=== PATIENT | female | born 1965 | race Caucasian/White ===

== ENCOUNTER 2016-09-28 09:40 | Emergency (ER) | payer OTHER ==
[~2016-09-28] VITALS: Ht 163.8 cm; Wt 99.8 kg
[~2016-09-28 09:40] MED LIST: AUGMENTIN 875-1 EACH PO; AUGMENTIN 875875 MG PO; CIPRODEX OTIC7.5 ML OT; CLINDAMYCIN HY300 MG PO; DILAUDID2 MG/M1 IV; DOCUSATE SODIU100 M3 PO; DOCUSATE SODIU100 MG PO; HALDOL 0.5MG T0.5 MG PO; IBU800 MG PO; IBUPROFEN800 M1 PO; K-DUR 20MEQ TA20 MEQ PO; LASIX20 MG PO; LEVEMIR 10100 UNITS/ SC; LEVEMIR FL100 UNIT/1 SC; LEVEMIR100 U/ML SC; LIDEX0.05 %/15 TOP; LISINOPRIL5 M1 PO; LYRICA75 MG PO; MEROPENEM1 GM IV; METFORMIN HCL500 M3 PO; MIRALAX119 GM PO; MIRALAX17 GM PO; MOTRIN 400 MG400 MG PO; MYCOSTATIN POWD15 GM TOP; NOVOLOG100 U/ML SC; OXYCODONE HYDRO10 M1 PO; OXYCONTIN10 MG PO; RISPERIDONE 1 MG1 MG PO; RISPERIDONE PO; RISPERIDONE1 MG PO; ROXICODONE5 MG PO; SENOKOT8.6 MG PO; TIGAN100 MG/1 M IM; TIGAN300 MG PO; TRAMADOL HCL50 M1 PO; TYLENOL500 MG PO
[2016-09-28 10:17] LABS: ABSOLUTE BASOPHIL COUNT 0 /CUMM (0.0-0.2); ABSOLUTE EOSINOPHIL COUNT 0.2 /CUMM (0.0-0.7); ABSOLUTE GRANULOCYTE CT 6.5 /CUMM (1.4-6.5); ABSOLUTE LYMPH COUNT 1.7 /CUMM (1.2-3.4); ABSOLUTE MONOCYTE COUNT 0.8 /CUMM (0.10-0.60); BASOPHIL % 0.5 % (0.0-2.0); EOSINOPHIL % 1.6 % (0-5); GRANULOCYTE % 70.6 % (42.2-75.2); HEMATOCRIT 34.1 % (37-47); MEAN CORPUSCULAR HGB 25.1 PG (27.0-31.0); MEAN CORPUSCULAR HGB CONC 32.2 G/DL (33.0-37.0); MEAN CORPUSCULAR VOLUME 78.1 FL (81.0-99.0); PLATELET COUNT 505 /CUMM (130-400); RBC DISTRIBUTION WIDTH 17.5 % (11.5-14.5); RED BLOOD CELL CT 4.37 /CUMM (4.20-5.40); WHITE BLOOD CELL COUNT 9.1 /CUMM (4.8-10.8)
--- NOTE | 2016-09-28 10:41 | ED GI/GU/ABDOMINAL COMPLAINT ---
History of Present Illness General Chief Complaint: General Adult Stated Complaint: ABD/BACK PAIN Source: patient, Exam Limitations: no limitations Vital Signs & Intake/Output Vital Signs & Intake/Output Vital Signs Date Time Temp Pulse Resp B/P Pulse O2 O2 Flow FiO2 Ox Delivery Rate 09/28 1625 75 14 145/68 97 Room Air 09/28 1345 97.0 80 20 140/90 98 Room Air 09/28 1223 97.0 84 150/90 09/28 1111 98.0 80 20 148/78 100 Room Air 09/28 0941 96.0 99 18 147/91 98 Room Air Room Air Allergies Coded Allergies: cefuroxime (From CEFTIN) (Intermediate, "LOST IT" 02/12/16) Reconcile Medications Insulin Detemir (Levemir Flextouch) 100 UNIT/ML (3 ML) INSULN.PEN 10 U SC BID PRN DIABETES (Reported) Lisinopril 5 MG TABLET 1 TAB PO DAILY HEART (Reported) Metformin HCl 500 MG TABLET 1 TAB PO BID DIABETES (Reported) Oxycodone HCl/Acetaminophen (Percocet 5-325 MG Tablet) 5 MG-325 MG TABLET 1 TAB PO Q6P PRN pain Risperidone 1 MG TAB 1 TAB PO BID MENTAL HEALTH (Reported) Tramadol HCl 50 MG TABLET 50 MG PO Q6 PAIN Triage Note: TRIAGE: 50 Y/O FEMALE PRESENTS WITH FAMILY - THE FAMILY REPORTS PATIENT DOES NTO SPEAK TELUGU. THE PATIENT NOTED TO BE SPEAKING INCOHERENTLY WITH TELUGU WORDS. APTIENT'S REPORTS PATIENT HASN'T SLEPT IN DAYS - 3 DAYS TO 10 DAYS, UNCLEAR. PATIENT REPORTS SEEING SNAKE AT NIGHT, REST OF SENTENCES UNCLEAR TO THIS RN. PATIENT ALSO REPORTS BACK PAIN. Triage Nurses Notes Reviewed? yes ? N Is pt currently ? No HPI: Patient presents for evaluation of left flank pain that began Thursday. Past History Travel History Traveled to [place] past 21 day No Medical History Any Pertinent Medical History? 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 No Review of Systems Review of Systems Constitutional: Reports: no symptoms. EENTM: Reports: no symptoms. Respiratory: Reports: no symptoms. Cardiovascular: Reports: no symptoms. GI: Reports: see HPI. Genitourinary: Reports: no symptoms. Musculoskeletal: Reports: no symptoms. Skin: Reports: no symptoms. Neurological/Psychological: Reports: no symptoms. Hematologic/Endocrine: Reports: no symptoms. Immunologic/Allergic: Reports: no symptoms. All Other Systems: Reviewed and Negative Physical Exam Physical Exam Gastrointestinal: normal bowel sounds (s), see below Comments: Gen.: Well-nourished, well-developed, no acute respiratory distress. Head: Normocephalic, atraumatic. Eyes: Normal inspection bilaterally Ears: Normal inspection bilaterally Nose: Normal inspection Throat/mouth : Moist mucosa Neck: Supple, full range of motion, no goiter Heart: Regular rate and rhythm, no murmurs rubs or gallops Lungs: Clear to auscultation bilaterally with normal air entry Chest: Nontender Back: Normal range of motion Abdomen: Soft, left lateral abdominal tenderness without rebound or guarding, nondistended, normal bowel sounds Extremities: Normal range of motion grossly, equal radial pulses, no cyanosis clubbing or edema Neurologic: Cranial nerves grossly intact, speech is clear Skin: warm and dry Psychiatric: Calm, cooperative, no apparent delusions or hallucinations Core Measures ACS in differential dx? No Severe Sepsis Present: No Septic Shock Present: No Progress Differential Diagnosis: splenomegaly, renal colic, abdominal metastases Plan of Care: Orders Procedure Date/time Status Add-on Test (ER Only) 09/28 1101 Active URINALYSIS 09/28 1101 Complete LIPASE 09/28 1008 Complete COMPREHENSIVE METABOLIC PANEL 09/28 1006 Complete CBC WITHOUT DIFFERENTIAL 09/28 1006 Complete Laboratory Tests 09/28/16 1514: Urinalysis LIGHT H, Urine Color YEL, Urine Clarity CLEAR, Urine pH 7.0, Ur Specific [place] 1.015, Urine Protein NEG, Urine Ketones NEG, Urine Nitrite NEG, Urine Bilirubin NEG, Urine Urobilinogen 0.2, Ur Leukocyte Esterase TRACE H, Ur Microscopic SEDIMENT EXAMINED, Urine WBC 3-5 H, Ur Epithelial Cells MOD H, Urine Bacteria FEW H, Urine Mucus RARE, Urine Hemoglobin NEG, Urine Glucose NEG 09/28/16 1008: Anion Gap 11, Estimated GFR > 60, BUN/Creatinine Ratio 18.0, Glucose 158 H, Calcium 8.9, Total Bilirubin 0.6, AST 15, ALT 25, Alkaline Phosphatase 75, Total Protein 7.2, Albumin 3.5, Globulin 3.7, Albumin/Globulin Ratio 0.9 L, Lipase 95 , CBC w Diff NO MAN DIFF REQ, RBC 4.37, MCV 78.1 L, MCH 25.1 L, RDW 17.5 H, MPV 7.0 L, Gran % 70.6, Lymphocytes % 18.2 L, Monocytes % 9.1, Eosinophils % 1.6, Basophils % 0.5, Absolute Granulocytes 6.5, Absolute Lymphocytes 1.7, Absolute Monocytes 0.8 H, Absolute Eosinophils 0.2, Absolute Basophils 0, PUBS MCHC 32.2 L Diagnostic Imaging: Discussed w/RAD: CT Scan. Radiology Impression: PATIENT: MATIAS FRASER PRESENT AGE: 50 PATIENT ACCOUNT NO: [id number] : 66 LOCATION: [facility] ORDERING PHYSICIAN: PATRICK MESA MD SERVICE DATE: 09/28/16 EXAM TYPE: CAT - CT ABD & PELVIS W/O IV CONTRAS EXAMINATION: CT ABDOMEN AND PELVIS WITHOUT CONTRAST CLINICAL INFORMATION: Left-sided flank pain. COMPARISON: 02/29/2016 TECHNIQUE: Multidetector volumetric imaging was performed from the superior aspect of the liver through the pubic symphysis. Sagittal and coronal reformatted images were obtained on the technologist's workstation. DLP: 1030 mGy-cm. FINDINGS: LUNG BASES: Relative minor linear densities most consistent with subsegmental atelectasis. No nodules or masses. No pleural disease. LIVER, GALLBLADDER, AND BILIARY TREE: The liver is normal in size, shape, and attenuation. No focal hepatic lesion or biliary ductal dilatation is present. Gallbladder is once again not visualized. No biliary dilatation. PANCREAS: Unremarkable. SPLEEN: Unremarkable. ADRENAL GLANDS: Unremarkable. KIDNEYS AND URETERS: There are bilateral nonobstructing lower pole calyceal stones. On the right, likely a solitary stone measures approximately 5.5 mm. On the left, tiny nonobstructing 1 mm lower pole calyceal stone. BLADDER: Unremarkable. GASTROINTESTINAL TRACT: The small and large bowel are unremarkable. The appendix is unremarkable. ABDOMINAL WALL: No significant hernia is appreciated. LYMPH NODES: Multiple rounded ovoid masses within the iliac lymph node chains bilaterally are new since baseline consistent with metastatic disease. On the right, at the level of the external lymph node chain, omental nodes measures up to 4.4 x 3.4 cm. Smaller lymph nodes are also noted along the hypogastric lymph node chains. On the left, the most dominant lymph node is along the hypogastric lymph node chain more rounded in morphology measuring up to 2.9 x 3 cm. Notable progression of lymph nodes throughout the retroperitoneum as well with the largest omental lymph nodes measuring up to 4.6 x 4 cm in the left para-aortic location. Similar lymph nodes are noted involving the common iliac lymph node chains. Extent of carcinomatosis is likely minimally progressive as well involving the greater omentum and serosa. No obstruction. Overall, there is decreasing ascites which is moderate in severity. VASCULAR: Unremarkable. PELVIC VISCERA: Large pelvic mass is related to adnexa and is also progressive now measuring up to approximately 7.6 x 7.4 cm. OSSEOUS STRUCTURES: Sclerotic lesion right sacrum stable. Degenerative changes noted throughout the lumbar spine with endplate sclerosis. No fracture. IMPRESSION: 1. No hydronephrosis. Bilateral nonobstructing right greater than left lower pole calyceal stones. 2. Decreasing amount of ascites overall but progression of metastatic disease. Pelvic cystic complex lesion enlarging as well as extensive lymphadenopathy throughout the retroperitoneum and pelvis. Progression of omental/ mesenteric lesions. DICTATED BY: ABRAHAN REYES MD DATE/TIME DICTATED:09/28/161321 FOOD SERVICE AIDE:ESAU DATE/TIME TRANSCRIBED:1321 CONFIDENTIAL, DO NOT COPY WITHOUT APPROPRIATE AUTHORIZATION. < Electronically signed in Other Vendor System> SIGNED BY: ABRAHAN REYES MD 1413 Initial ED EKG: none Comments: 09/28/2016 3:45:28 PM I've had a lengthy discussion with Sirisha is about the findings on her CAT scan. At this point I will control her pain and refer her back to hematology academic guidance specialist. Departure Departure Disposition: HOME OR SELF CARE Condition: Stable Clinical Impression Primary Impression: Ovarian cancer Qualifiers: Laterality: unspecified laterality Qualified Code: C56.9 - Malignant neoplasm of unspecified ovary Secondary Impressions: Lymphadenopathy, Malignant ascites Referrals: VALERIA WISEMAN APRN (PCP/Family) Additional Instructions: Percocet as prescribed for pain. Follow-up with your hematology academic guidance specialist this week for reevaluation. Return if any concerns or sudden worsening. Please note that there might be incidental findings in your evaluation that are unrelated to the current emergency department visit. Please notify your primary care doctor about this emergency department visit in order to obtain and review all of the testing performed so that these incidental findings can be monitored as needed. If you had an x-ray performed, please understand that some fractures may not be seen on the initial set of x-rays. If your symptoms persist you might need a repeat set of x-rays to check for such a fracture. If you had a laceration evaluated, please understand that foreign bodies such as glass or wood may not be visible to the naked eye or on plain x-rays. If the wound becomes red, swollen, increasingly more painful or if there is any drainage from the wound, please have it reevaluated by a physician for the possibility of a retained foreign body. Thank you for choosing the [facility] for your care. It was a pleasure to serve you today. Patrick Mesa M.D. [facility] Departure Forms: Customer Survey General Discharge Information Prescriptions: Current Visit Scripts Oxycodone HCl/Acetaminophen (Percocet 5-325 MG Tablet) 1 TAB PO Q6P PRN pain #10 TAB
--- NOTE | 2016-09-28 14:13 | CT SCAN REPORT ---
EXAMINATION: CT ABDOMEN AND PELVIS WITHOUT CONTRAST CLINICAL INFORMATION: Left-sided flank pain. COMPARISON: 02/29/2016 TECHNIQUE: Multidetector volumetric imaging was performed from the superior aspect of the liver through the pubic symphysis. Sagittal and coronal reformatted images were obtained on the technologist's workstation. DLP: 1030 mGy-cm. FINDINGS: LUNG BASES: Relative minor linear densities most consistent with subsegmental atelectasis. No nodules or masses. No pleural disease. LIVER, GALLBLADDER, AND BILIARY TREE: The liver is normal in size, shape, and attenuation. No focal hepatic lesion or biliary ductal dilatation is present. Gallbladder is once again not visualized. No biliary dilatation. PANCREAS: Unremarkable. SPLEEN: Unremarkable. ADRENAL GLANDS: Unremarkable. KIDNEYS AND URETERS: There are bilateral nonobstructing lower pole calyceal stones. On the right, likely a solitary stone measures approximately 5.5 mm. On the left, tiny nonobstructing 1 mm lower pole calyceal stone. BLADDER: Unremarkable. GASTROINTESTINAL TRACT: The small and large bowel are unremarkable. The appendix is unremarkable. ABDOMINAL WALL: No significant hernia is appreciated. LYMPH NODES: Multiple rounded ovoid masses within the iliac lymph node chains bilaterally are new since baseline consistent with metastatic disease. On the right, at the level of the external lymph node chain, omental nodes measures up to 4.4 x 3.4 cm. Smaller lymph nodes are also noted along the hypogastric lymph node chains. On the left, the most dominant lymph node is along the hypogastric lymph node chain more rounded in morphology measuring up to 2.9 x 3 cm. Notable progression of lymph nodes throughout the retroperitoneum as well with the largest omental lymph nodes measuring up to 4.6 x 4 cm in the left para-aortic location. Similar lymph nodes are noted involving the common iliac lymph node chains. Extent of carcinomatosis is likely minimally progressive as well involving the greater omentum and serosa. No obstruction. Overall, there is decreasing ascites which is moderate in severity. VASCULAR: Unremarkable. PELVIC VISCERA: Large pelvic mass is related to adnexa and is also progressive now measuring up to approximately 7.6 x 7.4 cm. OSSEOUS STRUCTURES: Sclerotic lesion right sacrum stable. Degenerative changes noted throughout the lumbar spine with endplate sclerosis. No fracture. IMPRESSION: 1. No hydronephrosis. Bilateral nonobstructing right greater than left lower pole calyceal stones. 2. Decreasing amount of ascites overall but progression of metastatic disease. Pelvic cystic complex lesion enlarging as well as extensive lymphadenopathy throughout the retroperitoneum and pelvis. Progression of omental/ mesenteric lesions.
[2016-09-28] MEDS ORDERED: PERCOCET 5-3251 EACH PO (15:51)
[2016-09-28 16:25] VITALS: BP 145/68
== END 2016-09-28 16:29 ==
LOC: ERH 09:40
PROVIDERS: Emergency Medicine
DX: C56.9 Malignant neoplasm of unspecified ovary (principal); R59.1 Generalized enlarged lymph nodes; R18.0 Malignant ascites
CPT/HCPCS: 74176; 81001

== ENCOUNTER 2017-01-27 13:28 | Emergency (ER) | payer OTHER ==
[~2017-01-27] VITALS: Ht 154.9 cm; Wt 103.9 kg
[~2017-01-27 13:28] MED LIST changes: +PERCOCET 5-3251 EACH PO
[2017-01-27 14:54] LABS: ABSOLUTE BASOPHIL COUNT 0 /CUMM (0.0-0.2); ABSOLUTE EOSINOPHIL COUNT 0.1 /CUMM (0.0-0.7); ABSOLUTE GRANULOCYTE CT 7.2 /CUMM (1.4-6.5); ABSOLUTE LYMPH COUNT 1.6 /CUMM (1.2-3.4); BASOPHIL % 0.4 % (0.0-2.0); EOSINOPHIL % 0.9 % (0-5); GRANULOCYTE % 72.3 % (42.2-75.2); MEAN CORPUSCULAR HGB 25.4 PG (27.0-31.0); MEAN CORPUSCULAR VOLUME 79.5 FL (81.0-99.0); MEAN PLATELET VOLUME 6.9 FL (7.4-10.4); PLATELET COUNT 505 /CUMM (130-400); RBC DISTRIBUTION WIDTH 16.5 % (11.5-14.5); RED BLOOD CELL CT 4.53 /CUMM (4.20-5.40); WHITE BLOOD CELL COUNT 9.9 /CUMM (4.8-10.8)
--- NOTE | 2017-01-27 14:56 | ED GI/GU/ABDOMINAL COMPLAINT ---
History of Present Illness General Chief Complaint: Abdominal Pain/Flank Pain Stated Complaint: L SIDE ABD/KIDNEY PAIN Source: patient, family Exam Limitations: no limitations Vital Signs & Intake/Output Vital Signs & Intake/Output Vital Signs Date Time Temp Pulse Resp B/P B/P Pulse O2 O2 Flow FiO2 Mean Ox Delivery Rate 01/27 1758 98.1 89 18 128/74 97 Room Air 01/27 1338 97.0 106 20 131/84 98 Room Air Allergies Coded Allergies: cefuroxime (From CEFTIN) (Intermediate, "LOST IT" 02/12/16) Reconcile Medications Acetaminophen (Athenol) 325 MG TABLET 1 TAB PO PRN PAIN (Reported) Hydrocodone/Acetaminophen (Silsbee 5-325 Tablet) 5 MG-325 MG TABLET 1-2 TAB PO Q4-6 PRN PRN pain Insulin Detemir (Levemir Flextouch) 100 UNIT/ML (3 ML) INSULN.PEN 8 U SC PRN DIABETES (Reported) Nitrofurantoin Monohyd/M-Cryst (Macrobid 100 MG Capsule) 100 MG CAPSULE 1 CAP PO BID uti with food Oxycodone HCl/Acetaminophen (Oxycodone-Acetaminophen 5-325) 5 MG-325 MG TABLET 1 TAB PO PRN PAIN (Reported) Triage Note: PT TO ED C/O LEFT FLANK PAIN, ABD PAIN SINCE THURSDAY. DENIES N/V/D. PT UNABLE TO EAT. Triage Nurses Notes Reviewed? yes ? n Is pt currently ? No Onset: Gradual Duration: day(s): (5) Timing: remote history Quality/Severity: moderate, sharpness Location: left flank, right flank Radiation: back Activities at Onset: none Modifying Factors: Worsens With: movement. HPI: Patient is a 51-year-old female with history of ovarian cancer, currently not on any treatment presenting to the emergency department with chief complaint of bilateral flank pain with pain going on since Thursday. Patient also reports that she noticed some blood in the urine over the weekend. She's been taking oxycodone that was prescribed to someone else over the weekend with some relief. No nausea or vomiting. Denies fevers or chills. Pain occasionally radiates down the back of her leg. Still drinking fluids without difficulty. Slight decreased by mouth intake secondary to pain. Pain is currently moderate. Worse when she lays on that side. Denies any lower extremity weakness. According to her friend she is currently waiting to hear back from her oncologist, they are working on setting her up with a new treatment plan for her ovarian cancer. Denies any recent changes in weight. She does go for paracentesis on a biweekly schedule. Last one was done less than one week ago. She is reporting some left flank pain and right flank pain as well. (CECI SURESH) Past History Travel History Traveled to [place] past 21 day No Medical History Any Pertinent Medical History? 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 No (CECI SURESH) Review of Systems Review of Systems Constitutional: Reports: no symptoms. Comments Review of systems: See HPI, All other systems negative. Constitutional, no chills fever or weight loss HEENT: No visual changes no sore throat no congestion Cardiovascular: No chest pain ,palpitation , orthopnea or ankle swelling Skin, no jaundice no rashes Respiratory: No dyspnea cough sputum or hemoptysis GI: No nausea no vomiting : No dysuria Muscle skeletal: no neck pain, Neurologic: No numbness no confusion Psych: No stress anxiety or depression,. Heme/endocrine: No bruising no bleeding no polyuria or polydipsia Immunology: No splenectomy or history of AIDS (CECI SURESH) Physical Exam Physical Exam General Appearance: well developed/nourished, no apparent distress, alert, awake , comfortable Gastrointestinal: normal bowel sounds, soft, LEFT FLANK TENDERNESS Comments: Well-developed well-nourished person in no acute distress HEENT: Pupils equally round and reactive to light and accommodation. Nose is atraumatic. Neck: Normal inspection Back: Left CVA tenderness Cardiovascular: Regular rate and rhythms no murmurs rubs or gallops, normal JVP Respiratory: Chest nontender. No respiratory distress.breath sounds clear to auscultation bilaterally Abdomen: Soft, tender to palpation in the left upper and left lower quadrant, positive tenderness to palpation over the left flank, old surgical scar noted over the midline of the abdomen, no surrounding erythema or edema. Nondistended , no appreciable organomegaly. Normal bowel sounds. No ascites. No ecchymosis noted over the abdomen or flank. Extremity: No edema, no calf tenderness to palpation, normal and equal pulses. Neuro: Alert oriented x3 Skin: No appreciable rash on exposed skin, skin is warm and dry. Psych: Mood and affect is normal, memory and judgment is normal. Core Measures ACS in differential dx? No Severe Sepsis Present: No Septic Shock Present: No (ANN MARIE DEMPSEY,CECI) Progress Differential Diagnosis: gastritis, UTI/pyelo, KDINEY STONE, URETEROLITHIASIS, HYDRONEPHROSIS, METS Plan of Care: Orders Procedure Date/time Status Add-on Test (ER Only) 01/27 1726 Active CULTURE,URINE 01/27 1446 Active URINALYSIS 01/27 1343 Complete COMPREHENSIVE METABOLIC PANEL 01/27 1343 Complete CBC WITHOUT DIFFERENTIAL 01/27 1343 Complete Laboratory Tests 01/27/17 1442: Anion Gap 10, Estimated GFR > 60, BUN/Creatinine Ratio 11.7, Glucose 196 H, Calcium 8.7, Total Bilirubin 0.5, AST 22, ALT 35, Alkaline Phosphatase 117, Total Protein 6.9, Albumin 3.5, Globulin 3.4, Albumin/Globulin Ratio 1.0 L, CBC w Diff NO MAN DIFF REQ, RBC 4.53, MCV 79.5 L, MCH 25.4 L, RDW 16.5 H, MPV 6.9 L, Gran % 72.3, Lymphocytes % 16.0 L, Monocytes % 10.4 H, Eosinophils % 0.9, Basophils % 0.4, Absolute Granulocytes 7.2 H, Absolute Lymphocytes 1.6, Absolute Monocytes 1.0 H, Absolute Eosinophils 0.1, Absolute Basophils 0, PUBS MCHC 32.0 L, Urine Color YEL, Urine Clarity HAZY H, Urine pH 6.0, Ur Specific Raymond 1.015, Urine Protein TRACE H, Urine Ketones NEG, Urine Nitrite NEG, Urine Bilirubin NEG, Urine Urobilinogen 0.2, Ur Leukocyte Esterase SMALL H, Ur Microscopic SEDIMENT EXAMINED, Urine RBC 25-50 H, Urine WBC 5-10 H, Ur Epithelial Cells MOD H, Urine Bacteria MOD H, Urine Mucus FEW, Urine Hemoglobin LARGE H, Urine Glucose NEG Microbiology 01/27 1446 URINE ROUT: Urine Culture - RECD Diagnostic Imaging: Viewed by Me: CT Scan. Discussed w/RAD: CT Scan. Radiology Impression: PATIENT: MATIAS FRASER PRESENT AGE: 51 PATIENT ACCOUNT NO: [id number] : 66 LOCATION: [facility] ORDERING PHYSICIAN: CECI DEMPSEY SERVICE DATE: 01/27/17 EXAM TYPE: CAT - CT ABD & PELVIS W/O IV CONTRAS; CT LUMB SPINE WO IV CONTRAST; CT THOR SPINE WO IV CONTRAST EXAMINATIONS: CT ABDOMEN AND PELVIS WITHOUT CONTRAST AND CT THORACIC SPINE AND LUMBAR SPINE CLINICAL INFORMATION: Abdominal pain. Ascites. Follow-up. COMPARISON: Multiple prior exams are reviewed. The most recent is from 2016. TECHNIQUE: Contiguous axial thin section helical images of the abdomen and pelvis were performed without oral or IV contrast. Contiguous helical images of the thoracic and lumbar spine were obtained. The data set was reformatted in the coronal and sagittal planes and reviewed on an independent workstation. DLP: 1140 mGy-cm. FINDINGS: There is streaky bibasilar atelectasis. The visualized portions of the heart are unremarkable. The liver is of normal size and attenuation without focal lesions nor intrahepatic biliary ductal dilation. The gallbladder is nonvisualized. The spleen, pancreas, adrenal glands are unremarkable. Both kidneys are of normal size and attenuation. There is a 6 mm nonobstructive calculus within the lower pole of the right kidney. There is no right-sided hydronephrosis. There is grade 1-2 left hydronephrosis. There is a moderate amount of abdominal free fluid. Again identified are numerous retroperitoneal lymph nodes in a periaortic location. This is improved from prior exam. The largest lymph node in a left periaortic location on the prior exam measured approximately 4.5 x 2.8 cm and the prior exam. That measures approximately 3.0 x 2.4 cm on the current exam. There is also iliac lymphadenopathy. This is improved from prior exam, as well. A left external iliac lymph node on the prior exam measured 3.3 x 2.5 cm. That measures 2.9 x 2.7 cm on the current exam. Normal unopacified loops of small and large bowel are identified. There is a moderate to large amount of pelvic free fluid. The urinary bladder is unremarkable. A cystic focus posterior to the urinary bladder measuring approximately 7.2 cm is similar to prior exam. Bone windows: Neither sclerotic nor lytic bone lesions are identified. The thoracic and lumbar vertebra are in normal alignment. Disc heights and vertebral body heights are well-preserved. There is mild anterior osteophyte formation within the thoracic and lumbar spine. IMPRESSION: Interval decrease in retroperitoneal and iliac lymphadenopathy. Moderate amount of abdominal and pelvic free fluid, slightly increased from prior exam. Nonobstructive right renal calculus. Left grade 1-2 hydronephrosis. Stable cystic pelvic lesion. Bibasilar atelectasis. DICTATED BY: LAZARO NAILS MD DATE/TIME DICTATED:01/27/171646 COLOR RECEIVER:ESAU DATE/TIME TRANSCRIBED:01/27/171646 CONFIDENTIAL, DO NOT COPY WITHOUT APPROPRIATE AUTHORIZATION. <Electronically signed in Other Vendor System> SIGNED BY: LAZARO NAILS MD 01/27/17 1701 Initial ED EKG: none Comments: Patient family informed of imaging results and lab work results. Patient has urinary tract infection, urine culture sent. She does have small amount of hard to on the left side, she does have a 6 mm stone in the kidney on the right side. No signs of metastasis to the bone noted on CT scan. Patient will be treated for UTI with antibiotics. Also sent home with pain medication. Patient feeling improved after pain medication. He'll follow up with urology. Also of all of but the PCP. Patient acute distress vitals are stable. HydRO from recently passed stone. Patient does have blood in the urine. (CECI SURESH) Departure Departure Time of Disposition: 1738 Disposition: HOME OR SELF CARE Condition: Stable Clinical Impression Primary Impression: Hydronephrosis Qualifiers: Hydronephrosis type: unspecified Qualified Code: N13.30 - Unspecified hydronephrosis Secondary Impressions: Flank pain Urinary tract infection Qualifiers: Urinary tract infection type: site unspecified Hematuria presence: with hematuria Qualified Codes: N39.0 - Urinary tract infection, site not specified; R31.9 - Hematuria, unspecified Referrals: VALERIA WISEMAN APRN (PCP/Family) YARON LIM,KEN GONZALEZ MD,SARAN PURI MD,FEDE MADDOX MD,JASON Heller Additional Instructions: Follow-up with your oncologist also follow-up with urology. Increase fluid intake. Take Silsbee as prescribed for severe pain. Return for worsening symptoms or concerns. ATIENT: MATIAS FRASER PRESENT AGE: 51 PATIENT ACCOUNT NO: [id number] : 66 LOCATION: [facility] ORDERING PHYSICIAN: CECI DEMPSEY SERVICE DATE: 01/27/17 EXAM TYPE: CAT - CT ABD & PELVIS W/O IV CONTRAS; CT LUMB SPINE WO IV CONTRAST; CT THOR SPINE WO IV CONTRAST EXAMINATIONS: CT ABDOMEN AND PELVIS WITHOUT CONTRAST AND CT THORACIC SPINE AND LUMBAR SPINE CLINICAL INFORMATION: Abdominal pain. Ascites. Follow-up. COMPARISON: Multiple prior exams are reviewed. The most recent is from 09/28/2016. TECHNIQUE: Contiguous axial thin section helical images of the abdomen and pelvis were performed without oral or IV contrast. Contiguous helical images of the thoracic and lumbar spine were obtained. The data set was reformatted in the coronal and sagittal planes and reviewed on an independent workstation. DLP: 1140 mGy-cm. FINDINGS: There is streaky bibasilar atelectasis. The visualized portions of the heart are unremarkable. The liver is of normal size and attenuation without focal lesions nor intrahepatic biliary ductal dilation. The gallbladder is nonvisualized. The spleen, pancreas, adrenal glands are unremarkable. Both kidneys are of normal size and attenuation. There is a 6 mm nonobstructive calculus within the lower pole of the right kidney. There is no right-sided hydronephrosis. There is grade 1-2 left hydronephrosis. There is a moderate amount of abdominal free fluid. Again identified are numerous retroperitoneal lymph nodes in a periaortic location. This is improved from prior exam. The largest lymph node in a left periaortic location on the prior exam measured approximately 4.5 x 2.8 cm and the prior exam. That measures approximately 3.0 x 2.4 cm on the current exam. There is also iliac lymphadenopathy. This is improved from prior exam, as well. A left external iliac lymph node on the prior exam measured 3.3 x 2.5 cm. That measures 2.9 x 2.7 cm on the current exam. Normal unopacified loops of small and large bowel are identified. There is a moderate to large amount of pelvic free fluid. The urinary bladder is unremarkable. A cystic focus posterior to the urinary bladder measuring approximately 7.2 cm is similar to prior exam. Bone windows: Neither sclerotic nor lytic bone lesions are identified. The thoracic and lumbar vertebra are in normal alignment. Disc heights and vertebral body heights are well-preserved. There is mild anterior osteophyte formation within the thoracic and lumbar spine. IMPRESSION: Interval decrease in retroperitoneal and iliac lymphadenopathy. Moderate amount of abdominal and pelvic free fluid, slightly increased from prior exam. Nonobstructive right renal calculus. Left grade 1-2 hydronephrosis. Stable cystic pelvic lesion. Bibasilar atelectasis. DICTATED BY: LAZARO NAILS MD DATE/TIME DICTATED:01/27/171646 COLOR RECEIVER:ESAU DATE/TIME TRANSCRIBED:01/27/171646 CONFIDENTIAL, DO NOT COPY WITHOUT APPROPRIATE AUTHORIZATION. <Electronically signed in Other Vendor System> SIGNED BY: LAZARO NAILS MD 01/27/17 9044 Departure Forms: Customer Survey General Discharge Information Prescriptions: Current Visit Scripts Hydrocodone/Acetaminophen (Silsbee 5-325 Tablet) 1-2 TAB PO Q4-6 PRN PRN pain #12 TAB Nitrofurantoin Monohyd/M-Cryst (Macrobid 100 MG Capsule) 1 CAP PO BID #14 CAP with food (CECI SURESH) PA/MEDICAL LAB TECHNICIAN Co-Sign Statement Statement: ED Attending supervision documentation- [] I saw and evaluated the patient. I have also reviewed all the pertinent lab results and diagnostic results. I agree with the findings and the plan of care as documented in the PA's/MEDICAL LAB TECHNICIAN's documentation. [x] I have reviewed the ED Record and agree with the PA's/MEDICAL LAB TECHNICIAN's documentation. [] Additions or exceptions (if any) to the PAs/MEDICAL LAB TECHNICIAN's note and plan are summarized below: [] (TIERRA GARCIA DO
[2017-01-27] MEDS ORDERED: OXYCODONE HCL15 M1 PO (15:32)
[2017-01-27] MEDS ORDERED: OXYCODONE-ACET1 EACH PO (15:33)
[2017-01-27] MEDS ORDERED: ATHENOL325 MG PO (15:34)
--- NOTE | 2017-01-27 17:01 | CT SCAN REPORT ---
EXAMINATIONS: CT ABDOMEN AND PELVIS WITHOUT CONTRAST AND CT THORACIC SPINE AND LUMBAR SPINE CLINICAL INFORMATION: Abdominal pain. Ascites. Follow-up. COMPARISON: Multiple prior exams are reviewed. The most recent is from 09/28/2016. TECHNIQUE: Contiguous axial thin section helical images of the abdomen and pelvis were performed without oral or IV contrast. Contiguous helical images of the thoracic and lumbar spine were obtained. The data set was reformatted in the coronal and sagittal planes and reviewed on an independent workstation. DLP: 1140 mGy-cm. FINDINGS: There is streaky bibasilar atelectasis. The visualized portions of the heart are unremarkable. The liver is of normal size and attenuation without focal lesions nor intrahepatic biliary ductal dilation. The gallbladder is nonvisualized. The spleen, pancreas, adrenal glands are unremarkable. Both kidneys are of normal size and attenuation. There is a 6 mm nonobstructive calculus within the lower pole of the right kidney. There is no right-sided hydronephrosis. There is grade 1-2 left hydronephrosis. There is a moderate amount of abdominal free fluid. Again identified are numerous retroperitoneal lymph nodes in a periaortic location. This is improved from prior exam. The largest lymph node in a left periaortic location on the prior exam measured approximately 4.5 x 2.8 cm and the prior exam. That measures approximately 3.0 x 2.4 cm on the current exam. There is also iliac lymphadenopathy. This is improved from prior exam, as well. A left external iliac lymph node on the prior exam measured 3.3 x 2.5 cm. That measures 2.9 x 2.7 cm on the current exam. Normal unopacified loops of small and large bowel are identified. There is a moderate to large amount of pelvic free fluid. The urinary bladder is unremarkable. A cystic focus posterior to the urinary bladder measuring approximately 7.2 cm is similar to prior exam. Bone windows: Neither sclerotic nor lytic bone lesions are identified. The thoracic and lumbar vertebra are in normal alignment. Disc heights and vertebral body heights are well-preserved. There is mild anterior osteophyte formation within the thoracic and lumbar spine. IMPRESSION: Interval decrease in retroperitoneal and iliac lymphadenopathy. Moderate amount of abdominal and pelvic free fluid, slightly increased from prior exam. Nonobstructive right renal calculus. Left grade 1-2 hydronephrosis. Stable cystic pelvic lesion. Bibasilar atelectasis.
[2017-01-27] MEDS ORDERED: NORCO 5-325 TA1 EACH PO (17:41)
[2017-01-27] MEDS ORDERED: MACROBID 100 M100 MG PO (17:41)
[2017-01-27 17:58] VITALS: BP 128/74
== END 2017-01-27 18:12 ==
LOC: ERH 13:28
PROVIDERS: Emergency Medicine
DX: N13.30 Unspecified hydronephrosis (principal); N39.0 Urinary tract infection, site not specified; R10.9 Unspecified abdominal pain; I10 Essential (primary) hypertension; E11.9 Type 2 diabetes mellitus without complications; Z79.4 Long term (current) use of insulin
CPT/HCPCS: 74176; 81001; 87086; 96374

== ENCOUNTER → 2017-02-03 | Day surgery (SDC) | payer OTHER ==
[~2017-02-03] VITALS: Ht 154.9 cm; Wt 103.4 kg
[~2017-02-03] MED LIST changes: +ATHENOL325 MG PO; +MACROBID 100 M100 MG PO; +NORCO 5-325 TA1 EACH PO; +OXYCODONE HCL15 M1 PO; +OXYCODONE-ACET1 EACH PO
--- NOTE | 2017-02-03 16:45 | Operative Report ---
Operative/Inv Procedure Report Surgery Date: 02/03/17 Name of Procedure: right ESWL, cysto LEFT stent insertion Pre-Operative Diagnosis: right stone: left hydro-no stone:tumor compression Post-Operative Diagnosis: same Estimated Blood Loss: scant Surgeon/Tool And Cutter Grinder: FEDE PURI MD Anesthesia: moderate sedation Specimens: none Complications: none Operative/Procedure Note Note: The patient was taken to the operating room and placed on the ESWL table in supine position. Time out was performed, with the patient awake, to confirm identity, procedure, laterality, and other pertinent danna-operative information. After adequate anesthesia, the patient was positioned so that the right flank was placed over the ESWL table cut-out, and overlying the dome of the shockwave generator. C-arm fluroscopy, as well as renal US was used to locate the stone, and evaluate the right kidney. The stone was visible on fluroloscopy at the right mid-pole. Renal US confirmed no hydronephrosis, with no additional stone seen in the right kidney. Using the C-Arm fluoroscopy in an A-P, and Oblique view, the position of the renal stone was optimized at the center of the crosshairs. At this point, E.S.W.L. was initiated at low power levels x 200 shocks. After noting the patient's tolerance to the shockwaves, the shockwave power level was quickly maximized. At the end of the procedure, the composition of the stone had changed significantly indicating the pulverization of the ureter stone. A total of 2500 shockwaves were delivered to the stone in order to achieve adequate lithotrypsy. Once the ESWL concluded, the pt. was repositioned in frog-legged position, draped and prepped in the usual surgical fashion. A 22 Swazi cystoscope sheath with a 30 angle lens was then inserted into the bladder. The bladder was thoroughly and systematically surveyed revealing no tumor no stone. Both ureteral orifices were in their orthotopic position. The LEFT orifice was identified, and using a 8 Swazi cone-tipped catheter, retrograde pyelogram was performed. LEFT sided hydronephrosis with slow drainage of contrast material was noted. At this point decided to place a stent. The LEFT orifice was intubated with a 0.035 Glidewire and advanced into the left renal pelvis without difficulty. Guidewire was inserted without difficulty. A a 6 x 22 Bard double- J stent was railroaded over the left gluidewire, with fluoroscopic visualization. With the proximal coil visualized in the left renal pelvis, and the distal coil seen in the bladder, the Glidewire was removed. The stent remained in proper place. The cystoscope was then removed after draining the bladder. The patient tolerated the procedures well, was awakened, and taken to recovery in satisfactory condition via stretcher. The pt will be dischared to home with pain meds, diet orders, and intructions to catch fragments with straining the urine. The patient is to have follow-up renal ultrasound and KUB within 1-2 weeks and f/u in the office after discharge. Discharge Disposition: PACU CC: FEDE PURI MD
== END ==
LOC: STS 01-29 07:00
DX: N20.0 Calculus of kidney (principal); N13.30 Unspecified hydronephrosis; C56.9 Malignant neoplasm of unspecified ovary; E11.8 Type 2 diabetes mellitus with unspecified complications
CPT/HCPCS: 81025; C2617; J0690; J2405

== ENCOUNTER 2017-07-20 01:25 | Inpatient (IN) | payer OTHER ==
[~2017-07-20] VITALS: Ht 154.9 cm; Wt 126.6 kg
[~2017-07-20 01:25] MED LIST changes: +DILAUDID2 M1 PO; +DILAUDID4 M1 PO; +FENTANYL1 EAC2 TOP; +GABAPENTIN100 M2 PO; +IBUPROFEN600 M1 PO; +ONDANSETRON ODT4 M1 PO; +PERCOCET 7.5-31 EACH PO; +RISPERDAL0.5 M1 PO; +RISPERDAL1 M1 PO; +SILVADENE20 GM TOP; +XARELTO15 M1 PO
--- NOTE | 2017-07-20 14:27 | Admission Core Measures ---
Acute Coronary Syndrome (CM) ACS Core Measures Acute Coronary Syndrome Diagnosis No Congestive Heart Failure (NEW) CHF Core Measures Congestive Heart Failure Diagnosis No Cerebrovascular Accident (NEW) CVA Core Measures CVA/TIA Diagnosis No Venous Thromboembolism VTE Core Derek (View Protocol) VTE Risk Factors VTE (Previous) No Mechanical VTE Prophylaxis d/t Surgical Contraindication No VTE Pharm Prophylaxis d/t NA PharmProphylax ordered Problem List As ranked by this Provider includes Assessment & Plan 1. Cellulitis HOME MEDS Home Med List Amoxicillin/Potassium Clav (Augmentin 875-125 Tablet) 875 MG-125 MG TABLET 1 TAB PO BID infection Gabapentin 100 MG CAPSULE 1 CAP PO BID NEUROPATHY (Reported) Hydromorphone HCl (Dilaudid) 4 MG TABLET 1 TAB PO Q3P PAIN (Reported) Ibuprofen 600 MG TABLET 1 TAB PO Q3P PRN PAIN (Reported) Risperidone (Risperdal) 1 MG TABLET 1 TAB PO BID MENTAL HEALTH (Reported) Rivaroxaban (Xarelto) 15 MG TABLET 1 TAB PO BID RLE DVT (Reported) Silver Sulfadiazine (Silvadene) 1 % CREAM..G. 1 RENETTA TOP DAILY infection
--- NOTE | 2017-07-20 14:53 | Patient Discharge Instructions ---
Discharge Instructions General Discharge Information You were seen/treated for: Right leg cellulitis You had these procedures: I&D Right lower extremity with wound vac placement Watch for these problems: Increasing pain despite the use of pain medication Increasing redness, warmth or swelling Drainage of any type from incision Inability to bear weight on operative leg Persistent nausea and vomiting Fever greater than 101.5 degrees Call Surgeon to remove: Other, wound vac Daily wet to dry dressings: No Other wound care: Daily dressing changes to left foot: Aquacel, kerlix, jt bandage. Wound vac change every two to three days Special Instructions: Follow up with Dr. Ricardo at the wound center in 1 week (08/04/17) Diet Continue normal diet: Yes Recommended Diet: Regular Activity Full Activity/No Limits: No Activity Self Limited: Yes Activity Limited to: Weight bear as tolerated Acute Coronary Syndrome Inclusion Criteria At DC or during hospital stay patient has or had the following: ACS DIAGNOSIS No Discharge Core Measures Meds if any: Prescribed or Continued at Discharge Meds if any: NOT Prescribed or Continued at Discharge Congestive Heart Failure Inclusion Criteria At DC or during hospital stay patient has or had the following: CHF DIAGNOSIS No Discharge Core Measures Meds if any: Prescribed or Continued at Discharge Meds if any: NOT Prescribed or Continued at Discharge Cerebrovascular accident Inclusion Criteria At DC or during hospital stay patient has or had the following: CVA/TIA Diagnosis No Discharge Core Measures Meds if any: Prescribed or Continued at Discharge Meds if any: NOT Prescribed or Continued at Discharge Venous thromboembolism Inclusion Criteria VTE Diagnosis No VTE Type NONE VTE Confirmed by (Test) NONE Discharge Core Measures - Per Current guidelines, there needs to be overlap - treatment for the first 5 days of Warfarin therapy. - If discharged on Warfarin prior to 5 days of - overlap therapy, the patient will need to be - assessed for post discharge needs including - *Post discharge parental anticoagulation - *Warfarin and/or parental anticoagulation education - *Follow up date to check INR post discharge At least 5 days overlap therapy as Inpatient No Meds if any: Prescribed or Continued at Discharge Note: Overlap Therapy is Warfarin and Anticoagulant Meds if any: NOT Prescribed or Continued at Discharge
--- NOTE | 2017-07-20 15:04 | Surgical Discharge Summary ---
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 Spouse Services at Home: None What is Your Primary Language? Bangladeshi Review of Systems: See H&P Hospital Course Course Attending Physician: Sonny Ricardo MD Primary Care Physician: Vicente Boyd APRN Hospital Course: Patient was admitted to hospital post-operatively following debridement of cellulitis of the right lower extremity with wound vac placement. She tolerated the procedure well and was transferred to a general surgical floor. Her wound was managed by our woundcare specialist. She was seen by infectous disease, who managed her antibiotics. Her diet was advanced and tolerated. Her pain was controlled with po pain medication. She was evaluated and treated by physical therapy. On 07/24/17 she underwent a paracentesis. She was taken back to the OR by on 07/27/17 for further debridement of her right lower extremity, and is expected to be discharged to short term rehab on 07/28/17 with plans for continued wound care. Complications: None Allergies: Coded Allergies: cefuroxime (From CEFTIN) (Intermediate, "LOST IT" 02/12/16) Disposition Summary Disposition Principal Diagnosis: Right lower extremity cellulitis Additional Diagnosis: None Discharge Disposition: SNF Discharge Instructions General Discharge Information Code Status: Full Code Patient's Diet: Regular, advance as tolerated Patient's Activity: WBAT Follow-Up Instructions/Appts: Follow up with Dr. Ricardo in wound center as directed Medications at Discharge Discharge Medications: Stop taking the following medications: Hydromorphone HCl (Dilaudid) 4 MG TABLET ORAL EVERY 3 HOURS NEEDED Silver Sulfadiazine (Silvadene) 1 % CREAM..G. On the skin DAILY Qty = 2 Amoxicillin/Potassium Clav (Augmentin 875-125 Tablet) 875 MG-125 MG TABLET ORAL TWICE DAILY Qty = 10 Continue taking these medications: Risperidone (Risperdal) 1 MG TABLET 1 Tablet ORAL TWICE DAILY Comments: Last Taken:07/01/17 Time:10:32AM Fentanyl (Fentanyl) 25 MCG/HOUR PATCH.TD72 Patch On the skin Every 3 days Comments: Last Taken:06/30/17 Time:9:28PM Rivaroxaban (Xarelto) 15 MG TABLET 1 Tablet ORAL TWICE DAILY Comments: Last Taken:07/01/17 Time:10:39AM Gabapentin (Gabapentin) 100 MG CAPSULE 1 Capsule ORAL TWICE DAILY Comments: Last Taken:06/30/17 Time:10:31AM Ibuprofen (Ibuprofen) 600 MG TABLET 1 Tablet ORAL EVERY 3 HOURS NEEDED as needed for PAIN Instructions: with food Copies To: Peewee Boyd APRN, MD,Damian Ruggiero
--- NOTE | 2017-07-20 15:46 | Operative Report ---
Operative/Inv Procedure Report Surgery Date: 07/20/17 Name of Procedure: Excisional debridement through muscle greater than 20 cm, application of VAC Pre-Operative Diagnosis: Chronic venous insufficiency with infected necrotic pretibial ulcer Post-Operative Diagnosis: same Estimated Blood Loss: scant Surgeon/Centrifugal Casting Machine Operator: Sonny Ricardo MD Anesthesia: local monitored anesthesi Complications: None Condition: Stable to PACU Operative Indication: This is a 51-year-old female with a history of venous insufficiency and a pretibial ulcer since April. She has not had appropriate debridement or wound care and the wound has been worsening. Recently the wound been draining seropurulent material and will require debridement. Consent was obtained from the patient and her . Operative/Procedure Note Note: Patient was laid supine and brought to the operating room table. A timeout was held in accordance with [facility] policy. Topical lidocaine was used due to the patient's wish not to have injectable lidocaine used. Using a 15 blade as well as a sharp curette a wide excisional debridement was down through dense necrotic tissue. Seropurulent fat necrosis was removed. Turbid fluid was also noted. A wide debridement was performed and hemostasis was achieved with Bovie electrocautery. The wound increased in depth as well as witdh in length. Adequate viable tissue was noted at the level of the muscle. Some small areas of muscle were debrided as well. However, overall this layer appears healthy. There appears to be dense fat necrosis throughout the pretibial surface of her lower extremity related to the infected wound. The wound was then pulse irrigated with 3 L of saline with antibiotic solution. Once hemostasis was achieved a vacuum-assisted closure dressing was placed. A VAC sponge was brought into the field cut to size and placed on the skin with a VAC drape. The leg was then wrapped in Kerlix and Joesph. The sponge needle and instrument counts were correct. Due to the extent of the wound and need for further wound care. The patient will be admitted for observation and for further care. She may require further operative debridement. Additional Comments: Due to the extent of the wound and need for further wound care. The patient will be admitted for observation and for further care. She may require further operative debridement. The patient will also require a course of antibiotics due to extensive soft tissue infection apparent after debridement of the surface eschar. CC: Maya LIM,Lukasz Carrion; Cuong LIM,Damian Ruggiero
[2017-07-20 16:39] VITALS: BP 108/70
--- NOTE | 2017-07-20 16:44 | PN- Orthopedic ---
Subjective Subjective: Pt asleep in bed, unpon waking complains of pain. Pt says she is very hungry. is very concerned that pt needs a paracentesis while she is here. He states that her oncologist Dr. Lee usually orders a paracentesis every 10 days and as of today 11 days have passed. Also, her xarelto needs to be help for this procedure and he doesnt want it to be help again. Objective Vital Signs and I&Os Vital Signs Date Time Temp Pulse Resp B/P B/P Pulse O2 O2 Flow FiO2 Mean Ox Delivery Rate 07/20 1639 97.6 72 18 108/70 93 Room Air Intake & Output 07/20 1600 07/20 0800 07/20 0000 07/19 1600 07/19 0700 07/19 0000 Intake Total Output Total Balance Patient 279 lb Weight Physical Exam: gen-NAD resp-CTAB cardio-RRR EXT- R leg with jt bandage and woundvac in place. Approximately 30cc serosang drainage in canister. Foot is warm with distal sensation and movement intact Assessment/Plan Assessment/Plan 51yo F SP Right leg debridement POD0 Cont ABX- Unasyn WOund vac- to be changed thursday by Kathe PT to eval and treat Xarelto to start tomorrow, Will have to speek to oncologist Dr. Lee as to weather she wants the pt to have a paracentesis while here Pain management Regular diet Encourage ambulation Core Measures Venous Thromboembolism VTE Risk Factors VTE (Previous) No Mechanical VTE Prophylaxis d/t Surgical Contraindication No VTE Pharm Prophylaxis d/t NA PharmProphylax ordered
[2017-07-20 18:23] VITALS: BP 114/60
[2017-07-20 21:00] VITALS: BP 124/70
[2017-07-20 23:03] VITALS: BP 130/68
[2017-07-21 01:25] VITALS: BP 116/64
[2017-07-21 05:00] VITALS: BP 102/60
[2017-07-21 08:55] LABS: ABSOLUTE BASOPHIL COUNT 0 /CUMM (0.0-0.2); ABSOLUTE EOSINOPHIL COUNT 0.2 /CUMM (0.0-0.7); ABSOLUTE GRANULOCYTE CT 9.2 /CUMM (1.4-6.5); ABSOLUTE LYMPH COUNT 0.9 /CUMM (1.2-3.4); ABSOLUTE MONOCYTE COUNT 0.7 /CUMM (0.10-0.60); BASOPHIL % 0.2 % (0.0-2.0); HEMATOCRIT 23.7 % (37-47); MEAN CORPUSCULAR HGB 25.7 PG (27.0-31.0); MEAN CORPUSCULAR HGB CONC 31.7 G/DL (33.0-37.0); MEAN CORPUSCULAR VOLUME 81.3 FL (81.0-99.0); MEAN PLATELET VOLUME 6.3 FL (7.4-10.4); PLATELET COUNT 678 /CUMM (130-400); RED BLOOD CELL CT 2.91 /CUMM (4.20-5.40)
[2017-07-21 09:00] VITALS: BP 122/74
[2017-07-21 09:42] LABS: GRANULOCYTE % 83.1 % (42.2-75.2)
[2017-07-21 13:08] VITALS: BP 126/82
--- NOTE | 2017-07-21 16:54 | PN- Vascular Surgery ---
Surgical Brief Attending Note Brief Attending Note: VASCULAR ATTENDING NOTE: Pt. is s/p RLE excisional debridement POD #1. No acute event. + C/o of pain requesting MSO4. PE: AF/VSS Ext: Wound VAC--C/D/I--L. foot wound changed A/P For VAC change tommorow Please medicate pt.. at 8 am for VAC change tommorow Pt. for paracentesis this admission as well Cont. ABX f/u cultures
[2017-07-21 22:19] VITALS: BP 140/80
[2017-07-22 06:20] VITALS: BP 120/66
[2017-07-22 09:36] LABS: ABSOLUTE BASOPHIL COUNT 0 /CUMM (0.0-0.2); ABSOLUTE EOSINOPHIL COUNT 0.2 /CUMM (0.0-0.7); ABSOLUTE GRANULOCYTE CT 9.2 /CUMM (1.4-6.5); ABSOLUTE LYMPH COUNT 0.9 /CUMM (1.2-3.4); ABSOLUTE MONOCYTE COUNT 0.9 /CUMM (0.10-0.60); BASOPHIL % 0.4 % (0.0-2.0); EOSINOPHIL % 1.6 % (0-5); HEMATOCRIT 24.6 % (37-47); MEAN CORPUSCULAR HGB 25.3 PG (27.0-31.0); MEAN CORPUSCULAR HGB CONC 30.9 G/DL (33.0-37.0); MEAN CORPUSCULAR VOLUME 81.8 FL (81.0-99.0); MEAN PLATELET VOLUME 6.3 FL (7.4-10.4); PLATELET COUNT 654 /CUMM (130-400); RED BLOOD CELL CT 3.01 /CUMM (4.20-5.40); WHITE BLOOD CELL COUNT 11.2 /CUMM (4.8-10.8)
[2017-07-22 14:00] VITALS: BP 112/74
--- NOTE | 2017-07-22 15:44 | PN- Vascular Surgery ---
Subjective Subjective: PT SEEN AND EXAMINED BY DR DEL ANGEL CO CONSTANT PAIN IN THE LE, REQUESTING MORPHINE Objective Vital Signs and I&Os Vital Signs Date Time Temp Pulse Resp B/P B/P Pulse O2 O2 Flow FiO2 Mean Ox Delivery Rate 07/22 1400 98.6 113 18 112/74 92 Room Air 07/22 0620 98.5 110 20 120/66 92 Room Air 07/21 2219 98.3 100 20 140/80 95 Intake & Output 07/22 1600 07/22 0800 07/22 0000 07/21 1600 07/21 0807/21 0000 Intake Total 048 794 9880 1100 780 Output Total 600 450 Balance 540 -230 1110 1100 330 Intake, IV 300 130 610 600 300 Intake, Oral 240 240 500 500 480 Output, Urine 600 450 Patient 279 lb Weight Weight Reported by Patient Measurement Method Physical Exam: EXAMINATION AND DRESSING CHANGE DONE BY DR DEL ANGEL Results Last 48 Hours of Labs: Laboratory Tests 07/22 07/21 0843 0803 Chemistry Sodium (137 - 145 mmol/L) 139 140 Potassium (3.5 - 5.1 mmol/L) 4.1 4.1 Chloride (98 - 107 mmol/L) 102 103 Carbon Dioxide (22 - 30 mmol/L) 27 28 Anion Gap (5 - 16) 10 10 BUN (7 - 17 mg/dL) 12 12 Creatinine (0.5 - 1.0 mg/dL) 0.5 0.6 Estimated GFR (>60 ml/min) > 60 > 60 BUN/Creatinine Ratio (7 - 25 %) 24.0 20.0 Hematology CBC w Diff NO MAN DIFF REQ NO MAN DIFF REQ WBC (4.8 - 10.8 /CUMM) 11.2 H 11.0 H RBC (4.20 - 5.40 /CUMM) 3.01 L 2.91 L Hgb (12.0 - 16.0 G/DL) 7.6 L 7.5 L Hct (37 - 47 %) 24.6 L 23.7 L MCV (81.0 - 99.0 FL) 81.8 81.3 MCH (27.0 - 31.0 PG) 25.3 L 25.7 L RDW (11.5 - 14.5 %) 22.0 H 22.0 H Plt Count (130 - 400 /CUMM) 654 H 678 H MPV (7.4 - 10.4 FL) 6.3 L 6.3 L Gran % (42.2 - 75.2 %) 82.0 H 83.1 H Lymphocytes % (20.5 - 51.1 %) 8.4 L 8.0 L Monocytes % (1.7 - 9.3 %) 7.6 6.7 Eosinophils % (0 - 5 %) 1.6 2.0 Basophils % (0.0 - 2.0 %) 0.4 0.2 Absolute Granulocytes (1.4 - 6.5 /CUMM) 9.2 H 9.2 H Absolute Lymphocytes (1.2 - 3.4 /CUMM) 0.9 L 0.9 L Absolute Monocytes (0.10 - 0.60 /CUMM) 0.9 H 0.7 H Absolute Eosinophils (0.0 - 0.7 /CUMM) 0.2 0.2 Absolute Basophils (0.0 - 0.2 /CUMM) 0 0 PUBS MCHC (33.0 - 37.0 G/DL) 30.9 L 31.7 L Assessment/Plan Assessment/Plan s/p RLE excisional debridement POD #2. No acute event. VAC change mwf needs snf for wound managment. labs stable Paracentesis was scheduled for this am however, pt did not want to have it done with the physician that would be performing it, she requested Dr Lindsay, to occur on thursday. next vac dressing change during paracentesis on thursday with Dr Del Angel, sedation needed for vac change and will have both done at the same time. Cont. ABX. cultures- PRELIM: klebsiella, morganni, beta strep group B Core Measures Venous Thromboembolism VTE Risk Factors VTE (Previous) No Mechanical VTE Prophylaxis d/t Surgical Contraindication No VTE Pharm Prophylaxis d/t NA PharmProphylax ordered
--- NOTE | 2017-07-22 16:36 | PN- Vascular Surgery ---
Surgical Brief Attending Note Brief Attending Note: VASCULAR ATTENDING NOTE: Pt. is s/p RLE excisional debridement POD #2. No acute event. Pt. pre- medicated for wound VAC change today. + positive for Morganella and Klebsiella PE: AF/VSS Ext: Wound VAC--C/D/I--Wound now with some gran. tissue, still mild exudate, L. foot wound changed A/P For VAC change Thursday--? if this can be performed during paracentesis as pt. will have sedation D/C planning--likely will require ECF b/c of new pain/wound issues Pt. for paracentesis this admission as well Will adjust ABX and d/w ID proper coverage
[2017-07-22 21:26] VITALS: BP 130/70
[2017-07-23 06:52] VITALS: BP 132/78
[2017-07-23 10:32] LABS: ABSOLUTE BASOPHIL COUNT 0.1 /CUMM (0.0-0.2); ABSOLUTE EOSINOPHIL COUNT 0.2 /CUMM (0.0-0.7); ABSOLUTE GRANULOCYTE CT 7.9 /CUMM (1.4-6.5); ABSOLUTE LYMPH COUNT 1.2 /CUMM (1.2-3.4); ABSOLUTE MONOCYTE COUNT 0.9 /CUMM (0.10-0.60); BASOPHIL % 1.2 % (0.0-2.0); HEMATOCRIT 24.7 % (37-47); MEAN CORPUSCULAR HGB 25.7 PG (27.0-31.0); MEAN CORPUSCULAR HGB CONC 31.5 G/DL (33.0-37.0); MEAN CORPUSCULAR VOLUME 81.4 FL (81.0-99.0); MEAN PLATELET VOLUME 6.3 FL (7.4-10.4); PLATELET COUNT 591 /CUMM (130-400); RBC DISTRIBUTION WIDTH 22.1 % (11.5-14.5); RED BLOOD CELL CT 3.04 /CUMM (4.20-5.40); WHITE BLOOD CELL COUNT 10.4 /CUMM (4.8-10.8)
--- NOTE | 2017-07-23 12:33 | PN- Vascular Surgery ---
Subjective Subjective: Patient still with complaints of severe pain although appears drowsy during my evaluation Objective Vital Signs and I&Os Vital Signs Date Time Temp Pulse Resp B/P B/P Pulse O2 O2 Flow FiO2 Mean Ox Delivery Rate 07/23 812 98.3 07/23 0635 98.8 07/23 0652 100.2 109 20 132/78 90 Room Air 07/23 0635 100.2 07/22 2126 98.7 101 18 130/70 93 07/22 1400 98.6 113 18 112/74 92 Room Air Intake & Output 07/23 1600 07/23 0800 07/23 0000 07/22 1600 07/22 0800 07/22 0000 Intake Total 600 580 700 540 370 Output Total 700 50 600 Balance 600 -120 650 540 -230 Intake, IV 100 100 300 130 Intake, Oral 600 480 600 240 240 Output, 50 Drainage Output, Urine 700 600 Physical Exam: Well-developed well-nourished, ao 3, no acute distress No respiratory distress Abdomen is distended, positive ascites, nontender Ext: RLE, Wound VAC: C/D/I-. granulation tissue noted, mild exudate Assessment/Plan Assessment/Plan s/p RLE excisional debridement POD #3. -wound culture + positive for Morganella, beta strep and Klebsiella, resistant to unasyn(which pt has been on), placed on cipro as of last night. ID consult pending, cont cipro until that time. -paracentesis for symptomatic relief tomorrow -will need to titrate patient off IV narcotics. Long discussion regarding this with her. -VAC change Thursday at bedside, dw IR, will not be sedating for paracentesis. -D/C planning--likely will require ECF b/c of new pain/wound issues, hopefully thursday/thursday discharge, advise against home discharge Core Measures Venous Thromboembolism VTE Risk Factors VTE (Previous) No Mechanical VTE Prophylaxis d/t Surgical Contraindication No VTE Pharm Prophylaxis d/t NA PharmProphylax ordered
[2017-07-23 14:13] VITALS: BP 118/84
--- NOTE | 2017-07-23 16:06 | Cons- Infect Disease ---
General Information and HPI Consulting Request Date of Consult: 07/23/17 Requested By: Sonny Ricardo MD Reason for Consult: Right lower extremity wound Source of Information: patient, old records Exam Limitations: language barrier History of Present Illness: This is a 51-year-old woman, [place]ander-speaking, with a history of stage IV ovarian cancer, status post 6 cycles of chemotherapy without response, with a recent CT of the abdomen and pelvis revealing progressive metastatic disease with multiple new lytic lesions in the spine and bony pelvis and increased peritoneal caking around the liver, with recurrent ascites, requiring palliative paracenteses every 10 days, and anemia, requiring frequent blood transfusions, with a right leg DVT, maintained on Xarelto, hypertension, nephrolithiasis, status post a left ureteral stent 6 months prior to admission for left hydronephrosis, which had persisted on a recent ultrasound, and venous stasis disease, with chronic bilateral lower extremity ulcerations, hospitalized 1 month prior to admission with lower extremity pain and leukocytosis, treated with a 10 day course of antibiotics for a presumed cellulitis of the right lower extremity, with an arterial Doppler of the right lower extremity revealing no evidence of hemodynamically significant stenosis, admitted on July 20 after she was taken to the OR for an excisional debridement through muscle of an infected, necrotic pretibial ulcer on the right lower extremity. On admission she was afebrile. She was begun on Unasyn postoperatively but was changed to Ciprofloxacin on July 22 to cover the gram-negative rods isolated from her OR culture. She has been afebrile until this morning when she was noted to have a low-grade fever of 100.2. Her white blood cell count has been essentially normal. At present she complains of pain in her left foot and right leg. Allergies/Medications Allergies: Coded Allergies: cefuroxime (From CEFTIN) (Intermediate, "LOST IT" 02/12/16) Home Med List: Amoxicillin/Potassium Clav (Augmentin 875-125 Tablet) 875 MG-125 MG TABLET 1 TAB PO BID infection 1 TABLET BID FOR 5 MORE DAYS. Fentanyl 25 MCG/HOUR PATCH.TD72 PAIN (Reported) Gabapentin 100 MG CAPSULE 1 CAP PO BID NEUROPATHY (Reported) Hydromorphone HCl (Dilaudid) 4 MG TABLET 1 TAB PO Q3P PAIN (Reported) Ibuprofen 600 MG TABLET 1 TAB PO Q3P PRN PAIN (Reported) with food Risperidone (Risperdal) 1 MG TABLET 1 TAB PO BID MENTAL HEALTH (Reported) Rivaroxaban (Xarelto) 15 MG TABLET 1 TAB PO BID RLE DVT (Reported) Silver Sulfadiazine (Silvadene) 1 % CREAM..G. 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 Home Who Do You Live With? spouse Services at Home: None Smoking Status: Former Smoker Functional Ability ADLs Independent: dressing, eating, toileting, bathing. Ambulation: independent IADLs Independent: shopping, housework, finances, food prep, telephone, transportation , medication admin. Review of Systems Review of Systems All Other Systems: Reviewed and Negative Exam & Diagnostic Data Last 24 Hrs of Vital Signs/I&O Vital Signs Date Time Temp Pulse Resp B/P B/P Pulse O2 O2 Flow FiO2 Mean Ox Delivery Rate 07/23 1413 98.0 96 20 118/84 91 07/23 0813 98.3 07/23 0735 98.8 07/23 0652 100.2 109 20 132/78 90 Room Air 07/23 0635 100.2 07/22 2126 98.7 101 18 130/70 93 Intake & Output 07/23 1600 07/23 0800 07/23 0000 Intake Total 600 580 Output Total 700 Balance 600 -120 Intake, IV 100 Intake, Oral 600 480 Output, Urine 700 Physical Exam Other Physical Findings: MAXIMUM TEMPERATURE 100.2. She is awake and alert in no acute distress. Skin reveals no rash. HEENT negative. Neck is supple with no adenopathy. Chest Port-A-Cath in the right upper chest with no inflammation at the site. Lungs are clear. Heart regular rhythm with no murmur. Abdomen is distended, nontender to palpation, with positive bowel sounds. Back no CVA tenderness. Extremities right leg dressing intact, with wound VAC in place; left leg with venous stasis changes, with no overlying ulcers or significant erythema or edema. Neuro is without focality. Last 24 Hours of Lab Results: Laboratory Tests 07/23 0946 Hematology CBC w Diff NO MAN DIFF REQ WBC (4.8 - 10.8 /CUMM) 10.4 RBC (4.20 - 5.40 /CUMM) 3.04 L Hgb (12.0 - 16.0 G/DL) 7.8 L Hct (37 - 47 %) 24.7 L MCV (81.0 - 99.0 FL) 81.4 MCH (27.0 - 31.0 PG) 25.7 L RDW (11.5 - 14.5 %) 22.1 H Plt Count (130 - 400 /CUMM) 591 H MPV (7.4 - 10.4 FL) 6.3 L Gran % (42.2 - 75.2 %) 76.0 H Lymphocytes % (20.5 - 51.1 %) 11.7 L Monocytes % (1.7 - 9.3 %) 9.1 Eosinophils % (0 - 5 %) 2.0 Basophils % (0.0 - 2.0 %) 1.2 Absolute Granulocytes (1.4 - 6.5 /CUMM) 7.9 H Absolute Lymphocytes (1.2 - 3.4 /CUMM) 1.2 Absolute Monocytes (0.10 - 0.60 /CUMM) 0.9 H Absolute Eosinophils (0.0 - 0.7 /CUMM) 0.2 Absolute Basophils (0.0 - 0.2 /CUMM) 0.1 PUBS MCHC (33.0 - 37.0 G/DL) 31.5 L ESR Westergren (0 - 20 MM) 107 H Last 24 Hours of Lucius Results: OR culture July 20 labeled right leg deep tissue positive for Morganella sensitive to Ciprofloxacin, Bactrim and Gentamicin, Klebsiella resistant to Ampicillin, Cefazolin, Augmentin and Unasyn, Group B strep and probable Bacteroides fragilis Assessment/Plan Assessment/Plan Impression: This is a 51-year-old woman, [place] Ze[place]ander-speaking, with a history of stage IV ovarian cancer, with recurrent ascites, requiring palliative paracenteses every 10 days, and anemia, requiring frequent blood transfusions, with a right leg DVT , maintained on Xarelto, hypertension, nephrolithiasis, status post a left ureteral stent 6 months prior to admission, and venous stasis disease, with chronic bilateral lower extremity ulcerations, admitted on July 20 after she was taken to the OR for an excisional debridement through muscle of an infected, necrotic pretibial ulcer on the right lower extremity, with her OR culture positive for multiple organisms. She does have a low-grade fever, though her white blood cell count is normal, and, though the organisms isolated from her OR culture may just represent colonization, she can be treated with a short course of antibiotics that will cover these organisms. Suggestion: 1. Further management of her right leg wound per Vascular Surgery 2. Begin Augmentin 875 mg po every 12 hours 3. Continue Ciprofloxacin Consult Acknowledgment - Thank you for your consult request.
[2017-07-23 22:21] VITALS: BP 122/70
[2017-07-24 06:45] VITALS: BP 120/70
--- NOTE | 2017-07-24 08:53 | PN- Vascular Surgery ---
Subjective Subjective: Patient seen by Dr. Ricardo this am for bedside evaluation of wound and wound vac change. Patient tolerated procedure. Will be undergoing paracentesis later this am. Discussion between Dr. Ricardo, patient and regarding plan for further debridment on thursday and likely STR placement after. Objective Vital Signs and I&Os Vital Signs Date Time Temp Pulse Resp B/P B/P Pulse O2 O2 Flow FiO2 Mean Ox Delivery Rate 07/24 0645 98.5 105 20 120/70 92 Room Air 07/23 2221 97.9 98 18 122/70 92 Room Air 07/23 1413 98.0 96 20 118/84 91 Intake & Output 07/24 1600 07/24 0800 07/24 0000 07/23 1600 07/23 0800 07/23 0000 Intake Total 934 428 5517 600 580 Output Total 930 700 Balance 500 600 290 600 -120 Intake, IV 220 100 Intake, Oral 639 720 8359 600 480 Number 1 Bowel Movements Output, 30 Drainage Output, Urine 900 700 Physical Exam: Wound improving, some granulation tissue noted, still some exudate requiring further debridement. Woundvac placed, holding suction. Alert and oriented, no acute distress Non-labored respiratory effort Assessment/Plan Assessment/Plan This is a 51 year old female, POD 4 s/p debridement rle for fat necrosis and wound vac placement. Underwent wound vac change this am, tolerated well. Scheduled for paracentesis this am. -Resume lovenox after paracentesis -To OR thursday for further debridement of wound, will make npo p mn thursday in anticipation -Continue daily dressing changes for left lower extremity: Aquacel, kerlix, jt -Will hold off on cbc for now per Dr. Ricardo, H/H has been low but stable -Continue abx therapy per ID, currently augmentin and cipro Core Measures Venous Thromboembolism VTE Risk Factors VTE (Previous) No Mechanical VTE Prophylaxis d/t Surgical Contraindication No VTE Pharm Prophylaxis d/t NA PharmProphylax ordered
--- NOTE | 2017-07-24 13:36 | PN- Infect Dx ---
Subjective Subjective: Afebrile. She complains of pain in the right leg. Objective Last 24 Hrs of Vital Signs/I&O Vital Signs Date Time Temp Pulse Resp B/P B/P Pulse O2 O2 Flow FiO2 Mean Ox Delivery Rate 07/24 0645 98.5 105 20 120/70 92 Room Air 07/23 2221 97.9 98 18 122/70 92 Room Air 07/23 1413 98.0 96 20 118/84 91 Intake & Output 07/24 1600 07/24 0800 07/24 0000 Intake Total 500 600 Output Total Balance 500 600 Intake, Oral 500 600 Number 1 Bowel Movements Physical Exam Other Physical Findings: She appears comfortable in no acute distress Lungs are clear Abdomen is distended, tender on palpation on the right, with no guarding or rebound, positive bowel sounds Extremities right leg dressing intact, with wound VAC in place Results Last 24 Hours of Lab Results: No labs from today Last 24 Hours of Lucius Results: No new cultures Assessment/Plan Impression: Stable, with temperatures and white blood cell count normal, now on Augmentin and Ciprofloxacin 4 days status post debridement of an infected, necrotic pretibial ulcer on the right lower extremity, with her OR culture positive for multiple organisms. She is apparently scheduled for a repeat debridement next week. She underwent a repeat palliative paracentesis earlier today for her recurrent ascites. Suggestion: 1. Await repeat debridement of the right leg ulcer next week 2. Continue Augmentin and Ciprofloxacin
[2017-07-24 13:52] VITALS: BP 110/84
--- NOTE | 2017-07-24 16:35 | ULTRASOUND REPORT ---
EXAMINATION: PARACENTESIS CLINICAL INFORMATION: Ascites COMPARISON: Several prior paracenteses, the most recent 07/09/2017 TECHNIQUE: Indirect ultrasound guidance using a 6 [place] Tagn-X-Qjymmees closed needle/catheter system FINDINGS: Informed consent was obtained from the patient prior to the procedure. During this process, the procedure alternatives were explained, along with the intended outcome and benefits. The risks of the procedure, as well as the risk of not doing the procedure, was discussed. The patient was given the opportunity to ask questions regarding the procedure and appeared competent to make medical decisions. A signed consent form which documents this discussion was placed in the medical record. Ultrasound evaluation of the abdomen for ascites was performed. Moderate amount of ascites is noted in the right lower quadrant. The site was marked. A timeout procedure was performed. The area was prepped and draped in usual sterile fashion. Using standard interventional and sterile techniques, lidocaine was used to anesthetize the region. A 6 [place] Nvxd-W-Rjtydnyu closed needle/catheter system was introduced into the right lower quadrant using standard safety needle technique. Approximately 4 L of turbid brown fluid was removed into the Vacutainer bottles. The catheter was then removed. Good hemostasis was achieved. Dermabond was placed. The patient tolerated the procedure well. The patient was discharged from the department in stable condition. COMPLICATIONS: None. IMPRESSION: Successful ultrasound-guided paracentesis yielding 4 L of fluid.
[2017-07-24 22:18] VITALS: BP 108/70
[2017-07-25 06:20] VITALS: BP 102/54
--- NOTE | 2017-07-25 08:29 | PN- Vascular Surgery ---
Subjective Subjective: Patient evaluated, repeatedly stating to me "I want morphine". Long discussion with patient and her , patient fell asleep several times during this discussion, she had an episode of desaturation last evening after receiving IV morphine. She denies any fever or flulike illness, no nausea no vomiting, no chest pain or shortness of breath Objective Vital Signs and I&Os Vital Signs Date Time Temp Pulse Resp B/P B/P Pulse O2 O2 Flow FiO2 Mean Ox Delivery Rate 07/25 0620 99.2 103 22 102/54 97 Nasal Cannula 07/25 0324 98 Nasal 2.0L Cannula 07/25 0000 Nasal 2.0L Cannula 07/24 2218 98.1 95 19 108/70 96 Nasal Cannula 07/24 1525 Room Air 07/24 1352 97.3 101 18 110/84 92 Intake & Output 07/25 1600 07/25 0800 07/25 0000 07/24 1600 07/24 0800 07/24 0000 Intake Total 732 614 8644 500 600 Output Total 950 620 320 Balance -830 -500 990 500 600 Intake, IV 110 Intake, Oral 242 355 4828 500 600 Number 0 1 Bowel Movements Output, 50 20 20 Drainage Output, Urine 900 600 300 Physical Exam: Alert, oriented, drowsy at times Wound VAC in place, holding suction, small amount of serosanguineous drainage, Vascular status is intact no acute distress Non-labored respiratory effort Assessment/Plan Assessment/Plan This is a 51 year old female, POD 5 s/p debridement rle for fat necrosis and wound vac placement. sp paracentesis yesterday. -DVT-xeralto restarted, to be held prior to debridement thursday -To OR thursday for further debridement of wound, will make npo p mn thursday in anticipation -Continue daily dressing changes for left lower extremity: Aquacel, kerlix, jt -Continue abx therapy per ID, currently augmentin and cipro -chronic pain issues. Highly concerning for opioid abuse, patient had an episode of desaturation after IV morphine, we increased her by mouth Dilaudid the other day as well. A long discussion with patient and her at bedside regarding appropriate use of intravenous narcotics. Will increase Duragesic patch 50 g and DC IV pain medication. Core Measures Venous Thromboembolism VTE Risk Factors VTE (Previous) No Mechanical VTE Prophylaxis d/t Surgical Contraindication No VTE Pharm Prophylaxis d/t NA PharmProphylax ordered
[2017-07-25 09:54] LABS: ABSOLUTE BASOPHIL COUNT 0.1 /CUMM (0.0-0.2); ABSOLUTE EOSINOPHIL COUNT 0.3 /CUMM (0.0-0.7); ABSOLUTE GRANULOCYTE CT 7.1 /CUMM (1.4-6.5); ABSOLUTE LYMPH COUNT 1.2 /CUMM (1.2-3.4); ABSOLUTE MONOCYTE COUNT 0.8 /CUMM (0.10-0.60); BASOPHIL % 0.6 % (0.0-2.0); EOSINOPHIL % 3.6 % (0-5); GRANULOCYTE % 74.6 % (42.2-75.2); HEMATOCRIT 24.4 % (37-47); MEAN CORPUSCULAR HGB 25.2 PG (27.0-31.0); MEAN CORPUSCULAR HGB CONC 31.1 G/DL (33.0-37.0); MEAN CORPUSCULAR VOLUME 81.1 FL (81.0-99.0); MEAN PLATELET VOLUME 6.4 FL (7.4-10.4); PLATELET COUNT 561 /CUMM (130-400); RBC DISTRIBUTION WIDTH 21.4 % (11.5-14.5); RED BLOOD CELL CT 3.01 /CUMM (4.20-5.40); WHITE BLOOD CELL COUNT 9.5 /CUMM (4.8-10.8)
[2017-07-25 14:50] VITALS: BP 120/80
[2017-07-25 22:40] VITALS: BP 126/80
[2017-07-26 07:01] VITALS: BP 122/80
--- NOTE | 2017-07-26 10:14 | PN- Vascular Surgery ---
Subjective Subjective: No acute overnight events reported. Pt continues to demand IV morphine in addition to her po pain medications. PO pain meds have been adjusted, fentanyl patch dosage has been increased. Pt has historically become hypoxic and somnolent with iv narcotic administration. No c/o chest pain, shortness of breath and difficulty breathing. Is able to get OOB with assistance to commode. Objective Vital Signs and I&Os Vital Signs Date Time Temp Pulse Resp B/P B/P Pulse O2 O2 Flow FiO2 Mean Ox Delivery Rate 07/26 0701 98.6 99 20 122/80 99 07/25 2240 98.0 96 20 126/80 98 Nasal Cannula 07/25 1450 98.0 103 22 120/80 98 Intake & Output 07/26 1600 07/26 0800 07/26 0000 07/25 1600 07/25 0800 07/25 0000 Intake Total 480 1100 120 120 Output Total 600 950 620 Balance -120 1100 -830 -500 Intake, Oral 480 1100 120 120 Number 1 Bowel Movements Output, 50 20 Drainage Output, Urine 600 900 600 Patient 279 lb Weight Physical Exam: General: Alert and oriented x3, no acute distress Respiratory: Non-labored respiratory effort Extremities: Dressings dry and intact. Wound vac holding suction. Assessment/Plan Assessment/Plan This is a 51 year old female with stage 4 ovarian ca, lymphadenopathy, who is hospital day 6 s/p debridement of RLE fat necrosis with wound vac placement. Underwent a paracentesis two days ago during which 4L fluid unloaded. -Hold xarelto -Continue daily dressing changes to LLE -Continue current diet as tolerated, patient will be NPO p mn, going to OR tomorrow for additional debridement of RLE and wound vac replacement -Continue po abx cipro.augmentin, as of now pt requires them until 07/30. Will appreciate recommendations from ID regarding continuation of abx therapy Discharge planning: The patient requires the high level wound care that will be provided by a short term rehab facility. For that reason, discharge to home is inappropriate and not recommended from a medical standpoint. Core Measures Venous Thromboembolism VTE Risk Factors VTE (Previous) No Mechanical VTE Prophylaxis d/t Surgical Contraindication No VTE Pharm Prophylaxis d/t NA PharmProphylax ordered
[2017-07-26 16:05] VITALS: BP 110/80
[2017-07-26 22:48] VITALS: BP 134/80
[2017-07-27 06:30] VITALS: BP 136/78
[2017-07-27] MEDS ORDERED: CIPRO500 M1 PO (10:55)
[2017-07-27] MEDS ORDERED: AMOX-CLAV 875-1 EACH PO (10:55)
[2017-07-27] MEDS ORDERED: DURAGESIC1 EAC2 TOP (10:55)
[2017-07-27] MEDS ORDERED: MIRALAX119 GM PO (10:55)
[2017-07-27] MEDS ORDERED: DOCUSATE SODIU100 M3 PO (10:55)
[2017-07-27] MEDS ORDERED: DILAUDID2 M1 PO (10:56)
[2017-07-27] MEDS ORDERED: XARELTO10 M1 PO (11:33)
[2017-07-27 11:36] VITALS: BP 140/70
--- NOTE | 2017-07-27 12:07 | Operative Report ---
Operative/Inv Procedure Report Surgery Date: 07/27/17 Name of Procedure: Excisional debridement right leg through muscle greater than 20 cm, placement of VAC Pre-Operative Diagnosis: Left leg pretibial ulcer with venous insufficiency Post-Operative Diagnosis: same Estimated Blood Loss: joanne Surgeon/Fiscal Services Manager: Sonny Ricardo MD Anesthesia: local monitored anesthesi Complications: None Condition: Stable to PACU Operative Indication: Healing right lower extremity wound Operative/Procedure Note Note: Patient was brought to the operating room and prepped and draped in the usual sterile surgical fashion.A timeout was held accordance with hospital policy. The patient had requested debridement be performed without a scalpel and therefore a curette was used after lidocaine jelly was placed into the wound to help with analgesia. The patient and patient's had also requested not to have injectable lidocaine administered. Sharp dissection was carried down through the subcutaneous tissue through fibulas exiting. Of note the patient has significant improvement in the wound with no evidence of necrosis. This had previously been debrided. Alternatively, 50 granulation tissue is now noted throughout the wound. There seems to be significant fibrinous exudate extending down to the muscle at the top of the wound. This was debrided with a curet and passed off the field as specimen. Hemostasis was achieved with manual compression. Bovie light cautery was also used in several spots. Pulsavac irrigation was brought into the field and used to irrigate the wound. This had bacitracin antibiotic solution within it. All 3 L were used. The wound was then dressed with a VAC sponge which was cut accordingly. He was placed on the wound base with VAC sponge dressing. Patient tolerated the procedure well was transported to recovery area.
[2017-07-27 13:30] LABS: ABSOLUTE BASOPHIL COUNT 0.1 /CUMM (0.0-0.2); ABSOLUTE EOSINOPHIL COUNT 0.3 /CUMM (0.0-0.7); ABSOLUTE GRANULOCYTE CT 6.4 /CUMM (1.4-6.5); ABSOLUTE LYMPH COUNT 1.1 /CUMM (1.2-3.4); ABSOLUTE MONOCYTE COUNT 0.6 /CUMM (0.10-0.60); BASOPHIL % 1.1 % (0.0-2.0); EOSINOPHIL % 3.7 % (0-5); GRANULOCYTE % 75.1 % (42.2-75.2); MEAN CORPUSCULAR HGB 25.1 PG (27.0-31.0); MEAN CORPUSCULAR HGB CONC 31.1 G/DL (33.0-37.0); MEAN CORPUSCULAR VOLUME 80.7 FL (81.0-99.0); MEAN PLATELET VOLUME 6.8 FL (7.4-10.4); PLATELET COUNT 612 /CUMM (130-400); RBC DISTRIBUTION WIDTH 20.8 % (11.5-14.5); RED BLOOD CELL CT 3.23 /CUMM (4.20-5.40); WHITE BLOOD CELL COUNT 8.6 /CUMM (4.8-10.8)
--- NOTE | 2017-07-27 14:09 | Cons- Medical ---
Romeo Brooks MD 07/27/17 1408: General Information and HPI Consulting Request Date of Consult: 07/27/17 Requested By: Sonny Ricardo MD Reason for Consult: Weakness Source of Information: patient Exam Limitations: poor historian, language barrier History of Present Illness: This is a 51 yo female with PMH of transfusion dependent anemia, diabetes, stage IV metastatic ovarian cancer S/P paclitaxel carboplatin chemotherapy w/o response and with recurrent ascites, vaginal bleeding, and frequent palliative paracentesis, chronic low back pain seconday to bony metastasis, hydronephrosis s/p left ureteral stent, chronic bilateral lower extremity lymphedema due to large tumor burden, RLE DVT on Xarelto, pyschosis NOS, who was admitted to surgical service for RLE excisional debridement and would vac change on 2017. This is Day 7 of admission and medicine team has been consulted for evaluation of her generalized weakness. So far pt has undergone OR debridement for RLE on 07/20 and 07/27 and 4L palliative paracentesis on 07/24. Pt is predominantly Russain speaking and only complaint at this time is pain in her lower extremity and back. Allergies/Medications Allergies: Coded Allergies: cefuroxime (From CEFTIN) (Intermediate, "LOST IT" 02/12/16) Home Med List: Amoxicillin/Clavulanate Potass (Amox-Clav 875-125 MG Tablet) 875 MG-125 MG TABLET 875 MG PO Q12 wound to continue until 07/30/17 Amoxicillin/Potassium Clav (Augmentin 875-125 Tablet) 875 MG-125 MG TABLET 1 TAB PO BID infection 1 TABLET BID FOR 5 MORE DAYS. Ciprofloxacin HCl (Cipro) 500 MG TABLET 500 MG PO BID wound to continue until 07/30/17 Docusate Sodium 100 MG CAPSULE 100 MG PO BID PRN CONSTIPATION hold for loose stool / diarrhea Fentanyl 25 MCG/HOUR PATCH.TD72 PAIN (Reported) Fentanyl Citrate (Duragesic) 50 MCG/HOUR PATCH.TD72 50 MCG TOP Q72H pain control home medication increased from 25 mcg/hour to 50 mcg/hour q72 hours Gabapentin 100 MG CAPSULE 1 CAP PO BID NEUROPATHY (Reported) Hydromorphone HCl (Dilaudid) 4 MG TABLET 1 TAB PO Q3P PAIN (Reported) Hydromorphone HCl (Dilaudid) 2 MG TABLET 1-2 TAB PO Q4-6 PRN PRN acute breakthrough pain Ibuprofen 600 MG TABLET 1 TAB PO Q3P PRN PAIN (Reported) with food Polyethylene Glycol 3350 (Miralax) 17 GRAM/DOSE POWDER 17 GM PO DAILY PRN CONSTIPATION Risperidone (Risperdal) 1 MG TABLET 1 TAB PO BID MENTAL HEALTH (Reported) Rivaroxaban (Xarelto) 15 MG TABLET 1 TAB PO BID RLE DVT (Reported) Rivaroxaban (Xarelto) 10 MG TABLET 20 MG PO DAILY history of dvt Silver Sulfadiazine (Silvadene) 1 % CREAM..G. 1 RENETTA TOP DAILY infection Current Medications: Current Medications Sig/Jessika Start time Last Medication Dose Route Stop Time Status Admin Acetaminophen 1,000 MG Q6P PRN 07/23 0645 AC 07/24 N/A 1 UNIT IV 1857 Amoxicillin/ 875 MG Q12 07/23 1630 AC 07/27 Clavulanate Potassium PO 07/30 220 1124 Ciprofloxacin 500 MG BID 07/22 2200 AC 07/27 PO 07/30 2200 1124 Docusate Sodium 100 MG BID 07/20 2200 AC PO Fentanyl Citrate 50 MCG Q72H 07/25 1200 AC 07/25 TOP 1412 Gabapentin 100 MG BID 07/20 2200 AC 07/27 PO 1125 Hydromorphone HCl 4 MG Q3P PRN 07/23 1245 AC 07/24 PO 1139 Hydromorphone HCl 6 MG Q3P PRN 07/23 1245 AC 07/27 PO 1422 Insulin Aspart 0 TIDAC 07/21 0800 AC 07/21 SC 1129 Lorazepam 1 MG TID PRN 07/23 1300 AC 07/24 PO 0755 Ondansetron HCl 4 MG Q6P PRN 07/20 1545 AC IV Polyethylene Glycol 17 GM DAILY 07/21 1000 AC PO Promethazine HCl 12.5 MG Q6P PRN 07/20 1545 AC IV 07/27 1429 Risperidone 1 MG BID 07/20 2200 AC 07/27 PO 1125 Rivaroxaban 20 MG DAILY 07/28 1000 AC PO Sodium Chloride 1,000 ML Q10H 07/27 0000 DC IV Review of Systems Review of Systems Constitutional: Reports: no symptoms. Cardiovascular: Denies: chest pain. GI: Reports: abdominal pain. Genitourinary: Reports: no symptoms. Musculoskeletal: Reports: back pain, joint pain, muscle pain, muscle stiffness. 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 Home Who Do You Live With? spouse Services at Home: None Smoking Status: Former Smoker Functional Ability ADLs Independent: dressing, eating, toileting, bathing. Ambulation: independent IADLs Independent: shopping, housework, finances, food prep, telephone, transportation , medication admin. Exam & Diagnostic Data Last 24 Hrs of Vital Signs/I&O Vital Signs Date Time Temp Pulse Resp B/P B/P Pulse O2 O2 Flow FiO2 Mean Ox Delivery Rate 07/27 1426 98.2 100 20 130/80 97 Nasal 2.0L Cannula 07/27 1136 98.9 104 18 140/70 98 Nasal 2.0L Cannula 07/27 0630 98.7 98 18 136/78 98 Nasal Cannula 07/27 0000 Nasal 3.0L Cannula 07/26 2248 97.6 95 20 134/80 100 Nasal Cannula 07/26 1605 98.0 92 22 110/80 98 Intake & Output 07/27 1600 07/27 0800 07/27 0000 Intake Total 360 300 Output Total 250 Balance 360 -250 300 Intake, Oral 360 300 Number 1 Bowel Movements Output, Urine 250 Last 24 Hrs of Labs/Lucius: Laboratory Tests 07/28/17 0758: CBC w Diff NO MAN DIFF REQ, RBC 3.09 L, MCV 80.4 L, MCH 25.0 L, RDW 20.7 H, MPV 6.6 L, Gran % 76.2 H, Lymphocytes % 12.4 L, Monocytes % 8.4, Eosinophils % 2.5, Basophils % 0.5, Absolute Granulocytes 6.9 H, Absolute Lymphocytes 1.1 L, Absolute Monocytes 0.8 H, Absolute Eosinophils 0.2, Absolute Basophils 0, PUBS MCHC 31.1 L 07/27/17 1233: Anion Gap 10, Estimated GFR > 60, BUN/Creatinine Ratio 18.0, Iron 21 L, TIBC 186 L, Ferritin 127.0, Total Bilirubin 0.1 L, Direct Bilirubin 0.1, AST 20, ALT 33, Alkaline Phosphatase 94, Total Protein 5.0 L, Albumin 2.0 L, Prealbumin 5.2 L, Vitamin B12 760, Folate 8.9, TSH 2.620, Thyroxine (T4) 9.8, CBC w Diff NO MAN DIFF REQ, RBC 3.23 L, MCV 80.7 L, MCH 25.1 L, RDW 20.8 H, MPV 6.8 L, Gran % 75.1, Lymphocytes % 13.1 L, Monocytes % 7.0, Eosinophils % 3.7, Basophils % 1.1, Absolute Granulocytes 6.4, Absolute Lymphocytes 1.1 L, Absolute Monocytes 0.6, Absolute Eosinophils 0.3, Absolute Basophils 0.1, PUBS MCHC 31.1 L Assessment/Plan Assessment/Plan ASSESSMENT: This is a 51 yo [place]ian speaking female with PMH of transfusion dependent anemia, stage IV metastatic ovarian cancer with recurrent ascites and frequent palliative paracentesis, chronic low back pain seconday to bony metastasis, hydronephrosis s/p left ureteral stent, chronic bilateral lower extremity lymphedema due to large tumor burden, RLE DVT on Xarelto, who was admitted to surgical service for RLE excisional debridement and would vac change. This is Day 7 of admission and medicine team has been consulted for evaluation of her generalized weakness. PLAN: 1. RLE Wound: Pt is s/p two debridements (07/20, 07/27) in RLE. Today she had excisional debridement of right leg through muscle greater than 20cm with placemetn of VAC under local anesthesia. Her 07/20 extremity cx shows morganella , klebsiella, beta strep B and B. frag. Currently afebrile with WBC 8.6. * ID on board * On Augmentin and Cipro; duration to be determined by ID * Wound vac per surgery * Wound care per surgery * Pain control per surgery * NOAC for DVT ppx 2: stage IV metastatic ovarian cancer with recurrent ascites: Last para on 07/24. She had 4L removed. She usually gets a palliative paracentesis every 7-10 days. * Monitor and continue usual palliative paracentesis regimen * Trt per oncologist * Consider hospice and palliative care consult 3. DM: Last FS 113/100/174/119/140 * Con't RISS * Con't FS 4. Hx of HTN: BP 140/70-110/80. Not on any regimen while in patient. Her BP seems to be well controlled. * Continue to monitor 5. RLE DVT * Con't Xarelto 6. Anemia: Pt has multifactorial anemia with dependence on transfusion. Last Hb on Jul 25 at 7.6. Pt has known vagina bleeding 2/2 malignancy. * Repeat CBC * Transfuse for goal HB/HCT above 01/30 * Iron studies * Guiac stool 7. Weakness: Likely multifactorial in this patient. DDX includes anemia, stage 4 ovarian ca, nutritional deficiency. Total protein low * Check TSH/T4 * Check Vit B12/Folate * Check CBC and BEP keep electrolytes WNL * She is a 51 yo so she would normally be candidate for colon ca screening at this time. Given her signficant current hx of stage 4 cancer there would likely be no aggressive intervention. However, if family wishes aggressive intervention then they should be given outpt follow up for colonoscopy. * Type and cross * Transfuse for goal 01/30 * Suggest nutrition consult * suggest OOB and Physical therapy as permitted FC CHEM DVT PPX Problem List: 1. Metastatic cancer to bone 2. Lymphedema Consult Acknowledgment - Thank you for your consult request. Tato LIM,[facility] 07/27/17 4241: Assessment/Plan Consult Acknowledgment - Thank you for your consult request. Attending Review Statement Attending Statement Attending MD Statement: examined this patient, discuss w/resident/PA/RING SPINNER, agreed w/resident/PA/RING SPINNER, reviewed EMR data (avail), discussed with nursing, discussed with case mgmt, reviewed images, amended to note Attending Assessment/Plan: 51 y/o F with pmh sig for ch anemia, diabetes, stage IV metastatic ovarian cancer S/P paclitaxel carboplatin chemotherapy w/o response and with recurrent ascites, vaginal bleeding, and frequent palliative paracentesis, chronic low back pain seconday to bony metastasis, hydronephrosis s/p left ureteral stent, chronic bilateral lower extremity lymphedema due to large tumor burden, RLE DVT on Xarelto, pyschosis admitted to surgical service with Chronic venous insufficiency with infected necrotic pretibial ulcer s/p Excisional debridement through muscle greater than 20 cm, application of VAC postop day #7 today. Patient on antibiotics per infectious disease recommendations. Medical consultation was obtained secondary to patient's generalized weakness, poor nutritional status. Patient has only one complaint that she is in a lot of pain. She underwent second debridement today and has a wound VAC on. She's been actively followed by infectious disease. Her cultures are growing multiple organisms and currently she is covered with Augmentin and Cipro. Her generalized weakness and poor nutritional status could lambert I factorial including her chronic anemia, her chronic disease especially her metastatic ovarian cancer. Deconditioning from hospitalization as well as surgery. Patient also underwent paracentesis few days ago when 4 L of fluid was tapped. Vital Signs Date Time Temp Pulse Resp B/P B/P Pulse O2 O2 Flow FiO2 Mean Ox Delivery Rate 07/27 1426 98.2 100 20 130/80 97 Nasal 2.0L Cannula 07/27 1136 98.9 104 18 140/70 98 Nasal 2.0L Cannula 07/27 0630 98.7 98 18 136/78 98 Nasal Cannula 07/27 0000 Nasal 3.0L Cannula 07/26 2248 97.6 95 20 134/80 100 Nasal Cannula 07/26 1605 98.0 92 22 110/80 98 on exam; awake, nad. Obese. cv; s1,s2, rrr resp; clear abd; soft, distended, bs+ ext: Joesph wrap on the right lower extremity, dressing on the left lower extremity. Laboratory Tests 07/27 1233 Chemistry Sodium (137 - 145 mmol/L) 139 Potassium (3.5 - 5.1 mmol/L) 3.5 Chloride (98 - 107 mmol/L) 98 Carbon Dioxide (22 - 30 mmol/L) 31 H Anion Gap (5 - 16) 10 BUN (7 - 17 mg/dL) 9 Creatinine (0.5 - 1.0 mg/dL) 0.5 Estimated GFR (>60 ml/min) > 60 BUN/Creatinine Ratio (7 - 25 %) 18.0 Iron (37 - 170 ug/dL) Pending TIBC (265 - 497 ug/dL) Pending Ferritin (11.1 - 264 ng/mL) Pending Total Bilirubin (0.2 - 1.3 mg/dL) 0.1 L Direct Bilirubin (< 0.4 mg/dL) 0.1 AST (14 - 36 U/L) 20 ALT (9 - 52 U/L) 33 Alkaline Phosphatase (<127 U/L) 94 Total Protein (6.3 - 8.2 g/dL) 5.0 L Albumin (3.5 - 5.0 g/dL) 2.0 L Prealbumin (17.6 - 36.0 mg/dL) 5.2 L Vitamin B12 (239 - 931 pg/mL) Pending Folate (2.76 - 20.0 ng/mL) Pending TSH (0.270 - 4.200 uIU/mL) Pending Thyroxine (T4) (4.5 - 10.9 ug/dL) Pending Hematology CBC w Diff NO MAN DIFF REQ WBC (4.8 - 10.8 /CUMM) 8.6 RBC (4.20 - 5.40 /CUMM) 3.23 L Hgb (12.0 - 16.0 G/DL) 8.1 L Hct (37 - 47 %) 26.0 L MCV (81.0 - 99.0 FL) 80.7 L MCH (27.0 - 31.0 PG) 25.1 L RDW (11.5 - 14.5 %) 20.8 H Plt Count (130 - 400 /CUMM) 612 H MPV (7.4 - 10.4 FL) 6.8 L Gran % (42.2 - 75.2 %) 75.1 Lymphocytes % (20.5 - 51.1 %) 13.1 L Monocytes % (1.7 - 9.3 %) 7.0 Eosinophils % (0 - 5 %) 3.7 Basophils % (0.0 - 2.0 %) 1.1 Absolute Granulocytes (1.4 - 6.5 /CUMM) 6.4 Absolute Lymphocytes (1.2 - 3.4 /CUMM) 1.1 L Absolute Monocytes (0.10 - 0.60 /CUMM) 0.6 Absolute Eosinophils (0.0 - 0.7 /CUMM) 0.3 Absolute Basophils (0.0 - 0.2 /CUMM) 0.1 PUBS MCHC (33.0 - 37.0 G/DL) 31.1 L Assessment and recommendations: 51 y/o F with pmh sig for ch anemia, diabetes, stage IV metastatic ovarian cancer S/P paclitaxel carboplatin chemotherapy w/o response and with recurrent ascites, vaginal bleeding, and frequent palliative paracentesis, chronic low back pain seconday to bony metastasis, hydronephrosis s/p left ureteral stent, chronic bilateral lower extremity lymphedema due to large tumor burden, RLE DVT on Xarelto, pyschosis admitted to surgical service with Chronic venous insufficiency with infected necrotic pretibial ulcer s/p Excisional debridement through muscle greater than 20 cm, application of VAC postop day #7 today. Patient on antibiotics per infectious disease recommendations. Medical consultation was obtained secondary to patient's generalized weakness, poor nutritional status. Agree with housestaff evaluation. Patient should have anemia workup done including checking her for iron levels, vitamin B12 and folate. Goal hemoglobin and hematocrit should be 7 and 21. Transfuse if goes below that. Please check her thyroid function. Patient is also on narcotic medications that could also lead to some fatigue and weakness overall. She does have low albumin and pre- albumin. Recommended nutritional consult. Gabapentin and also lead to some tiredness and fatigue. Recommend PT evaluation. Thank you for allowing us to participate in the care of your patient. Will follow along with you.
[2017-07-27 14:26] VITALS: BP 130/80
--- NOTE | 2017-07-27 16:32 | PN- Infect Dx ---
Subjective Subjective: Weakness; pain R LE. No fever. Review of Systems Comments: 12 points reviewed as noted, otherwise negative. Objective Last 24 Hrs of Vital Signs/I&O Vital Signs Date Time Temp Pulse Resp B/P B/P Pulse O2 O2 Flow FiO2 Mean Ox Delivery Rate 07/27 1426 98.2 100 20 130/80 97 Nasal 2.0L Cannula 07/27 1136 98.9 104 18 140/70 98 Nasal 2.0L Cannula 07/27 0630 98.7 98 18 136/78 98 Nasal Cannula 07/27 0000 Nasal 3.0L Cannula 07/26 2248 97.6 95 20 134/80 100 Nasal Cannula Intake & Output 07/27 1600 07/27 0800 07/27 0000 Intake Total 360 300 Output Total 250 Balance 360 -250 300 Intake, Oral 360 300 Number 1 Bowel Movements Output, Urine 250 Physical Exam Other Physical Findings: She appears comfortable in no acute distress, elevated BMI HEENT AT Neck No JVD Heart S1 S2 present Lungs are clear Abdomen is distended, no guarding or rebound, positive bowel sounds Extremities right leg dressing intact, with wound VAC in place Skin pale Results Last 24 Hours of Lab Results: Laboratory Tests 07/27 1233 Chemistry Sodium (137 - 145 mmol/L) 139 Potassium (3.5 - 5.1 mmol/L) 3.5 Chloride (98 - 107 mmol/L) 98 Carbon Dioxide (22 - 30 mmol/L) 31 H Anion Gap (5 - 16) 10 BUN (7 - 17 mg/dL) 9 Creatinine (0.5 - 1.0 mg/dL) 0.5 Estimated GFR (>60 ml/min) > 60 BUN/Creatinine Ratio (7 - 25 %) 18.0 Iron (37 - 170 ug/dL) 21 L TIBC (265 - 497 ug/dL) 186 L Ferritin (11.1 - 264 ng/mL) 127.0 Total Bilirubin (0.2 - 1.3 mg/dL) 0.1 L Direct Bilirubin (< 0.4 mg/dL) 0.1 AST (14 - 36 U/L) 20 ALT (9 - 52 U/L) 33 Alkaline Phosphatase (<127 U/L) 94 Total Protein (6.3 - 8.2 g/dL) 5.0 L Albumin (3.5 - 5.0 g/dL) 2.0 L Prealbumin (17.6 - 36.0 mg/dL) 5.2 L Vitamin B12 (239 - 931 pg/mL) Pending Folate (2.76 - 20.0 ng/mL) Pending TSH (0.270 - 4.200 uIU/mL) 2.620 Thyroxine (T4) (4.5 - 10.9 ug/dL) 9.8 Hematology CBC w Diff NO MAN DIFF REQ WBC (4.8 - 10.8 /CUMM) 8.6 RBC (4.20 - 5.40 /CUMM) 3.23 L Hgb (12.0 - 16.0 G/DL) 8.1 L Hct (37 - 47 %) 26.0 L MCV (81.0 - 99.0 FL) 80.7 L MCH (27.0 - 31.0 PG) 25.1 L RDW (11.5 - 14.5 %) 20.8 H Plt Count (130 - 400 /CUMM) 612 H MPV (7.4 - 10.4 FL) 6.8 L Gran % (42.2 - 75.2 %) 75.1 Lymphocytes % (20.5 - 51.1 %) 13.1 L Monocytes % (1.7 - 9.3 %) 7.0 Eosinophils % (0 - 5 %) 3.7 Basophils % (0.0 - 2.0 %) 1.1 Absolute Granulocytes (1.4 - 6.5 /CUMM) 6.4 Absolute Lymphocytes (1.2 - 3.4 /CUMM) 1.1 L Absolute Monocytes (0.10 - 0.60 /CUMM) 0.6 Absolute Eosinophils (0.0 - 0.7 /CUMM) 0.3 Absolute Basophils (0.0 - 0.2 /CUMM) 0.1 PUBS MCHC (33.0 - 37.0 G/DL) 31.1 L Last 24 Hours of Lucius Results: > EXTREMITIES OR SPECIMEN Final 07/24/17-1009 Moderate growth of: 1. MORGANELLA MORGANII 2. KLEBSIELLA OXYTOCA 3. BETA STREP GROUP B Penicillin and Ampicillin are drugs of choice for beta-hemolytic streptococcal infections. Susceptibility testing of penicillins and other beta-lactams are not routinely performed because non-susceptible isolates have only rarely been reported. Note: If patient is allergic to Penicillin, the laboratory can perform Clindamycin testing upon request. Please call within 5 days of final report. REPORTED TO: ELISENixonMARSHALL AT 1013 07/21/17 LAB.SVCY Recent Imaging Studies: reviewed Assessment/Plan Impression: 51 yo female with PMH of transfusion dependent anemia, diabetes, stage IV metastatic ovarian cancer S/P paclitaxel carboplatin chemotherapy w/o response and with recurrent ascites, vaginal bleeding, and frequent palliative paracentesis, chronic low back pain seconday to bony metastasis, hydronephrosis s/p left ureteral stent, chronic bilateral lower extremity lymphedema due to large tumor burden, RLE DVT on Xarelto, pyschosis NOS, who was admitted to surgical service for RLE excisional debridement and would vac change on 2017. So far pt has undergone OR debridement for RLE on 07/20 and 07/27 and 4L palliative paracentesis on 07/24. Stable, with temperatures and white blood cell count normal, now on Augmentin started 07/23 and Ciprofloxacin started 1/10 days status post debridement of an infected, necrotic pretibial ulcer on the right lower extremity, with her OR culture positive for multiple organisms. Suggestion: 1. Continue Augmentin and Ciprofloxacin D #/-14. 2. Monitor CBC. 3. Call if fever.
[2017-07-27 22:41] VITALS: BP 140/88
[2017-07-28 06:20] VITALS: BP 132/76
[2017-07-28 08:00] VITALS: BP 132/76
[2017-07-28 08:33] LABS: ABSOLUTE BASOPHIL COUNT 0 /CUMM (0.0-0.2); ABSOLUTE EOSINOPHIL COUNT 0.2 /CUMM (0.0-0.7); ABSOLUTE GRANULOCYTE CT 6.9 /CUMM (1.4-6.5); ABSOLUTE LYMPH COUNT 1.1 /CUMM (1.2-3.4); ABSOLUTE MONOCYTE COUNT 0.8 /CUMM (0.10-0.60); BASOPHIL % 0.5 % (0.0-2.0); EOSINOPHIL % 2.5 % (0-5); GRANULOCYTE % 76.2 % (42.2-75.2); HEMATOCRIT 24.9 % (37-47); MEAN CORPUSCULAR HGB CONC 31.1 G/DL (33.0-37.0); MEAN CORPUSCULAR VOLUME 80.4 FL (81.0-99.0); MEAN PLATELET VOLUME 6.6 FL (7.4-10.4); PLATELET COUNT 616 /CUMM (130-400); RBC DISTRIBUTION WIDTH 20.7 % (11.5-14.5); RED BLOOD CELL CT 3.09 /CUMM (4.20-5.40)
--- NOTE | 2017-07-28 09:07 | PN- Vascular Surgery ---
See Addendum Subjective Subjective: Patient sleeping in room, awakened to be evaluated, asked for pain medication. She has no other complaints Objective Vital Signs and I&Os Vital Signs Date Time Temp Pulse Resp B/P B/P Pulse O2 O2 Flow FiO2 Mean Ox Delivery Rate 07/28 0620 98.7 102 20 132/76 98 Nasal 2.0L Cannula 07/28 0000 97 Nasal 2.0L Cannula 07/27 2241 97.6 67 20 140/88 96 07/27 1600 Nasal 2.0L Cannula 07/27 1426 98.2 100 20 130/80 97 Nasal 2.0L Cannula 07/27 1136 98.9 104 18 140/70 98 Nasal 2.0L Cannula Intake & Output 07/28 1600 07/28 0800 07/28 0000 07/27 1600 07/27 0800 07/27 0000 Intake Total 600 600 360 300 Output Total 201 250 Balance 600 399 360 -250 300 Intake, Oral 600 600 360 300 Number 1 1 Bowel Movements Output, Stool 1 Output, Urine 200 250 Physical Exam: Sleeping, arousable Alert and oriented 3 Edematous bilateral lower extremities Dry sterile dressing left leg Wound VAC and Joesph wrap right lower extremity, functioning properly, neurovascularly intact distally No change in examination Results Last 48 Hours of Labs: Laboratory Tests 07/28 07/27 0758 1233 Chemistry Sodium (137 - 145 mmol/L) 139 Potassium (3.5 - 5.1 mmol/L) 3.5 Chloride (98 - 107 mmol/L) 98 Carbon Dioxide (22 - 30 mmol/L) 31 H Anion Gap (5 - 16) 10 BUN (7 - 17 mg/dL) 9 Creatinine (0.5 - 1.0 mg/dL) 0.5 Estimated GFR (>60 ml/min) > 60 BUN/Creatinine Ratio (7 - 25 %) 18.0 Iron (37 - 170 ug/dL) 21 L TIBC (265 - 497 ug/dL) 186 L Ferritin (11.1 - 264 ng/mL) 127.0 Total Bilirubin (0.2 - 1.3 mg/dL) 0.1 L Direct Bilirubin (< 0.4 mg/dL) 0.1 AST (14 - 36 U/L) 20 ALT (9 - 52 U/L) 33 Alkaline Phosphatase (<127 U/L) 94 Total Protein (6.3 - 8.2 g/dL) 5.0 L Albumin (3.5 - 5.0 g/dL) 2.0 L Prealbumin (17.6 - 36.0 mg/dL) 5.2 L Vitamin B12 (239 - 931 pg/mL) 760 Folate (2.76 - 20.0 ng/mL) 8.9 TSH (0.270 - 4.200 uIU/mL) 2.620 Thyroxine (T4) (4.5 - 10.9 ug/dL) 9.8 Hematology CBC w Diff NO MAN DIFF REQ NO MAN DIFF REQ WBC (4.8 - 10.8 /CUMM) 9.0 8.6 RBC (4.20 - 5.40 /CUMM) 3.09 L 3.23 L Hgb (12.0 - 16.0 G/DL) 7.7 L 8.1 L Hct (37 - 47 %) 24.9 L 26.0 L MCV (81.0 - 99.0 FL) 80.4 L 80.7 L MCH (27.0 - 31.0 PG) 25.0 L 25.1 L RDW (11.5 - 14.5 %) 20.7 H 20.8 H Plt Count (130 - 400 /CUMM) 616 H 612 H MPV (7.4 - 10.4 FL) 6.6 L 6.8 L Gran % (42.2 - 75.2 %) 76.2 H 75.1 Lymphocytes % (20.5 - 51.1 %) 12.4 L 13.1 L Monocytes % (1.7 - 9.3 %) 8.4 7.0 Eosinophils % (0 - 5 %) 2.5 3.7 Basophils % (0.0 - 2.0 %) 0.5 1.1 Absolute Granulocytes (1.4 - 6.5 /CUMM) 6.9 H 6.4 Absolute Lymphocytes (1.2 - 3.4 /CUMM) 1.1 L 1.1 L Absolute Monocytes (0.10 - 0.60 /CUMM) 0.8 H 0.6 Absolute Eosinophils (0.0 - 0.7 /CUMM) 0.2 0.3 Absolute Basophils (0.0 - 0.2 /CUMM) 0 0.1 PUBS MCHC (33.0 - 37.0 G/DL) 31.1 L 31.1 L Assessment/Plan Assessment/Plan This is a 51 year old female with stage 4 ovarian ca, lymphadenopathy, who is hospital day 7 s/p debridement of RLE fat necrosis with wound vac placement. Underwent a paracentesis 3 days ago during which 4L fluid unloaded. Postop day #1 Status post further debridement right lower extremity Continue Xarelto continue current pain regiment Continue daily dressing changes to LLE, elevate bilateral lower extremities Continue current diet as tolerated Continue po abx cipro and augmentin for 10-14 days total per ID, currently day 6 Discharge planning today to [facility] facility for continued wound care Core Measures Venous Thromboembolism VTE Risk Factors VTE (Previous) No Mechanical VTE Prophylaxis d/t Surgical Contraindication No VTE Pharm Prophylaxis d/t NA PharmProphylax ordered
--- NOTE | 2017-07-28 09:09 | PN- Medicine Consult ---
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 This is Day 8 of admission and medicine team has been consulted for evaluation of her generalized weakness. PLAN: 1. RLE Wound: Pt is s/p two debridements (07/20, 07/27) in RLE. Yesterday, she had excisional debridement of right leg through muscle greater than 20cm with placement of VAC under local anesthesia. Her 07/20 extremity cx shows morganella , klebsiella, beta strep B and B. frag. Currently afebrile with no white count. * ID on board * On Augmentin and Cipro; duration to be determined by ID * Wound vac per surgery * Wound care per surgery * Pain control per surgery * NOAC for DVT ppx 2: Stage IV metastatic ovarian cancer with recurrent ascites: Last para on 07/24. She had 4L removed. She usually gets a palliative paracentesis every 7-10 days. * Monitor and continue usual palliative paracentesis regimen * Trt per oncologist * Consider hospice and palliative care consult 3. DM: * Con't RISS * Con't FS 4. Hx of HTN: . Not on any regimen while in patient. Her BP seems to be well controlled. * Continue to monitor 5. RLE DVT * Con't Xarelto 6. Anemia: Pt has multifactorial anemia with dependence on transfusion. Last Hb on Jul 25 at 7.6. Pt has known vagina bleeding 2/2 malignancy. Iron studies suggest ANCD. * Transfuse for goal HB/HCT above 7/21 * Guiac stool 7. Weakness: Likely multifactorial in this patient. DDX includes anemia, stage 4 ovarian ca, nutritional deficiency. Total protein low. TSH, b12, Folate and BEP WNL. * Ensure active Type and cross * Transfuse for goal 01/30 * Follow up with nutrition consult * suggest OOB and Physical therapy as permitted Thank you for letting us take part in this interesting consult. Pt is medically stable from in-patient medicine perspective. We will sign off at this time. If there are any further questions, please do not heistate to reach out for re- consult or follow up. FC CHEM DVT PPX Plan: see above Problem List: 1. UTI (urinary tract infection) 2. Leukocytosis, unspecified 3. Metastatic cancer to bone Subjective Subjective: Saw pt at bedside this am. No acute overnight events. She still complains of pain in her leg, abd and back. Review of Systems Constitutional: Reports: malaise. Denies: chills, fever. Cardiovascular: Denies: chest pain. Gastrointestinal: Denies: abdominal pain. Musculoskeletal: Denies: back pain, muscle pain, muscle stiffness. Objective Last 24 Hrs of Vital Signs/I&O Vital Signs Date Time Temp Pulse Resp B/P B/P Pulse O2 O2 Flow FiO2 Mean Ox Delivery Rate 07/28 0620 98.7 102 20 132/76 98 Nasal 2.0L Cannula 07/28 0000 97 Nasal 2.0L Cannula 07/27 2241 97.6 67 20 140/88 96 07/27 1600 Nasal 2.0L Cannula 07/27 1426 98.2 100 20 130/80 97 Nasal 2.0L Cannula 07/27 1136 98.9 104 18 140/70 98 Nasal 2.0L Cannula Intake & Output 07/28 1600 07/28 0800 07/28 0000 Intake Total 600 600 Output Total 201 Balance 600 399 Intake, Oral 600 600 Number 1 Bowel Movements Output, Stool 1 Output, Urine 200 Physical Exam General Appearance: well developed/nourished, no apparent distress, alert, awake Head: atraumatic, normal appearance Cardiovascular: regular rate/rhythm Respiratory: normal breath sounds, chest non-tender Abdomen: distended, firm but not tense with ascites. No tenderness to palpation. Extremities: RLE wrapped in jt wrap. did not remove. dressing looks clean. Wound vac in place. Current Medications: Current Medications Sig/Jessika Start time Last Medication Dose Route Stop Time Status Admin Acetaminophen 1,000 MG Q6P PRN 07/23 0645 AC 07/24 N/A 1 UNIT IV 1857 Amoxicillin/ 875 MG Q12 07/23 1630 AC 07/28 Clavulanate Potassium PO 07/30 2199 09 Ciprofloxacin 500 MG BID 07/22 2200 AC 07/28 PO 07/30 220 09 Docusate Sodium 100 MG BID 07/20 2200 AC 07/28 PO 0907 Fentanyl Citrate 50 MCG Q72H 07/25 1200 AC 07/25 TOP 1412 Gabapentin 100 MG BID 07/20 2200 AC 07/28 PO 0907 Hydromorphone HCl 2 MG .STK-MED ONE 07/27 0959 DC IM 07/27 1000 Hydromorphone HCl 4 MG Q3P PRN 07/23 1245 AC 07/24 PO 1139 Hydromorphone HCl 6 MG Q3P PRN 07/23 1245 AC 07/27 PO 2132 Insulin Aspart 0 TIDAC 07/21 0800 AC 07/28 SC 0907 Lorazepam 1 MG TID PRN 07/23 1300 AC 07/24 PO 0755 Ondansetron HCl 4 MG Q6P PRN 07/20 1545 AC IV Polyethylene Glycol 17 GM DAILY 07/21 1000 AC 07/28 PO 0906 Promethazine HCl 12.5 MG Q6P PRN 07/20 1545 DC IV 07/27 1429 Risperidone 1 MG BID 07/20 2200 AC 07/28 PO 0907 Rivaroxaban 20 MG DAILY 07/28 1000 AC 07/28 PO 0907 Sodium Chloride 1,000 ML Q10H 07/27 0000 DC IV Results Last 24 Hrs Lab/Lucius Results: Laboratory Tests 07/28/17 0758: CBC w Diff NO MAN DIFF REQ, RBC 3.09 L, MCV 80.4 L, MCH 25.0 L, RDW 20.7 H, MPV 6.6 L, Gran % 76.2 H, Lymphocytes % 12.4 L, Monocytes % 8.4, Eosinophils % 2.5, Basophils % 0.5, Absolute Granulocytes 6.9 H, Absolute Lymphocytes 1.1 L, Absolute Monocytes 0.8 H, Absolute Eosinophils 0.2, Absolute Basophils 0, PUBS MCHC 31.1 L 07/27/17 1233: Anion Gap 10, Estimated GFR > 60, BUN/Creatinine Ratio 18.0, Iron 21 L, TIBC 186 L, Ferritin 127.0, Total Bilirubin 0.1 L, Direct Bilirubin 0.1, AST 20, ALT 33, Alkaline Phosphatase 94, Total Protein 5.0 L, Albumin 2.0 L, Prealbumin 5.2 L, Vitamin B12 760, Folate 8.9, TSH 2.620, Thyroxine (T4) 9.8, CBC w Diff NO MAN DIFF REQ, RBC 3.23 L, MCV 80.7 L, MCH 25.1 L, RDW 20.8 H, MPV 6.8 L, Gran % 75.1, Lymphocytes % 13.1 L, Monocytes % 7.0, Eosinophils % 3.7, Basophils % 1.1, Absolute Granulocytes 6.4, Absolute Lymphocytes 1.1 L, Absolute Monocytes 0.6, Absolute Eosinophils 0.3, Absolute Basophils 0.1, PUBS MCHC 31.1 L Tato LIM,[facility] 07/28/17 1245: Attending MD Review Statement Attending Sign Off Attending Cosign Statement: I have: examined this patient, reviewed [facility] EMR data, personally reviewd images, discussd w/resident/PA/DEPARTMENT SPECIALIST, discussed mgmt plan w/[facility]well, discussed mgmt plan w/pt, agreed w/resident/PA/DEPARTMENT SPECIALIST, amended to note. Other Findings: Patient seen and examined, Continued to c/o pain in her RLE. Reviewed all the labs. Vital Signs Date Time Temp Pulse Resp B/P B/P Pulse O2 O2 Flow FiO2 Mean Ox Delivery Rate 07/28 0800 98.7 102 20 132/76 07/28 0800 98 Nasal 2.0L Cannula 07/28 0620 98.7 102 20 132/76 98 Nasal 2.0L Cannula 07/28 0000 97 Nasal 2.0L Cannula 07/27 2241 97.6 67 20 140/88 96 07/27 1600 Nasal 2.0L Cannula 07/27 1426 98.2 100 20 130/80 97 Nasal 2.0L Cannula on exam; awake, nad. cv; s1,s2, rrr resp; clear abd; soft, nt, bs+ ext; + jt wrap on rle with wound vac. Laboratory Tests 07/28 0758 Hematology CBC w Diff NO MAN DIFF REQ WBC (4.8 - 10.8 /CUMM) 9.0 RBC (4.20 - 5.40 /CUMM) 3.09 L Hgb (12.0 - 16.0 G/DL) 7.7 L Hct (37 - 47 %) 24.9 L MCV (81.0 - 99.0 FL) 80.4 L MCH (27.0 - 31.0 PG) 25.0 L RDW (11.5 - 14.5 %) 20.7 H Plt Count (130 - 400 /CUMM) 616 H MPV (7.4 - 10.4 FL) 6.6 L Gran % (42.2 - 75.2 %) 76.2 H Lymphocytes % (20.5 - 51.1 %) 12.4 L Monocytes % (1.7 - 9.3 %) 8.4 Eosinophils % (0 - 5 %) 2.5 Basophils % (0.0 - 2.0 %) 0.5 Absolute Granulocytes (1.4 - 6.5 /CUMM) 6.9 H Absolute Lymphocytes (1.2 - 3.4 /CUMM) 1.1 L Absolute Monocytes (0.10 - 0.60 /CUMM) 0.8 H Absolute Eosinophils (0.0 - 0.7 /CUMM) 0.2 Absolute Basophils (0.0 - 0.2 /CUMM) 0 PUBS MCHC (33.0 - 37.0 G/DL) 31.1 L A/P; 51 y/o F with pmh sig for ch anemia, diabetes, stage IV metastatic ovarian cancer S/P paclitaxel carboplatin chemotherapy w/o response and with recurrent ascites, vaginal bleeding, and frequent palliative paracentesis, chronic low back pain seconday to bony metastasis, hydronephrosis s/p left ureteral stent, chronic bilateral lower extremity lymphedema due to large tumor burden, RLE DVT on Xarelto, pyschosis admitted to surgical service with Chronic venous insufficiency with infected necrotic pretibial ulcer s/p Excisional debridement through muscle greater than 20 cm, application of VAC postop day #7 today. Patient on antibiotics per infectious disease recommendations. Medical consultation was obtained secondary to patient's generalized weakness, poor nutritional status. Reviewed all the labs. Vitamin B12 and folate levels are within normal limits. Patient does have evidence of anemia of chronic disease and H&H at baseline. Recommend nutritional consult. Recommend PT evaluation. Antibiotics and wound care per infectious disease and vascular surgery. Medical issues at overall stable. We'll sign off. Please call with questions.
[2017-07-28] MEDS ORDERED: AMOX-CLAV 875-1 EACH PO (09:10)
[2017-07-28] MEDS ORDERED: CIPRO500 M1 PO (09:10)
[2017-07-28 14:18] VITALS: BP 120/70
--- NOTE | 2017-07-28 15:53 | PN- Vascular Surgery ---
Surgical Brief Attending Note Brief Attending Note: VASCULAR ATTENDING NOTE: Pt. d/w PA staff today. Wound stable with VAC. A/P Stable from medical standpoint/wound for discharge to SNIF Will need SNIF due to pain issues and need for nursing care for wounds Will see at [facility] next Thursday
--- NOTE | 2017-07-28 15:55 | PN- Vascular Surgery ---
Surgical Brief Attending Note Brief Attending Note: VASCULAR ATTENDING NOTE: Pt. d/w PA staff today. Wound stable with VAC. A/P Stable from medical standpoint/wound for discharge to SNIF Will need SNIF due to pain issues and need for nursing care for wounds Will see at [facility] next Thursday
--- NOTE | 2017-07-28 16:46 | PN- Infect Dx ---
Subjective Subjective: Afebrile without new complaints Objective Last 24 Hrs of Vital Signs/I&O Vital Signs Date Time Temp Pulse Resp B/P B/P Pulse O2 O2 Flow FiO2 Mean Ox Delivery Rate 07/28 1418 97.0 93 18 120/70 97 Nasal 2.0L Cannula 07/28 0800 98.7 102 20 132/76 07/28 0800 98 Nasal 2.0L Cannula 07/28 0620 98.7 102 20 132/76 98 Nasal 2.0L Cannula 07/28 0000 97 Nasal 2.0L Cannula 07/27 2241 97.6 67 20 140/88 96 Intake & Output 07/28 1600 07/28 0800 07/28 0000 Intake Total 600 600 Output Total 400 201 Balance -400 600 399 Intake, Oral 600 600 Number 1 1 Bowel Movements Output, Stool 1 Output, Urine 400 200 Physical Exam Other Physical Findings: She appears comfortable in no acute distress Extremities right leg dressing intact Results Last 24 Hours of Lab Results: Laboratory Tests 07/28 0758 Hematology CBC w Diff NO MAN DIFF REQ WBC (4.8 - 10.8 /CUMM) 9.0 RBC (4.20 - 5.40 /CUMM) 3.09 L Hgb (12.0 - 16.0 G/DL) 7.7 L Hct (37 - 47 %) 24.9 L MCV (81.0 - 99.0 FL) 80.4 L MCH (27.0 - 31.0 PG) 25.0 L RDW (11.5 - 14.5 %) 20.7 H Plt Count (130 - 400 /CUMM) 616 H MPV (7.4 - 10.4 FL) 6.6 L Gran % (42.2 - 75.2 %) 76.2 H Lymphocytes % (20.5 - 51.1 %) 12.4 L Monocytes % (1.7 - 9.3 %) 8.4 Eosinophils % (0 - 5 %) 2.5 Basophils % (0.0 - 2.0 %) 0.5 Absolute Granulocytes (1.4 - 6.5 /CUMM) 6.9 H Absolute Lymphocytes (1.2 - 3.4 /CUMM) 1.1 L Absolute Monocytes (0.10 - 0.60 /CUMM) 0.8 H Absolute Eosinophils (0.0 - 0.7 /CUMM) 0.2 Absolute Basophils (0.0 - 0.2 /CUMM) 0 PUBS MCHC (33.0 - 37.0 G/DL) 31.1 L Last 24 Hours of Lucius Results: No new cultures Assessment/Plan Impression: Stable, with temperatures and white blood cell count remaining normal, on Augmentin and Ciprofloxacin for a polymicrobial soft tissue infection status post a repeat excisional debridement yesterday of an infected, necrotic pretibial ulcer on the right lower extremity. Suggestion: 1. Continue Augmentin and Ciprofloxacin to complete a 7 day course of antibiotics from her debridement (until August 03)
== END 2017-07-28 16:40 | DRG 580 ==
LOC: STS 01:25 → 2NA 13:42 → PACUH 13:42 → ENRESERV 14:11 → ENTRNSPT 15:06 → CMPTRNSPT 15:30 → 2NA 15:58 → ENTRNSPT 07-27 10:16 → EDTRNSPTSTS 07-27 10:31 → EDTRNSPT 07-27 10:31 → CMPTRNSPT 07-27 10:46 → ENPENDDIS 07-28 09:20 → 2NA 07-28 16:40
PROVIDERS: Nurse Practitioner; Physician Assistant; Physician Assistant Surgical
PROC: 0KBS0ZZ Excision of Right Lower Leg Muscle, Open Approach (ICD-10-PCS; principal; 2017-07-20)
PROC: 0W9G3ZZ Drainage of Peritoneal Cavity, Percutaneous Approach (ICD-10-PCS; 2017-07-24)
PROC: 0KBS0ZZ Excision of Right Lower Leg Muscle, Open Approach (ICD-10-PCS; 2017-07-27)
DX: L03.115 Cellulitis of right lower limb (principal); R18.0 Malignant ascites; C79.51 Secondary malignant neoplasm of bone; C56.9 Malignant neoplasm of unspecified ovary; L97.915 Non-pressure chronic ulcer of unspecified part of right lower leg with muscle involvement without evidence of necrosis; E11.9 Type 2 diabetes mellitus without complications; D63.8 Anemia in other chronic diseases classified elsewhere; I10 Essential (primary) hypertension; I87.2 Venous insufficiency (chronic) (peripheral); I89.0 Lymphedema, not elsewhere classified; M79.89 Other specified soft tissue disorders; Z87.891 Personal history of nicotine dependence
CPT/HCPCS: 04007; 2NAP; 2NASP; 87070; 87075; 36415; 82436; 87147; 97110-GO; 97116-GO; 97161-GP; 97530-GO; J0131; J2550; J3490

== ENCOUNTER 2017-08-07 14:59 | Inpatient (IN) | payer OTHER ==
[~2017-08-07] VITALS: Ht 156.2 cm; Wt 115.7 kg
[~2017-08-07 14:59] MED LIST changes: +AMOX-CLAV 875-1 EACH PO; +CIPRO500 M1 PO; +DURAGESIC1 EAC2 TOP; +XARELTO10 M1 PO
[2017-08-07 16:08] LABS: ABSOLUTE BASOPHIL COUNT 0 /CUMM (0.0-0.2); ABSOLUTE EOSINOPHIL COUNT 0 /CUMM (0.0-0.7); ABSOLUTE LYMPH COUNT 0.8 /CUMM (1.2-3.4); ABSOLUTE MONOCYTE COUNT 0.7 /CUMM (0.10-0.60); BASOPHIL % 0.2 % (0.0-2.0); EOSINOPHIL % 0.7 % (0-5); GRANULOCYTE % 72.3 % (42.2-75.2); HEMATOCRIT 24.3 % (37-47); MEAN CORPUSCULAR HGB 23.7 PG (27.0-31.0); MEAN CORPUSCULAR HGB CONC 30.4 G/DL (33.0-37.0); MEAN CORPUSCULAR VOLUME 77.9 FL (81.0-99.0); MEAN PLATELET VOLUME 6.1 FL (7.4-10.4); PLATELET COUNT 726 /CUMM (130-400); RBC DISTRIBUTION WIDTH 20.6 % (11.5-14.5); RED BLOOD CELL CT 3.12 /CUMM (4.20-5.40); WHITE BLOOD CELL COUNT 5.6 /CUMM (4.8-10.8)
--- NOTE | 2017-08-07 16:15 | ED DYSPNEA/ASTHMA COMPLAINT ---
History of Present Illness General Chief Complaint: Dyspnea (COPD, CHF, Other) Stated Complaint: S/P PARACENTESIS, 2.4L DRAINED, NOW SOB Source: patient, family () Exam Limitations: no limitations Vital Signs & Intake/Output Vital Signs & Intake/Output Vital Signs Date Time Temp Pulse Resp B/P B/P Pulse O2 O2 Flow FiO2 Mean Ox Delivery Rate 08/08 0049 98.2 96 20 108/70 92 Nasal 2.0L Cannula 08/08 0030 Nasal 2.0L Cannula 08/07 2304 97.8 96 20 128/70 99 Nasal 2.0L Cannula 08/07 2144 98.5 100 20 138/84 95 Nasal 2.0L Cannula 08/07 1953 99.0 102 22 146/82 96 Nasal 2.0L Cannula 08/07 1823 99.6 109 24 141/63 95 Nasal 2.0L Cannula 08/07 1726 97 Nasal 2.0L Cannula 08/07 1640 96 Nasal 2.0L Cannula 08/07 1512 98.3 110 20 125/57 94 Nasal 2.0L Cannula ED Intake and Output 08/08 0000 08/07 1200 Intake Total 0 Output Total 775 Balance -775 Intake, Oral 0 Output, Urine 775 Patient 275 lb Weight Weight Reported by Patient Measurement Method Allergies Coded Allergies: cefuroxime (From CEFTIN) (Intermediate, "LOST IT" 02/12/16) Triage Note: PT TO ED FROM [facility]IVE IMAGING UNIT, PT S/P PARACENTESIS 2.4 LITERS TODAY, PER IIU NURSE PT COMES FOR PARACENTESIS OFTEN AND USUALLY TOLERATES PROCEDURE VERY WELL, TODAY PT WAS HYPOXIC 88-90% ON ROOM AIR, PLACED ON O2 2L AND PT IS CURRENTLY 98-100% UPON ARRIVAL. Triage Nurses Notes Reviewed? yes Onset: Abrupt Duration: week(s): (1.5), constant, continues in ED, getting worse Timing: single episode today Severity: moderate, severe Activities at Onset: activity Prior Episodes/Possible Cause: occasional episodes Associated Symptoms: cough, wheezing, SOB LMP (ages 10-50): unknown : No Patient currently breastfeeds: No HPI: 51 YEAR OLD FEMALE WITH HX OF METASTATIC OVARIAN CANCER PRESENTS for evaluation of shortness of breath, cough, weakness and hypoxia. Patient states symptoms were gone over the past 2 weeks. She went today for a paracentesis where she had 2.4 L removed. She was found to be hypoxic to 88% on room air. She does have oxygen that she uses as needed during the night at home. Cough is productive of yellow sputum. She denies any chest pain or hemoptysis. She does have lower extremity edema that is chronic. She was RECENTL.Y treated for a cellulitis on the right lower extremity. She denies any fever, abdominal pain, nausea, vomiting, abdominal pain. She was recently admitted last month for anemia. She is currently not being treated for ovarian cancer. (Cholo DEMPSEY,Laron) Reconcile Medications Acetaminophen (Pharbetol) 325 MG TABLET 650 MG PO Q4H PRN PAIN/TEMP 101 ( Reported) Acetaminophen (Acephen) 650 MG SUPP.RECT 1 SUPP GA Q4H PRN PAIN/TEMP>101 ( Reported) Albuterol Sulfate 2.5 MG/3 ML (0.083 %) VIAL.NEB 1 Vial INH/SHIRLEY BID RESP. ( Reported) Albuterol Sulfate 2.5 MG/3 ML (0.083 %) VIAL.NEB 1 Vial INH/SHIRLEY Q4P PRN SOB/ WHEEZE (Reported) Arginine/Glutamine/Calcium Hmb (Taurus Packet) 7 GRAM-7 GRAM-1.5 GRAM POWD.PACK 1 PAC PO BID UNKNOWN (Reported) Aspirin (Aspirin*) 325 MG TABLET 1 TAB PO DAILY HEART/BLOOD (Reported) Bisacodyl 10 MG SUPP.RECT 1 SUP RC DAILY PRN CONSTIPATION (Reported) Docusate Sodium 100 MG CAPSULE 100 MG PO BID PRN CONSTIPATION hold for loose stool / diarrhea Fentanyl Citrate (Duragesic) 50 MCG/HOUR PATCH.TD72 50 MCG TOP Q72H pain control home medication increased from 25 mcg/hour to 50 mcg/hour q72 hours Ferrous Sulfate (IRON) 325 MG (65 MG IRON) TABLET 1 TAB PO DAILY SUPPLEMENT ( Reported) Gabapentin 100 MG CAPSULE 1 CAP PO BID NEUROPATHY (Reported) Guaifenesin (Adult Wal-Tussin) 100 MG/5 ML LIQUID 10 ML PO Q4H PRN COUGH ( Reported) Hydromorphone HCl (Dilaudid) 2 MG TABLET 1 TAB PO Q4H PRN BREAKTHROUGH MILD PAIN (Reported) Hydromorphone HCl (Dilaudid) 4 MG TABLET 1 TAB PO Q4H PRN BREAKTHROUGH SEVERE PAIN (Reported) Hydromorphone HCl (Dilaudid) 2 MG TABLET 6 MG PO Thursday PRIOR TO WOUND VAC (Reported) Mag Hydrox/Al Hydrox/Simeth (Alum-Mag Hydroxide-Simeth Liq) 200 MG-200 MG-20 MG/ 5 ML ORAL.SUSP 15 ML PO Q6H PRN BLOATED ABD FEELING (Reported) Magnesium Hydroxide (Milk Of Magnesia) 400 MG/5 ML ORAL.SUSP 30 ML PO DAILY PRN CONSTIPATION (Reported) Multivitamin,Ther and Minerals (Super Theravite-M) 1 EACH TABLET 1 TAB PO DAILY SUPPLEMENT (Reported) Na Phos,M-B/Na Phos,Di-Ba (Fleet Enema) 19 GRAM-7 GRAM/118 ML ENEMA 1 E RC DAILY PRN CONSTIPATION (Reported) Polyethylene Glycol 3350 (Miralax) 17 GRAM/DOSE POWDER 17 GM PO DAILY PRN CONSTIPATION [PRO-SOURCE] 30 ML PO TID NUTRITIONAL SUPPLEMENT (Reported) Risperidone (Risperdal) 1 MG TABLET 1 TAB PO BID MENTAL HEALTH (Reported) Rivaroxaban (Xarelto) 10 MG TABLET 20 MG PO DAILY history of dvt (Nghia LIM,Beni Hart) Past History Travel History Traveled to [place] past 21 day No Medical History Any Pertinent Medical History? 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 No (Laron Ng) Review of Systems Review of Systems Constitutional: Reports: weakness. EENTM: Reports: no symptoms. Respiratory: Reports: see HPI, cough, short of breath, sputum production, wheezing. Cardiovascular: Reports: peripheral edema. GI: Reports: no symptoms. Genitourinary: Reports: no symptoms. Musculoskeletal: Reports: no symptoms. Skin: Reports: no symptoms. Neurological/Psychological: Reports: weakness. Hematologic/Endocrine: Reports: no symptoms. Immunologic/Allergic: Reports: no symptoms. All Other Systems: Reviewed and Negative (Laron Ng) Physical Exam Physical Exam General Appearance: well developed/nourished, alert, awake, lethargic, mild distress, obese Head: atraumatic, normal appearance Eyes: Bilateral: normal appearance, PERRL, EOMI. Ears, Nose, Throat: normal pharynx, normal ENT inspection, hearing grossly normal Neck: normal inspection, supple, full range of motion Respiratory: chest non-tender, no respiratory distress, rhonchi, wheezing Cardiovascular: regular rate/rhythm, normal peripheral pulses Peripheral Pulses: 2+ radial (R), 2+ radial (L) Gastrointestinal: soft, non-tender Extremities: THE BILATERAL LOWER EXTREMITIES ARE SWOLLEN AND WRAPPED WITH nIder WRAPS. pATIENT REFUSES TO HAVE THESE VISUALIZED. pATIENT IS ABLE TO MOVE THE BILATERAL LOWER EXTREMITIES EQUALLY Neurologic/Psych: no motor/sensory deficits, awake, alert, oriented x 3 Skin: intact, normal color, warm/dry Lymphatic: no anterior cervical manuel Core Measures ACS in differential dx? No CVA/TIA Diagnosis No Sepsis Present: No Sepsis Focused Exam Completed? No (Laron Ng) Progress Differential Diagnosis: asthma, AMI, bronchitis, CHF, COPD, pulmonary embolism, pneumonia, pneumothorax Plan of Care: Orders Procedure Date/time Status Regular Diet 08/08 B Active CBC WITHOUT DIFFERENTIAL 08/08 0600 Active BASIC ELECTROLYTES PLUS BUN&CR 08/08 0600 Active Vital Signs 08/08 0050 Active Teach/Educate 08/08 0050 Active Pain Treatment and Response 08/08 0050 Active Nutritional Intake, Monitor 08/08 0050 Active Isolation 08/08 0050 Active Intake & Output 08/08 0050 Active Patient Care Conference 08/08 0050 Active Activity/Ambulation 08/08 0050 Active PHYSICIAN CONSULT 08/08 UNK Active LOWER RESPIRATORY CULTURE 08/07 2308 Active TYPE & SCREEN (NOT X-MATCH) 08/07 2308 Complete Pathway - chart 08/07 2302 Active House Staff 08/07 2302 Active Patient Data 08/07 2302 Active Code Status 08/07 2302 Active Saline Lock 08/07 2232 Active Misc Message 08/07 2232 Active ED Holding Orders 08/07 2232 Active Admit to inpatient 08/07 2232 Active Vital Signs 08/07 2232 Active Code Status 08/07 2232 Complete Patient Data 01/26 2225 Active LACTIC ACID 08/07 2145 Complete ARTERIAL BLOOD GAS (GEN) 08/07 1935 Complete RAPID VIRAL INFLUENZA A 08/07 1842 Complete Add-on Test (ER Only) 08/07 1835 Active BLOOD CULTURE 08/07 1812 Active PARTIAL THROMBOPLASTIN TIME 08/07 1600 Complete PROTHROMBIN TIME 08/07 1600 Complete Intake & Output 08/07 1535 Active TROPONIN LEVEL 08/07 1527 Complete D-DIMER 08/07 1527 Complete COMPREHENSIVE METABOLIC PANEL 08/07 1527 Complete CBC WITHOUT DIFFERENTIAL 08/07 1527 Complete EKG 08/07 1527 Active Vital Signs 08/07 UNK Complete Hemoccult 08/07 UNK Active Current Medications Sig/Jessika Start time Last Medication Dose Stop Time Status Admin Hydromorphone HCl 6 MG 08/10 1000 CAN (Dilaudid) Aspirin 325 MG DAILY 08/08 1000 AC (Aspirin) Azithromycin 500 MG DAILY 08/08 1000 AC (Zithromax) Dextrose/Water 250 ML (D5W) Fentanyl Citrate 50 MCG Q72H 08/08 1000 AC (Duragesic) Ferrous Sulfate 325 MG DAILY 08/08 1000 AC (Feosol) Gabapentin 100 MG BID 08/08 1000 AC (Neurontin) Guaifenesin 600 MG Q12 08/08 1000 AC (Mucinex) Hydromorphone HCl 4 MG Q4P PRN 08/08 1000 AC (Dilaudid) Multivitamins 1 TAB DAILY 08/08 1000 AC (Theragran Vitamins) Risperidone 1 MG BID 08/08 1000 AC (Risperidone) Tiotropium [place] 1 PUF DAILY 08/08 1000 AC (Spiriva) Ceftazidime 1,000 MG Q8H 08/08 0700 AC (Fortaz) Methylprednisolone 40 MG Q8 08/08 0600 AC (Solumedrol) Acetaminophen 650 MG Q6P PRN 08/07 2315 AC (Tylenol) Acetaminophen 1,000 MG Q6P PRN 08/07 2315 AC (Ofirmev) Al Hydroxide/Mg 15 ML Q6P PRN 08/07 2315 AC Hydroxide (Maalox Plus) Albuterol Sulfate 3 ML Q4P PRN 08/075 AC (Proventil) Bisacodyl 10 MG DAILY NEEDED PRN 08/07 2314 AC (Dulcolax Supp) Docusate Sodium 100 MG BID PRN 08/07 2314 AC (Colace) Magnesium Hydroxide 30 ML DAILY NEEDED PRN 08/07 2314 AC (Milk Of Magnesia) Polyethylene Glycol 17 GM DAILY NEEDED PRN 08/07 2314 AC (Miralax) Moxifloxacin HCl 400 MG ONCE ONE 08/07 1844 CAN (Avelox) 08/07 1845 Laboratory Tests 08/07/172314: pH 7.44, pCO2 43, pO2 87, HCO3 29 H, ABG O2 Sat (Measured) 95.0 L, P-50 (Temp Corrected) Y, Carboxyhemoglobin 1.6, O2 Concentration % 2 LPM, Temperature 97.8, O2 Delivery Method N/C, Phlebotomy Draw Site RIGHT RADIAL 08/07/172239: Lactic Acid 0.7 08/07/171844: Lactic Acid Cancelled 08/07/17 1600: Anion Gap 8, Estimated GFR > 60, BUN/Creatinine Ratio 36.0 H, Glucose 80, Calcium 7.4 L, Total Bilirubin 0.3, AST 24, ALT 19, Alkaline Phosphatase 98, Troponin I < 0.01, Total Protein 5.6 L, Albumin 2.3 L, Globulin 3.3, Albumin/ Globulin Ratio 0.7 L, PT 14.7 H, INR 1.40 H, APTT 30, D-Dimer High Sensitivty 4877 H, CBC w Diff NO MAN DIFF REQ, RBC 3.12 L, MCV 77.9 L, MCH 23.7 L, MCHC 30.4 L, RDW 20.6 H, MPV 6.1 L, Gran % 72.3, Lymphocytes % 14.7 L, Monocytes % 12.1 H, Eosinophils % 0.7, Basophils % 0.2, Absolute Granulocytes 4.0, Absolute Lymphocytes 0.8 L, Absolute Monocytes 0.7 H, Absolute Eosinophils 0, Absolute Basophils 0 Microbiology 08/07 2308 LOWER RESP: Respiratory Culture - COLB 08/07 2308 LOWER RESP: Gram Stain - COLB 08/07 2239 BLOOD: Blood Culture - RECD 08/07 2099 NASOPHARYN: Influenza Virus A & B Rapid Smear - COMP 08/07 1929 BLOOD: Blood Culture - RECD Patient seen and evaluated. She is hypoxic to the high 80s on room air. She does have oxygen that she uses as needed at nighttime. Patient is afebrile but appears pale with diffuse wheezing and rhonchi. DuoNeb and Solu-Medrol ordered. Chest x-ray initially showed evidence of pneumonia and pleural effusion and patient was medicated with vancomycin and Fortaz for broad spectrum coverage since she was hospitalized recently for anemia here last month. CT of the chest is negative for pulmonary and was in an pneumonia but did show the pulmonary effusion. Additionally patient has bronchitis. Her hemoglobin is at her baseline for the past several months. She denies any melena or bright red blood per rectum. Patient will require admission for hypoxia. She'll need IV antibiotics, IV steroids, pulmonology consult, thoracentesis, monitoring of vital signs. Additionally an ABG was ordered because patient was appearing to be lethargic. The results of the ABG will determine the patient's placement. Case discussed with Dr. Agrawal he agrees. Diagnostic Imaging: Viewed by Me: Radiology Read. Discussed w/RAD: Radiology Read. Radiology Impression: PATIENT: MATIAS FRASER PRESENT AGE: 51 PATIENT ACCOUNT NO: [id number] : 67 LOCATION: [facility], [place] ORDERING PHYSICIAN: Laron DEMPSEY SERVICE DATE: 08/07/17 EXAM TYPE: RAD - XRY- PORTABLE CHEST XRAY EXAMINATION: CHEST 1 VIEW CLINICAL INFORMATION: Shortness of breath, hypoxia. COMPARISON: 06/29/2017. TECHNIQUE: An AP view of the chest is provided. FINDINGS: The cardiac silhouette is stable. A right-sided port is in place. There is a left perihilar infiltration. There is also left lower lobe airspace disease. Lung volumes are decreased. The osseous structures are stable. IMPRESSION: Left perihilar and lower lobe infiltration concerning for pneumonia. Recommendation is for a followup chest series to be obtained following treatment and/or resolution of symptoms to assure resolution of this appearance. DICTATED BY: Camron Burris MD DATE/TIME DICTATED:08/07/171654 MORTAR CARRIER: ESAU DATE/TIME TRANSCRIBED:08/07/171654 CONFIDENTIAL, DO NOT COPY WITHOUT APPROPRIATE AUTHORIZATION., PATIENT: MATIAS FRASER PRESENT AGE: 51 PATIENT ACCOUNT NO: [id number] : 67 LOCATION: [facility], [place] ORDERING PHYSICIAN: Laron DEMPSEY SERVICE DATE: 08/07/17 EXAM TYPE: CAT - CTA CHEST-PULMONARY EMBOLISM EXAMINATION: CT ANGIOGRAM OF THE CHEST WITH CONTRAST (CT PULMONARY ANGIOGRAM FOR PE) CLINICAL INFORMATION: Cough and shortness of breath. COMPARISON: 04/25/2017 TECHNIQUE: Prior to contrast administration, noncontrast localization images were obtained. Subsequently, multidetector volumetric imaging was performed from the thoracic inlet to below the diaphragms following the administration of 65 mL Optiray 350 intravenous contrast. No contrast reaction reported. Sagittal, coronal, and MIP oblique sagittal reformatted images were obtained on the CT workstation, uploaded to PACS, and reviewed. Total exam dose-length product 502 mGy-cm FINDINGS: QUALITY OF STUDY/CONTRAST BOLUS: Satisfactory. PULMONARY ARTERIES: Pulmonary arteries are normal in size. No embolic filling defects are identified within the main, lobar or segmental vessels. However, some of the peripheral vessels are suboptimally visualized due to respiratory motion. THORACIC AORTA: Thoracic aorta is normal in size; no aneurysm or dissection. LUNGS AND PLEURA: Subsegmental atelectasis in the right upper lobe along the major fissure and, to lesser extent along the minor fissure. Small right pleural effusion produces mild compressive atelectasis in the posterior right lower lobe. There is subsegmental atelectasis within the superior lingula. Moderate left pleural effusion has increased in size compared to 04/25/2017 and there is associated atelectasis in the dependent aspect of the left lower lobe. No interstitial edema. MEDIASTINUM: The heart size is normal. No pericardial effusion. No evidence of septal bowing or right heart strain. The esophagus is unremarkable. The visualized portion of the thyroid gland is normal. LYMPHATICS: Lymphadenopathy is present. The largest right axillary lymph node measures 1.4 x 1.9 cm, compared to 1 x 1.6 cm on 04/25/2017. Lymph nodes in the prevascular space of the mediastinum have increased in size, although none in this region exceed 1 cm in short axis dimension. Largest right paratracheal lymph node is 2.4 cm short axis dimension, compared to 2.1 cm on 04/25/2017. Subcarinal lymph nodes have enlarged, as well. UPPER ABDOMEN: Patient has an obese body habitus. [id number] amount of ascitic fluid is seen in the examined portion of the upper abdomen. The liver parenchyma is slightly heterogeneous -- similar appearance compared to 04/25/2017, and there is hepatosplenomegaly. No reflux of contrast into the hepatic veins to suggest elevated right heart pressures. OSSEOUS STRUCTURES: Multilevel discovertebral degenerative change of the visualized lower cervical and thoracic spine. No aggressive osseous lesions. Subarticular cystic changes seen in the inferior aspect of the right glenoid. No loose osteochondral bodies in the right glenohumeral joint. IMPRESSION: 1. No evidence of pulmonary embolism. 2. Lymphadenopathy in the chest has worsened compared to 04/25/2017, as described above. 3. Small right pleural effusion is new compared to 04/25/2017. The moderate left pleural effusion has increased in size compared to 04/25/2017. Atelectatic changes are seen in both lungs. There is no overt pneumonia. 4. Hepatosplenomegaly and ascites within the visualized upper abdomen. DICTATED BY: Antonio Campbell MD DATE/TIME DICTATED:08/07/171838 MORTAR CARRIER:ESAU DATE/TIME TRANSCRIBED:08/07/171838 CONFIDENTIAL, DO NOT COPY WITHOUT APPROPRIATE AUTHORIZATION. Initial ED EKG: SINUS TACHYCARDIA, LOW VOLTAGE IN FRONTAL LEADS, BORDERLINE t- WAVE ABDOMEN AND HIS ANTERIOR LATERAL LEADS (Laron Ng) Departure Departure Disposition: STILL A PATIENT Condition: Stable Clinical Impression Primary Impression: Acute bronchitis Qualifiers: Bronchitis organism: unspecified organism Qualified Code: J20.9 - Acute bronchitis, unspecified Secondary Impressions: Hypoxia, Pleural effusion Referrals: Liza Clark MD (PCP/Family) Departure Forms: Customer Survey General Discharge Information Admission Note [facility] Documentation of Exam: Documentation of any treatments & extenuating circumstances including Concerns Regarding Discharge (functional status, medication knowledge or non-compliance, living conditions, etc.) that warrant an admission rather than observation: [PT IS HYPOXIC ON ROOM AIR JUST LAYING IN THE BED. SHE WILL REQUIRE IV ANTIBIOTICS, OXYGEN, IV STERIODS, THORACENTESIS, PULM CONSULT, DUO NEBS, SERIAL LABS] (Laron Ng) PA/ENVIRONMENTAL SCIENTIST Co-Sign Statement Statement: ED Attending supervision documentation- [] I saw and evaluated the patient. I have also reviewed all the pertinent lab results and diagnostic results. I agree with the findings and the plan of care as documented in the PA's/ENVIRONMENTAL SCIENTIST's documentation. [x] I have reviewed the ED Record and agree with the PA's/ENVIRONMENTAL SCIENTIST's documentation. [] Additions or exceptions (if any) to the PAs/ENVIRONMENTAL SCIENTIST's note and plan are summarized below: [] (Nghia LIM,Beni Hart) Critical Care Note Critical Care Note Critical Care Time: 30-74 min (Cholo DEMPSEY,Laron)
--- NOTE | 2017-08-07 16:59 | RADIOLOGY REPORT ---
EXAMINATION: CHEST 1 VIEW CLINICAL INFORMATION: Shortness of breath, hypoxia. COMPARISON: 06/29/2017. TECHNIQUE: An AP view of the chest is provided. FINDINGS: The cardiac silhouette is stable. A right-sided port is in place. There is a left perihilar infiltration. There is also left lower lobe airspace disease. Lung volumes are decreased. The osseous structures are stable. IMPRESSION: Left perihilar and lower lobe infiltration concerning for pneumonia. Recommendation is for a followup chest series to be obtained following treatment and/or resolution of symptoms to assure resolution of this appearance.
[2017-08-07 18:42] LABS: PT 14.7 SEC (9.4-12.5); PTT 30 SEC (25-37)
--- NOTE | 2017-08-07 18:54 | CT SCAN REPORT ---
EXAMINATION: CT ANGIOGRAM OF THE CHEST WITH CONTRAST (CT PULMONARY ANGIOGRAM FOR PE) CLINICAL INFORMATION: Cough and shortness of breath. COMPARISON: 04/25/2017 TECHNIQUE: Prior to contrast administration, noncontrast localization images were obtained. Subsequently, multidetector volumetric imaging was performed from the thoracic inlet to below the diaphragms following the administration of 65 mL Optiray 350 intravenous contrast. No contrast reaction reported. Sagittal, coronal, and MIP oblique sagittal reformatted images were obtained on the CT workstation, uploaded to PACS, and reviewed. Total exam dose-length product 502 mGy-cm FINDINGS: QUALITY OF STUDY/CONTRAST BOLUS: Satisfactory. PULMONARY ARTERIES: Pulmonary arteries are normal in size. No embolic filling defects are identified within the main, lobar or segmental vessels. However, some of the peripheral vessels are suboptimally visualized due to respiratory motion. THORACIC AORTA: Thoracic aorta is normal in size; no aneurysm or dissection. LUNGS AND PLEURA: Subsegmental atelectasis in the right upper lobe along the major fissure and, to lesser extent along the minor fissure. Small right pleural effusion produces mild compressive atelectasis in the posterior right lower lobe. There is subsegmental atelectasis within the superior lingula. Moderate left pleural effusion has increased in size compared to 04/25/2017 and there is associated atelectasis in the dependent aspect of the left lower lobe. No interstitial edema. MEDIASTINUM: The heart size is normal. No pericardial effusion. No evidence of septal bowing or right heart strain. The esophagus is unremarkable. The visualized portion of the thyroid gland is normal. LYMPHATICS: Lymphadenopathy is present. The largest right axillary lymph node measures 1.4 x 1.9 cm, compared to 1 x 1.6 cm on 04/25/2017. Lymph nodes in the prevascular space of the mediastinum have increased in size, although none in this region exceed 1 cm in short axis dimension. Largest right paratracheal lymph node is 2.4 cm short axis dimension, compared to 2.1 cm on 04/25/2017. Subcarinal lymph nodes have enlarged, as well. UPPER ABDOMEN: Patient has an obese body habitus. [id number] amount of ascitic fluid is seen in the examined portion of the upper abdomen. The liver parenchyma is slightly heterogeneous -- similar appearance compared to 04/25/2017, and there is hepatosplenomegaly. No reflux of contrast into the hepatic veins to suggest elevated right heart pressures. OSSEOUS STRUCTURES: Multilevel discovertebral degenerative change of the visualized lower cervical and thoracic spine. No aggressive osseous lesions. Subarticular cystic changes seen in the inferior aspect of the right glenoid. No loose osteochondral bodies in the right glenohumeral joint. IMPRESSION: 1. No evidence of pulmonary embolism. 2. Lymphadenopathy in the chest has worsened compared to 04/25/2017, as described above. 3. Small right pleural effusion is new compared to 04/25/2017. The moderate left pleural effusion has increased in size compared to 04/25/2017. Atelectatic changes are seen in both lungs. There is no overt pneumonia. 4. Hepatosplenomegaly and ascites within the visualized upper abdomen.
--- NOTE | 2017-08-07 21:28 | History & Physical ---
Kavin LIM,[facility] 08/07/172126: General Information and HPI MD Statement: I have seen and personally examined MATIAS FRASER and documented this H&P. The patient is a 51 year old F who presented with a patient stated chief complaint of [SOB and lower extremity necrosis s/p debridement]. Source of Information: family Exam Limitations: not alert/orientated History of Present Illness: Most of the history is given by the patient's . 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 The states that the patient has recurrent paracentesis for palliation every 10 days. The patient got 2.5 L drained. The states that the patient still has 2 L of fluid in her abdomen. Of note the patient was last admitted to [facility] for back pain secondary to bone metastasis in April 2017. She was also admitted to [place] in may 2017 for palliative therapy with optimization of pain regimen with fentanyl, Dilaudid, gabapentin. She was last admitted to [facility] in June 2017 for acute on chronic blood loss anemia, vaginal bleeding secondary to uterine cancer, hematuria, malignant ascites. Most recently she had a right leg debridement on 07/20/2016 due to progressive worsening right DVT and was then discharged to [facility]. Of note, her Xarelto was stopped on 08/03/[address] by her vascular surgeon Dr[address] Ricardo. Today, the patient's is concerned about her shortness of breath, cough, and generalized weakness, and hypoxia after paracentesis. Of note the is adamant about when the patient gets her po dilaudid. He initially refused an IV and lab draws. He is declining ALPS and states the patient's R foot shoulder be coevered with ?ferrous blue. 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 spouse Services at Home: None Functional Ability ADLs Independent: dressing, eating, toileting, bathing. Ambulation: independent IADLs Independent: shopping, housework, finances, food prep, telephone, transportation , medication admin. Review of Systems Review of Systems Constitutional: Reports: malaise, weakness. Cardiovascular: Reports: no symptoms. Respiratory: Reports: cough, short of breath, sputum production. GI: Reports: no symptoms. Genitourinary: Reports: no symptoms. Musculoskeletal: Reports: no symptoms. Skin: Reports: no symptoms. Exam & Diagnostic Data Last 24 Hrs of Vital Signs/I&O Vital Signs Date Time Temp Pulse Resp B/P B/P Pulse O2 O2 Flow FiO2 Mean Ox Delivery Rate 08/08 0049 98.2 96 20 108/70 92 Nasal 2.0L Cannula 08/08 0030 Nasal 2.0L Cannula 08/07 2304 97.8 96 20 128/70 99 Nasal 2.0L Cannula 08/07 2144 98.5 100 20 138/84 95 Nasal 2.0L Cannula 08/07 1953 99.0 102 22 146/82 96 Nasal 2.0L Cannula 08/07 1823 99.6 109 24 141/63 95 Nasal 2.0L Cannula 08/07 1726 97 Nasal 2.0L Cannula 08/07 1640 96 Nasal 2.0L Cannula 08/07 1512 98.3 110 20 125/57 94 Nasal 2.0L Cannula Intake & Output 08/08 0800 08/08 0000 08/07 1600 Intake Total 0 Output Total 775 Balance -775 0 Intake, Oral 0 Output, Urine 775 Patient 256 lb 275 lb Weight Weight Bed scale Reported by Patient Measurement Method Physical Exam General Appearance Patient has eyes closed. Appears very tired but does respond when asked questions. Cardiovascular Regular Rate, Normal S1, Normal S2 Lungs diffuse rhonchi Abdomen Soft, No Tenderness, decrease bowel softs. 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 #SOB due to possible pneumonia Vitals: T 98.2, heart rate 96, respiratory rate 20, blood pressure 108/70, 92% on 2 L H/H7.4/24.3 Rapid flu negative CXR: Left perihilar and lower lobe infiltration concerning for pneumonia. Chest CT: 1. No evidence of pulmonary embolism. 2. Lymphadenopathy in the chest has worsened compared to 04/25/2017, as described above. 3. Small right pleural effusion is new compared to 04/25/2017. The moderate left pleural effusion has increased in size compared to 04/25/2017. Atelectatic changes are seen in both lungs. There is no overt pneumonia. 4. Hepatosplenomegaly and ascites within the visualized upper abdomen. -Continue azithromycin/ceftazidime, IV Solu-Medrol -Continue TRC/nebs, guaifenesin -Follow-up blood cultures and respiratory cultures #borderline hypotension BP 108/70 -hold po Dilaudid whenever necessary even if very adamant when patient to get it #chronic anemia due to uterine cancer with thrombocytosis H/H 7.4/24.3 Platelet 726 -guaic all stools -Currently at her baseline, hgb goal >7 -Follow-up outpatient with gynecology -Continue iron, aspirin #chronic pain with hx of metastatic cancer -Continue fentanyl patch, Dilaudid by mouth, gabapentin, #mental health -Continue risperidone #vitamins -Continue multivitamins #constipation -Continue MiraLAX, milk of magnesia, Colace, Dulcolax #DVT prophylaxis-no pharmacologic prophylaxis given acute blood loss anemia -Patient refused Alps #Full code Core Measures/Misc (03/29) Acute Coronary Syndrome ACS Diagnosis: No Congestive Heart Failure Congestive Heart Failure Diagnosis No Cerebrovascular Accident CVA/TIA Diagnosis: No VTE (View Protocol) VTE Risk Factors Acute Medical Illness No Mechanical VTE Prophylaxis d/t Other No VTE Pharm Prophylaxis d/t NA PharmProphylax ordered Sepsis (View protocol) Sepsis Present: No John Elliott 08/08/17 0346: General Information and HPI Allergies/Medications Home Med list Acetaminophen (Pharbetol) 325 MG TABLET 650 MG PO Q4H PRN PAIN/TEMP 101 ( Reported) Acetaminophen (Acephen) 650 MG SUPP.RECT 1 SUPP VA Q4H PRN PAIN/TEMP>101 ( Reported) Albuterol Sulfate 2.5 MG/3 ML (0.083 %) VIAL.NEB 1 Vial INH/SHIRLEY BID RESP. ( Reported) Albuterol Sulfate 2.5 MG/3 ML (0.083 %) VIAL.NEB 1 Vial INH/SHIRLEY Q4P PRN SOB/ WHEEZE (Reported) Arginine/Glutamine/Calcium Hmb (Taurus Packet) 7 GRAM-7 GRAM-1.5 GRAM POWD.PACK 1 PAC PO BID UNKNOWN (Reported) Aspirin (Aspirin*) 325 MG TABLET 1 TAB PO DAILY HEART/BLOOD (Reported) Bisacodyl 10 MG SUPP.RECT 1 SUP RC DAILY PRN CONSTIPATION (Reported) Docusate Sodium 100 MG CAPSULE 100 MG PO BID PRN CONSTIPATION hold for loose stool / diarrhea Fentanyl Citrate (Duragesic) 50 MCG/HOUR PATCH.TD72 50 MCG TOP Q72H pain control home medication increased from 25 mcg/hour to 50 mcg/hour q72 hours Ferrous Sulfate (IRON) 325 MG (65 MG IRON) TABLET 1 TAB PO DAILY SUPPLEMENT ( Reported) Gabapentin 100 MG CAPSULE 1 CAP PO BID NEUROPATHY (Reported) Guaifenesin (Adult Wal-Tussin) 100 MG/5 ML LIQUID 10 ML PO Q4H PRN COUGH ( Reported) Hydromorphone HCl (Dilaudid) 2 MG TABLET 1 TAB PO Q4H PRN BREAKTHROUGH MILD PAIN (Reported) Hydromorphone HCl (Dilaudid) 4 MG TABLET 1 TAB PO Q4H PRN BREAKTHROUGH SEVERE PAIN (Reported) Hydromorphone HCl (Dilaudid) 2 MG TABLET 6 MG PO Thursday PRIOR TO WOUND VAC (Reported) Mag Hydrox/Al Hydrox/Simeth (Alum-Mag Hydroxide-Simeth Liq) 200 MG-200 MG-20 MG/ 5 ML ORAL.SUSP 15 ML PO Q6H PRN BLOATED ABD FEELING (Reported) Magnesium Hydroxide (Milk Of Magnesia) 400 MG/5 ML ORAL.SUSP 30 ML PO DAILY PRN CONSTIPATION (Reported) Multivitamin,Ther and Minerals (Super Theravite-M) 1 EACH TABLET 1 TAB PO DAILY SUPPLEMENT (Reported) Na Phos,M-B/Na Phos,Di-Ba (Fleet Enema) 19 GRAM-7 GRAM/118 ML ENEMA 1 E RC DAILY PRN CONSTIPATION (Reported) Polyethylene Glycol 3350 (Miralax) 17 GRAM/DOSE POWDER 17 GM PO DAILY PRN CONSTIPATION [PRO-SOURCE] 30 ML PO TID NUTRITIONAL SUPPLEMENT (Reported) Risperidone (Risperdal) 1 MG TABLET 1 TAB PO BID MENTAL HEALTH (Reported) Rivaroxaban (Xarelto) 10 MG TABLET 20 MG PO DAILY history of dvt Assessment/Plan As Ranked By This Provider Problem List: 1. Pleural effusion 2. Hypoxia 3. Acute bronchitis Qualifiers Bronchitis organism: unspecified organism Qualified Code: J20.9 - Acute bronchitis, unspecified Resident Review Statement Resident Statement: examined this patient, discussed with manufacturing intern, agreed with manufacturing intern, discussed with family, reviewed EMR data (avail), discussed with nursing , discussed with case mgmt, reviewed images, amended to note Other Findings: This is a 51-year-old female, Filipino-speaking has past medical history significant for hypertension, chronic venous insufficiency, chronic lymphedema, metastatic stage IV ovarian cancer not on chemotherapy or radiotherapy, DVT, chronic constipation, neuropathy, COPD on nocturnal oxygen, nephrolithiasis, ESWL status post stent placement in 2017 was brought in by ambulance from the imaging center status post paracentesis for evaluation of shortness of breath and hypoxia. Patient has extensive past medical history, metastatic ovarian cancer diagnosed in December 2015 status post carboplatin, paclitaxel for 6 cycles, recurrent paracentesis for palliation every 10 days, last paracentesis on 08/07/2017, recurrent packed RBC transfusions for chronic blood loss anemia. According to the , cancer is extensive, progressed, metastatic to lymph nodes and bones. patient was admitted to [facility] for back pain secondary to bone metastasis in April 2017. she also has ongoing vaginal bleed, uterine sarcoma advised to follow-up with data developer. She was also admitted to [place] in may 2017 for palliative therapy with optimization of pain regimen with fentanyl, Dilaudid, gabapentin. She was again admitted to [facility] in June 2017 for acute on chronic blood loss anemia, vaginal bleeding secondary to uterine cancer, hematuria, malignancy ascites. She was recently discharged from [facility] to [facility] after right leg debridement on 07/20/2016 by vascular surgeon. Anticoagulation Xarelto was stopped on 08/03/2017. The edition now presented with shortness of breath, productive cough, generalized weakness for 2 days. She underwent paracentesis this morning, status post 2.4 L drainage, found to be hypoxic, sent to the ER for evaluation. Patient was lethargic in the emergency room, complaining about shortness of breath and productive cough, generalized weakness. She denies any fever, chills , chest pain, palpitations, nausea, vomiting. She continues to report generalized weakness, vaginal bleed, abdominal pain and distention, back pain which are chronic. Patient reports chronic lower extremity edema. She is status post right leg debridement, refused to have wound VAC. Anticoagulation Xarelto was stopped recently. She is taking aspirin 325 mg daily Vitals afebrile, heart rate 120, respiratory rate 20, blood pressure 112/57, 94 on 2 L. Pertinent labs Hemoglobin 7.4, hematocrit 24.3, thrombocytosis 726. D-dimer 4811, CTA negative for pulmonary embolism. CMP completely normal Lactic acid, troponin, LFTs were normal Chest x-ray showing left lower lobe infiltrates. CTA chest showed moderate left-sided pleural effusion. Assessment and plan 1. Shortness of breath from COPD/pneumonia/pleural effusion 1. Acute on chronic blood loss anemia with reactive thrombocytosis 2. Symptomatic anemia 3. Vaginal bleeding 2/2 uterine cancer 5. Metastatic ovarian cancer with bone mets with severe pain. 6. Chronic LE lymphedema/bilateral lower extremity wounds 7. Malignant ascites status post paracentesis every 10-14 days 1. Shortness of breath Patient presented with worsening shortness of breath, productive cough for 1 day. She was found to have hypoxia requiring oxygen supplementation. Of note CAT scan just showed moderate left-sided pleural effusion. Shortness of breath most possibly from COPD exacerbation versus acute bronchitis versus left-sided pleural effusion versus pneumonia. * Admit to general medicine floor for further management * Monitor vitals closely every shift * Provide supplemental oxygen to maintain saturation above 88 * Given her recent hospitalization we'll treat her with ceftaz and azithromycin for possible pneumonia * IV methylprednisolone 40 every 8hrs * The total respiratory care * duonebs * Mucinex for cough * flu was negative * ABG with normal * Sputum cultures and blood cultures * Pulmonology consult in a.m. * Patient may need IR guided thoracocentesis in the a.m. 2. Status post right lower extremity wound debridement She was recently discharged from [facility] to [facility] after right leg debridement on 07/20/2016 by vascular surgeon. Anticoagulation Xarelto was stopped on 08/03/2017. Patient refused to wound VAC. She completed her antibiotic course ciprofloxacin, Augmentin. * Consult wound care in the a.m. * Consult vascular surgery in the a.m. 3. Acute on chronic blood loss anemia with thrombocytosis Hemoglobin 7.4, hematocrit 24.3. She has chronic anemia with reactive thrombocytosis. * Guaiac stools * Maintain hemoglobin above 7. * Type and screen Constipation continue bowel regimen Neuropathy continue gabapentin 100 twice daily Metastatic ovarian disease with bony metastases Pain management with fentanyl 50 g every 72 and Dilaudid 4 mg every 4 Continue home medications risperidone 1 mg twice daily Continue aspirin 325 daily DVT prophylaxis-no pharmacologic prophylaxis given acute blood loss anemia Patient refused Alps Regular diet Pain pathway ordered Full code Apolinar LIM, [facility] 08/08/17 0504: Attending MD Review Statement Attending Statement Attending MD Statement: examined this patient, discuss w/resident/PA/SENIOR SPECIALIST, agreed w/resident/PA/SENIOR SPECIALIST, discussed with family, reviewed images, amended to note Attending Assessment/Plan: 51 yo F Filipino speaking, with stage 4 metastatic ovarian cancer s/p chemo now on palliative paracentesis every 10 days, DM, HTN, chronic lymphedema, chronic venous insufficiency and lower extremity ulcerations, transfusion dependent chronic blood loss anemia, chronic pain due to bone mets, RLE DVT now off xarelto, recently admitted (07/20 07/28) for excisional debridement through muscle of an infected, necrotic pretibial ulcer on the right lower extremity with wound vac placement, is brought from the invasive imaging unit for evaluation of productive cough, weakness and hypoxia (sats 88-90% on RA). Patient was at the unit for paracentesis removed 2.4 L today. Patient's states that she was an ex-smoker, never diagnosed with COPD. She has oxygen at home which she uses as needed at night. Vitals: afebrile, HR 90-110's, BP 138/84, sats 95% on 2L. Exam: Lethargic but arousable, diaphoretic, ill appearing, dry mucous membranes, Chest b/l diffuse rhonchi++, expiratory wheeze+, Rigth chest port+, Heart S1S2 regular, Abd soft, NT: LE: wrapped in dressing with 2+ pedal edema. Labs: WBC 5.6, H/H 7.4/24.3 (baseline), microcytic anemia, Plt 726, INR 1.40, elevated D-dimer, bicarb 33, BUN 18, lactic acid 0.7, trop neg. ABG 7.44/43/87/ 29. CXR: left perihilar and lower lobe infiltration concerning for pneumonia. CTA chest: no PE, lymphadenopathy in chest has worsened, moderate left pleural effusion has increased. Small right pleural effusion is new. Atelectasis+. Hepatosplenomegaly and ascites. EKG: sinus tachycardia. Echo (2017): EF 65-70%. Assessment and plan: 1. Acute hypoxic respiratory failure 2. Moderate sized left pleural effusion in the setting of malignancy 3. Possible underlying pneumonia ?HCAP 4. Bronchitis, COPD exacerbation although no clear diagnosis of COPD 5. Acute on chronic blood loss anemia 6. Metastatic stage 4 ovarian cancer 7. Malignant ascites s/p palliative paracentesis 8. Chronic lymphedema with lower extremity wounds, recent right leg surgery - Admit to general medicine - TRC nebs - Panculture, urine legionella and strep Ag - Obtain urinalysis - Received IV ceftaz and vanco in ER - Cover broad spectrum empirically with IV ceftaz and azithro - IV solumedrol 40 Q8 - Pulm consult, possible need for left sided thoracentesis - Wound and Vascular consult for her LE wounds, ?need for wound vac placement - Resume aspirin - Type and crossmatch, goal Hb > 7.0 - Transfuse as needed - Pain management DVT ppx Alps refused by , cannot give heparin/lovenox due to anemia. Full code.
[2017-08-07] MEDS ORDERED: JUVEN PACKET1 EACH PO (21:56)
[2017-08-07] MEDS ORDERED: ALUM-MAG HYDRO360 ML PO (22:00)
[2017-08-07] MEDS ORDERED: PHARBETOL325 MG PO (22:03)
[2017-08-07] MEDS ORDERED: ACEPHEN650 M1 PR (22:04)
[2017-08-07] MEDS ORDERED: BISACODYL10 M1 RC (22:05)
[2017-08-07] MEDS ORDERED: MILK OF MA400 MG/52 PO (22:05)
[2017-08-07] MEDS ORDERED: FLEET ENEMA133 ML RC (22:06)
[2017-08-07] MEDS ORDERED: DILAUDID2 M1 PO ×2 (22:08→22:15)
[2017-08-07] MEDS ORDERED: DILAUDID4 M1 PO (22:09)
[2017-08-07] MEDS ORDERED: [UNRECOGNIZED DRUG - OTHER] PO (22:12)
[2017-08-07] MEDS ORDERED: SUPER THERAVIT1 EACH PO (22:13)
[2017-08-07] MEDS ORDERED: IRON325 M3 PO (22:13)
[2017-08-07] MEDS ORDERED: ALBUTEROL2.5 MG/3 M INH/SOL ×2 (22:14→22:15)
[2017-08-07] MEDS ORDERED: ASPIRIN325 M2 PO (22:14)
[2017-08-07] MEDS ORDERED: ADULT WAL-100 MG/5 M PO (22:16)
[2017-08-08 00:49] VITALS: BP 108/70
--- NOTE | 2017-08-08 05:06 | Admission Certification ---
Admission Certification Certification Statement - As attending physician, I certify that at the time of - admission, based on clinical presentation, severity of - symptoms, need for further diagnostic testing and - therapeutic interventions, and risk of adverse outcomes - without in-hospital treatment, in my clinical assessment, - this patient requires an acute hospital stay for a minimum - of two nights or longer. I have also considered psychsocial - factors such as support system, advanced age, financial - issues, cognitive issues, and failed out-patient treatments, - past re-admission history, safety of patient, and lack of - compliance as applicable. Specific rationale supporting this admission is: Acute on chronic hypoxic respiratory failure, bronchitis, pleural effusion.
[2017-08-08 06:00] VITALS: BP 124/62
[2017-08-08 10:09] LABS: ABSOLUTE BASOPHIL COUNT 0 /CUMM (0.0-0.2); ABSOLUTE EOSINOPHIL COUNT 0 /CUMM (0.0-0.7); ABSOLUTE GRANULOCYTE CT 4.9 /CUMM (1.4-6.5); ABSOLUTE LYMPH COUNT 0.7 /CUMM (1.2-3.4); ABSOLUTE MONOCYTE COUNT 0.3 /CUMM (0.10-0.60); BASOPHIL % 0 % (0.0-2.0); EOSINOPHIL % 0 % (0-5); GRANULOCYTE % 82.5 % (42.2-75.2); HEMATOCRIT 23.1 % (37-47); MEAN CORPUSCULAR VOLUME 77.6 FL (81.0-99.0); MEAN PLATELET VOLUME 6.4 FL (7.4-10.4); PLATELET COUNT 621 /CUMM (130-400); RBC DISTRIBUTION WIDTH 20.5 % (11.5-14.5); RED BLOOD CELL CT 2.98 /CUMM (4.20-5.40); WHITE BLOOD CELL COUNT 5.9 /CUMM (4.8-10.8)
--- NOTE | 2017-08-08 11:18 | Cons- Pulmonary ---
General Information and HPI Consulting Request Date of Consult: 08/08/17 Requested By: Pasquale Reason for Consult: Shortness of breath and cough History of Present Illness: Admitted with increased shortness of breath and cough. CAT scan showed no evidence of pulmonary embolism however there is increasing mediastinal adenopathy and new moderate to large left pleural effusion. sHe is status post 2.4 L paracentesis Allergies/Medications Allergies: Coded Allergies: cefuroxime (From CEFTIN) (Intermediate, "LOST IT" 02/12/16) Home Med List: Acetaminophen (Pharbetol) 325 MG TABLET 650 MG PO Q4H PRN PAIN/TEMP 101 ( Reported) Acetaminophen (Acephen) 650 MG SUPP.RECT 1 SUPP ME Q4H PRN PAIN/TEMP>101 ( Reported) Albuterol Sulfate 2.5 MG/3 ML (0.083 %) VIAL.NEB 1 Vial INH/SHIRLEY BID RESP. ( Reported) Albuterol Sulfate 2.5 MG/3 ML (0.083 %) VIAL.NEB 1 Vial INH/SHIRLEY Q4P PRN SOB/ WHEEZE (Reported) Arginine/Glutamine/Calcium Hmb (Taurus Packet) 7 GRAM-7 GRAM-1.5 GRAM POWD.PACK 1 PAC PO BID UNKNOWN (Reported) Aspirin (Aspirin*) 325 MG TABLET 1 TAB PO DAILY HEART/BLOOD (Reported) Bisacodyl 10 MG SUPP.RECT 1 SUP RC DAILY PRN CONSTIPATION (Reported) Docusate Sodium 100 MG CAPSULE 100 MG PO BID PRN CONSTIPATION hold for loose stool / diarrhea Fentanyl Citrate (Duragesic) 50 MCG/HOUR PATCH.TD72 50 MCG TOP Q72H pain control home medication increased from 25 mcg/hour to 50 mcg/hour q72 hours Ferrous Sulfate (IRON) 325 MG (65 MG IRON) TABLET 1 TAB PO DAILY SUPPLEMENT ( Reported) Gabapentin 100 MG CAPSULE 1 CAP PO BID NEUROPATHY (Reported) Guaifenesin (Adult Wal-Tussin) 100 MG/5 ML LIQUID 10 ML PO Q4H PRN COUGH ( Reported) Hydromorphone HCl (Dilaudid) 2 MG TABLET 1 TAB PO Q4H PRN BREAKTHROUGH MILD PAIN (Reported) Hydromorphone HCl (Dilaudid) 4 MG TABLET 1 TAB PO Q4H PRN BREAKTHROUGH SEVERE PAIN (Reported) Hydromorphone HCl (Dilaudid) 2 MG TABLET 6 MG PO Thursday PRIOR TO WOUND VAC (Reported) Mag Hydrox/Al Hydrox/Simeth (Alum-Mag Hydroxide-Simeth Liq) 200 MG-200 MG-20 MG/ 5 ML ORAL.SUSP 15 ML PO Q6H PRN BLOATED ABD FEELING (Reported) Magnesium Hydroxide (Milk Of Magnesia) 400 MG/5 ML ORAL.SUSP 30 ML PO DAILY PRN CONSTIPATION (Reported) Multivitamin,Ther and Minerals (Super Theravite-M) 1 EACH TABLET 1 TAB PO DAILY SUPPLEMENT (Reported) Na Phos,M-B/Na Phos,Di-Ba (Fleet Enema) 19 GRAM-7 GRAM/118 ML ENEMA 1 E RC DAILY PRN CONSTIPATION (Reported) Polyethylene Glycol 3350 (Miralax) 17 GRAM/DOSE POWDER 17 GM PO DAILY PRN CONSTIPATION [PRO-SOURCE] 30 ML PO TID NUTRITIONAL SUPPLEMENT (Reported) Risperidone (Risperdal) 1 MG TABLET 1 TAB PO BID MENTAL HEALTH (Reported) Rivaroxaban (Xarelto) 10 MG TABLET 20 MG PO DAILY history of dvt Review of Systems Review of Systems Constitutional: Denies: chills, fever. Cardiovascular: Denies: chest pain. Respiratory: Reports: cough, short of breath. Denies: hemoptysis. 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 Intermediate Facility Who Do You Live With? spouse Services at Home: None Smoking Status: Former Smoker Functional Ability ADLs Independent: dressing, eating, toileting, bathing. Ambulation: independent IADLs Independent: shopping, housework, finances, food prep, telephone, transportation , medication admin. Exam & Diagnostic Data Last 24 Hrs of Vital Signs/I&O Vital Signs Date Time Temp Pulse Resp B/P B/P Pulse O2 O2 Flow FiO2 Mean Ox Delivery Rate 08/08 0600 98.3 90 22 124/62 93 Nasal 2.0L Cannula 08/08 0049 98.2 96 20 108/70 92 Nasal 2.0L Cannula 08/08 0030 Nasal 2.0L Cannula 08/07 2304 97.8 96 20 128/70 99 Nasal 2.0L Cannula 08/07 2144 98.5 100 20 138/84 95 Nasal 2.0L Cannula 08/07 1953 99.0 102 22 146/82 96 Nasal 2.0L Cannula 08/07 1823 99.6 109 24 141/63 95 Nasal 2.0L Cannula 08/07 1726 97 Nasal 2.0L Cannula 08/07 1640 96 Nasal 2.0L Cannula 08/07 1512 98.3 110 20 125/57 94 Nasal 2.0L Cannula Intake & Output 08/08 1600 08/08 0800 08/08 0000 Intake Total 480 Output Total 375 775 Balance 105 -775 Intake, Oral 480 Output, Urine 375 775 Patient 256 lb Weight Weight Bed scale Measurement Method Oxygen saturation 2 L 93% exam for chest shows markedly diminished breath sounds over the left posterior hemithorax there are scattered wheezing cardiac exam shows a regular S1 and S2 without murmurs abdomen is distended. Last 48 Hrs of Labs/Lucius: Laboratory Tests 08/08/17 0918: Anion Gap 10, Estimated GFR > 60, BUN/Creatinine Ratio 35.0 H, CBC w Diff NO MAN DIFF REQ, RBC 2.98 L, MCV 77.6 L, MCH 24.0 L, MCHC 31.0 L, RDW 20.5 H, MPV 6.4 L, Gran % 82.5 H, Lymphocytes % 12.4 L, Monocytes % 5.1, Eosinophils % 0, Basophils % 0, Absolute Granulocytes 4.9, Absolute Lymphocytes 0.7 L, Absolute Monocytes 0.3, Absolute Eosinophils 0, Absolute Basophils 0 08/07/17 2315: pH 7.44, pCO2 43, pO2 87, HCO3 29 H, ABG O2 Sat (Measured) 95.0 L, P-50 (Temp Corrected) Y, Carboxyhemoglobin 1.6, O2 Concentration % 2 LPM, Temperature 97.8, O2 Delivery Method N/C, Phlebotomy Draw Site RIGHT RADIAL 08/07/17 2240: Lactic Acid 0.7 08/07/17 1845: Lactic Acid Cancelled 08/07/17 1600: Anion Gap 8, Estimated GFR > 60, BUN/Creatinine Ratio 36.0 H, Glucose 80, Calcium 7.4 L, Total Bilirubin 0.3, AST 24, ALT 19, Alkaline Phosphatase 98, Troponin I < 0.01, Total Protein 5.6 L, Albumin 2.3 L, Globulin 3.3, Albumin/ Globulin Ratio 0.7 L, PT 14.7 H, INR 1.40 H, APTT 30, D-Dimer High Sensitivty 4877 H, CBC w Diff NO MAN DIFF REQ, RBC 3.12 L, MCV 77.9 L, MCH 23.7 L, MCHC 30.4 L, RDW 20.6 H, MPV 6.1 L, Gran % 72.3, Lymphocytes % 14.7 L, Monocytes % 12.1 H, Eosinophils % 0.7, Basophils % 0.2, Absolute Granulocytes 4.0, Absolute Lymphocytes 0.8 L, Absolute Monocytes 0.7 H, Absolute Eosinophils 0, Absolute Basophils 0 Microbiology 01/26 2100 NASOPHARYN: Influenza Virus A & B Rapid Smear - COMP Assessment/Plan Impression/Plan: -year-old with advanced metastatic ovarian carcinoma presents with increasing mediastinal adenopathy and new left pleural effusion compared to chest x-ray in June. Since is likely contributing to her shortness of breath and cough and is presumably malignant. Recommendations: Diagnostic and therapeutic left thoracentesis for routine cytology and cultures. Her medical regimen can be continued pending thoracentesis. Vascular surgery follow-up for management of her lower extremity ulcer. Consult Acknowledgment - Thank you for your consult request.
[2017-08-08 14:10] VITALS: BP 106/70
--- NOTE | 2017-08-08 17:31 | PN- Att Addend ---
Attending MD Review Statement Attending Statement Attending MD Statement: examined this patient, discuss w/resident/PA/PAPER MACHINE OPERATOR, reviewed EMR data (avail) Attending Assessment/Plan: Laboratory Tests 08/08/17 0918: Anion Gap 10, Estimated GFR > 60, BUN/Creatinine Ratio 35.0 H, CBC w Diff NO MAN DIFF REQ, RBC 2.98 L, MCV 77.6 L, MCH 24.0 L, MCHC 31.0 L, RDW 20.5 H, MPV 6.4 L, Gran % 82.5 H, Lymphocytes % 12.4 L, Monocytes % 5.1, Eosinophils % 0, Basophils % 0, Absolute Granulocytes 4.9, Absolute Lymphocytes 0.7 L, Absolute Monocytes 0.3, Absolute Eosinophils 0, Absolute Basophils 0 08/07/17 2315: pH 7.44, pCO2 43, pO2 87, HCO3 29 H, ABG O2 Sat (Measured) 95.0 L, P-50 (Temp Corrected) Y, Carboxyhemoglobin 1.6, O2 Concentration % 2 LPM, Temperature 97.8, O2 Delivery Method N/C, Phlebotomy Draw Site RIGHT RADIAL 08/07/17 2240: Lactic Acid 0.7 08/07/17 1845: Lactic Acid Cancelled Microbiology 08/07 2100 NASOPHARYN: Influenza Virus A & B Rapid Smear - COMP Vital Signs Date Time Temp Pulse Resp B/P B/P Pulse O2 O2 Flow FiO2 Mean Ox Delivery Rate 08/08 1410 99.2 87 22 106/70 95 08/08 0600 98.3 90 22 124/62 93 Nasal 2.0L Cannula 08/08 0049 98.2 96 20 108/70 92 Nasal 2.0L Cannula 08/08 0030 Nasal 2.0L Cannula 08/07 2304 97.8 96 20 128/70 99 Nasal 2.0L Cannula 08/07 2144 98.5 100 20 138/84 95 Nasal 2.0L Cannula 08/07 1953 99.0 102 22 146/82 96 Nasal 2.0L Cannula 08/07 1823 99.6 109 24 141/63 95 Nasal 2.0L Cannula 08/07 1726 97 Nasal 2.0L Cannula 51-F with a PMH of 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 The patient was last admitted to [facility] for back pain secondary to bone metastasis in April 2017. She was also admitted to [place] in may 2017 for palliative therapy with optimization of pain regimen with fentanyl, Dilaudid, gabapentin. She was last admitted to [facility] in June 2017 for acute on chronic blood loss anemia, vaginal bleeding secondary to uterine cancer , hematuria, malignant ascites. Most recently she had a right leg debridement on 07/20/2016 due to progressive worsening right DVT and was then discharged to [facility]. Of note, her Xarelto was stopped on 08/03/[address] by her vascular surgeon Dr. Ricardo. A/p- Shortness of breath secondary to pneumonia and worsening left side plerual effusion- d/w her the thoracentesis option and he is going to think about it and let us know. Pulmonary consult appreciated. Rt lower extremity wound s/p recent debridement by vascular surgery- will consult vascular surgery . Acute blood loss anemia- cont to monitor. transfuse as needed to keep it above 7.
--- NOTE | 2017-08-08 17:35 | Event Note ---
Event Note Event Note: I called patients regarding her last xarelto dose which was on 08/04, last thursday. Patient's was also told that patient would require thoracentesis for her left pleural effusion however, felt that the procedure was being rushed a little bit and wanted us to show him the CAT scan images first when he comes to the hospital and take it from there.
[2017-08-08 23:07] VITALS: BP 110/70
--- NOTE | 2017-08-09 08:25 | PN- Housestaff ---
Luzmaria Rodriguez MD 08/09/17 0824: Subjective Follow-up For: PLEURAL EFFUSION Subjective: Patient and spoken with extensively today on patient's health status and need for thoracentesis. Used MARTII to translate. Patient in agreement to have thoracentesis but doesnt want any tubes or catheters permanently placed. patient refused antibiotics today. patient is having a hard time breathing, requiring oxygen. Patient tearful and upset over many things today including her 's involvement in her care and her hair color. Review of Systems Constitutional: Reports: weakness. Respiratory: Reports: short of breath. Objective Last 24 Hrs of Vital Signs/I&O Vital Signs Date Time Temp Pulse Resp B/P B/P Pulse O2 O2 Flow FiO2 Mean Ox Delivery Rate 08/09 1519 98.0 95 24 130/80 94 08/09 1139 97.9 77 24 120/70 94 08/09 0800 92 Nasal 2.0L Cannula 08/09 0000 Nasal 2.0L Cannula 08/08 2307 98.6 88 20 110/70 95 Room Air Intake & Output 08/09 1600 08/09 0800 08/09 0000 Intake Total 200 400 Output Total 300 Balance 200 100 Intake, Oral 200 400 Output, Urine 300 Physical Exam General Appearance: Alert, Oriented X3, Cooperative, Mild Distress Skin: No Rashes, No Breakdown, No Significant Lesion Skin Temp/Moisture Exam: Warm/Dry Sepsis Skin Exam (color): Normal for Ethnicity HEENT: Atraumatic Neck: Supple, No JVD Cardiovascular: Regular Rate, Normal S1, Normal S2, No Murmurs Lungs: distant breath sounds, mild scattered wheezing and rhonchi throughout Abdomen: Normal Bowel Sounds, Soft, No Tenderness Neurological: Normal Speech Extremities: No Edema (post RLE debridement), Normal Pulses Vascular: Pulses Symmetrical Current Medications: Current Medications Sig/Jessika Start time Last Medication Dose Route Stop Time Status Admin Acetaminophen 650 MG .STK-MED ONE 08/08 1645 DC PO 08/08 164 Acetaminophen 650 MG Q6P PRN 08/07 2314 AC PO Acetaminophen 1,000 MG Q6P PRN 08/07 2314 AC IV Al Hydroxide/Mg 15 ML Q6P PRN 08/07 2314 AC Hydroxide PO Albuterol Sulfate 3 ML Q4P PRN 08/07 2314 AC INH Aspirin 325 MG DAILY 08/08 1000 DC 08/08 PO 1157 Azithromycin 500 MG DAILY 08/08 1000 AC 08/08 Dextrose/Water 250 ML IV 1157 Bisacodyl 10 MG DAILY NEEDED PRN 08/07 2314 AC KY Ceftazidime 1,000 MG Q8H 08/08 0700 AC 08/09 IV 1609 Docusate Sodium 100 MG BID PRN 08/07 2315 AC PO Fentanyl Citrate 50 MCG Q72H 08/08 1000 AC 08/08 TOP 1201 Ferrous Sulfate 325 MG DAILY 08/08 1000 AC 08/09 PO 1336 Gabapentin 100 MG BID 08/08 1000 AC 08/09 PO 1337 Guaifenesin 600 MG Q12 08/08 1000 AC 08/09 PO 1337 Hydromorphone HCl 4 MG Q4P PRN 08/08 1000 AC 08/09 PO 1346 Magnesium Hydroxide 30 ML DAILY NEEDED PRN 08/07 2314 AC PO Methylprednisolone 40 MG Q8 08/08 0600 AC 08/09 IV 1340 Multivitamins 1 TAB DAILY 08/08 1000 AC 08/09 PO 1338 Polyethylene Glycol 17 GM DAILY NEEDED PRN 08/07 2314 AC PO Risperidone 1 MG BID 08/08 1000 AC 08/09 PO 1337 Tiotropium Dixon 1 PUF DAILY 08/08 1000 AC 08/09 INH 1338 Last 24 Hrs of Lab/Lucius Results Last 24 Hrs of Labs/Mics: Laboratory Tests 08/09/17 0839: Anion Gap 7, Estimated GFR > 60, BUN/Creatinine Ratio 32.5 H, CBC w Diff NO MAN DIFF REQ, RBC 3.05 L, MCV 78.2 L, MCH 23.5 L, MCHC 30.1 L, RDW 19.9 H, MPV 6.4 L, Gran % 83.3 H, Lymphocytes % 9.5 L, Monocytes % 7.2, Eosinophils % 0, Basophils % 0, Absolute Granulocytes 5.3, Absolute Lymphocytes 0.6 L, Absolute Monocytes 0.5, Absolute Eosinophils 0, Absolute Basophils 0 08/09/17 0721: Urine Color YEL, Urine Clarity HAZY H, Urine pH 6.5, Ur Specific Stafford 1.025, Urine Protein 30 H, Urine Ketones NEG, Urine Nitrite NEG, Urine Bilirubin NEG, Urine Urobilinogen 0.2, Ur Leukocyte Esterase TRACE H, Ur Microscopic SEDIMENT EXAMINED, Urine RBC PACKD H, Urine WBC RARE, Ur Epithelial Cells FEW, Urine Bacteria FEW H, Urine Mucus FEW, Urine Hemoglobin LARGE H, Urine Glucose NEG Microbiology 08/09 720 URINE ROUT: Legionella Antigen - COMP 08/09 720 URINE ROUT: Streptococcus pneumoniae Antigen (M - COMP Assessment/Plan Assessment: Patient is a 51-year-old female, Iranian-speaking F with a past medical history significant for 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 #SOB due to possible pneumonia Vitals: T 98.2, heart rate 96, respiratory rate 20, blood pressure 108/70, 92% on 2 L H/H7./24.3 Rapid flu negative CXR: Left perihilar and lower lobe infiltration concerning for pneumonia. Chest CT: 1. No evidence of pulmonary embolism. 2. Lymphadenopathy in the chest has worsened compared to 04/25/2017, as described above. 3. Small right pleural effusion is new compared to 04/25/2017. The moderate left pleural effusion has increased in size compared to 04/25/2017. Atelectatic changes are seen in both lungs. There is no overt pneumonia. 4. Hepatosplenomegaly and ascites within the visualized upper abdomen. -Continue azithromycin/ceftazidime, IV Solu-Medrol. PATIENT REFUSED ABX TODAY. -LEGIONELLA AND STREP NEGATIVE -Continue TRC/nebs, guaifenesin -Follow-up blood cultures and respiratory cultures -PATIENT WILL GO FOR THORACENTESIS TOMORROW -NPO AFTER MIDNIGHT #borderline hypotension resolved -hold po Dilaudid whenever necessary even if very adamant when patient to get it #chronic anemia TODAY HB 7.2 Platelet 637 -guaic all stools -Currently at her baseline, hgb goal >7 -Follow-up outpatient with gynecology -Continue iron -WE HAVE STOPPED ASPIRIN PATIENT WILL GO FOR THORACENTESIS TOMORROW #chronic pain with hx of metastatic cancer -Continue fentanyl patch, Dilaudid by mouth, gabapentin, #mental health -Continue risperidone #vitamins -Continue multivitamins #constipation -Continue MiraLAX, milk of magnesia, Colace, Dulcolax #DM? PATIENT'S PMH FROM ED NOTES DM -DO ACCUCHECKS #DVT prophylaxis-no pharmacologic prophylaxis given acute blood loss anemia -Patient refused Alps Most recently she had a right leg debridement on 07/20/2016 due to progressive worsening right DVT and was then discharged to [facility]. Of note, her Xarelto was stopped on 08/03/2017 by her vascular surgeon Dr. Ricardo. -CONTINUE TO HOLD XARELTO UNTIL FURTHER NOTICE -I SPOKE WITH VASCULAR TODAY PATIENTS DID NOT WANT ANYONE TOUCHING HER WOUNDS EXCEPT FOR VASCULAR AND HE SAID TO ORDER WET TO DRY DRESSINGS AND GIANCARLO BANDAGES. HOWEVER THE PATIENT'S DOES NOT WANT ANYONE TO CHANGE THE DRESSINGS SO VASCULAR WILL SEE PATIENT TOMORROW. #Full code Problem List: 1. Pleural effusion 2. Hypoxia 3. Acute bronchitis Pain Ratin Pain Location: widespread Pain Goal: Pain 4 or less Pain Plan: fentanyl patch dilaudid tylenol Tomorrow's Labs & Rationales: cbc bep Hang Soares 08/09/171950: Attending MD Review Statement Attending Statement Attending MD Statement: discuss w/resident/PA/KICKING MACHINE OPERATOR, agreed w/resident/PA/KICKING MACHINE OPERATOR, reviewed EMR data (avail) Attending Assessment/Plan: Pts Aspirin is being held for possible thoracentesis tomorrow. Will get IR consult in am. Appreciate pulm consult and recommendations.
[2017-08-09 09:27] LABS: ABSOLUTE BASOPHIL COUNT 0 /CUMM (0.0-0.2); ABSOLUTE EOSINOPHIL COUNT 0 /CUMM (0.0-0.7); ABSOLUTE GRANULOCYTE CT 5.3 /CUMM (1.4-6.5); ABSOLUTE MONOCYTE COUNT 0.5 /CUMM (0.10-0.60); EOSINOPHIL % 0 % (0-5); MEAN CORPUSCULAR VOLUME 78.2 FL (81.0-99.0); WHITE BLOOD CELL COUNT 6.4 /CUMM (4.8-10.8)
[2017-08-09 09:47] LABS: ABSOLUTE LYMPH COUNT 0.6 /CUMM (1.2-3.4); BASOPHIL % 0 % (0.0-2.0); GRANULOCYTE % 83.3 % (42.2-75.2); HEMATOCRIT 23.9 % (37-47); MEAN CORPUSCULAR HGB 23.5 PG (27.0-31.0); MEAN CORPUSCULAR HGB CONC 30.1 G/DL (33.0-37.0); MEAN PLATELET VOLUME 6.4 FL (7.4-10.4); PLATELET COUNT 637 /CUMM (130-400); RBC DISTRIBUTION WIDTH 19.9 % (11.5-14.5); RED BLOOD CELL CT 3.05 /CUMM (4.20-5.40)
--- NOTE | 2017-08-09 10:42 | PN- Pulmonary ---
Subjective HPI/Critical Care Issues: Patient status is unchanged. CAT scans and chest x-rays were reviewed with her demonstrating new left pleural effusion. Objective Current Medications: Current Medications Sig/Jessika Start time Last Medication Dose Route Stop Time Status Admin Acetaminophen 650 MG .STK-MED ONE 08/08 1645 DC PO 08/08 1646 Acetaminophen 650 MG Q6P PRN 08/075 AC PO Acetaminophen 1,000 MG Q6P PRN 08/07 2314 AC IV Al Hydroxide/Mg 15 ML Q6P PRN 08/07 2314 AC Hydroxide PO Albuterol Sulfate 3 ML Q4P PRN 08/07 2315 AC INH Aspirin 325 MG DAILY 08/08 1000 AC 08/08 PO 1157 Azithromycin 500 MG DAILY 08/08 1000 AC 08/08 Dextrose/Water 250 ML IV 1157 Bisacodyl 10 MG DAILY NEEDED PRN 08/07 2314 AC LA Ceftazidime 1,000 MG Q8H 08/08 0700 AC 08/09 IV 0622 Docusate Sodium 100 MG BID PRN 08/075 AC PO Fentanyl Citrate 50 MCG Q72H 08/08 1000 AC 08/08 TOP 1201 Ferrous Sulfate 325 MG DAILY 08/08 1000 AC 08/08 PO 1157 Gabapentin 100 MG BID 08/08 1000 AC 08/08 PO 2204 Guaifenesin 600 MG Q12 08/08 1000 AC 08/08 PO 2204 Hydromorphone HCl 4 MG Q4P PRN 08/08 1000 AC 08/09 PO 0622 Magnesium Hydroxide 30 ML DAILY NEEDED PRN 08/075 AC PO Methylprednisolone 40 MG Q8 08/08 0600 AC 08/09 IV 0622 Multivitamins 1 TAB DAILY 08/08 1000 AC 08/08 PO 1158 Polyethylene Glycol 17 GM DAILY NEEDED PRN 08/07 2315 AC PO Potassium Chloride 40 MEQ ONCE ONE 08/08 1430 DC 08/08 PO 08/08 1431 1533 Risperidone 1 MG BID 08/08 1000 AC 08/08 PO 2204 Tiotropium [place] 1 PUF DAILY 08/08 1000 AC 08/08 INH 1212 Vital Signs & I&O Last 24 Hrs of Vitals and I&O: Vital Signs Date Time Temp Pulse Resp B/P B/P Pulse O2 O2 Flow FiO2 Mean Ox Delivery Rate 08/09 0000 Nasal 2.0L Cannula 08/08 2306 98.6 88 20 110/70 95 Room Air 08/08 1410 99.2 87 22 106/70 95 Intake & Output 08/09 1600 08/09 0800 08/09 0000 Intake Total 400 Output Total 300 Balance 100 Intake, Oral 400 Output, Urine 300 Oxygen saturation 2 L 95% exam for chest shows diminished breath sounds over the left posterior hemithorax Impression/Plan Impression/Plan Impression/Plan: -year-old with advanced metastatic ovarian carcinoma presents with increasing mediastinal adenopathy and new left pleural effusion compared to chest x-ray in June. this is likely contributing to her shortness of breath and cough and is presumably malignant. Recommendations: Diagnostic and therapeutic left thoracentesis for routine cytology and cultures. Her medical regimen can be continued pending thoracentesis. Vascular surgery follow-up for management of her lower extremity ulcer. Management of her anticoagulation per primary care team
[2017-08-09 11:39] VITALS: BP 120/70
[2017-08-09 15:19] VITALS: BP 130/80
[2017-08-09 22:26] VITALS: BP 116/70
[2017-08-10 06:20] VITALS: BP 122/68
--- NOTE | 2017-08-10 07:26 | PN- Housestaff ---
Kavin LIM,[facility] 08/10/17 0726: Subjective Follow-up For: SOB RLE debridement Subjective: No acute events overnight. Patient complaining of SOB still and RLE pain. Of note, patient is Pakistani speaking. Her has been translating. Review of Systems Constitutional: Reports: no symptoms. Cardiovascular: Reports: no symptoms. Respiratory: Reports: short of breath. Gastrointestinal: Reports: no symptoms. Genitourinary: Reports: no symptoms. Musculoskeletal: Reports: see HPI (RLE debridement). Skin: Reports: no symptoms. Objective Last 24 Hrs of Vital Signs/I&O Vital Signs Date Time Temp Pulse Resp B/P B/P Pulse O2 O2 Flow FiO2 Mean Ox Delivery Rate 08/10 204 88 Room Air 08/10 1408 97.2 88 20 140/90 95 Nasal 2.0L Cannula 08/10 1049 Nasal 1.5L Cannula 08/10 0800 93 Nasal 2.0L Cannula 08/10 0620 97.9 90 20 122/68 94 Nasal Cannula 08/10 0000 93 Nasal 2.0L Cannula 08/09 2226 97.7 97 20 116/70 93 Intake & Output 08/10 1600 08/10 0800 08/10 0000 Intake Total 240 480 Output Total 400 200 Balance -160 -200 480 Intake, Oral 240 480 Number 0 Bowel Movements Output, Urine 400 200 Patient 255 lb Weight Physical Exam General Appearance: Alert, Cooperative, Mild Distress Skin: RLE debridement Cardiovascular: mild tachycardia Lungs: diffuse mild wheezing b/l Abdomen: Normal Bowel Sounds, Soft, No Tenderness Extremities: 2+ radial pulses Current Medications: Current Medications Sig/Jessika Start time Last Medication Dose Route Stop Time Status Admin Acetaminophen 650 MG Q6P PRN 08/07 2314 AC PO Acetaminophen 1,000 MG Q6P PRN 08/07 2314 AC IV Al Hydroxide/Mg 15 ML Q6P PRN 08/07 2314 AC Hydroxide PO Albuterol Sulfate 2 PUF Q4 PRN 08/10 1400 AC INH Albuterol Sulfate 3 ML Q4P PRN 08/07 2315 AC 08/10 INH 2045 Azithromycin 500 MG DAILY 08/08 1000 DC 08/08 Dextrose/Water 250 ML IV 1157 Bisacodyl 10 MG DAILY NEEDED PRN 08/07 2314 AC WI Ceftazidime 1,000 MG Q8H 08/08 0700 DC 08/10 IV 0630 Collagenase 1 RENETTA DAILY 08/10 1545 AC 08/10 TOP 1702 Docusate Sodium 100 MG BID PRN 08/07 2315 AC 08/10 PO 1820 Fentanyl Citrate 50 MCG Q72H 08/08 1000 AC 08/08 TOP 1201 Ferrous Sulfate 325 MG DAILY 08/08 1000 AC 08/10 PO 1214 Gabapentin 100 MG BID 08/08 1000 AC 08/10 PO 2130 Guaifenesin 10 ML Q6-PRN PRN 08/10 1545 AC 08/10 PO 1702 Guaifenesin 10 ML ONCE ONE 08/10 0645 DC 08/10 PO 08/10 0646 0653 Guaifenesin 600 MG Q12 08/08 1000 AC 08/10 PO 2130 Guaifenesin/Codeine 10 ML .STK-MED ONE 08/10 0021 DC Phosphate PO 08/10 0022 Guaifenesin/Codeine 10 ML ONCE ONE 08/09 2345 DC 08/10 Phosphate PO 08/09 2346 0022 Hydromorphone HCl 4 MG Q4P PRN 08/08 1000 AC 08/10 PO 2135 Lidocaine 1 ML .STK-MED ONE 08/10 1137 DC ID 08/10 1138 Magnesium Hydroxide 30 ML DAILY NEEDED PRN 08/07 2315 AC PO Methylprednisolone 40 MG Q8 08/08 0600 AC 08/10 IV 2130 Multivitamins 1 TAB DAILY 08/08 1000 AC 08/10 PO 1214 Polyethylene Glycol 17 GM DAILY NEEDED PRN 08/07 2315 AC 08/10 PO 1820 Risperidone 1 MG BID 08/08 1000 AC 08/10 PO 2130 Tiotropium [place] 1 PUF DAILY 08/08 1000 AC 08/10 INH 1214 Last 24 Hrs of Lab/Lucius Results Last 24 Hrs of Labs/Mics: Laboratory Tests 08/10/17 1115: Pleural pH 7.48 08/10/17 1115: Fluid WBC 3003 H, Fld Mesothelial Cells 14, Fld Total RBCs Counted 5324 H 08/10/17 1115: Lymphocytes 86, Phlebotomy Draw Site LT CHEST, Fluid Glucose 156, Fluid Total Protein 2.3, Fluid Albumin < 1.0, Fluid LDH 366, Fluid Amylase < 30 08/10/17 0901: Anion Gap 8, Estimated GFR > 60, BUN/Creatinine Ratio 26.0 H, Lactate Dehydrogenase 903 H, CBC w Diff NO MAN DIFF REQ, RBC 3.09 L, MCV 78.6 L, MCH 24.2 L, MCHC 30.7 L, RDW 21.0 H, MPV 6.4 L, Gran % 83.7 H, Lymphocytes % 9.1 L, Monocytes % 7.1, Eosinophils % 0, Basophils % 0.1, Absolute Granulocytes 7.3 H, Absolute Lymphocytes 0.8 L, Absolute Monocytes 0.6, Absolute Eosinophils 0, Absolute Basophils 0 Microbiology 08/10 1115 BODY FLUID: Body Fluid Culture - RES 08/10 1115 BODY FLUID: Gram Stain - RES 08/10 1014 LOWER RESP: Respiratory Culture - COLB 08/10 1014 LOWER RESP: Gram Stain - COLB Assessment/Plan Assessment: A: 51-year-old female, Pakistani-speaking F with a past medical history significant for 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 #SOB due to possible pneumonia/L pleural effusion Still on 2L NC Rapid flu negative D-dimer elevated Chest CTA: 1. No evidence of pulmonary embolism. 2. Lymphadenopathy in the chest has worsened compared to 04/25/2017 3. Small right pleural effusion is new compared to 04/25/2017. The moderate left pleural effusion has increased in size compared to 04/25/2017. Atelectatic changes are seen in both lungs. There is no overt pneumonia. 4. Hepatosplenomegaly and ascites within the visualized upper abdomen. Patient underwent thoracocentesis on 08/10/17. Unable to fully tolerate procedure. Only 400cc was drained Pleural fluid: WBC 3K+, RBC 5k+, mesothial cells/glucose/totalprotein/albumin/ ldh/amylase/ph normal -f/u thoracocentesis studies/cx. Most likely malignant pleural effusion -Continue off abx -cont, IV steroids, guaifensin, trc, nebs -f/u leigonella and strep urine antigens -Follow-up blood cultures and respiratory cultures #hx of RLE DVT with recent necrosis debridement -f/u vascular and wound consult recommendations regarding wound care #stage 4 ovarian cancer Spoke with Oncology regarding her chemo/radiation who stated that she is not a candidate as she has delusions and needs psychiatric care first however the patient's has been refusing medical transcription supervisor. -pt's oncologist is Elvia Lee -f/u psych input regarding delusions #?DM Unclear if patient has a hx of diabetes Sugars 110-220 -f/u hgbA1c -consider consulting endocrinology #borderline hypotension - resolved -hold po Dilaudid whenever necessary even if very adamant when patient to get it #chronic anemia H/H 7.5/24.3 - restart apirin tomorrow -guaic all stools -Currently at her baseline, hgb goal >7 -Follow-up outpatient with gynecology -Continue iron #chronic pain with hx of metastatic cancer -Continue fentanyl patch, Dilaudid by mouth, gabapentin, #mental health -Continue risperidone #vitamins -Continue multivitamins #constipation -Continue MiraLAX, milk of magnesia, Colace, Dulcolax #DVT prophylaxis -no pharmacologic prophylaxis given patient's anemia -xarelto was stopped by Dr. Ricardo after her debridement surgery -Patient refused Alps #Full code Problem List: 1. Pleural effusion 2. S/P debridement 3. Ovarian cancer 4. 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 The patient was last admitted to [facility] for back pain secondary to bone metastasis in April 2017. She was also admitted to [facility] in may 2017 for palliative therapy with optimization of pain regimen with fentanyl, Dilaudid, gabapentin. She was last admitted to [facility] in June 2017 for acute on chronic blood loss anemia, vaginal bleeding secondary to uterine cancer , hematuria, malignant ascites. Most recently she had a right leg debridement on 07/20/2016 due to progressive worsening right DVT and was then discharged to [facility]. Of note, her Xarelto was stopped on 08/03/2017 by her vascular surgeon Dr. Ricardo. A/p- Shortness of breath secondary to worsening left side plerual effusion- Pulmonary consulted and thoracocentesis performed both diagnostic and therapeutic. Rt lower extremity wound s/p recent debridement by vascular surgery- f/u vascular surgery. chronic anemia- cont to monitor. h/h stable. transfuse as needed to keep it above 7.
--- NOTE | 2017-08-10 08:14 | PN- Pulmonary ---
Subjective HPI/Critical Care Issues: Patient's clinical status is unchanged Objective Current Medications: Current Medications Sig/Jessika Start time Last Medication Dose Route Stop Time Status Admin Acetaminophen 650 MG Q6P PRN 08/07 2314 AC PO Acetaminophen 1,000 MG Q6P PRN 08/07 2314 AC IV Al Hydroxide/Mg 15 ML Q6P PRN 08/07 2314 AC Hydroxide PO Albuterol Sulfate 3 ML Q4P PRN 08/07 2315 AC 08/09 INH 2150 Aspirin 325 MG DAILY 08/08 1000 DC 08/08 PO 1157 Azithromycin 500 MG DAILY 08/08 1000 DC 08/08 Dextrose/Water 250 ML IV 1157 Bisacodyl 10 MG DAILY NEEDED PRN 08/07 2314 AC WV Ceftazidime 1,000 MG Q8H 08/08 0700 DC 08/10 IV 0630 Docusate Sodium 100 MG BID PRN 08/07 2314 AC PO Fentanyl Citrate 50 MCG Q72H 08/08 1000 AC 08/08 TOP 1201 Ferrous Sulfate 325 MG DAILY 08/08 1000 AC 08/09 PO 1336 Gabapentin 100 MG BID 08/08 1000 AC 08/09 PO 2120 Guaifenesin 10 ML ONCE ONE 08/10 0645 DC 08/10 PO 08/10 0646 0653 Guaifenesin 600 MG Q12 08/08 1000 AC 08/09 PO 2120 Guaifenesin/Codeine 10 ML ONCE ONE 08/09 2345 DC 08/10 Phosphate PO 08/09 2346 0022 Hydromorphone HCl 4 MG Q4P PRN 08/08 1000 AC 08/09 PO 2314 Magnesium Hydroxide 30 ML DAILY NEEDED PRN 08/07 2314 AC PO Methylprednisolone 40 MG Q8 08/08 0600 AC 08/10 IV 0628 Multivitamins 1 TAB DAILY 08/08 1000 AC 08/09 PO 1338 Polyethylene Glycol 17 GM DAILY NEEDED PRN 08/075 AC PO Risperidone 1 MG BID 08/08 1000 AC 08/09 PO 2120 Tiotropium [place] 1 PUF DAILY 08/08 1000 AC 08/09 INH 1338 Vital Signs & I&O Last 24 Hrs of Vitals and I&O: Vital Signs Date Time Temp Pulse Resp B/P B/P Pulse O2 O2 Flow FiO2 Mean Ox Delivery Rate 08/10 0620 97.9 90 20 122/68 94 Nasal Cannula 08/10 0000 93 Nasal 2.0L Cannula 08/09 2226 97.7 97 20 116/70 93 08/09 2150 97 Nasal 1.5L Cannula 08/09 1600 Nasal 2.0L Cannula 08/09 1519 98.0 95 24 130/80 94 08/09 1139 97.9 77 24 120/70 94 Intake & Output 08/10 1600 08/10 0800 08/10 0000 Intake Total 480 Output Total 200 Balance -200 480 Intake, Oral 480 Number 0 Bowel Movements Output, Urine 200 Oxygen saturation 2 L 94% exam for chest continues to show diminished breath sounds over the left hemithorax there are occasional wheezing cardiac exam shows normal S1 and S2 abdomen is distended there is marked lymphedema Impression/Plan Impression/Plan Impression/Plan: -year-old with advanced metastatic ovarian carcinoma presents with increasing mediastinal adenopathy and new left pleural effusion compared to chest x-ray in June. this is likely contributing to her shortness of breath and cough and is presumably malignant. Recommendations: Diagnostic and therapeutic left thoracentesis for routine cytology and cultures. Her medical regimen can be continued pending thoracentesis. Vascular surgery follow-up for management of her lower extremity ulcer. Management of her anticoagulation per primary care team to further suggestions pending diagnostic and therapeutic thoracentesis patient needs oncology follow-up
[2017-08-10 09:54] LABS: ABSOLUTE BASOPHIL COUNT 0 /CUMM (0.0-0.2); ABSOLUTE EOSINOPHIL COUNT 0 /CUMM (0.0-0.7); ABSOLUTE GRANULOCYTE CT 7.3 /CUMM (1.4-6.5); ABSOLUTE LYMPH COUNT 0.8 /CUMM (1.2-3.4); ABSOLUTE MONOCYTE COUNT 0.6 /CUMM (0.10-0.60); BASOPHIL % 0.1 % (0.0-2.0); EOSINOPHIL % 0 % (0-5); GRANULOCYTE % 83.7 % (42.2-75.2); HEMATOCRIT 24.3 % (37-47); MEAN CORPUSCULAR HGB 24.2 PG (27.0-31.0); MEAN CORPUSCULAR HGB CONC 30.7 G/DL (33.0-37.0); MEAN CORPUSCULAR VOLUME 78.6 FL (81.0-99.0); MEAN PLATELET VOLUME 6.4 FL (7.4-10.4); RED BLOOD CELL CT 3.09 /CUMM (4.20-5.40); WHITE BLOOD CELL COUNT 8.7 /CUMM (4.8-10.8)
[2017-08-10 11:16] LABS: PLATELET COUNT 678 /CUMM (130-400)
--- NOTE | 2017-08-10 12:01 | RADIOLOGY REPORT ---
EXAMINATION:\H\ \N\XR CHEST CLINICAL INFORMATION: Status post-post left thoracentesis. COMPARISON: Ultrasound-guided left thoracentesis of the same date; CTA thorax and chest radiograph dated 08/07/2017. TECHNIQUE: Frontal view of the chest was obtained. FINDINGS: The heart, great vessels, pulmonary vasculature and mediastinum are stable. Lung volumes are low. No pleural effusion or pneumothorax is seen bilaterally. There is persistent moderate plate-like atelectasis in the mid left lung field. A right internal jugular Port-A-Cath device is unchanged. There is no acute osseous abnormality. IMPRESSION: 1. No pneumothorax or residual effusion is seen status-post left thoracentesis. 2. There is stable moderate plate-like atelectasis in the mid left lung field.
[2017-08-10 14:08] VITALS: BP 140/90
--- NOTE | 2017-08-10 15:18 | ULTRASOUND REPORT ---
PROCEDURE: Thoracentesis CLINICAL INFORMATION: Pleural Effusion COMPARISON: CTA chest and chest x-ray 08/07/2017 TECHNIQUE: Indirect ultrasound guided thoracentesis using a 5 [place] Yueh catheter. FINDINGS: Informed consent was obtained from the patient prior to the procedure. During this process, the procedure alternatives were explained, along with the intended outcome and benefits. The risks of the procedure, as well as the risk of not doing the procedure, was discussed. The patient was given the opportunity to ask questions regarding the procedure and appeared competent to make medical decisions. A signed consent form which documents this discussion was placed in the medical record. A timeout procedure was performed. Ultrasound evaluation of the chest for pleural fluid was performed. A moderate sized pleural effusion is noted on the left side. Using standard interventional and sterile techniques, lidocaine was used to anesthetize the region. A 5 [place] Yueh catheter was introduced into the left pleural fluid using standard safety needle technique. Approximately 400 mL of slightly serosanguineous, nonclotting fluid fluid was removed into the Vacutainer bottles. Drainage ceased. The catheter was then removed. Good hemostasis was achieved. The patient tolerated the procedure well. A sterile dressing was placed. The patient was discharged from the department in stable condition. Patient scheduled for post procedure followup x-ray. COMPLICATIONS: None. IMPRESSION: Successful left-sided ultrasound-guided thoracentesis yielding 400 mL's of fluid.
--- NOTE | 2017-08-10 16:30 | PN- Vascular Surgery ---
Surgical Brief Attending Note Brief Attending Note: Pt seen and examined. She is known to me from prior angiography (years ago), and recent new lower extremity wounds in the setting of chronic lymphedema due to tumor. Today, her wound was changed at the bedside. It is very healthy in appearance with a minimal amount of slough overlying the edges of the wound. There are no signs of infection. Healthy granulation at base. This wound would respond well to negative pressure, but the patient is refusing. No need for anti-coagulation as per Dr. Ricardo. Continue local wound care with Santyl, hydrofera blue, and compression.
[2017-08-11] VITALS: BP 120/74
[2017-08-11 06:55] VITALS: BP 130/76
--- NOTE | 2017-08-11 08:20 | PN- Housestaff ---
RdzLavonne 08/11/17 0815: Subjective Follow-up For: SOB RLE debridement Subjective: No overnight event. Patient was malawian speaking with limited Bruneian. Patient felt better after thoracentesis yesterday. Review of Systems Constitutional: Reports: see HPI. Objective Last 24 Hrs of Vital Signs/I&O Vital Signs Date Time Temp Pulse Resp B/P B/P Pulse O2 O2 Flow FiO2 Mean Ox Delivery Rate 08/11 0655 97.9 77 20 130/76 92 Nasal 1.5L Cannula 08/11 0000 94 Nasal 2.0L Cannula 08/11 0000 97.5 86 20 120/74 92 Nasal 1.5L Cannula 08/10 2045 88 Room Air 08/10 1408 97.2 88 20 140/90 95 Nasal 2.0L Cannula 08/10 1049 Nasal 1.5L Cannula Intake & Output 08/11 1600 08/11 0800 08/11 0000 Intake Total 600 500 Output Total 450 Balance 150 500 Intake, Oral 600 500 Number 1 Bowel Movements Output, Urine 450 Physical Exam General Appearance: Alert, Oriented X3, Cooperative, No Acute Distress Cardiovascular: Regular Rate Lungs: Clear to Auscultation, Normal Air Movement Current Medications: Current Medications Sig/Jessika Start time Last Medication Dose Route Stop Time Status Admin Acetaminophen 650 MG Q6P PRN 08/07 2314 AC PO Acetaminophen 1,000 MG Q6P PRN 08/07 2314 AC IV Al Hydroxide/Mg 15 ML Q6P PRN 08/07 2314 AC Hydroxide PO Albuterol Sulfate 2 PUF Q4 PRN 08/10 1400 AC INH Albuterol Sulfate 3 ML Q4P PRN 08/07 2315 AC 08/10 INH 2045 Bisacodyl 10 MG DAILY NEEDED PRN 08/07 2315 AC MO Collagenase 1 RENETTA DAILY 08/10 1545 AC 08/10 TOP 1702 Docusate Sodium 100 MG .STK-MED ONE 08/10 1816 DC PO 08/10 1817 Docusate Sodium 100 MG BID PRN 08/07 2315 AC 08/10 PO 1820 Fentanyl Citrate 50 MCG Q72H 08/08 1000 AC 08/08 TOP 1201 Ferrous Sulfate 325 MG DAILY 08/08 1000 AC 08/10 PO 1214 Gabapentin 100 MG BID 08/08 1000 AC 08/10 PO 2130 Guaifenesin 10 ML Q6-PRN PRN 08/10 1545 AC 08/10 PO 1702 Guaifenesin 600 MG Q12 08/08 1000 AC 08/10 PO 2130 Hydromorphone HCl 4 MG Q4P PRN 08/08 1000 AC 08/11 PO 0436 Insulin Aspart 0 TIDAC 08/11 1200 UNVr SC Insulin Aspart 2 UNITS .STK-MED ONE 08/10 1441 DC SC 08/10 1442 Lidocaine 1 ML .STK-MED ONE 08/10 1137 DC ID 08/10 1138 Magnesium Hydroxide 30 ML DAILY NEEDED PRN 08/07 2315 AC PO Methylprednisolone 40 MG Q8 08/08 0600 AC 08/11 IV 0632 Multivitamins 1 TAB DAILY 08/08 1000 AC 08/10 PO 1214 Polyethylene Glycol 17 GM DAILY NEEDED PRN 08/07 2315 AC 08/10 PO 1820 Risperidone 1 MG BID 08/08 1000 AC 08/10 PO 2130 Tiotropium [place] 1 PUF DAILY 08/08 1000 AC 08/10 INH 1214 Last 24 Hrs of Lab/Lucius Results Last 24 Hrs of Labs/Mics: Laboratory Tests 08/10/17 1115: Pleural pH 7.48 08/10/17 1115: Fluid WBC 3003 H, Fld Mesothelial Cells 14, Fld Total RBCs Counted 5324 H 08/10/17 1115: Lymphocytes 86, Phlebotomy Draw Site LT CHEST, Fluid Glucose 156, Fluid Total Protein 2.3, Fluid Albumin < 1.0, Fluid LDH 366, Fluid Amylase < 30 08/10/17 0901: Anion Gap 8, Estimated GFR > 60, BUN/Creatinine Ratio 26.0 H, Lactate Dehydrogenase 903 H, CBC w Diff NO MAN DIFF REQ, RBC 3.09 L, MCV 78.6 L, MCH 24.2 L, MCHC 30.7 L, RDW 21.0 H, MPV 6.4 L, Gran % 83.7 H, Lymphocytes % 9.1 L, Monocytes % 7.1, Eosinophils % 0, Basophils % 0.1, Absolute Granulocytes 7.3 H, Absolute Lymphocytes 0.8 L, Absolute Monocytes 0.6, Absolute Eosinophils 0, Absolute Basophils 0 Microbiology 08/10 111 BODY FLUID: Body Fluid Culture - RES 08/10 111 BODY FLUID: Gram Stain - RES 08/10 1014 LOWER RESP: Respiratory Culture - COLB 08/10 1014 LOWER RESP: Gram Stain - COLB Assessment/Plan Assessment: 51-year-old female, Bahamian-speaking F with a past medical history significant for 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 #SOB due to possible pneumonia/L pleural effusion On 1.5L NC Rapid flu negative D-dimer elevated Chest CTA: 1. No evidence of pulmonary embolism. 2. Lymphadenopathy in the chest has worsened compared to 04/25/2017 3. Small right pleural effusion is new compared to 04/25/2017. The moderate left pleural effusion has increased in size compared to 04/25/2017. Atelectatic changes are seen in both lungs. There is no overt pneumonia. 4. Hepatosplenomegaly and ascites within the visualized upper abdomen. Patient underwent thoracocentesis on 08/10/17. Unable to fully tolerate procedure. Only 400cc was drained. Pleural fluid: WBC 3K+, RBC 5k+, mesothial cells/glucose/totalprotein/albumin/ ldh/amylase/ph normal -f/u thoracocentesis studies/cx. Most likely malignant pleural effusion -Continue off abx -cont, IV steroids, guaifensin, trc, nebs -f/u leigonella and strep urine antigens -Follow-up blood cultures and respiratory cultures #hx of RLE DVT with recent necrosis debridement -f/u vascular and wound consult recommendations regarding wound care #stage 4 ovarian cancer Spoke with Oncology regarding her chemo/radiation who stated that she is not a candidate as she has delusions and needs psychiatric care first however the patient's has been refusing medical review coordinator. -pt's oncologist is Elvia Lee, however, would obtain records of her previous oncology visits to plan on further outpatient followup. -f/u psych input regarding delusions #?DM Latest HbA1c 5.2. Sugars 110-220 - Would continue monitor without active management. #borderline hypotension - resolved -hold po Dilaudid whenever necessary even if very adamant when patient to get it #chronic anemia H/H 7.5/24.7 on latest lab. - restart apirin tomorrow -guaic all stools -Currently at her baseline, hgb goal >7 -Follow-up outpatient with gynecology -Continue iron #chronic pain with hx of metastatic cancer -Continue fentanyl patch, Dilaudid by mouth, gabapentin, #mental health -Continue risperidone #vitamins -Continue multivitamins #constipation -Continue MiraLAX, milk of magnesia, Colace, Dulcolax #DVT prophylaxis -no pharmacologic prophylaxis given patient's anemia -xarelto was stopped by Dr. Ricardo after her debridement surgery -Patient refused Alps #Full code Regular Diet DVT PPX None Problem List: 1. Anemia 2. S/P debridement 3. Ovarian cancer 4. Pleural effusion Pain Ratin Pain Location: RLE. 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 The patient was last admitted to [facility] for back pain secondary to bone metastasis in April 2017. She was also admitted to [facility] in may 2017 for palliative therapy with optimization of pain regimen with fentanyl, Dilaudid, gabapentin. She was last admitted to [facility] in June 2017 for acute on chronic blood loss anemia, vaginal bleeding secondary to uterine cancer , hematuria, malignant ascites. Most recently she had a right leg debridement on 07/20/2016 due to progressive worsening right DVT and was then discharged to [facility]. Of note, her Xarelto was stopped on 08/03/2017 by her vascular surgeon Dr. Davion. A/p- Shortness of breath secondary to worsening left side plerual effusion- Pulmonary consulted and thoracocentesis performed both diagnostic and therapeutic revelaed lymphocytic predominance likely malignant. Rt lower extremity wound s/p recent debridement by vascular surgery- f/u vascular surgery. Routine Wound care chronic anemia- cont to monitor. h/h stable. transfuse as needed to keep it above 7. Oncology consulted Dr Carroll who responds as patient is discharged from their service. Awaiting to discuss further goals of care.
--- NOTE | 2017-08-11 08:37 | PN- Pulmonary ---
Subjective HPI/Critical Care Issues: Patient feels better after thoracentesis her cough is improved. It appears to be a lymphocytic transudate Objective Current Medications: Current Medications Sig/Jessika Start time Last Medication Dose Route Stop Time Status Admin Acetaminophen 650 MG Q6P PRN 08/07 2314 AC PO Acetaminophen 1,000 MG Q6P PRN 08/07 2314 AC IV Al Hydroxide/Mg 15 ML Q6P PRN 08/07 2314 AC Hydroxide PO Albuterol Sulfate 2 PUF Q4 PRN 08/10 1400 AC INH Albuterol Sulfate 3 ML Q4P PRN 08/07 2315 AC 08/10 INH 2045 Bisacodyl 10 MG DAILY NEEDED PRN 08/07 2314 AC UT Collagenase 1 RENETTA DAILY 08/10 1545 AC 08/10 TOP 1702 Docusate Sodium 100 MG .STK-MED ONE 08/10 1816 DC PO 08/10 1817 Docusate Sodium 100 MG BID PRN 08/07 2315 AC 08/10 PO 1820 Fentanyl Citrate 50 MCG Q72H 08/08 1000 AC 08/08 TOP 1201 Ferrous Sulfate 325 MG DAILY 08/08 1000 AC 08/10 PO 1214 Gabapentin 100 MG BID 08/08 1000 AC 08/10 PO 2130 Guaifenesin 10 ML Q6-PRN PRN 08/10 1545 AC 08/10 PO 1702 Guaifenesin 600 MG Q12 08/08 1000 AC 08/10 PO 2130 Hydromorphone HCl 4 MG Q4P PRN 08/08 1000 AC 08/11 PO 0436 Insulin Aspart 0 TIDAC 08/11 1200 AC SC Insulin Aspart 2 UNITS .STK-MED ONE 08/10 1441 DC SC 08/10 1442 Lidocaine 1 ML .STK-MED ONE 08/10 1137 DC ID 08/10 1138 Magnesium Hydroxide 30 ML DAILY NEEDED PRN 08/07 2314 AC PO Methylprednisolone 40 MG Q8 08/08 0600 AC 08/11 IV 0632 Multivitamins 1 TAB DAILY 08/08 1000 AC 08/10 PO 1214 Polyethylene Glycol 17 GM DAILY NEEDED PRN 08/07 2315 AC 08/10 PO 1820 Risperidone 1 MG BID 08/08 1000 AC 08/10 PO 2130 Tiotropium [place] 1 PUF DAILY 08/08 1000 AC 08/10 INH 1214 Vital Signs & I&O Last 24 Hrs of Vitals and I&O: Vital Signs Date Time Temp Pulse Resp B/P B/P Pulse O2 O2 Flow FiO2 Mean Ox Delivery Rate 08/11 0655 97.9 77 20 130/76 92 Nasal 1.5L Cannula 08/11 0000 94 Nasal 2.0L Cannula 08/11 0000 97.5 86 20 120/74 92 Nasal 1.5L Cannula 08/10 2045 88 Room Air 08/10 1408 97.2 88 20 140/90 95 Nasal 2.0L Cannula 08/10 1049 Nasal 1.5L Cannula Intake & Output 08/11 1600 08/11 0800 08/11 0000 Intake Total 600 500 Output Total 450 Balance 150 500 Intake, Oral 600 500 Number 1 Bowel Movements Output, Urine 450 Sensation 1.5 L 92% exam for chest continues showed diminished breath sounds left base there are no wheezes cardiac exam shows a regular S1 and S2 without murmurs abdomen is soft and distended there is significant lower extremity edema Impression/Plan Impression/Plan Impression/Plan: -year-old with advanced metastatic ovarian carcinoma presents with increasing mediastinal adenopathy and new left pleural effusion compared to chest x-ray in June. this is likely contributing to her shortness of breath and cough and is presumably malignant.. Pleural fluid appears to be a lymphocytic transudate. cytology is pending. Recommendations: Patient's cough is improved. Monitor for recurrence of pleural effusion and possible need for Pleurx catheter. Patient requires oncology follow-up for which transfer may be necessary
[2017-08-11 10:26] LABS: ABSOLUTE BASOPHIL COUNT 0 /CUMM (0.0-0.2); ABSOLUTE EOSINOPHIL COUNT 0 /CUMM (0.0-0.7); ABSOLUTE GRANULOCYTE CT 8.1 /CUMM (1.4-6.5); ABSOLUTE LYMPH COUNT 0.7 /CUMM (1.2-3.4); ABSOLUTE MONOCYTE COUNT 0.6 /CUMM (0.10-0.60); BASOPHIL % 0 % (0.0-2.0); EOSINOPHIL % 0 % (0-5); HEMATOCRIT 24.7 % (37-47); MEAN CORPUSCULAR HGB CONC 30.2 G/DL (33.0-37.0); MEAN CORPUSCULAR VOLUME 79.4 FL (81.0-99.0); MEAN PLATELET VOLUME 6.8 FL (7.4-10.4); RBC DISTRIBUTION WIDTH 20.7 % (11.5-14.5); RED BLOOD CELL CT 3.12 /CUMM (4.20-5.40); WHITE BLOOD CELL COUNT 9.4 /CUMM (4.8-10.8)
[2017-08-11 11:22] LABS: GRANULOCYTE % 85.8 % (42.2-75.2); PLATELET COUNT 623 /CUMM (130-400)
--- NOTE | 2017-08-11 13:11 | Cons- Psychiatry ---
Psychiatric Consult Date of Consult: 08/11/17 Reason for Consult: "history of delusions" History of Present Illness: 51 F, , primarily Zimbabwean speaking with some Welsh, sent to the ED by invasive imaging for hypoxia on 08/07/17 @ 1507. She has advanced ovarian carcinoma with metastasis, and is being treated for a new left pleural effusion. Allergies: Coded Allergies: cefuroxime (From CEFTIN) (Intermediate, "LOST IT" 02/12/16) Current Medications: Current Medications Sig/Jessika Start time Last Medication Dose Route Stop Time Status Admin Acetaminophen 650 MG Q6P PRN 08/07 2315 AC PO Acetaminophen 1,000 MG Q6P PRN 08/07 231 AC IV Al Hydroxide/Mg 15 ML Q6P PRN 08/07 2314 AC Hydroxide PO Albuterol Sulfate 2 PUF Q4 PRN 08/10 1400 AC INH Albuterol Sulfate 3 ML Q4P PRN 08/07 2315 AC 08/10 INH 2045 Bisacodyl 10 MG DAILY NEEDED PRN 08/07 2314 AC NJ Collagenase 1 RENETTA DAILY 08/10 1545 AC 08/11 TOP 0932 Docusate Sodium 100 MG .STK-MED ONE 08/10 1816 DC PO 08/10 1817 Docusate Sodium 100 MG BID PRN 08/07 2315 AC 08/10 PO 1820 Fentanyl Citrate 50 MCG Q72H 08/08 1000 AC 08/11 TOP 0932 Ferrous Sulfate 325 MG DAILY 08/08 1000 AC 08/11 PO 0929 Gabapentin 100 MG BID 08/08 1000 AC 08/11 PO 0929 Guaifenesin 10 ML Q6-PRN PRN 08/10 1545 AC 08/10 PO 1702 Guaifenesin 600 MG Q12 08/08 1000 AC 08/11 PO 0929 Hydromorphone HCl 4 MG Q4P PRN 08/08 1000 AC 08/11 PO 0932 Insulin Aspart 0 TIDAC 08/11 1200 AC SC Insulin Aspart 2 UNITS .STK-MED ONE 08/10 1441 DC SC 08/10 1442 Magnesium Hydroxide 30 ML DAILY NEEDED PRN 08/07 2315 AC PO Methylprednisolone 40 MG Q8 08/08 0600 AC 08/11 IV 0632 Multivitamins 1 TAB DAILY 08/08 1000 AC 08/11 PO 0929 Polyethylene Glycol 17 GM DAILY NEEDED PRN 08/07 2315 AC 08/10 PO 1820 Risperidone 1 MG BID 08/08 1000 AC 08/11 PO 0929 Tiotropium [place] 1 PUF DAILY 08/08 1000 AC 08/11 INH 0929 Past History Past Medical History Neurological: NONE EENT: NONE Cardiovascular: chronic venous insuff, hypertension Respiratory: NONE Gastrointestinal: NONE Hepatic: NONE Renal: NONE Musculoskeletal: NONE Psychiatric: psychosis NOS Endocrine: diabetes Blood Disorders: NONE Cancer(s): ovarian cancer (Stage 4), 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 ICU/Reproductive: NONE Past Surgical History Surgical History: cholecystectomy, s/p left 5th MT resection 01/2014 CYST REMOVAL OFF NOSE laparotomy Psychosocial History Strengths/Capabilities: In treatment Physical Limitations (Interventions): Serious medical conditions Psychiatric Treatment History Risk Factors: chronic/serious med cond., high anxiety/distress Assessment/Plan Mental Status Orientation: Person, place, day, month, year, reason for visit Affect: Flat Speech: Mumbled Neuro-vegetative: WNL Mental Status Exam: The patient denies auditory or visual hallucinations, but reports that something is putting glue on her fingertips. Her report is mumbled, but she is delusional, but not alarmed by these beliefs at this time. She denies suicidal or homicidal ideation. Lab Results: Laboratory Tests 08/11 0835 Chemistry Sodium (137 - 145 mmol/L) 141 Potassium (3.5 - 5.1 mmol/L) 4.5 Chloride (98 - 107 mmol/L) 101 Carbon Dioxide (22 - 30 mmol/L) 32 H Anion Gap (5 - 16) 8 BUN (7 - 17 mg/dL) 14 Creatinine (0.5 - 1.0 mg/dL) 0.5 Estimated GFR (>60 ml/min) > 60 BUN/Creatinine Ratio (7 - 25 %) 28.0 H Hemoglobin A1c (4.2 - 5.8 %) 5.2 Hematology CBC w Diff NO MAN DIFF REQ WBC (4.8 - 10.8 /CUMM) 9.4 RBC (4.20 - 5.40 /CUMM) 3.12 L Hgb (12.0 - 16.0 G/DL) 7.5 L Hct (37 - 47 %) 24.7 L MCV (81.0 - 99.0 FL) 79.4 L MCH (27.0 - 31.0 PG) 24.0 L MCHC (33.0 - 37.0 G/DL) 30.2 L RDW (11.5 - 14.5 %) 20.7 H Plt Count (130 - 400 /CUMM) 623 H MPV (7.4 - 10.4 FL) 6.8 L Gran % (42.2 - 75.2 %) 85.8 H Lymphocytes % (20.5 - 51.1 %) 7.6 L Monocytes % (1.7 - 9.3 %) 6.6 Eosinophils % (0 - 5 %) 0 Basophils % (0.0 - 2.0 %) 0 Absolute Granulocytes (1.4 - 6.5 /CUMM) 8.1 H Absolute Lymphocytes (1.2 - 3.4 /CUMM) 0.7 L Absolute Monocytes (0.10 - 0.60 /CUMM) 0.6 Absolute Eosinophils (0.0 - 0.7 /CUMM) 0 Absolute Basophils (0.0 - 0.2 /CUMM) 0 Diffential Diagnosis: Psychotic disorder, unspecified, with paranoid and persecutory delusions. Impression: The patient is well known to us from previous presentations, and has a history of distressing and non-distressing delusions and auditory hallucinations. This usually manifests as "devils," whic she cannot see, and she reports today that something has been putting glue under her fingernails. She is refusing an outpatient treatment offer today, and is prescribed risperidone 1 mg PO 2X/day for her psychosis by her oncologist, Dr. Elvia Bryna. He has been opposed to her psychaitric treatment in the past, so we are surprised that she is still taking the risperidone, which our service had suggest increasing at the last visit in June,. EKG 08/07/17 reviewed, which shows sinus tachycardia, 11 bpm, QTc 441 mS. Potassium is WNL today. Provisional Treatment Plan: 1. Continue risperidone 1 mg PO 2X/day for psychosis. Hold for QTc greater than 475 mS or hypokalemia or hypomagnesemia. 2. We will revisit her on 08/12/17, using [employer] or the [employer] phone for a more in depth interview. 3. Please order a magnesium level, as she has had a borderline low in the past. We will continue to follow along.
[2017-08-11 14:22] VITALS: BP 140/80
[2017-08-11 22:58] VITALS: BP 120/80
[2017-08-12 07:02] VITALS: BP 140/90
--- NOTE | 2017-08-12 07:30 | PN- Housestaff ---
Lavonne Rdz 08/12/17726: Subjective Follow-up For: SOB RLE debridement Subjective: No overnight event. Patient was paraguayan speaking with limited Sri Lankan. Patient felt better after thoracentesis, under 1.5LNC. She admitted a little bit of pain on RLE but otherwise no specific complaint. Review of Systems Constitutional: Reports: see HPI. Objective Last 24 Hrs of Vital Signs/I&O Vital Signs Date Time Temp Pulse Resp B/P B/P Pulse O2 O2 Flow FiO2 Mean Ox Delivery Rate 08/12 0702 98.2 79 20 140/90 97 Room Air 08/11 2258 98.4 73 19 120/80 97 Room Air 08/11 1422 98.3 88 18 140/80 92 Room Air Intake & Output 08/12 0800 08/12 0000 08/11 1600 Intake Total 500 300 800 Output Total 750 900 900 Balance -250 -600 -100 Intake, Oral 500 300 800 Number 2 Bowel Movements Output, Urine 750 900 900 Physical Exam General Appearance: Alert, Oriented X3, Cooperative, No Acute Distress Cardiovascular: Regular Rate Lungs: Normal Air Movement Extremities: BLE in dressing from cellulitis/surgery Current Medications: Current Medications Sig/Jessika Start time Last Medication Dose Route Stop Time Status Admin Acetaminophen 650 MG Q6P PRN 08/075 AC PO Acetaminophen 1,000 MG Q6P PRN 08/07 2314 AC IV Al Hydroxide/Mg 15 ML Q6P PRN 08/07 2314 AC Hydroxide PO Albuterol Sulfate 2 PUF Q4 PRN 08/10 1400 AC INH Albuterol Sulfate 3 ML Q4P PRN 08/07 2315 AC 08/10 INH 2045 Bisacodyl 10 MG DAILY NEEDED PRN 08/075 AC GA Collagenase 1 RENETTA DAILY 08/10 1545 AC 08/11 TOP 0932 Docusate Sodium 100 MG BID PRN 08/07 2315 AC 08/10 PO 1820 Fentanyl Citrate 50 MCG Q72H 08/08 1000 AC 08/11 TOP 0932 Ferrous Sulfate 325 MG DAILY 08/08 1000 AC 08/11 PO 0929 Gabapentin 100 MG BID 08/08 1000 AC 08/11 PO 2155 Guaifenesin 10 ML Q6-PRN PRN 08/10 1545 AC 08/10 PO 1702 Guaifenesin 600 MG Q12 08/08 1000 AC 08/11 PO 2155 Hydromorphone HCl 4 MG Q4P PRN 08/08 1000 AC 08/11 PO 2159 Insulin Aspart 0 TIDAC 08/11 1200 AC 08/11 SC 1729 Magnesium Hydroxide 30 ML DAILY NEEDED PRN 08/07 2315 AC PO Methylprednisolone 40 MG Q12 08/11 2200 AC 08/11 IV 2155 Methylprednisolone 40 MG Q8 08/08 0600 DC 08/11 IV 1309 Multivitamins 1 TAB DAILY 08/08 1000 AC 08/11 PO 0929 Polyethylene Glycol 17 GM DAILY NEEDED PRN 08/07 2315 AC 08/10 PO 1820 Risperidone 1 MG BID 08/08 1000 AC 08/11 PO 215 Tiotropium [place] 1 PUF DAILY 08/08 1000 AC 08/11 INH 0929 Last 24 Hrs of Lab/Lucius Results Last 24 Hrs of Labs/Mics: Laboratory Tests 08/11/17 0835: Anion Gap 8, Estimated GFR > 60, BUN/Creatinine Ratio 28.0 H, Hemoglobin A1c 5.2, CBC w Diff NO MAN DIFF REQ, RBC 3.12 L, MCV 79.4 L, MCH 24.0 L, MCHC 30.2 L, RDW 20.7 H, MPV 6.8 L, Gran % 85.8 H, Lymphocytes % 7.6 L, Monocytes % 6.6, Eosinophils % 0, Basophils % 0, Absolute Granulocytes 8.1 H, Absolute Lymphocytes 0.7 L, Absolute Monocytes 0.6, Absolute Eosinophils 0, Absolute Basophils 0 Assessment/Plan Assessment: 51-year-old female, Indian-speaking F with a past medical history significant for 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 #SOB due to possible pneumonia/L pleural effusion On 1.5L NC Rapid flu negative D-dimer elevated Chest CTA: 1. No evidence of pulmonary embolism. 2. Lymphadenopathy in the chest has worsened compared to 04/25/2017 3. Small right pleural effusion is new compared to 04/25/2017. The moderate left pleural effusion has increased in size compared to 04/25/2017. Atelectatic changes are seen in both lungs. There is no overt pneumonia. 4. Hepatosplenomegaly and ascites within the visualized upper abdomen. Patient underwent thoracocentesis on 08/10/17. Unable to fully tolerate procedure. Only 400cc was drained. Pleural fluid: WBC 3K+, RBC 5k+, mesothial cells/glucose/totalprotein/albumin/ ldh/amylase/ph normal -Thoracentesis studies showed REACTIVE AND BLAND MESOTHELIAL CELLS, HISTIOCYTES, LYMPHOCYTES, NEUTROPHILS, AND RED BLOOD CELLS, diagnostic of malignance are not identified. -Continue off abx -cont, IV steroids, guaifensin, trc, nebs -f/u leigonella and strep urine antigens -Follow-up blood cultures and respiratory cultures #hx of RLE DVT with recent necrosis debridement -f/u vascular and wound consult recommendations regarding wound care -Per nursing, patient had refused daily dressing care and wound VAC. #stage 4 ovarian cancer Spoke with Oncology regarding her chemo/radiation who stated that she is not a candidate as she has delusions and needs psychiatric care first however the patient's has been refusing medical advice. -pt's oncologist is Elvia Lee, however, would obtain records of her previous oncology visits to plan on further outpatient followup. -f/u psych input regarding delusions #?DM Latest HbA1c 5.2. Sugars 110-220 - Would continue monitor without active management. #borderline hypotension - resolved -hold po Dilaudid whenever necessary even if very adamant when patient to get it #chronic anemia H/H 8.2/26.9 on latest lab. -Currently at her baseline, hgb goal >7 -Follow-up outpatient with gynecology -Continue iron #chronic pain with hx of metastatic cancer -Continue fentanyl patch, Dilaudid by mouth, gabapentin, #mental health -Continue risperidone #vitamins -Continue multivitamins #constipation -Continue MiraLAX, milk of magnesia, Colace, Dulcolax #DVT prophylaxis -no pharmacologic prophylaxis given patient's anemia -xarelto was stopped by Dr. Ricardo after her debridement surgery -Patient refused Alps #Full code Regular Diet DVT PPX None Problem List: 1. Ovarian cancer 2. Anemia 3. 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 The patient was last admitted to [facility] for back pain secondary to bone metastasis in April 2017. She was also admitted to [facility] in may 2017 for palliative therapy with optimization of pain regimen with fentanyl, Dilaudid, gabapentin. She was last admitted to [facility] in June 2017 for acute on chronic blood loss anemia, vaginal bleeding secondary to uterine cancer , hematuria, malignant ascites. Most recently she had a right leg debridement on 07/20/2016 due to progressive worsening right DVT and was then discharged to [facility]. Of note, her Xarelto was stopped on 08/03/2017 by her vascular surgeon Dr. Ricardo. A/p- Shortness of breath secondary to worsening left side plerual effusion- Pulmonary consulted and thoracocentesis performed both diagnostic and therapeutic revelaed lymphocytic predominance likely malignant. Rt lower extremity wound s/p recent debridement by vascular surgery- f/u vascular surgery. Routine Wound care chronic anemia- cont to monitor. h/h stable. transfuse as needed to keep it above 7. Oncology consulted Dr Carroll who responds as patient is discharged from their service. Awaiting to discuss further goals of care. case management aware.
[2017-08-12 08:59] LABS: ABSOLUTE BASOPHIL COUNT 0 /CUMM (0.0-0.2); ABSOLUTE EOSINOPHIL COUNT 0 /CUMM (0.0-0.7); ABSOLUTE GRANULOCYTE CT 8.7 /CUMM (1.4-6.5); ABSOLUTE MONOCYTE COUNT 0.6 /CUMM (0.10-0.60); BASOPHIL % 0.1 % (0.0-2.0); EOSINOPHIL % 0 % (0-5); HEMATOCRIT 26.9 % (37-47); MEAN CORPUSCULAR HGB 24.4 PG (27.0-31.0); MEAN CORPUSCULAR HGB CONC 30.5 G/DL (33.0-37.0); MEAN CORPUSCULAR VOLUME 79.9 FL (81.0-99.0); MEAN PLATELET VOLUME 6.4 FL (7.4-10.4); RBC DISTRIBUTION WIDTH 21.2 % (11.5-14.5); WHITE BLOOD CELL COUNT 10.3 /CUMM (4.8-10.8)
[2017-08-12 09:56] LABS: GRANULOCYTE % 84.3 % (42.2-75.2); PLATELET COUNT 657 /CUMM (130-400)
[2017-08-12 09:57] LABS: RED BLOOD CELL CT 3.36 /CUMM (4.20-5.40)
--- NOTE | 2017-08-12 12:20 | Patient Discharge Instructions ---
Discharge Instructions General Discharge Information You were seen/treated for: #SOB due to L pleural effusion #hx of RLE DVT with recent necrosis debridement #stage 4 ovarian cancer w/ metastases #Diabetes #Borderline hypotension #Anemia of Chronic diseases #Chronic pain w/ hx of metastatic cancer #mental Health #Constipation Special Instructions: - Please follow up with your primary care physician within 1-2 week of discharge. Inform your primary care physician of this admission to [facility]. - Continue your current medications per discharge instructions. - Please watch for these problems: Fever, Chills, Nausea, Vomiting, Shortness of Breath, Productive Cough, Chest Pain/Discomfort, Abdominal Pain, Active Bleeding or Bloody urine/stool. Diet Continue normal diet: Yes Recommended Diet: Diabetic Activity Full Activity/No Limits: Yes Acute Coronary Syndrome Inclusion Criteria At DC or during hospital stay patient has or had the following: ACS DIAGNOSIS No Discharge Core Measures Meds if any: Prescribed or Continued at Discharge Meds if any: NOT Prescribed or Continued at Discharge Congestive Heart Failure Inclusion Criteria At DC or during hospital stay patient has or had the following: CHF DIAGNOSIS No Discharge Core Measures Meds if any: Prescribed or Continued at Discharge Meds if any: NOT Prescribed or Continued at Discharge Cerebrovascular accident Inclusion Criteria At DC or during hospital stay patient has or had the following: CVA/TIA Diagnosis No Discharge Core Measures Meds if any: Prescribed or Continued at Discharge Meds if any: NOT Prescribed or Continued at Discharge Venous thromboembolism Inclusion Criteria VTE Diagnosis No VTE Type NONE VTE Confirmed by (Test) NONE Discharge Core Measures - Per Current guidelines, there needs to be overlap - treatment for the first 5 days of Warfarin therapy. - If discharged on Warfarin prior to 5 days of - overlap therapy, the patient will need to be - assessed for post discharge needs including - *Post discharge parental anticoagulation - *Warfarin and/or parental anticoagulation education - *Follow up date to check INR post discharge At least 5 days overlap therapy as Inpatient No Meds if any: Prescribed or Continued at Discharge Note: Overlap Therapy is Warfarin and Anticoagulant Meds if any: NOT Prescribed or Continued at Discharge
[2017-08-12 14:27] VITALS: BP 120/80
--- NOTE | 2017-08-12 19:09 | Discharge Summary ---
Visit Information Visit Dates Admission Date: 08/07/17 Discharge Date: 08/15/2017 Hospital Course Course Attending Physician: Yuliya Nunes MD Primary Care Physician: Amber LIM,Liza [facility] Course: Ms. 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 Patient was admitted for following management: #SOB due to possible pneumonia/L pleural effusion Upon admission, patient was kept on 1.5L NC, had rapid flu negative, but with D- Dimer elevated. Patient's CTA had ruled out PE, however, increased size of bilateral pleural effusion compared to imagings from . Patient underwent thoracocentesis on 08/10/17 however she was unable to fully tolerate procedure and only 400cc was drained. Patient's pleural fluid showed WBC 3K+, RBC 5k+, mesothial cells/glucose/totalprotein/albumin/ldh/amylase/ph normal, and diagnostic of malignance are not identified. Patient was kept off antibiotics as no signs of infection was identified. Follow-up blood cultures and respiratory cultures, no growth so far. Patient's repeated CXR 08/14 showed no pleural effusion. Patient was gradually tapered off oxygen prior discharge. #hx of RLE DVT with recent necrosis debridement Paitnet had follow up consult from vascular and wound consult with recommendations regarding continuous wound care and no active intervention. However, patient refused wound dressing care multiple times and accepted one dressing change by nurse on 08/14, without significant signs of infection from wound site. #stage 4 ovarian cancer with metastases Patient had extensive evaluations from oncologists in the state. During this hospital stay, the medical team had spoken with Oncology regarding her chemo/ radiation who stated that she is not a candidate as she has delusions and needs psychiatric care first however the patient's has been refusing medical advice. Long discussion with patient's for patient's plan of care. Patient's agreed for home health care but denied hospice and will continue to seek for other oncologist for second opinion. #Elevated blood sugar Patient's HbA1c was 5.2. Patient was monitored on Fingerstick glucose without active management. #chronic anemia 2/2 above clinical conditions Patient's H/H 8.2/26.9 on latest lab, that was at her baseline, hgb goal >7. Patient was continued on iron supplements . #chronic pain with hx of metastatic cancer Patient was continued on fentanyl patch, Dilaudid by mouth, gabapentin, #mental health Patient was continued on home dose of risperidone #constipation Patient was continued on MiraLAX, milk of magnesia, Colace, Dulcolax #DVT prophylaxis Patient had no pharmacologic prophylaxis given patient's anemia. Previous xarelto was stopped by Dr. Ricardo after her debridement surgery. Patient refused ALPs. Full code Regular Diet DVT PPX None Allergies: Coded Allergies: cefuroxime (From CEFTIN) (Intermediate, "LOST IT" 02/12/16) Pertinent Lab Results: SERVICE DATE: 08/07/17-152 EXAM TYPE: RAD - XRY-PORTABLE CHEST XRAY IMPRESSION: Left perihilar and lower lobe infiltration concerning for pneumonia. Recommendation is for a followup chest series to be obtained following treatment and/or resolution of symptoms to assure resolution of this appearance. SERVICE DATE: 08/07/17-170 EXAM TYPE: CAT - CTA CHEST-PULMONARY EMBOLISM IMPRESSION: 1. No evidence of pulmonary embolism. 2. Lymphadenopathy in the chest has worsened compared to 04/25/2017, as described above. 3. Small right pleural effusion is new compared to 04/25/2017. The moderate left pleural effusion has increased in size compared to 04/25/2017. Atelectatic changes are seen in both lungs. There is no overt pneumonia. 4. Hepatosplenomegaly and ascites within the visualized upper abdomen. SERVICE DATE: 08/10/17-1100 EXAM TYPE: US - US-THORACENTESIS IMPRESSION: Successful left-sided ultrasound-guided thoracentesis yielding 400 mL's of fluid. SERVICE DATE: 08/10/17-112 EXAM TYPE: RAD - XRY-CHEST XRAY, SINGLE VIEW IMPRESSION: 1. No pneumothorax or residual effusion is seen status-post left thoracentesis. 2. There is stable moderate plate-like atelectasis in the mid left lung field. SERVICE DATE: 02/02/18- EXAM TYPE: RAD - XRY-PORTABLE CHEST XRAY IMPRESSION: Persistent hypoinflation with no definite effusion or pneumothorax. Disposition Summary Disposition Principal Diagnosis: #Shortness of breath 2/2 Left pleural effusion #hx of RLE DVT with recent necrosis debridement #metastatic stage 4 ovarian CA #Borderline Hypotension #Chronic Anemia #Chronic pain w/ hx of metastatic cancer #Mental health issues #Constipation Additional Diagnosis: As above Discharge Disposition: home health services Discharge Instructions General Discharge Information Code Status: Full Code Patient's Diet: Regular Diet Patient's Activity: As tolerated Follow-Up Instructions/Appts: - Please follow up with your primary care physician within 1-2 week of discharge. Inform your primary care physician of this admission to [facility]. - Continue your current medications per discharge instructions. - Please watch for these problems: Fever, Chills, Nausea, Vomiting, Shortness of Breath, Productive Cough, Chest Pain/Discomfort, Abdominal Pain, Active Bleeding or Bloody urine/stool. Medications at Discharge Discharge Medications: Stop taking the following medications: Rivaroxaban (Xarelto) 10 MG TABLET ORAL DAILY Qty = 30 Continue taking these medications: Risperidone (Risperdal) 1 MG TABLET 1 Tablet ORAL TWICE DAILY Comments: Last Taken:08/15/17 Time:0900AM Gabapentin (Gabapentin) 100 MG CAPSULE 1 Capsule ORAL TWICE DAILY Comments: Last Taken:07/28/17 Time:0900 Docusate Sodium (Docusate Sodium) 100 MG CAPSULE 100 Milligram ORAL TWICE DAILY as needed for CONSTIPATION Days = 14 Instructions: hold for loose stool / diarrhea Comments: DID NOT TAKE Fentanyl Citrate (Duragesic) 50 MCG/HOUR PATCH.TD72 50 Microgram On the skin Q72H Days = 7 Instructions: home medication increased from 25 mcg/hour to 50 mcg/hour q72 hours Comments: Last Taken:08/14/17 Time:0900 RIGHT SHOULDER Polyethylene Glycol 3350 (Miralax) 17 GRAM/DOSE POWDER 17 Gram ORAL DAILY as needed for CONSTIPATION Days = 7 Comments: Last Taken:07/28/17 Time:0900 Arginine/Glutamine/Calcium Hmb (Taurus Packet) 7 GRAM-7 GRAM-1.5 GRAM POWD.PACK 1 Packet ORAL TWICE DAILY Mag Hydrox/Al Hydrox/Simeth (Alum-Mag Hydroxide-Simeth Liq) 200 MG-200 MG-20 MG/ 5 ML ORAL.SUSP 15 Milliliters ORAL Q6H as needed for BLOATED ABD FEELING Acetaminophen (Pharbetol) 325 MG TABLET 650 Milligram ORAL Q4H as needed for PAIN/TEMP 101 Acetaminophen (Acephen) 650 MG SUPP.RECT 1 SUPPOSITORY RECTALLY Q4H as needed for PAIN/TEMP>101 Magnesium Hydroxide (Milk Of Magnesia) 400 MG/5 ML ORAL.SUSP 30 Milliliters ORAL DAILY as needed for CONSTIPATION Bisacodyl (Bisacodyl) 10 MG SUPP.RECT 1 Suppository RECTAL DAILY as needed for CONSTIPATION Na Phos,M-B/Na Phos,Di-Ba (Fleet Enema) 19 GRAM-7 GRAM/118 ML ENEMA 1 Enema RECTAL DAILY as needed for CONSTIPATION Hydromorphone HCl (Dilaudid) 2 MG TABLET 1 Tablet ORAL Q4H as needed for BREAKTHROUGH MILD PAIN Hydromorphone HCl (Dilaudid) 4 MG TABLET 1 Tablet ORAL Q4H as needed for BREAKTHROUGH SEVERE PAIN [PRO-SOURCE] 30 Milliliters ORAL THREE TIMES DAILY Multivitamin,Ther and Minerals (Super Theravite-M) 1 EACH TABLET 1 Tablet ORAL DAILY Ferrous Sulfate (IRON) 325 MG (65 MG IRON) TABLET 1 Tablet ORAL DAILY Comments: Last Taken:08/15/17 Time:0930 Aspirin (Aspirin*) 325 MG TABLET 1 Tablet ORAL DAILY Comments: Last Taken:08/15/17 Time:0900 Albuterol Sulfate (Albuterol Sulfate) 2.5 MG/3 ML (0.083 %) VIAL.NEB 1 Vial Inhale Solution TWICE DAILY Hydromorphone HCl (Dilaudid) 2 MG TABLET 6 Milligram ORAL THURSDAY, THURSDAY AND THURSDAY Albuterol Sulfate (Albuterol Sulfate) 2.5 MG/3 ML (0.083 %) VIAL.NEB 1 Vial Inhale Solution EVERY 4 HOURS NEEDED as needed for SOB/WHEEZE Guaifenesin (Adult Wal-Tussin) 100 MG/5 ML LIQUID 10 Milliliters ORAL Q4H as needed for COUGH Comments: Last Taken:08/15/17 Time:0930 Start taking the following new medications: Tiotropium [place] (Spiriva) 18 MCG CAP.W.DEV 1 Puff Inhale through mouth DAILY Qty = 1 No Refills Instructions: . Copies To: Amber LIM,Liza
[2017-08-12 23:30] VITALS: BP 150/90
[2017-08-13 06:20] VITALS: BP 134/80
--- NOTE | 2017-08-13 10:10 | PN- Housestaff ---
Lavonne Rdz Harrison Justin 08/13/17 1010: Subjective Follow-up For: SOB RLE debridement Review of Systems Constitutional: Reports: see HPI. Objective Last 24 Hrs of Vital Signs/I&O Vital Signs Date Time Temp Pulse Resp B/P B/P Pulse O2 O2 Flow FiO2 Mean Ox Delivery Rate 08/13 1411 97.9 106 24 110/70 96 08/13 1147 95 Nasal 1.5L Cannula 08/13 06 97.9 91 20 134/80 97 Nasal Cannula 08/13 0018 95 Nasal 1.5L Cannula 08/12 2330 97.6 80 24 150/90 95 Nasal 1.5L Cannula 08/12 2114 97 Nasal 1.5L Cannula Intake & Output 08/13 1600 08/13 0800 08/13 0000 Intake Total 950 100 100 Output Total 300 400 Balance 650 -300 100 Intake, Oral 950 100 100 Number 2 Bowel Movements Output, Urine 300 400 Physical Exam General Appearance: Pt is sleeping Current Medications: Current Medications Sig/Jessika Start time Last Medication Dose Route Stop Time Status Admin Acetaminophen 650 MG Q6P PRN 08/07 2315 AC PO Acetaminophen 1,000 MG Q6P PRN 08/07 2315 AC IV Al Hydroxide/Mg 15 ML Q6P PRN 08/07 2315 AC Hydroxide PO Albuterol Sulfate 2 PUF Q4 PRN 08/10 1400 AC INH Albuterol Sulfate 3 ML Q4P PRN 08/07 2315 AC 08/10 INH 2045 Aspirin 325 MG DAILY 08/13 1631 UNVr PO Bisacodyl 10 MG DAILY NEEDED PRN 08/07 2314 AC SC Collagenase 1 RENETTA DAILY 08/10 1545 AC 08/13 TOP 0833 Docusate Sodium 100 MG BID PRN 08/07 2315 AC 08/10 PO 1820 Fentanyl Citrate 50 MCG Q72H 08/08 1000 AC 08/11 TOP 0932 Ferrous Sulfate 325 MG DAILY 08/08 1000 AC 08/13 PO 0832 Gabapentin 100 MG BID 08/08 1000 AC 08/13 PO 0833 Guaifenesin 10 ML .STK-MED ONE 08/12 2142 DC PO 08/12 214 Guaifenesin 10 ML Q6-PRN PRN 08/10 1545 AC 08/13 PO 1334 Guaifenesin 600 MG Q12 08/08 1000 AC 08/13 PO 0832 Hydromorphone HCl 4 MG Q4P PRN 08/08 1000 AC 08/13 PO 1334 Insulin Aspart 0 TIDAC 08/11 1200 AC 08/12 SC 1639 Magnesium Hydroxide 30 ML DAILY NEEDED PRN 08/07 2315 AC PO Multivitamins 1 TAB DAILY 08/08 1000 AC 08/13 PO 0832 Polyethylene Glycol 17 GM DAILY NEEDED PRN 08/07 2315 AC 08/10 PO 1820 Risperidone 1 MG BID 08/08 1000 AC 08/13 PO 0832 Tiotropium [place] 1 PUF DAILY 08/08 1000 AC 08/13 INH 0833 Assessment/Plan Assessment: 51-year-old female, Anguillan-speaking F with a past medical history significant for 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 #SOB due to possible pneumonia/L pleural effusion On 1.5L NC Rapid flu negative D-dimer elevated Chest CTA: 1. No evidence of pulmonary embolism. 2. Lymphadenopathy in the chest has worsened compared to 04/25/2017 3. Small right pleural effusion is new compared to 04/25/2017. The moderate left pleural effusion has increased in size compared to 04/25/2017. Atelectatic changes are seen in both lungs. There is no overt pneumonia. 4. Hepatosplenomegaly and ascites within the visualized upper abdomen. Patient underwent thoracocentesis on 08/10/17. Unable to fully tolerate procedure. Only 400cc was drained. Pleural fluid: WBC 3K+, RBC 5k+, mesothial cells/glucose/totalprotein/albumin/ ldh/amylase/ph normal -Thoracentesis studies showed REACTIVE AND BLAND MESOTHELIAL CELLS, HISTIOCYTES, LYMPHOCYTES, NEUTROPHILS, AND RED BLOOD CELLS, diagnostic of malignance are not identified. -Continue off abx -cont, IV steroids, guaifensin, trc, nebs -f/u leigonella and strep urine antigens -Follow-up blood cultures and respiratory cultures #hx of RLE DVT with recent necrosis debridement -f/u vascular and wound consult recommendations regarding wound care -Pt refused wound consult by Dr. Trejo -Per nursing, patient accepted one dressing change by nurse today. #stage 4 ovarian cancer Spoke with Oncology regarding her chemo/radiation who stated that she is not a candidate as she has delusions and needs psychiatric care first however the patient's has been refusing medical advice. -pt's oncologist is Elvia Lee, however, would obtain records of her previous oncology visits to plan on further outpatient followup. #?DM Latest HbA1c 5.2. Sugars 110-220 - Would continue monitor without active management. #borderline hypotension - resolved -hold po Dilaudid whenever necessary even if very adamant when patient to get it #chronic anemia H/H 8.2/26.9 on latest lab. -Currently at her baseline, hgb goal >7 -Follow-up outpatient with gynecology -Continue iron #chronic pain with hx of metastatic cancer -Continue fentanyl patch, Dilaudid by mouth, gabapentin, #mental health -Continue risperidone #vitamins -Continue multivitamins #constipation -Continue MiraLAX, milk of magnesia, Colace, Dulcolax #DVT prophylaxis -no pharmacologic prophylaxis given patient's anemia -xarelto was stopped by Dr. Ricardo after her debridement surgery -Patient refused Alps #Full code Regular Diet DVT PPX None Problem List: 1. Ovarian cancer 2. Anemia 3. S/P debridement Pain Ratin Pain Location: NA Pain Goal: Remain pain free Pain Plan: see AP Tomorrow's Labs & Rationales: NA Gisselle LIM,Janeth 08/13/17 1620: Attending MD Review Statement Attending Statement Attending MD Statement: examined this patient, discuss w/resident/PA/DRYWALL TAPER, agreed w/resident/PA/DRYWALL TAPER, reviewed EMR data (avail), discussed with nursing, reviewed images Attending Assessment/Plan: This is a very complex 51-year-old female who is known to me from previous admissions. She has metastatic ovarian carcinoma, COPD, previous DVT, nephrolithiasis and an underlying psychiatric disorder. Currently she is not receiving any oncological care and as per our oncology practice she's been discharged from the practice and has to take care of her psychiatric issues. The questions her are's are impossible to answer and I have encouraged him to seek a second opinion after the patient is discharged. She refuses most of her care and the language barrier with her speaking Anguillan adds to the complexity. Today the filed a complaint with patient safety about the dressings not being done correctly of her lower extremities however when Dr. Trejo came and he came because I requested an official wound care consult, she adamantly refused his examination. She needs a PT eval as we need to assess her mobility and stability for discharge. I believe most of her issues are chronic and ongoing and she'll be best served by going to rehabilitation and then going for a second opinion as requested by her for her oncological and other issues.
--- NOTE | 2017-08-13 10:46 | PN- Psychiatry ---
Assessment/Plan Impression: The patient is at her baseline, as we have observed during previous visits. She is not paranoid, not suicidal, but she is delusional about the invisible people who torment her, but she is not currently having hallucinations. She would benefit from an increase in her risperidone, as we recommended during a previous admission in April,. The patient is asking for a medicine to help her sleep, although she reports adequeste, restful sleep. If we recommend an increase in risperidone, this may help with sleep induction. She does not need a safety monitor, at this time. Suggestion: 1. Continue risperidone as ordered. Monitor and replete potassium and magnesium as indicated. Hold for oversedation, respiratory depression or QTc greater than 475 mS (Monitor EKG.) 2. Avoid delirium triggers. Try to schedule nursing interventions outside the sleep hours of 10P-6A. We will have further recommendations as we continue to follow along with you. Thank you for this consult. Subjective Subjective: Alert, sitting up in bed, the patient is calm and agreeable to an interview using the [employer] manager market intelligence service for Afghan. A partial Folstein/MMSE was conducted, but was stopped due to difficulty with adapting it to the Afghan language. She is oriented to person, month, date, year, state, and place. She correctly registers three objects in Faroese and Afghan. She correctly recalls two of the three objects in Faroese. The MMSE was stopped. She denies current auditory or visual hallucinations. She feels safe here. She denies suicidal ideation, but notes that she would like to hurt the invisible people that she sometimes sees, especially at home, but she does not know how. She reports an invisible woman who tells her that she makes beautiful garcía our of plastic bags, but they (The invisible people) are sick of "paying " for her. "They are distressing, and they torture me." Sleep is restful, consisteing of 2-4 hours, awake for the toilet, then another 6 hours. She is asking for something to help her sleep. Review of Systems Neurological/Psychological: Denies: no symptoms. Objective Last 24 Hrs of Vital Signs/I&O Vital Signs Date Time Temp Pulse Resp B/P B/P Pulse O2 O2 Flow FiO2 Mean Ox Delivery Rate 08/13 0620 97.9 91 20 134/80 97 Nasal Cannula 02/01 0018 95 Nasal 1.5L Cannula 08/12 2330 97.6 80 24 150/90 95 Nasal 1.5L Cannula 08/12 2114 97 Nasal 1.5L Cannula 08/12 1427 97.4 86 20 120/80 95 08/12 1346 96 Nasal 2.0L Cannula Intake & Output 08/13 1600 08/13 0800 08/13 0000 Intake Total 100 100 Output Total 400 Balance -300 100 Intake, Oral 100 100 Output, Urine 400 Physical Exam: Not performed Physical Exam General Appearance: no apparent distress, alert, awake, comfortable, obese Neurologic/Psychiatric: awake, alert, See Subjective for orientation Current Medications: Current Medications Sig/Jessika Start time Last Medication Dose Route Stop Time Status Admin Acetaminophen 650 MG Q6P PRN 08/07 2314 AC PO Acetaminophen 1,000 MG Q6P PRN 08/07 231 AC IV Al Hydroxide/Mg 15 ML Q6P PRN 08/07 231 AC Hydroxide PO Albuterol Sulfate 2 PUF Q4 PRN 08/10 1400 AC INH Albuterol Sulfate 3 ML Q4P PRN 08/07 2315 AC 08/10 INH 2045 Bisacodyl 10 MG DAILY NEEDED PRN 08/07 2315 AC AR Collagenase 1 RENETTA DAILY 08/10 1545 AC 08/13 TOP 0833 Docusate Sodium 100 MG BID PRN 08/07 2315 AC 08/10 PO 1820 Fentanyl Citrate 50 MCG Q72H 08/08 1000 AC 08/11 TOP 0932 Ferrous Sulfate 325 MG DAILY 08/08 1000 AC 08/13 PO 0832 Gabapentin 100 MG BID 08/08 1000 AC 08/13 PO 0833 Guaifenesin 10 ML .STK-MED ONE 08/12 2142 DC PO 08/12 2143 Guaifenesin 10 ML Q6-PRN PRN 08/10 1545 AC 08/12 PO 2143 Guaifenesin 600 MG Q12 08/08 1000 AC 08/13 PO 0832 Hydromorphone HCl 4 MG Q4P PRN 08/08 1000 AC 08/13 PO 0547 Insulin Aspart 0 TIDAC 08/11 1200 AC 08/12 SC 1639 Magnesium Hydroxide 30 ML DAILY NEEDED PRN 08/07 2314 AC PO Methylprednisolone 40 MG Q12 08/11 2200 DC 08/12 IV 0742 Multivitamins 1 TAB DAILY 08/08 1000 AC 08/13 PO 0832 Polyethylene Glycol 17 GM DAILY NEEDED PRN 08/07 2315 AC 08/10 PO 1820 Risperidone 1 MG BID 08/08 1000 AC 08/13 PO 0832 Tiotropium [place] 1 PUF DAILY 08/08 1000 AC 08/13 INH 0833 Results Last 24 Hrs of Labs/Mics: Laboratory Tests 08/12 08/11 0810 0835 Chemistry Sodium (137 - 145 mmol/L) 141 141 Potassium (3.5 - 5.1 mmol/L) 4.2 4.5 Chloride (98 - 107 mmol/L) 98 101 Carbon Dioxide (22 - 30 mmol/L) 33 H 32 H Anion Gap (5 - 16) 10 8 BUN (7 - 17 mg/dL) 15 14 Creatinine (0.5 - 1.0 mg/dL) 0.4 L 0.5 Estimated GFR (>60 ml/min) > 60 > 60 BUN/Creatinine Ratio (7 - 25 %) 37.5 H 28.0 H Hemoglobin A1c (4.2 - 5.8 %) 5.2 Magnesium (1.6 - 2.3 mg/dL) 2.0 Hematology CBC w Diff NO MAN DIFF REQ NO MAN DIFF REQ WBC (4.8 - 10.8 /CUMM) 10.3 9.4 RBC (4.20 - 5.40 /CUMM) 3.36 L 3.12 L Hgb (12.0 - 16.0 G/DL) 8.2 L 7.5 L Hct (37 - 47 %) 26.9 L 24.7 L MCV (81.0 - 99.0 FL) 79.9 L 79.4 L MCH (27.0 - 31.0 PG) 24.4 L 24.0 L MCHC (33.0 - 37.0 G/DL) 30.5 L 30.2 L RDW (11.5 - 14.5 %) 21.2 H 20.7 H Plt Count (130 - 400 /CUMM) 657 H 623 H MPV (7.4 - 10.4 FL) 6.4 L 6.8 L Gran % (42.2 - 75.2 %) 84.3 H 85.8 H Lymphocytes % (20.5 - 51.1 %) 9.4 L 7.6 L Monocytes % (1.7 - 9.3 %) 6.2 6.6 Eosinophils % (0 - 5 %) 0 0 Basophils % (0.0 - 2.0 %) 0.1 0 Absolute Granulocytes (1.4 - 6.5 /CUMM) 8.7 H 8.1 H Absolute Lymphocytes (1.2 - 3.4 /CUMM) 1.0 L 0.7 L Absolute Monocytes (0.10 - 0.60 /CUMM) 0.6 0.6 Absolute Eosinophils (0.0 - 0.7 /CUMM) 0 0 Absolute Basophils (0.0 - 0.2 /CUMM) 0 0 08/10 08/10 08/10 1115 1115 1115 Hematology Lymphocytes (%) 86 Miscellaneous Phlebotomy Draw Site LT CHEST Other Body Source Fluid WBC (0 - 5 /CUMM) 3003 H Fld Mesothelial Cells (%) 14 Fld Total RBCs Counted (0 /CUMM) 5324 H Fluid Glucose (mg/dL) 156 Fluid Total Protein (g/dL) 2.3 Fluid Albumin (g/dL) < 1.0 Fluid LDH (U/L) 366 Fluid Amylase (U/L) < 30 Pleural pH (PH) 7.48
--- NOTE | 2017-08-13 10:52 | Event Note ---
Event Note Event Note: i was asked to evaluate pt ulcers pt adamantly refused exam,
--- NOTE | 2017-08-13 11:32 | PN- Vascular Surgery ---
Surgical Brief Attending Note Brief Attending Note: VASCULAR ATTENDING NOTE: Events noted. Pt. has been treated for DVT over 3 months and this has resolved. Therefore her Xarealto was discontinued. However, pt. should be maintained on ASA 325 to decrease risk of re-thrombosis. This is still recommended given her stable chronic anemia. Pt. may f/u at wound center for wound care.
[2017-08-13 14:11] VITALS: BP 110/70
[2017-08-13 22:24] VITALS: BP 112/60
[2017-08-14 05:58] VITALS: BP 120/68
--- NOTE | 2017-08-14 07:37 | PN- Housestaff ---
Subjective Follow-up For: RLE debridement w/ wound care Metastatic CA Subjective: No overnight event. Patient complained of coughing and still some RLE pain after nursing staff changed the dressing yesterday, however did not gave a scale. Patient showed me the sputum she collected in the sputum container this morning, appeared whitish. Review of Systems Constitutional: Reports: see HPI. Objective Last 24 Hrs of Vital Signs/I&O Vital Signs Date Time Temp Pulse Resp B/P B/P Pulse O2 O2 Flow FiO2 Mean Ox Delivery Rate 08/14 0558 97.2 98 20 120/68 98 08/14 0000 Nasal 2.0L Cannula 08/13 2224 97.5 99 20 112/60 96 08/13 1600 97 Nasal 2.0L Cannula 08/13 1411 97.9 106 24 110/70 96 08/13 1147 95 Nasal 1.5L Cannula Intake & Output 08/14 0800 08/14 0000 08/13 1600 Intake Total 120 120 950 Output Total 650 300 300 Balance -530 -180 650 Intake, Oral 120 120 950 Number 2 Bowel Movements Output, Urine 650 300 300 Physical Exam General Appearance: Alert, Oriented X3, Cooperative, No Acute Distress Cardiovascular: Regular Rate Lungs: Normal Air Movement, bilateral rhonchi/mild wheezing Abdomen: Normal Bowel Sounds, Soft, No Tenderness Extremities: BLE in dressing care Current Medications: Current Medications Sig/Jessika Start time Last Medication Dose Route Stop Time Status Admin Acetaminophen 650 MG Q6P PRN 08/075 AC PO Acetaminophen 1,000 MG Q6P PRN 08/07 2315 AC IV Al Hydroxide/Mg 15 ML Q6P PRN 08/075 AC Hydroxide PO Albuterol Sulfate 2 PUF Q4 PRN 08/10 1400 AC INH Albuterol Sulfate 3 ML Q4P PRN 08/07 2315 AC 08/10 INH 2045 Aspirin 325 MG DAILY 08/13 1631 AC 08/13 PO 1714 Bisacodyl 10 MG DAILY NEEDED PRN 08/07 2314 AC MD Collagenase 1 RENETTA DAILY 08/10 1545 AC 08/13 TOP 0833 Docusate Sodium 100 MG BID PRN 08/07 2315 AC 08/10 PO 1820 Fentanyl Citrate 50 MCG Q72H 08/08 1000 AC 08/11 TOP 0932 Ferrous Sulfate 325 MG DAILY 08/08 1000 AC 08/13 PO 0832 Gabapentin 100 MG BID 08/08 1000 AC 08/13 PO 2127 Guaifenesin 10 ML .STK-MED ONE 08/13 2136 DC PO 08/13 213 Guaifenesin 10 ML .STK-MED ONE 08/13 1334 DC PO 08/13 1335 Guaifenesin 10 ML Q6-PRN PRN 08/10 1545 AC 08/13 PO 2136 Guaifenesin 600 MG Q12 08/08 1000 AC 08/13 PO 2127 Hydromorphone HCl 4 MG Q4P PRN 08/08 1000 AC 08/13 PO 2127 Insulin Aspart 0 TIDAC 08/11 1200 AC 08/12 SC 1639 Magnesium Hydroxide 30 ML DAILY NEEDED PRN 08/07 2315 AC PO Multivitamins 1 TAB DAILY 08/08 1000 AC 08/13 PO 0832 Polyethylene Glycol 17 GM DAILY NEEDED PRN 08/07 2315 AC 08/10 PO 1820 Risperidone 1 MG BID 08/08 1000 AC 08/13 PO 2126 Tiotropium [place] 1 PUF DAILY 08/08 1000 AC 08/13 INH 0833 Assessment/Plan Assessment: 51-year-old female, [place] Citizen-speaking F with a past medical history significant for 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 #SOB due to possible pneumonia/L pleural effusion On 1.5L NC Rapid flu negative D-dimer elevated Chest CTA: 1. No evidence of pulmonary embolism. 2. Lymphadenopathy in the chest has worsened compared to 04/25/2017 3. Small right pleural effusion is new compared to 04/25/2017. The moderate left pleural effusion has increased in size compared to 04/25/2017. Atelectatic changes are seen in both lungs. There is no overt pneumonia. 4. Hepatosplenomegaly and ascites within the visualized upper abdomen. Patient underwent thoracocentesis on 08/10/17. Unable to fully tolerate procedure. Only 400cc was drained. Pleural fluid: WBC 3K+, RBC 5k+, mesothial cells/glucose/totalprotein/albumin/ ldh/amylase/ph normal -Thoracentesis studies showed REACTIVE AND BLAND MESOTHELIAL CELLS, HISTIOCYTES, LYMPHOCYTES, NEUTROPHILS, AND RED BLOOD CELLS, diagnostic of malignance are not identified. -Continue off abx -cont, IV steroids, guaifensin, trc, nebs -f/u leigonella and strep urine antigens -Follow-up blood cultures and respiratory cultures #hx of RLE DVT with recent necrosis debridement -f/u vascular and wound consult recommendations regarding wound care -Pt refused wound consult by Dr. Trejo -Per nursing, patient accepted one dressing change by nurse today. #stage 4 ovarian cancer Spoke with Oncology regarding her chemo/radiation who stated that she is not a candidate as she has delusions and needs psychiatric care first however the patient's has been refusing medical advice. -pt's oncologist is Elvia Lee, however, would obtain records of her previous oncology visits to plan on further outpatient followup. #?DM Latest HbA1c 5.2. Sugars 110-220 - Would continue monitor without active management. #borderline hypotension - resolved -hold po Dilaudid whenever necessary even if very adamant when patient to get it #chronic anemia H/H 8.2/26.9 on latest lab. -Currently at her baseline, hgb goal >7 -Follow-up outpatient with gynecology -Continue iron #chronic pain with hx of metastatic cancer -Continue fentanyl patch, Dilaudid by mouth, gabapentin, #mental health -Continue risperidone #vitamins -Continue multivitamins #constipation -Continue MiraLAX, milk of magnesia, Colace, Dulcolax #DVT prophylaxis -no pharmacologic prophylaxis given patient's anemia -xarelto was stopped by Dr. Ricardo after her debridement surgery -Patient refused Alps #Full code Regular Diet DVT PPX None Problem List: 1. Anemia 2. Ovarian cancer 3. S/P debridement Pain Ratin Pain Location: RLE but no scale given Pain Goal: Pain 4 or less Pain Plan: see AP Tomorrow's Labs & Rationales: NA
[2017-08-14 09:24] LABS: ABSOLUTE BASOPHIL COUNT 0 /CUMM (0.0-0.2); ABSOLUTE EOSINOPHIL COUNT 0.3 /CUMM (0.0-0.7); ABSOLUTE GRANULOCYTE CT 9.3 /CUMM (1.4-6.5); ABSOLUTE LYMPH COUNT 0.7 /CUMM (1.2-3.4); ABSOLUTE MONOCYTE COUNT 0.7 /CUMM (0.10-0.60); BASOPHIL % 0.2 % (0.0-2.0); EOSINOPHIL % 2.8 % (0-5); GRANULOCYTE % 84.2 % (42.2-75.2); HEMATOCRIT 25.8 % (37-47); MEAN CORPUSCULAR HGB CONC 30.3 G/DL (33.0-37.0); MEAN CORPUSCULAR VOLUME 79.4 FL (81.0-99.0); MEAN PLATELET VOLUME 6.4 FL (7.4-10.4); PLATELET COUNT 531 /CUMM (130-400); RBC DISTRIBUTION WIDTH 23.1 % (11.5-14.5); RED BLOOD CELL CT 3.24 /CUMM (4.20-5.40); WHITE BLOOD CELL COUNT 11.1 /CUMM (4.8-10.8)
--- NOTE | 2017-08-14 10:08 | RADIOLOGY REPORT ---
EXAMINATION: XR PORTABLE CHEST CLINICAL INFORMATION: Status post thoracentesis day 8. COMPARISON: 08/10/2017 TECHNIQUE: Portable frontal view of the chest was obtained. FINDINGS: Persistent hypoinflation with no definite effusion or pneumothorax. Band of linear atelectasis/scarring in the left mid lung. Right Port-A-Cath. Stable cardiomediastinal silhouette. IMPRESSION: Persistent hypoinflation with no definite effusion or pneumothorax.
[2017-08-14 14:06] VITALS: BP 138/70
--- NOTE | 2017-08-14 14:58 | PN- Att Addend ---
Attending Addendum Attending Brief Note Patient seen and examined. Chart reviewed extensively. Family meeting held with patient's , case technician, home care nurse and house staff. This is a 51-year-old very complex female- she has metastatic ovarian carcinoma with a documented lytic lesions in her spine, malignant ascites requiring palliative paracentesis every 8-10 days and lymphadenopathy in the mediastinal area. In addition she also has obesity, chronic lymphedema, dvt and peripheral vascular disease among her other problems. She had 6 cycles of chemotherapy and then couldn't get anymore because of her medical condition. She's had numerous admissions over here at [facility] most recently from July 20 to the where she was taken by vascular surgery to the OR to have a pretibial ulcer that was necrotic and debrided. And then returned on August 07 when during a palliative paracentesis she became short of breath and was coughing. She was noted to have an effusion that was noted to be lymphocytic and transudative in nature and was drained. Her course was further complicated by her underlying psychiatric condition wherein she is delusional and doesn't have any insight into her illness. Her does at times understand how sick she is but is still insistent on keeping her a full code, pursuing chemotherapeutic options with second and third opinions at [place] and [place] and taking her home with home care. He is unrealistic about what he can do for her at home. At the family meeting I reiterated numerous times that she really should be home hospice for healthcare, that at this point the focus should be comfort and quality. And that when we discharge her, he is free to take her for second or third opinions however we cannot facilitate that in terms of transferring her from here to other facilities. Because of the cough and shortness of breath we repeated a chest x-ray today which is essentially unchanged. She is chronically anemic and her hemoglobin is stable. Albeit low. Her kidney function is okay. At this point she is very complex and sick but stable for discharge as we are not doing anything actively for her here in terms of IV antibiotics or IV medications. [facility] will not take her back and there is some question of hoarding and refusal to let them in. [facility] is willing to consider taking her and the case technician is actively working on a plan for home discharge with home care. We understand full well that recurrent admissions is likely and highly probable
[2017-08-14] MEDS ORDERED: SPIRIVA18 MCG INH (16:16)
[2017-08-14 22:23] VITALS: BP 120/78
[2017-08-15 07:48] VITALS: BP 134/84
--- NOTE | 2017-08-15 08:05 | PN- Housestaff ---
Lavonne Rdz Harrison Justin 08/15/17 0805: Subjective Follow-up For: RLE debridement w/ wound care Metastatic CA Subjective: No overnight event. Pending discharge today. Review of Systems Constitutional: Reports: see HPI. Objective Last 24 Hrs of Vital Signs/I&O Vital Signs Date Time Temp Pulse Resp B/P B/P Pulse O2 O2 Flow FiO2 Mean Ox Delivery Rate 08/15 0748 97.6 112 20 134/84 91 Room Air 08/14 2223 98.0 118 18 120/78 93 08/14 1406 97.9 100 20 138/70 98 Nasal 2.0L Cannula Intake & Output 08/15 1600 08/15 0800 08/15 0000 Intake Total 240 490 Output Total 250 Balance -10 490 Intake, IV 10 Intake, Oral 240 480 Output, Urine 250 Physical Exam General Appearance: Alert, Oriented X3, Cooperative, No Acute Distress Current Medications: Current Medications Sig/Jessika Start time Last Medication Dose Route Stop Time Status Admin Acetaminophen 650 MG Q6P PRN 08/075 AC PO Acetaminophen 1,000 MG Q6P PRN 08/07 2315 AC IV Al Hydroxide/Mg 15 ML Q6P PRN 08/07 2315 AC Hydroxide PO Albuterol Sulfate 2 PUF Q4 PRN 08/10 1400 AC INH Albuterol Sulfate 3 ML Q4P PRN 08/07 2315 AC 08/10 INH 2045 Aspirin 325 MG DAILY 08/13 1631 AC 08/15 PO 0953 Bisacodyl 10 MG DAILY NEEDED PRN 08/07 2315 AC [place] Collagenase 1 RENETTA DAILY 08/10 1545 AC 08/15 TOP 0956 Docusate Sodium 100 MG BID PRN 08/07 2315 AC 08/10 PO 1820 Fentanyl Citrate 50 MCG Q72H 08/08 1000 AC 08/14 TOP 0940 Ferrous Sulfate 325 MG DAILY 08/08 1000 AC 08/15 PO 0953 Gabapentin 100 MG BID 08/08 1000 AC 08/15 PO 0953 Guaifenesin 10 ML .STK-MED ONE 08/14 2134 DC PO 08/14 2135 Guaifenesin 10 ML Q6-PRN PRN 08/10 1545 AC 08/15 PO 0953 Guaifenesin 600 MG Q12 08/08 1000 AC 08/15 PO 0953 Hydromorphone HCl 4 MG Q4P PRN 08/08 1000 AC 08/15 PO 0954 Insulin Aspart 0 TIDAC 08/11 1200 AC 08/12 SC 1639 Magnesium Hydroxide 30 ML DAILY NEEDED PRN 08/07 2315 AC PO Multivitamins 1 TAB DAILY 08/08 1000 AC 08/15 PO 0953 Polyethylene Glycol 17 GM DAILY NEEDED PRN 08/07 2315 AC 08/10 PO 1820 Risperidone 1 MG BID 08/08 1000 AC 08/15 PO 0953 Tiotropium [place] 1 PUF DAILY 08/08 1000 AC 08/15 INH 1031 Assessment/Plan Assessment: 51-year-old female, [place]-speaking F with a past medical history significant for 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 #SOB due to possible pneumonia/L pleural effusion On 1.5L NC Rapid flu negative D-dimer elevated Chest CTA: 1. No evidence of pulmonary embolism. 2. Lymphadenopathy in the chest has worsened compared to 04/25/2017 3. Small right pleural effusion is new compared to 04/25/2017. The moderate left pleural effusion has increased in size compared to 04/25/2017. Atelectatic changes are seen in both lungs. There is no overt pneumonia. 4. Hepatosplenomegaly and ascites within the visualized upper abdomen. Patient underwent thoracocentesis on 08/10/17. Unable to fully tolerate procedure. Only 400cc was drained. Pleural fluid: WBC 3K+, RBC 5k+, mesothial cells/glucose/totalprotein/albumin/ ldh/amylase/ph normal -Thoracentesis studies showed REACTIVE AND BLAND MESOTHELIAL CELLS, HISTIOCYTES, LYMPHOCYTES, NEUTROPHILS, AND RED BLOOD CELLS, diagnostic of malignance are not identified. -Continue off abx -cont, IV steroids, guaifensin, trc, nebs -f/u leigonella and strep urine antigens -Follow-up blood cultures and respiratory cultures, no growth so far. -Repeated CXR 2/2 showed no pleural effusion. #hx of RLE DVT with recent necrosis debridement -f/u vascular and wound consult recommendations regarding wound care -Pt refused wound consult by Dr. Trejo. -Per nursing, patient accepted one dressing change by nurse on 08/14 #stage 4 ovarian cancer Spoke with Oncology regarding her chemo/radiation who stated that she is not a candidate as she has delusions and needs psychiatric care first however the patient's has been refusing medical advice. - Pending discharge to home today and the will seek for other oncologist for second opinion. #?DM Latest HbA1c 5.2. Sugars 110-220 - Would continue monitor without active management. #borderline hypotension - resolved -hold po Dilaudid whenever necessary even if very adamant when patient to get it #chronic anemia H/H 8.2/26.9 on latest lab. -Currently at her baseline, hgb goal >7 -Follow-up outpatient with gynecology -Continue iron #chronic pain with hx of metastatic cancer -Continue fentanyl patch, Dilaudid by mouth, gabapentin, #mental health -Continue risperidone #vitamins -Continue multivitamins #constipation -Continue MiraLAX, milk of magnesia, Colace, Dulcolax #DVT prophylaxis -no pharmacologic prophylaxis given patient's anemia -xarelto was stopped by Dr. Ricardo after her debridement surgery -Patient refused Alps #Full code Regular Diet DVT PPX None Problem List: 1. S/P debridement 2. Ovarian cancer 3. Anemia Pain Ratin Pain Location: NA Pain Goal: Pain 4 or less Pain Plan: see AP Tomorrow's Labs & Rationales: NA Gisselle LIM,Janeth 08/15/17 0953: Attending MD Review Statement Attending Statement Attending MD Statement: examined this patient, discuss w/resident/PA/SYSTEM CONSULTANT, agreed w/resident/PA/SYSTEM CONSULTANT, discussed with family, reviewed EMR data (avail), discussed with nursing, discussed with case mgmt Attending Assessment/Plan: Please see extensive note written yesterday by me regarding results of the family meeting. Patient appears to be at her baseline. She is fairly independent and ambulatory to the bathroom. She remains delusional about her disease. She is afebrile, mildly tachycardic, normotensive. She refuses to be examined. She has extensive metastatic ovarian carcinoma with lytic lesions in her spine and malignant ascites and we are recommending home hospice therapy. She has underlying psychiatric disease and is delusional and her has no ability/ very limited insight into her disease. He is seeking to take her home with the idea of taking her to [facility] for second and third oncological opinions. At this point the plan is to discharge her today with [facility] and her will also provide care. He understands that she has a terminal diagnosis with multiple complications and admissions in the foreseeable future. He understands that we have no ability to predict what will happen in the next 24 hours, much less in the next few months but he is not willing to change her CODE STATUS and he is not willing to consider hospice at this point.
[2017-08-15] MEDS ORDERED: SPIRIVA18 MCG INH (10:31)
[2017-08-15 14:47] VITALS: BP 124/62
== END 2017-08-15 16:50 | disposition home health service (06) | DRG 187 ==
LOC: ERH 14:59 → ERHI 22:33 → 2NA 22:33 → ENRESERV 22:47 → 2NA 08-08 00:23 → ENPENDDIS 08-15 10:49 → 2NA 08-15 16:50
PROVIDERS: Hospitalist; Physician Assistant Medical; Student in an Organized Health Care Education/Training Program
PROC: 0W9B3ZZ Drainage of Left Pleural Cavity, Percutaneous Approach (ICD-10-PCS; principal; 2017-08-10)
DX: J90 Pleural effusion, not elsewhere classified (principal); R18.0 Malignant ascites; C77.9 Secondary and unspecified malignant neoplasm of lymph node, unspecified; C79.51 Secondary malignant neoplasm of bone; D62 Acute posthemorrhagic anemia; Z68.42 Body mass index [BMI] 45.0-49.9, adult; C56.9 Malignant neoplasm of unspecified ovary; E11.40 Type 2 diabetes mellitus with diabetic neuropathy, unspecified; C55 Malignant neoplasm of uterus, part unspecified; I87.2 Venous insufficiency (chronic) (peripheral); I10 Essential (primary) hypertension; I89.0 Lymphedema, not elsewhere classified; K59.00 Constipation, unspecified; R09.02 Hypoxemia; Z86.718 Personal history of other venous thrombosis and embolism; D50.0 Iron deficiency anemia secondary to blood loss (chronic); N93.9 Abnormal uterine and vaginal bleeding, unspecified; E66.9 Obesity, unspecified; G89.3 Neoplasm related pain (acute) (chronic)
CPT/HCPCS: 2NAP; 87075; ERO; 36415; 71045; 81001; 82436; 87040; 87070; 87449; 87450; 87804; 87804-59; 88305; 93005; 93010; 96374; 97116-GO; 97161-GP; 97530-GO; 99291; J0456; J0713; J1815; J2280; J2920; J2930; J3370; J3490; J7060

== ENCOUNTER 2017-08-18 14:44 | Inpatient (IN) | payer OTHER ==
[~2017-08-18] VITALS: Ht 154.9 cm; Wt 115.7 kg
[~2017-08-18 14:44] MED LIST changes: +ACEPHEN650 M1 PR; +ADULT WAL-100 MG/5 M PO; +ALBUTEROL2.5 MG/3 M INH/SOL; +ALUM-MAG HYDRO360 ML PO; +ASPIRIN325 M2 PO; +BISACODYL10 M1 RC; +FLEET ENEMA133 ML RC; +IRON325 M3 PO; +JUVEN PACKET1 EACH PO; +MILK OF MA400 MG/52 PO; +PHARBETOL325 MG PO; +SPIRIVA18 MCG INH; +SUPER THERAVIT1 EACH PO; +[UNRECOGNIZED DRUG - OTHER] PO
--- NOTE | 2017-08-18 15:37 | RADIOLOGY REPORT ---
EXAMINATION: XR PORTABLE CHEST CLINICAL INFORMATION: Shortness of breath. Hypoxia. COMPARISON: 08/14/2017 TECHNIQUE: Portable frontal view of the chest was obtained. FINDINGS: CT compatible right chest wall port terminates over the lower SVC. Lung volumes are low. There is linear left midlung atelectasis which has a similar appearance to prior. No pleural effusion or pneumothorax. Central vascular prominence without overt edema. The cardiomediastinal silhouette is unchanged. There is a rounded density overlying the left axilla which is likely external to the patient. This was not present on recent prior imaging. IMPRESSION: Low lung volumes with linear left midlung atelectasis, similar to previous. Central vascular prominence without overt edema.
--- NOTE | 2017-08-18 15:43 | ED DYSPNEA/ASTHMA COMPLAINT ---
History of Present Illness General Chief Complaint: Dyspnea (COPD, CHF, Other) Stated Complaint: PATIENT FROM IR FOR HYPOXIA Source: patient, family, old records Exam Limitations: language barrier Allergies Coded Allergies: cefuroxime (From CEFTIN) (Intermediate, "LOST IT" 02/12/16) Reconcile Medications Acetaminophen (Pharbetol) 325 MG TABLET 650 MG PO Q4H PRN PAIN/TEMP 101 ( Reported) Acetaminophen (Acephen) 650 MG SUPP.RECT 1 SUPP MT Q4H PRN PAIN/TEMP>101 ( Reported) Albuterol Sulfate 2.5 MG/3 ML (0.083 %) VIAL.NEB 1 Vial INH/SHIRLEY BID RESP. ( Reported) Albuterol Sulfate 2.5 MG/3 ML (0.083 %) VIAL.NEB 1 Vial INH/SHIRLEY Q4P PRN SOB/ WHEEZE (Reported) Arginine/Glutamine/Calcium Hmb (Taurus Packet) 7 GRAM-7 GRAM-1.5 GRAM POWD.PACK 1 PAC PO BID UNKNOWN (Reported) Aspirin (Aspirin*) 325 MG TABLET 1 TAB PO DAILY HEART/BLOOD (Reported) Bisacodyl 10 MG SUPP.RECT 1 SUP RC DAILY PRN CONSTIPATION (Reported) Docusate Sodium 100 MG CAPSULE 100 MG PO BID PRN CONSTIPATION hold for loose stool / diarrhea Fentanyl Citrate (Duragesic) 50 MCG/HOUR PATCH.TD72 50 MCG TOP Q72H pain control home medication increased from 25 mcg/hour to 50 mcg/hour q72 hours Ferrous Sulfate (IRON) 325 MG (65 MG IRON) TABLET 1 TAB PO DAILY SUPPLEMENT ( Reported) Gabapentin 100 MG CAPSULE 1 CAP PO BID NEUROPATHY (Reported) Guaifenesin (Adult Wal-Tussin) 100 MG/5 ML LIQUID 10 ML PO Q4H PRN COUGH ( Reported) Hydromorphone HCl (Dilaudid) 2 MG TABLET 1 TAB PO Q4H PRN BREAKTHROUGH MILD PAIN (Reported) Hydromorphone HCl (Dilaudid) 4 MG TABLET 1 TAB PO Q4H PRN BREAKTHROUGH SEVERE PAIN (Reported) Hydromorphone HCl (Dilaudid) 2 MG TABLET 6 MG PO Thursday PRIOR TO WOUND VAC (Reported) Mag Hydrox/Al Hydrox/Simeth (Alum-Mag Hydroxide-Simeth Liq) 200 MG-200 MG-20 MG/ 5 ML ORAL.SUSP 15 ML PO Q6H PRN BLOATED ABD FEELING (Reported) Magnesium Hydroxide (Milk Of Magnesia) 400 MG/5 ML ORAL.SUSP 30 ML PO DAILY PRN CONSTIPATION (Reported) Multivitamin,Ther and Minerals (Super Theravite-M) 1 EACH TABLET 1 TAB PO DAILY SUPPLEMENT (Reported) Na Phos,M-B/Na Phos,Di-Ba (Fleet Enema) 19 GRAM-7 GRAM/118 ML ENEMA 1 E RC DAILY PRN CONSTIPATION (Reported) Polyethylene Glycol 3350 (Miralax) 17 GRAM/DOSE POWDER 17 GM PO DAILY PRN CONSTIPATION [PRO-SOURCE] 30 ML PO TID NUTRITIONAL SUPPLEMENT (Reported) Risperidone (Risperdal) 1 MG TABLET 1 TAB PO BID MENTAL HEALTH (Reported) Tiotropium [place] (Spiriva) 18 MCG CAP.W.DEV 1 PUF INH DAILY SOB . Triage Note: PT TO ER FROM IR, PER IR STAFF 2 L OF BLOODY FLUID TAKEN OFF DURING PARACENTESIS. PT OXYGEN SAT UNABLE TO REMAIN OVER 85% ON RA, SENT TO ER FOR HOME O2 THERAPY. HX OF OVARIAN CA WITH METS. AT BEDSIDE. 95% ON 2L NC Triage Nurses Notes Reviewed? yes Onset: Abrupt Duration: day(s): (3), constant Timing: recent history Severity: moderate Prior Episodes/Possible Cause: frequent episodes Associated Symptoms: denies HPI: 51-year-old female, Emirati-speaking female with a past medical history significant for uterine sarcoma, hypertension, chronic venous insufficiency, chronic lymphedema followed by wound care, metastatic stage IV ovarian cancer, DVT not on anticoagulation, COPD not on home O2, sent to the ER for evaluation of shortness of breath and hypoxia while having paracentesis performed today. She denies any chest pain fever chills. Patient is been feeling more short of breath since being discharged from this hospital 3 days ago. It patient was 85% on room air after paracentesis at which time she had 2 L drained. no cough, chest pain, abdominal pain. (Clover DEMPSEY,Dejan) Vital Signs & Intake/Output Vital Signs & Intake/Output Vital Signs Date Time Temp Pulse Resp B/P B/P Pulse O2 O2 Flow FiO2 Mean Ox Delivery Rate 08/18 1916 98.3 98 20 109/69 98 Nasal 3.0L Cannula 08/18 180 98.4 98 22 117/70 98 Nasal 3.0L Cannula 08/18 1706 98.0 99 20 109/65 95 Nasal 1.0L Cannula 08/18 1618 96 Nasal 2.0L Cannula 08/18 1451 97.9 98 20 127/60 95 Nasal 2.0L Cannula (Bonita LIM,Patrick Mccray) Past History Travel History Traveled to [place] past 21 day No Medical History Any Pertinent Medical History? 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 No (Dejan Cameron) Review of Systems Review of Systems Constitutional: Reports: see HPI. Comments Review of systems: See HPI, All other systems negative. Constitutional, no chills no fever, malaise HEENT: no sore throat no congestion, Cardiovascular: No chest pain , no palpitation Skin: no rashes, no change in skin Respiratory: dyspnea no cough no sputum no hemoptysis GI: No nausea no vomiting, no diarrhea : No dysuria No hematuria, no frequency Muscle skeletal: No joint pain, no back pain Neurologic: , no headache Heme/endocrine: No bruising (Dejan Cameron) Physical Exam Physical Exam General Appearance: well developed/nourished, alert, awake Respiratory: chest non-tender, decreased breath sounds Comments: Well-developed well-nourished person in no acute distress HEENT: Normal EENT exam; PERRL, EOMI, HEAD is atraumatic. moist mucous membranes. Neck: Supple, normal range of motion Back Full range of motion Cardiovascular: Regular rate and rhythms no murmurs rubs or gallops, normal JVP Respiratory: mild respiratory distress. Patient speaking in full complete sentences. rhonchours, Diminished breath sounds bilaterally Abdomen: Soft, nontender nondistended, no appreciable organomegaly. No rebound/ guarding ascites. Extremity: 3+ pitting edema of b/l LE, b/l LE coevered in dressing no surrounding erythema or warmth Neuro: Alert oriented x3, motor sensory normal, There were no obvious focal neurologic abnormalities. Skin: No appreciable rash on exposed skin, skin is warm and dry. Psych: Mood and affect is normal, memory and judgment is normal. Core Measures ACS in differential dx? No CVA/TIA Diagnosis No Sepsis Present: No Sepsis Focused Exam Completed? No (Dejan Cameron) Progress Differential Diagnosis: AMI, costochondritis, CHF, COPD, pulmonary embolism, unstable angina Diagnostic Imaging: Viewed by Me: Radiology Read. Discussed w/RAD: Radiology Read. Radiology Impression: PATIENT: MATIAS FRASER PRESENT AGE: 51 PATIENT ACCOUNT NO: [id number] : 66 LOCATION: [facility] ORDERING PHYSICIAN: Jeffrey Daigle MD SERVICE DATE: 08/18/173986 EXAM TYPE: RAD - XRY- PORTABLE CHEST XRAY EXAMINATION: XR PORTABLE CHEST CLINICAL INFORMATION: Shortness of breath. Hypoxia. COMPARISON: 08/14/2017 TECHNIQUE: Portable frontal view of the chest was obtained. FINDINGS: CT compatible right chest wall port terminates over the lower SVC. Lung volumes are low. There is linear left midlung atelectasis which has a similar appearance to prior. No pleural effusion or pneumothorax. Central vascular prominence without overt edema. The cardiomediastinal silhouette is unchanged. There is a rounded density overlying the left axilla which is likely external to the patient. This was not present on recent prior imaging. IMPRESSION: Low lung volumes with linear left midlung atelectasis, similar to previous. Central vascular prominence without overt edema. DICTATED BY: Christopher Bridges MD DATE/TIME DICTATED:08/18/171530 FILTER PULP WASHER:ESAU DATE/TIME TRANSCRIBED:08/18/171530 CONFIDENTIAL, DO NOT COPY WITHOUT APPROPRIATE AUTHORIZATION. <Electronically signed in Other Vendor System> SIGNED BY: Christopher Bridges MD 08/18/171536 Initial ED EKG: nsr at 90, no acute st seg changes, normal axis Prior EKG: unchanged Rhythm Strip: normal sinus rhythm (Dejan Cameron) Plan of Care: Orders Procedure Date/time Status Consistent Carbohydrate 1 08/19 B Active Vital Signs 08/18 1925 Active Teach/Educate 08/18 1925 Active Pain Treatment and Response 08/18 1925 Active Nutritional Intake, Monitor 08/18 1925 Active Isolation 08/18 1925 Active Intake & Output 08/18 1925 Active Patient Care Conference 08/18 1925 Active Activity/Ambulation 08/18 1925 Active RAPID VIRAL INFLUENZA A 08/18 1847 Active Patient Data 08/[address] in observation 08/18 175 Active Misc Message 08/18 175 Active ED Holding Orders 08/18 1751 Active Vital Signs 08/18 1751 Active Code Status 08/18 1751 Active Intake & Output 08/18 1618 Active BLOOD CULTURE 08/18 1542 Active TROPONIN LEVEL 08/18 1454 Complete COMPREHENSIVE METABOLIC PANEL 08/18 1454 Complete CBC WITHOUT DIFFERENTIAL 08/18 1454 Complete B-TYPE NATRIURETIC PEP (BNP) 08/18 1454 Complete EKG 08/18 1454 Active Laboratory Tests 08/18/17 1553: Anion Gap 10, Estimated GFR > 60, BUN/Creatinine Ratio 22.0, Glucose 96, Calcium 8.2 L, Total Bilirubin 0.5, AST 16, ALT 23, Alkaline Phosphatase 106, Troponin I 0.03, [id number] Pept 647 H, Total Protein 6.3, Albumin 2.8 L, Globulin 3.5, Albumin/Globulin Ratio 0.8 L, CBC w Diff NO MAN DIFF REQ, RBC 3.15 L, MCV 79.3 L, MCH 24.5 L, MCHC 30.9 L, RDW 22.3 H, MPV 7.0 L, Gran % 79.9 H, Lymphocytes % 9.2 L, Monocytes % 8.4, Eosinophils % 2.1, Basophils % 0.4, Absolute Granulocytes 7.8 H, Absolute Lymphocytes 0.9 L, Absolute Monocytes 0.8 H, Absolute Eosinophils 0.2, Absolute Basophils 0 Microbiology 08/18 190 NASOPHARYN: Influenza Virus A & B Rapid Smear - RECD 08/18 1615 BLOOD: Blood Culture - RECD 08/18 1553 BLOOD: Blood Culture - RECD Labs ordered old records reviewed patient had CAT scan performed during last admission which showed no pulmonary embolism she denies any pain with inspiration discussed care with Dr. Mesa who evaluated the patient and agrees with plan Lasix 20 IV ordered. I discussed the patient and her have only. Her lab results and x-ray findings today, when I titrated the patient down off of 3 L she dropped to 8385% on room air noted to be short of breath discussed with the plan of care and need for admission which they're agreeable with. Case discussed with Dr. HERNANDEZ will admit (Dejan Cameron) (Bonita LIM,Patrick Mccray) Departure Departure Time of Disposition: 1731 Disposition: HOME OR SELF CARE Condition: Stable Clinical Impression Primary Impression: Pleural effusion Secondary Impressions: Hypoxia, Leg edema Referrals: Liza Clark MD (PCP/Family) Departure Forms: Customer Survey General Discharge Information Observation Note Spoke With: Arelis Hernandez MD Place Patient In: Non-ED OBS Care Area Rationale for Observation: My rational for observation is as follows PT WILL REQUIRE PULM CONSULT, WOUND CARE CONSULT, IV DIURESIS, PT IS HYPOXIC, NOT AT BASELINE, PREMATURE DISCHARGE WOULD BE MEDICALLY HARMFUL. (Dejan Cameron) PA/BRAKE ASSEMBLER Co-Sign Statement Statement: ED Attending supervision documentation- [X] I saw and evaluated the patient. I have also reviewed all the pertinent lab results and diagnostic results. I agree with the findings and the plan of care as documented in the PA's/BRAKE ASSEMBLER's documentation. Patient evaluated by me personally. Patient presents for evaluation of generalized weakness, history of malignant ovarian cancer and lateral effusions. Physical examination reveals at this point a comfortable-appearing woman with no apparent respiratory distress while at rest. [] I have reviewed the ED Record and agree with the PA's/BRAKE ASSEMBLER's documentation. [] Additions or exceptions (if any) to the PAs/BRAKE ASSEMBLER's note and plan are summarized below: [] (Bonita LIM,Patrick Mccray) Critical Care Note Critical Care Note Critical Care Time: non-applicable (Dejan Cameron)
[2017-08-18 16:37] LABS: ABSOLUTE BASOPHIL COUNT 0 /CUMM (0.0-0.2); ABSOLUTE EOSINOPHIL COUNT 0.2 /CUMM (0.0-0.7); ABSOLUTE GRANULOCYTE CT 7.8 /CUMM (1.4-6.5); ABSOLUTE LYMPH COUNT 0.9 /CUMM (1.2-3.4); ABSOLUTE MONOCYTE COUNT 0.8 /CUMM (0.10-0.60); BASOPHIL % 0.4 % (0.0-2.0); EOSINOPHIL % 2.1 % (0-5); GRANULOCYTE % 79.9 % (42.2-75.2); MEAN CORPUSCULAR HGB 24.5 PG (27.0-31.0); MEAN CORPUSCULAR HGB CONC 30.9 G/DL (33.0-37.0); MEAN CORPUSCULAR VOLUME 79.3 FL (81.0-99.0); PLATELET COUNT 516 /CUMM (130-400); RBC DISTRIBUTION WIDTH 22.3 % (11.5-14.5); RED BLOOD CELL CT 3.15 /CUMM (4.20-5.40); WHITE BLOOD CELL COUNT 9.7 /CUMM (4.8-10.8)
--- NOTE | 2017-08-18 20:46 | History & Physical ---
See Addendum James LIM,[facility] 08/18/172044: General Information and HPI MD Statement: I have seen and personally examined MATIAS PICHARDO and documented this H&P. The patient is a 51 year old F who presented with a patient stated chief complaint of [SOB]. Source of Information: patient, family Exam Limitations: no limitations, language barrier History of Present Illness: Ms. 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 Patient report shortness of breath and hypoxia while having paracentesis, they removed 2 L and she desat to 85% on room air. Patient reported chronic cough, dry however sometimes could be productive of white/ yellow sputum. She denied fever, chills, upper respiratory infection symptoms nasal pain, sinus pain, ear pain, sore throat. Denied recent history in the last 3 days of sick contact. Allergies/Medications Allergies: Coded Allergies: cefuroxime (From CEFTIN) (Intermediate, "LOST IT" 02/12/16) Home Med list Acetaminophen (Pharbetol) 325 MG TABLET 650 MG PO Q4H PRN PAIN/TEMP 101 ( Reported) Acetaminophen (Acephen) 650 MG SUPP.RECT 1 SUPP AK Q4H PRN PAIN/TEMP>101 ( Reported) Albuterol Sulfate 2.5 MG/3 ML (0.083 %) VIAL.NEB 1 Vial INH/SHIRLEY BID RESP. ( Reported) Albuterol Sulfate 2.5 MG/3 ML (0.083 %) VIAL.NEB 1 Vial INH/SHIRLEY Q4P PRN SOB/ WHEEZE (Reported) Arginine/Glutamine/Calcium Hmb (Taurus Packet) 7 GRAM-7 GRAM-1.5 GRAM POWD.PACK 1 PAC PO BID UNKNOWN (Reported) Aspirin (Aspirin*) 325 MG TABLET 1 TAB PO DAILY HEART/BLOOD (Reported) Bisacodyl 10 MG SUPP.RECT 1 SUP RC DAILY PRN CONSTIPATION (Reported) Docusate Sodium 100 MG CAPSULE 100 MG PO BID PRN CONSTIPATION hold for loose stool / diarrhea Fentanyl Citrate (Duragesic) 50 MCG/HOUR PATCH.TD72 50 MCG TOP Q72H pain control home medication increased from 25 mcg/hour to 50 mcg/hour q72 hours Ferrous Sulfate (IRON) 325 MG (65 MG IRON) TABLET 1 TAB PO DAILY SUPPLEMENT ( Reported) Gabapentin 100 MG CAPSULE 1 CAP PO BID NEUROPATHY (Reported) Guaifenesin (Adult Wal-Tussin) 100 MG/5 ML LIQUID 10 ML PO Q4H PRN COUGH ( Reported) Hydromorphone HCl (Dilaudid) 2 MG TABLET 1 TAB PO Q4H PRN BREAKTHROUGH MILD PAIN (Reported) Hydromorphone HCl (Dilaudid) 4 MG TABLET 1 TAB PO Q4H PRN BREAKTHROUGH SEVERE PAIN (Reported) Hydromorphone HCl (Dilaudid) 2 MG TABLET 6 MG PO Thursday PRIOR TO WOUND VAC (Reported) Mag Hydrox/Al Hydrox/Simeth (Alum-Mag Hydroxide-Simeth Liq) 200 MG-200 MG-20 MG/ 5 ML ORAL.SUSP 15 ML PO Q6H PRN BLOATED ABD FEELING (Reported) Magnesium Hydroxide (Milk Of Magnesia) 400 MG/5 ML ORAL.SUSP 30 ML PO DAILY PRN CONSTIPATION (Reported) Multivitamin,Ther and Minerals (Super Theravite-M) 1 EACH TABLET 1 TAB PO DAILY SUPPLEMENT (Reported) Na Phos,M-B/Na Phos,Di-Ba (Fleet Enema) 19 GRAM-7 GRAM/118 ML ENEMA 1 E RC DAILY PRN CONSTIPATION (Reported) Polyethylene Glycol 3350 (Miralax) 17 GRAM/DOSE POWDER 17 GM PO DAILY PRN CONSTIPATION [PRO-SOURCE] 30 ML PO TID NUTRITIONAL SUPPLEMENT (Reported) Risperidone (Risperdal) 1 MG TABLET 1 TAB PO BID MENTAL HEALTH (Reported) Tiotropium [place] (Spiriva) 18 MCG CAP.W.DEV 1 PUF INH DAILY SOB . 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 spouse Services at Home: None Functional Ability ADLs Independent: dressing, eating, toileting, bathing. Ambulation: independent IADLs Independent: shopping, housework, finances, food prep, telephone, transportation , medication admin. Review of Systems Review of Systems Constitutional: Denies: chills, fever. EENTM: Denies: blurred vision, double vision, nasal pain. Cardiovascular: Denies: chest pain, edema, orthopena, palpitations. Respiratory: Reports: cough, short of breath, sputum production. GI: Denies: constipation, diarrhea, nausea, vomiting. Genitourinary: Denies: dysuria. Exam & Diagnostic Data Last 24 Hrs of Vital Signs/I&O Vital Signs Date Time Temp Pulse Resp B/P B/P Pulse O2 O2 Flow FiO2 Mean Ox Delivery Rate 08/19 0000 Nasal 3.0L Cannula 08/18 2158 98.6 101 20 120/70 96 Nasal 3.0L Cannula 08/18 2101 98 Nasal Cannula 08/18 1917 98.3 98 20 109/69 98 Nasal 3.0L Cannula 08/18 1809 98.4 98 22 117/70 98 Nasal 3.0L Cannula 08/18 1706 98.0 99 20 109/65 95 Nasal 1.0L Cannula 08/18 1618 96 Nasal 2.0L Cannula 08/18 1451 97.9 98 20 127/60 95 Nasal 2.0L Cannula Intake & Output 08/19 0800 08/19 0000 08/18 1600 Intake Total 0 Output Total 1250 Balance -1250 Intake, Oral 0 Output, Urine 1250 Patient 115.666 kg Weight Weight Reported by Patient Measurement Method Physical Exam General Appearance Alert, Oriented X3, Cooperative, No Acute Distress Skin No Rashes Skin Temp/Moisture Exam: Warm/Dry HEENT Atraumatic, PERRLA, EOMI, Mucous Membr. moist/pink Neck Supple Cardiovascular Regular Rate, Normal S1, Normal S2, No Murmurs Lungs bilateral scuttered wheeze Abdomen Normal Bowel Sounds, distened mildly tender at baseline Neurological Normal Speech, Strength at 5/5 X4 Ext, Normal Tone, Sensation Intact, Cranial Nerves 3-12 NL, Reflexes 2+ Extremities No Clubbing, bilateral +2 pedal edema Last 24 Hrs of Labs/Lucius: Laboratory Tests 08/18/17 1553: Anion Gap 10, Estimated GFR > 60, BUN/Creatinine Ratio 22.0, Glucose 96, Calcium 8.2 L, Total Bilirubin 0.5, AST 16, ALT 23, Alkaline Phosphatase 106, Troponin I 0.03, Yig-P-Ntdajfleqzq Pept 647 H, Total Protein 6.3, Albumin 2.8 L, Globulin 3.5, Albumin/Globulin Ratio 0.8 L, CBC w Diff NO MAN DIFF REQ, RBC 3.15 L, MCV 79.3 L, MCH 24.5 L, MCHC 30.9 L, RDW 22.3 H, MPV 7.0 L, Gran % 79.9 H, Lymphocytes % 9.2 L, Monocytes % 8.4, Eosinophils % 2.1, Basophils % 0.4, Absolute Granulocytes 7.8 H, Absolute Lymphocytes 0.9 L, Absolute Monocytes 0.8 H, Absolute Eosinophils 0.2, Absolute Basophils 0 Microbiology 08/19 0539 LOWER RESP: Respiratory Culture - ORD 08/19 0539 LOWER RESP: Gram Stain - ORD 08/18 1909 NASOPHARYN: Influenza Virus A & B Rapid Smear - COMP 08/18 1615 BLOOD: Blood Culture - RECD 08/18 1553 BLOOD: Blood Culture - RECD Assessment/Plan Assessment: Ms. 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 Patient presented with chief complaint of shortness of breath and desat to 85% on room air during paracentesis, 2 L of fluid were removed. Vital signs on admission temperature 97.9, pulse 98, blood pressure 127/60, saturating 95% on room air Labs as above Flu rapid test negative Chest x-ray IMPRESSION: Low lung volumes with linear left midlung atelectasis, similar to previous. Central vascular prominence without overt edema. COMPARISON: 08/14/2017 Problem list #Shortness of breath due to pleural effusion versus PE #Lower extremity ulcers Plan -Observe in general medical floor -Patient has well's score for PE moderate likelihood, d-dimer is not applicable in this case since she has metastatic cancer and will be positive anyway. Low probability for heart failure since proBNP is low -Will obtain CTA -Continue oxygen supplementation -Obtain rest and ambulation oxygen saturation -Obtain sputum culture and blood culture, recent cultures blood, respiratory and urine from previous admission are negative -Vitals every shift -Patient didn't change the dressing of lower extremity ulcers for the last 3 days since discharge, I did the wound change of right foot, stage III ulcer on the anterior surface of right leg measures 11 cm x 7 cm, was covered by sentnyl ointment, adaptive nonadherence and Joesph bandage. Left foot ulcer patient wanted to be changed in a.m. -Consult wound care in a.m. -Recommended wound care by vascular during last admission is Santyl, hydrofera blue, and compression however hydrofera blue is not available right now -Continue monitor CBC for anemia microcytic mostly acute blood loss anemia -Guaiac stool -Continue home medication -DVT prophylaxis heparin subcutaneous Code full As Ranked By This Provider Problem List: 1. Leg edema 2. Anemia 3. Ovarian cancer 4. Hypoxia Core Measures/Misc (03/29) Acute Coronary Syndrome ACS Diagnosis: No Congestive Heart Failure Congestive Heart Failure Diagnosis No Cerebrovascular Accident CVA/TIA Diagnosis: No VTE (View Protocol) VTE Risk Factors Age>40 No Mechanical VTE Prophylaxis d/t N/A MechProphylax Ordered No VTE Pharm Prophylaxis d/t NA PharmProphylax ordered Sepsis (View protocol) Sepsis Present: No Arelis Benavidez MD 08/18/17 2102: Attending Review Statement Attending Statement Attending MD Statement: examined this patient, discuss w/resident/PA/QUICKBOOKS BOOKKEEPER, agreed w/resident/PA/QUICKBOOKS BOOKKEEPER, reviewed EMR data (avail) Attending Assessment/Plan: 51F PMH vaginal bleeding/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 Recent CTA of the chest was negative, no evidence of DVT. Normal lung exam. Patient becomes dyspneic with ambulation. Given Lasix in ED. Plan - Observation in general medicine - Nebulizer treatments - Continue Lasix - Pulmonary consult - Continue home medications - Obtain CTA chest - DVT PPx
[2017-08-18 21:58] VITALS: BP 120/70
--- NOTE | 2017-08-19 06:27 | Event Note ---
Event Note Event Note: Patient's refused CTA and his rationale is high exposure to radiation. I explained to him the importance to rule out PE since she has high probability given her malignancy, being off anticoagulation and persistent shortness of breath and desaturation to 85%. He is insisting that her shortness of breath is because pleural effusion and volume overload. Patient and her decided to wait in a.m. to discuss with the attending and morning team. Total time of discussion is 1 hour and 30 minutes. We discussed different differential diagnosis, importance to rule out PE, symptoms of PE, risk of PE.
[2017-08-19 07:00] VITALS: BP 114/68
--- NOTE | 2017-08-19 07:31 | PN- Housestaff ---
See Addendum Subjective Follow-up For: #Shortness of breath due to pleural effusion versus PE #Lower extremity ulcers s/p debridement #Stage 4 ovarian CA with metastases Subjective: No overnight event. Patient is using the O2 as needed. in room and concerned about plan of care. Review of Systems Constitutional: Reports: see HPI. Objective Last 24 Hrs of Vital Signs/I&O Vital Signs Date Time Temp Pulse Resp B/P B/P Pulse O2 O2 Flow FiO2 Mean Ox Delivery Rate 08/19 699 98.4 94 20 114/68 97 08/19 0000 Nasal 3.0L Cannula 08/18 2158 98.6 101 20 120/70 96 Nasal 3.0L Cannula 08/18 2101 98 Nasal Cannula 08/18 1917 98.3 98 20 109/69 98 Nasal 3.0L Cannula 08/18 1809 98.4 98 22 117/70 98 Nasal 3.0L Cannula 08/18 1706 98.0 99 20 109/65 95 Nasal 1.0L Cannula 08/18 1618 96 Nasal 2.0L Cannula 08/18 1451 97.9 98 20 127/60 95 Nasal 2.0L Cannula Intake & Output 08/19 1600 08/19 0800 08/19 0000 Intake Total 0 Output Total 1250 Balance -1250 Intake, Oral 0 Output, Urine 1250 Physical Exam General Appearance: Alert, Oriented X3, Cooperative, No Acute Distress, not on nasal cannula Current Medications: Current Medications Sig/Jessika Start time Last Medication Dose Route Stop Time Status Admin Acetaminophen 650 MG Q4H PRN 08/18 2345 AC UT Albuterol Sulfate 3 ML Q4P PRN 08/18 2345 AC INH Aspirin 325 MG DAILY 08/19 1000 AC PO Bisacodyl 10 MG DAILY PRN 08/18 2345 AC UT Collagenase 1 RENETTA ONCE ONE 08/19 0530 DC 08/19 TOP 08/19 0531 0558 Docusate Sodium 100 MG BID PRN 08/18 2345 AC PO Fentanyl Citrate 50 MCG Q72H 08/19 0130 AC TOP Ferrous Sulfate 325 MG DAILY 08/19 1000 AC PO Furosemide 0 .STK-MED ONE 08/18 1806 DC IV Furosemide 20 MG ONCE ONE 08/18 1730 DC 08/18 IV 08/18 1731 1809 Gabapentin 100 MG BID 08/19 1000 AC PO Heparin Sodium 5,000 UNIT Q8 08/19 0645 AC (Porcine) SC Hydromorphone HCl 2 MG Q4H PRN 08/18 234 AC PO Hydromorphone HCl 4 MG Q4 PRN 08/18 2345 AC PO Morphine Sulfate 4 MG Q4P PRN 08/19 0045 AC 08/19 IV 0354 Morphine Sulfate 0 .STK-MED ONE 08/18 2032 DC .ROUTE Morphine Sulfate 2 MG ONCE ONE 08/18 2030 DC 08/18 IV 08/18 Morphine Sulfate 0 .STK-MED ONE 08/18 184 DC .ROUTE Morphine Sulfate 4 MG ONCE ONE 08/18 1545 DC 08/18 IV 08/18 154 184 Polyethylene Glycol 17 GM DAILY PRN 08/18 2345 AC PO Risperidone 1 MG BID 08/19 1000 AC PO Tiotropium Hiram 1 PUF DAILY 08/19 1000 AC INH Last 24 Hrs of Lab/Lucius Results Last 24 Hrs of Labs/Mics: Laboratory Tests 08/18/17 1553: Anion Gap 10, Estimated GFR > 60, BUN/Creatinine Ratio 22.0, Glucose 96, Calcium 8.2 L, Total Bilirubin 0.5, AST 16, ALT 23, Alkaline Phosphatase 106, Troponin I 0.03, [id number] Pept 647 H, Total Protein 6.3, Albumin 2.8 L, Globulin 3.5, Albumin/Globulin Ratio 0.8 L, CBC w Diff NO MAN DIFF REQ, RBC 3.15 L, MCV 79.3 L, MCH 24.5 L, MCHC 30.9 L, RDW 22.3 H, MPV 7.0 L, Gran % 79.9 H, Lymphocytes % 9.2 L, Monocytes % 8.4, Eosinophils % 2.1, Basophils % 0.4, Absolute Granulocytes 7.8 H, Absolute Lymphocytes 0.9 L, Absolute Monocytes 0.8 H, Absolute Eosinophils 0.2, Absolute Basophils 0 Microbiology 08/19 05 LOWER RESP: Respiratory Culture - COLB 08/19 538 LOWER RESP: Gram Stain - COLB 08/18 1909 NASOPHARYN: Influenza Virus A & B Rapid Smear - COMP 08/18 1615 BLOOD: Blood Culture - RECD 08/18 1553 BLOOD: Blood Culture - RECD Assessment/Plan Assessment: Ms. 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 Patient presented with chief complaint of shortness of breath and desat to 85% on room air during paracentesis, 2 L of fluid were removed. Vital signs on admission temperature 97.9, pulse 98, blood pressure 127/60, saturating 95% on room air Labs per HPI on this admission Flu rapid test negative Chest x-ray on admission IMPRESSION: Low lung volumes with linear left midlung atelectasis, similar to previous. Central vascular prominence without overt edema. COMPARISON: 08/14/2017 Problem list #Oxygen desaturation 2/2 Bilateral PE #Lower extremity ulcers #Stage 4 ovarian CA w/ metastases Plan -CTA risk/benefit had been discussed again this morning with the at bedside, however he requested more time to think about the CTA. CTA 08/19: IMPRESSION: 1. Segmental pulmonary emboli in the right lung. 2. Selected segmental embolus left lung. Main, left, and right pulmonary arteries are normal. 3. Large right pleural effusion increasing in volume. 4. Metastatic lymphadenopathy in the mediastinum, hilar regions, and right axilla. 5. Carcinomatosis with large volume ascites and omental infiltration. - Patient was started on Lovenox 100mg BID SC for full-dose anticoagulation after discussion with patient and and agreement to start - Pending Pulm consult. -Continue oxygen supplementation, however patient was only using the nasal cannula per her need. -Obtain sputum culture and blood culture, recent cultures blood, respiratory and urine from previous admission are negative -Vitals every shift -Patient didn't change the dressing of lower extremity ulcers for the last 3 days since discharge, Upon admission 1 dessing change of right foot revealed stage III ulcer on the anterior surface of right leg measures 11 cm x 7 cm, was covered by sentnyl ointment, adaptive nonadherence and Joesph bandage. Left foot ulcer patient wanted to be changed in a.m. -Consult wound care in a.m. -Recommended wound care by vascular during last admission is Santyl, hydrofera blue, and compression however hydrofera blue is not available right now -Continue monitor CBC for anemia microcytic mostly acute blood loss anemia -Guaiac stool -Continue home medication DVT prophylaxis heparin subcutaneous Code full Problem List: 1. Ovarian cancer Pain Ratin Pain Location: NA Pain Goal: Remain pain free Pain Plan: see AP Tomorrow's Labs & Rationales: CBC/BEP
--- NOTE | 2017-08-19 11:31 | CT SCAN REPORT ---
EXAMINATION: CT ANGIOGRAM OF THE CHEST WITH AND WITHOUT CONTRAST (CT PULMONARY ANGIOGRAM FOR PE) CLINICAL INFORMATION: Shortness of breath in a 51-year-old female patient. History of ovarian cancer. Lymphadenopathy. Ascites. Per chart: Recent paracentesis on 08/18/2017. 2 L of fluid removed. COMPARISON: CTA exams of the chest on 04/25/2017 and 08/07/2017. (Both studies negative for PE). TECHNIQUE: Prior to contrast administration, noncontrast localization images were obtained. Subsequently, multidetector volumetric imaging was performed from the thoracic inlet to below the diaphragms following the administration of 93 mL Optiray 350 intravenous contrast. No contrast reaction reported. Sagittal, coronal, and MIP oblique sagittal reformatted images were obtained on the CT workstation, uploaded to PACS, and reviewed. Total exam dose-length product 453 mGy-cm. FINDINGS: EPIC ANALYST: Significant left pleural effusion. QUALITY OF STUDY/CONTRAST BOLUS: Satisfactory although respiratory motion results in some degradation of the images of the lower lobes. PULMONARY ARTERIES: Reexamination now shows multiple pulmonary emboli involving the segmental arteries of the right lung. The right main pulmonary artery is normal. Compression of the left lung makes evaluation of the pulmonary arterial circuit somewhat difficult. Thrombus is noted in the anterior segmental branch of the left pulmonary artery. The left main pulmonary artery is normal. THORACIC AORTA: No aneurysm or dissection. LUNG: There is compressive atelectasis of the left lower lobe due to the large pleural effusion. PLEURA: The large left-sided pleural effusion has increased in volume since August 07. Only a trace pleural effusion is seen on the right side. MEDIASTINUM: Normal heart size. No pericardial effusion. No evidence of septal bowing or right heart strain. Again, metastatic lymphadenopathy is located in the hilar regions and also mediastinum including anterior mediastinum, AP window, precarinal and paratracheal, and subcarinal spaces. CHEST WALL/AXILLA: Adenopathy is located in the right axilla. A right IJ central venous port lies in the simultaneous tissues of the right anterior chest wall. OSSEOUS STRUCTURES: Suspicious blastic lesions in the spine and possibly the ribs. UPPER ABDOMEN: Carcinomatosis with abundant ascites and omental infiltration. A bubble of air in the vicinity of the falciform ligament can be attributed to the recent paracentesis. No reflux of contrast into the hepatic veins to suggest elevated right heart pressures. IMPRESSION: 1. Segmental pulmonary emboli in the right lung. 2. Selected segmental embolus left lung. Main, left, and right pulmonary arteries are normal. 3. Large right pleural effusion increasing in volume. 4. Metastatic lymphadenopathy in the mediastinum, hilar regions, and right axilla. 5. Carcinomatosis with large volume ascites and omental infiltration. This critical result was discussed with Dr. Justin Rdz at 11:24 AM on August 19 and it was ascertained that the content and urgency of the report was understood at the time of direct communication. VTE: positive
--- NOTE | 2017-08-19 13:42 | Event Note ---
Event Note Event Note: Dr. Nunes and I had extensive discussion regarding patient's clinical condition with the at bedside. Patient went for CTA today and was found to have pulmonary embolism, which warranted full-dose anticoagulation. The benefit/risk of full-dose anticoagulation had been explained in detail in addition to patient 's underlying clinical conditions. Patient and the verbalized understanding of above discussion and agreed to start full-dose anticoagulation for now. Patient's requested that to prepare for blood transfusion to keep patienet's Hemoglobin above 8 as a therapeutical goal to prevent patient from having dizziness secondary to possible Anemia/blood loss if full dose anticoagulation will be started. The reasoning of keeping patient's hemoglobin > 7 was explained, and a paper copy of national transfusion guideline was given to the for reference. We will further obtain a pulmonary consult on patient's pulmonary embolism and further evaluate the situation.
[2017-08-19 14:54] VITALS: BP 138/80
--- NOTE | 2017-08-19 18:47 | Patient Discharge Instructions ---
Discharge Instructions General Discharge Information You were seen/treated for: Bilateral Pulmonary Emboli Acute hypoxemic respiratory failure Anemia 2/2 blood loss Metastatic ovarian cancer Bilateral Lower extremity wounds/edema Special Instructions: - Please keep your INR range 2-2.5. - Please follow up with your primary care physician within 1-2 week of discharge. Inform your primary care physician of this admission to [facility]. - Continue your current medications per discharge instructions. - Please watch for these problems: Fever, Chills, Nausea, Vomiting, Shortness of Breath, Productive Cough, Chest Pain/Discomfort, Abdominal Pain, Active Bleeding or Bloody urine/stool. -Oxygen instruction: Patient needs oxygen to maintain SpO2>90%. Diet Continue normal diet: Yes Recommended Diet: Heart Healthy Activity Full Activity/No Limits: No Activity Self Limited: Yes Acute Coronary Syndrome Inclusion Criteria At DC or during hospital stay patient has or had the following: ACS DIAGNOSIS No Discharge Core Measures Meds if any: Prescribed or Continued at Discharge Meds if any: NOT Prescribed or Continued at Discharge Congestive Heart Failure Inclusion Criteria At DC or during hospital stay patient has or had the following: CHF DIAGNOSIS No Discharge Core Measures Meds if any: Prescribed or Continued at Discharge Meds if any: NOT Prescribed or Continued at Discharge Cerebrovascular accident Inclusion Criteria At DC or during hospital stay patient has or had the following: CVA/TIA Diagnosis No Discharge Core Measures Meds if any: Prescribed or Continued at Discharge Meds if any: NOT Prescribed or Continued at Discharge Venous thromboembolism Inclusion Criteria VTE Diagnosis Yes VTE Type Pulmonary Embolism VTE Confirmed by (Test) CT CHEST ANGIOGRAM Discharge Core Measures - Per Current guidelines, there needs to be overlap - treatment for the first 5 days of Warfarin therapy. - If discharged on Warfarin prior to 5 days of - overlap therapy, the patient will need to be - assessed for post discharge needs including - *Post discharge parental anticoagulation - *Warfarin and/or parental anticoagulation education - *Follow up date to check INR post discharge At least 5 days overlap therapy as Inpatient No Why was Parental Med stopped Other Anticoagulant given Meds if any: Prescribed or Continued at Discharge Warfarin Yes Overlap Therapy No (Patient refused heparin drip) Note: Overlap Therapy is Warfarin and Anticoagulant Meds if any: NOT Prescribed or Continued at Discharge No Warfarin d/t Warfarin therapy started No Overlap Therapy d/t Pt Refused Treatment
[2017-08-19] MEDS ORDERED: ELIQUIS5 M2 PO (18:50)
[2017-08-19 22:07] VITALS: BP 122/80
[2017-08-19 22:36] LABS: ABSOLUTE BASOPHIL COUNT 0 /CUMM (0.0-0.2); ABSOLUTE EOSINOPHIL COUNT 0.2 /CUMM (0.0-0.7); ABSOLUTE GRANULOCYTE CT 7.8 /CUMM (1.4-6.5); ABSOLUTE LYMPH COUNT 1.3 /CUMM (1.2-3.4); ABSOLUTE MONOCYTE COUNT 0.9 /CUMM (0.10-0.60); BASOPHIL % 0.3 % (0.0-2.0); EOSINOPHIL % 2.1 % (0-5); GRANULOCYTE % 76.3 % (42.2-75.2); HEMATOCRIT 27.1 % (37-47); MEAN CORPUSCULAR HGB 23.9 PG (27.0-31.0); MEAN CORPUSCULAR HGB CONC 30.1 G/DL (33.0-37.0); MEAN CORPUSCULAR VOLUME 79.3 FL (81.0-99.0); MEAN PLATELET VOLUME 7.1 FL (7.4-10.4); PLATELET COUNT 506 /CUMM (130-400); RBC DISTRIBUTION WIDTH 22.5 % (11.5-14.5); RED BLOOD CELL CT 3.42 /CUMM (4.20-5.40); WHITE BLOOD CELL COUNT 10.2 /CUMM (4.8-10.8)
--- NOTE | 2017-08-20 07:35 | PN-Observation ---
KendellLavonne Harrison Anderson 08/20/17 0735: Observation Note Observation Note _ I have personally examined MATIAS PICHARDO. her disposition is uncertain at this time. Before a determination can be made, she requires continued observation for the following reasons [Pulmonary Embolism]. Assessment/Plan Assessment: Ms. 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 Patient presented with chief complaint of shortness of breath and desat to 85% on room air during paracentesis, 2 L of fluid were removed. Vital signs on admission temperature 97.9, pulse 98, blood pressure 127/60, saturating 95% on room air Labs per HPI on this admission Flu rapid test negative Chest x-ray on admission IMPRESSION: Low lung volumes with linear left midlung atelectasis, similar to previous. Central vascular prominence without overt edema. COMPARISON: 08/14/2017 Problem List: 1. Ovarian cancer 2. Anemia 3. Pulmonary embolism Plan: Problem list #Oxygen desaturation 2/2 Bilateral PE #Lower extremity ulcers #Stage 4 ovarian CA w/ metastases Plan -CTA risk/benefit had been discussed again this morning with the at bedside, however he requested more time to think about the CTA. CTA 08/19: IMPRESSION: 1. Segmental pulmonary emboli in the right lung. 2. Selected segmental embolus left lung. Main, left, and right pulmonary arteries are normal. 3. Large right pleural effusion increasing in volume. 4. Metastatic lymphadenopathy in the mediastinum, hilar regions, and right axilla. 5. Carcinomatosis with large volume ascites and omental infiltration. - Patient was started on Lovenox 100mg BID SC for full-dose anticoagulation after discussion with patient and and agreement to start. This morning, however patient's requested Dr. Lee ([phone]) for input on long- term coagulation. - Patient's Hgb dropped to 7.0 this morning's lab. Would transfuse 1U PRBC, provided that patient consents. -Continue oxygen supplementation, however patient was only using the nasal cannula per her need. -Obtain sputum culture and blood culture, recent cultures blood, respiratory and urine from previous admission are negative -Vitals every shift -Patient had one dressing change w/ recommendations from previous admission this morning by nursing staff. -Recommended wound care by vascular during last admission is Santyl, hydrofera blue, and compression however hydrofera blue is not available right now -Continue monitor CBC for anemia microcytic mostly acute blood loss anemia -Guaiac stool -Continued home medication DVT prophylaxis Lovenox 100mg Inj, refused ALPS Code full Subjective Follow-up For: #Shortness of breath due to pleural effusion versus PE #Lower extremity ulcers s/p debridement #Stage 4 ovarian CA with metastases Subjective: Patient is using the O2 as needed. in room and concerned about plan of care. Review of Systems Constitutional: Reports: see HPI. Objective Last 24 Hrs of Vital Signs/I&O Vital Signs Date Time Temp Pulse Resp B/P B/P Pulse O2 O2 Flow FiO2 Mean Ox Delivery Rate 08/20 1309 98.4 106 20 118/80 97 Nasal 2.0L Cannula 08/20 1241 98.4 114 20 130/80 96 Nasal 2.0L Cannula 08/20 0800 99 Nasal 1.0L Cannula 08/20 0741 97.8 94 18 118/78 99 08/20 0000 Nasal 3.0L Cannula 08/19 2207 97.6 102 19 122/80 92 Nasal 2.0L Cannula 08/19 1600 Nasal 2.0L Cannula 08/19 1454 97.8 98 20 138/80 94 Nasal 3.0L Cannula 08/19 1450 Nasal 3.0L Cannula Intake & Output 08/20 1600 08/20 0800 08/20 0000 Intake Total Output Total 100 200 Balance -100 -200 Output, Urine 100 200 Physical Exam General Appearance: Alert, Oriented X3, Cooperative, No Acute Distress Current Medications: Current Medications Sig/Jessika Start time Last Medication Dose Route Stop Time Status Admin Acetaminophen 650 MG Q4H PRN 08/18 2345 AC NE Albuterol Sulfate 2 PUF Q4P PRN 08/19 1515 AC INH Albuterol Sulfate 3 ML Q4P PRN 08/18 2345 DC INH Apixaban 10 MG BID 08/20 1000 CAN PO 08/27 0000 Aspirin 325 MG DAILY 08/19 1000 AC 08/19 PO 1020 Bisacodyl 10 MG DAILY PRN 08/18 2345 AC NE Docusate Sodium 100 MG BID PRN 08/18 2345 AC PO Enoxaparin Sodium 100 MG BID 08/19 1129 DC 08/19 SC 2157 Fentanyl Citrate 50 MCG Q72H 08/19 0130 AC 08/19 TOP 1029 Ferrous Sulfate 325 MG DAILY 08/19 1000 AC 08/20 PO 0910 Gabapentin 100 MG BID 08/19 1000 AC 08/20 PO 0910 Heparin Sodium 5,000 UNIT Q8 08/19 0645 DC (Porcine) SC Hydromorphone HCl 2 MG Q4H PRN 08/18 2345 AC 08/20 PO 0457 Hydromorphone HCl 4 MG Q4 PRN 08/18 2345 AC 08/20 PO 1027 Morphine Sulfate 4 MG Q3 PRN 08/19 2212 AC 08/20 IV 0910 Morphine Sulfate 4 MG Q4P PRN 08/19 0045 DC 08/19 IV 2035 Polyethylene Glycol 17 GM DAILY PRN 08/18 2345 AC PO Risperidone 1 MG BID 08/19 1000 AC 08/20 PO 0910 Tiotropium [place] 1 PUF DAILY 08/19 1000 AC 08/20 INH 0910 Last 24 Hrs of Labs/Mics: Laboratory Tests 08/20/17 0649: Anion Gap 11, Estimated GFR > 60, BUN/Creatinine Ratio 27.5 H, CBC w Diff NO MAN DIFF REQ, RBC 2.88 L, MCV 78.6 L, MCH 24.3 L, MCHC 31.0 L, RDW 22.8 H, MPV 7.4, Gran % 74.3, Lymphocytes % 12.0 L, Monocytes % 10.1 H, Eosinophils % 3.0, Basophils % 0.6, Absolute Granulocytes 5.7, Absolute Lymphocytes 0.9 L, Absolute Monocytes 0.8 H, Absolute Eosinophils 0.2, Absolute Basophils 0 08/19/175: CBC w Diff NO MAN DIFF REQ, RBC 3.42 L, MCV 79.3 L, MCH 23.9 L, MCHC 30.1 L, RDW 22.5 H, MPV 7.1 L, Gran % 76.3 H, Lymphocytes % 12.4 L, Monocytes % 8.9, Eosinophils % 2.1, Basophils % 0.3, Absolute Granulocytes 7.8 H, Absolute Lymphocytes 1.3, Absolute Monocytes 0.9 H, Absolute Eosinophils 0.2, Absolute Basophils 0 Microbiology 08/20 814 LOWER RESP: Respiratory Culture - CAN Cancelled: NUMBER OF SQUAMOUS CELLS INDICATES POOR QUALITY SPECIMEN 08/20 814 LOWER RESP: Gram Stain - CAN Cancelled: NUMBER OF SQUAMOUS CELLS INDICATES POOR QUALITY SPECIMEN Des,Yuliya 08/20/17 1203: Attending Addendum Attending Brief Note 51-F with a PMH of ongoing vaginal bleeding/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 The patient was admitted to [facility] for back pain secondary to bone metastasis in April 2017. She was also admitted to [place] in may 2017 for palliative therapy with optimization of pain regimen with fentanyl, Dilaudid, gabapentin. She was last admitted to [facility] in June 2017 for acute on chronic blood loss anemia, vaginal bleeding secondary to uterine cancer , hematuria, malignant ascites. Patient admitted on July 2017 for worsening shortness of breath with pleural effusion s/p thoracocentesis and lymphocytic picture. Most recently she had a right leg debridement on 07/20/2016 due to progressive worsening right DVT and was then discharged to [place] [facility]. Of note, her Xarelto was stopped on 08/03/[address] vascular surgeon Dr. Ricardo. A/p- Shortness of breath secondary to bilateral PE segmental. Pulmonary informed. Switch to NOAC. Rt lower extremity wound s/p recent debridement by vascular surgery- f/u vascular surgery. Routine Wound care. (refused wound consult recently) acute on chronic anemia- cont to monitor. h/h drop> 1 unit. Reports blood in urine. Transfuse 1 unit of prbc. Patient/ were discussed in great detail about palliative options which he declined. was offered to get second or third opinion as outpatient. Patient/ discussed bedside about use of antiocoagulation in this scernario despite having blood loss in urine. also requested to speak to hem/oncologist outpatient which she follows.
[2017-08-20 07:41] VITALS: BP 118/78
[2017-08-20 08:19] LABS: ABSOLUTE BASOPHIL COUNT 0 /CUMM (0.0-0.2); ABSOLUTE EOSINOPHIL COUNT 0.2 /CUMM (0.0-0.7); ABSOLUTE GRANULOCYTE CT 5.7 /CUMM (1.4-6.5); ABSOLUTE LYMPH COUNT 0.9 /CUMM (1.2-3.4); ABSOLUTE MONOCYTE COUNT 0.8 /CUMM (0.10-0.60); BASOPHIL % 0.6 % (0.0-2.0); GRANULOCYTE % 74.3 % (42.2-75.2); HEMATOCRIT 22.6 % (37-47); MEAN CORPUSCULAR HGB 24.3 PG (27.0-31.0); MEAN CORPUSCULAR VOLUME 78.6 FL (81.0-99.0); MEAN PLATELET VOLUME 7.4 FL (7.4-10.4); PLATELET COUNT 462 /CUMM (130-400); RBC DISTRIBUTION WIDTH 22.8 % (11.5-14.5); RED BLOOD CELL CT 2.88 /CUMM (4.20-5.40); WHITE BLOOD CELL COUNT 7.7 /CUMM (4.8-10.8)
--- NOTE | 2017-08-20 09:24 | Discharge Summary ---
Visit Information Visit Dates Admission Date: 08/18/17 Discharge Date: 08/27/2017 Hospital Course Course Attending Physician: Yuliya Nunes MD Primary Care Physician: Amber LIM,Liza Lds Hospital Course: Ms. Pichardo is a 51-year-old female with PMH of hypertension, chronic venous insufficiency, chronic lymphedema, metastatic stage IV ovarian cancer, vaginal bleeding not on chemotherapy or radiotherapy, DVT, chronic constipation, neuropathy, COPD on nocturnal oxygen, nephrolithiasis, ESWL status post stent placement in 2017, recently discharged 08/15/2017 after was treated for SOB due to bilateral pleural effusion s/p thoracentesis on 08/10/17 400cc and patient was tapered off oxygen prior discharge with repeated CXR negative for recurrent plueral effusion. Patient presented with dyspnea and hypoxia and underwent paracentesis -2L. On admission, patient's CTA showed 1. Segmental pulmonary emboli in the right lung. 2. Selected segmental embolus left lung. Main, left, and right pulmonary arteries are normal. 3. Large right pleural effusion increasing in volume. 4. Metastatic lymphadenopathy in the mediastinum, hilar regions, and right axilla. 5. Carcinomatosis with large volume ascites and omental infiltration. Patient was admitted to general medicine floor for following managements #Acute hypoxemic respiratory failure: Patient's respiratory failure was multifactorial, mostly from large pleural effusion and bilateral pulmonary emboli. Patient was given adequate oxygen supplementation, and started IV heparin and Coumadin bridging for pulmonary emboli (see below). Patient was discharged on warfarin 5mg dailly for long-term anticoagulation. Patient's oxygen need was reassessed prior discharge, and her oxygen saturation would drop below 88% if sleeping or ambulating to commode. Patient would be qualified for home oxygen arrangement. #Pulmonary emboli: Patient was first started on full-dose lovenox and Dr. Cyr was consulted for patient's anticoagulation choices based on comorbidities, that Dr. Cyr recommended either warfarin with INR range 2-2.5 or full dose Lovenox injection daily in outpatient setting. Vascular surgeon was consulted for IVC filter placement due to patient's bleeding risk from previous use of NOAC. Patient refused IVC filter on 08/21 after discussion with vascular surgeon, and since then patiente was started on IV heaprin drip and coumadin bridging. Patient complained of "kidney pain/buring" on 08/25 night and addressed the cause to heparin drip. Despite discussion in depth and length the importance of continuing IV heparin, and that patient will be at risk of lung collapse and heart attack from embolism, patient and her still refused heparin drip, thus heparin drip was stopped. Patient was dosed on daily warfarin 5mg 08/22 -> 7.5mg 08/23 -> 7.5mg 08/24, goal INR 2-2.5, INR 1.93 on latest lab prior discharge. Patient was advised to have INR check from home health services to keep INR within 2-2.5 range. #Anemia: Patient receieved a total of 2 unites PRBC transfusion over the hospital course for dropping H/H due to PE treatment with hematuria. Patient's H/H stablized at 8.1/25.9 prior discharge. Patient was discontinued full dose aspirin in addition to heparin/coumadin as above. #Metastatic ovarian cancer: Patient was continued on analgesia with fentanyl patch and morphine prn #Lower extremity wounds/edema: Wound care conducted with hydrovera blue soaked with saline, santyl to wound covered with abd, kerlx, and jt wrap. Regular diet Full code Resident's note: After I took over the service from my colleague, discharge planning was already in process. The patient and her who is closely involved in her care were explained about her condition and suggestions made. Patient was discharged on Coumadin, it was she had refused IV heparin earlier so overlapping of medications could not be done. Also she was discharged on her home medication of Dilaudid which would take care of the pain and she is supposed to follow-up with her PCP/specialists right after her discharge. Allergies: Coded Allergies: cefuroxime (From CEFTIN) (Intermediate, "LOST IT" 02/12/16) Pertinent Lab Results: SERVICE DATE: 08/19/17 EXAM TYPE: CAT - CTA CHEST-PULMONARY EMBOLISM IMPRESSION: 1. Segmental pulmonary emboli in the right lung. 2. Selected segmental embolus left lung. Main, left, and right pulmonary arteries are normal. 3. Large right pleural effusion increasing in volume. 4. Metastatic lymphadenopathy in the mediastinum, hilar regions, and right axilla. 5. Carcinomatosis with large volume ascites and omental infiltration. Laboratory Tests 08/26 08/25 0700 0900 Chemistry Sodium (137 - 145 mmol/L) 135 L Potassium (3.5 - 5.1 mmol/L) 4.0 Chloride (98 - 107 mmol/L) 98 Carbon Dioxide (22 - 30 mmol/L) 32 H Anion Gap (5 - 16) 5 BUN (7 - 17 mg/dL) 9 Creatinine (0.5 - 1.0 mg/dL) 0.5 Estimated GFR (>60 ml/min) > 60 BUN/Creatinine Ratio (7 - 25 %) 18.0 Coagulation PT (9.4 - 12.5 SEC) 20.1 H INR (0.90 - 1.19) 1.93 H APTT Cancelled Hematology CBC w Diff NO MAN DIFF REQ WBC (4.8 - 10.8 /CUMM) 7.9 RBC (4.20 - 5.40 /CUMM) 3.25 L Hgb (12.0 - 16.0 G/DL) 8.1 L Hct (37 - 47 %) 25.9 L MCV (81.0 - 99.0 FL) 79.7 L MCH (27.0 - 31.0 PG) 24.9 L MCHC (33.0 - 37.0 G/DL) 31.2 L RDW (11.5 - 14.5 %) 20.7 H Plt Count (130 - 400 /CUMM) 481 H MPV (7.4 - 10.4 FL) 6.8 L Gran % (42.2 - 75.2 %) 78.5 H Lymphocytes % (20.5 - 51.1 %) 9.2 L Monocytes % (1.7 - 9.3 %) 8.9 Eosinophils % (0 - 5 %) 3.0 Basophils % (0.0 - 2.0 %) 0.4 Absolute Granulocytes (1.4 - 6.5 /CUMM) 6.2 Absolute Lymphocytes (1.2 - 3.4 /CUMM) 0.7 L Absolute Monocytes (0.10 - 0.60 /CUMM) 0.7 H Absolute Eosinophils (0.0 - 0.7 /CUMM) 0.2 Absolute Basophils (0.0 - 0.2 /CUMM) 0 08/25 08/25 0730 0430 Chemistry Sodium (137 - 145 mmol/L) 133 L Potassium (3.5 - 5.1 mmol/L) 4.2 Chloride (98 - 107 mmol/L) 96 L Carbon Dioxide (22 - 30 mmol/L) 31 H Anion Gap (5 - 16) 6 BUN (7 - 17 mg/dL) 9 Creatinine (0.5 - 1.0 mg/dL) 0.5 Estimated GFR (>60 ml/min) > 60 BUN/Creatinine Ratio (7 - 25 %) 18.0 Coagulation PT (9.4 - 12.5 SEC) 15.2 H INR (0.90 - 1.19) 1.45 H APTT Cancelled Hematology CBC w Diff NO MAN DIFF REQ WBC (4.8 - 10.8 /CUMM) 8.2 RBC (4.20 - 5.40 /CUMM) 3.38 L Hgb (12.0 - 16.0 G/DL) 8.7 L Hct (37 - 47 %) 26.8 L MCV (81.0 - 99.0 FL) 79.4 L MCH (27.0 - 31.0 PG) 25.6 L MCHC (33.0 - 37.0 G/DL) 32.3 L RDW (11.5 - 14.5 %) 20.6 H Plt Count (130 - 400 /CUMM) 512 H MPV (7.4 - 10.4 FL) 7.1 L Gran % (42.2 - 75.2 %) 77.7 H Lymphocytes % (20.5 - 51.1 %) 11.5 L Monocytes % (1.7 - 9.3 %) 8.1 Eosinophils % (0 - 5 %) 2.3 Basophils % (0.0 - 2.0 %) 0.4 Absolute Granulocytes (1.4 - 6.5 /CUMM) 6.4 Absolute Lymphocytes (1.2 - 3.4 /CUMM) 0.9 L Absolute Monocytes (0.10 - 0.60 /CUMM) 0.7 H Absolute Eosinophils (0.0 - 0.7 /CUMM) 0.2 Absolute Basophils (0.0 - 0.2 /CUMM) 0 08/25 163 Chemistry Sodium (137 - 145 mmol/L) 133 L Potassium (3.5 - 5.1 mmol/L) 4.2 Chloride (98 - 107 mmol/L) 96 L Carbon Dioxide (22 - 30 mmol/L) 30 Anion Gap (5 - 16) 7 BUN (7 - 17 mg/dL) 10 Creatinine (0.5 - 1.0 mg/dL) 0.5 Estimated GFR (>60 ml/min) > 60 BUN/Creatinine Ratio (7 - 25 %) 20.0 Coagulation APTT (25 - 37 SEC) 76 H Hematology CBC w Diff NO MAN DIFF REQ Cancelled WBC (4.8 - 10.8 /CUMM) 8.6 Cancelled RBC (4.20 - 5.40 /CUMM) 3.34 L Cancelled Hgb (12.0 - 16.0 G/DL) 8.4 L Cancelled Hct (37 - 47 %) 26.2 L Cancelled MCV (81.0 - 99.0 FL) 78.7 L Cancelled MCH (27.0 - 31.0 PG) 25.0 L Cancelled MCHC (33.0 - 37.0 G/DL) 31.9 L Cancelled RDW (11.5 - 14.5 %) 20.0 H Cancelled Plt Count (130 - 400 /CUMM) 495 H Cancelled MPV (7.4 - 10.4 FL) 7.1 L Cancelled Gran % (42.2 - 75.2 %) 79.0 H Lymphocytes % (20.5 - 51.1 %) 11.0 L Monocytes % (1.7 - 9.3 %) 7.5 Eosinophils % (0 - 5 %) 1.9 Basophils % (0.0 - 2.0 %) 0.6 Absolute Granulocytes (1.4 - 6.5 /CUMM) 6.8 H Absolute Lymphocytes (1.2 - 3.4 /CUMM) 0.9 L Absolute Monocytes (0.10 - 0.60 /CUMM) 0.6 Absolute Eosinophils (0.0 - 0.7 /CUMM) 0.2 Absolute Basophils (0.0 - 0.2 /CUMM) 0.1 08/24 08/24 08/23 06 0666 8583 Chemistry Sodium (137 - 145 mmol/L) 136 L Potassium (3.5 - 5.1 mmol/L) 3.7 Chloride (98 - 107 mmol/L) 97 L Carbon Dioxide (22 - 30 mmol/L) 32 H Anion Gap (5 - 16) 7 BUN (7 - 17 mg/dL) 9 Creatinine (0.5 - 1.0 mg/dL) 0.6 Estimated GFR (>60 ml/min) > 60 BUN/Creatinine Ratio (7 - 25 %) 15.0 Coagulation PT (9.4 - 12.5 SEC) 14.4 H INR (0.90 - 1.19) 1.38 H APTT (25 - 37 SEC) 34 107 *H Hematology CBC w Diff NO MAN DIFF REQ WBC (4.8 - 10.8 /CUMM) 7.5 RBC (4.20 - 5.40 /CUMM) 2.95 L Hgb (12.0 - 16.0 G/DL) 7.4 *L Hct (37 - 47 %) 23.7 L MCV (81.0 - 99.0 FL) 80.2 L MCH (27.0 - 31.0 PG) 25.0 L MCHC (33.0 - 37.0 G/DL) 31.1 L RDW (11.5 - 14.5 %) 21.4 H Plt Count (130 - 400 /CUMM) 512 H MPV (7.4 - 10.4 FL) 7.5 Gran % (42.2 - 75.2 %) 77.0 H Lymphocytes % (20.5 - 51.1 %) 11.9 L Monocytes % (1.7 - 9.3 %) 7.2 Eosinophils % (0 - 5 %) 3.2 Basophils % (0.0 - 2.0 %) 0.7 Absolute Granulocytes (1.4 - 6.5 /CUMM) 5.8 Absolute Lymphocytes (1.2 - 3.4 /CUMM) 0.9 L Absolute Monocytes (0.10 - 0.60 /CUMM) 0.5 Absolute Eosinophils (0.0 - 0.7 /CUMM) 0.2 Absolute Basophils (0.0 - 0.2 /CUMM) 0.1 Disposition Summary Disposition Principal Diagnosis: Bilateral Pulmonary Emboli Acute hypoxemic respiratory failure Anemia 2/2 blood loss Metastatic ovarian cancer Bilateral Lower extremity wounds/edema Additional Diagnosis: As above Discharge Disposition: home health services Discharge Instructions General Discharge Information Code Status: Full Code Patient's Diet: Regular diet Patient's Activity: as tolerated Follow-Up Instructions/Appts: - Please follow up with your primary care physician within 1-2 week of discharge. Inform your primary care physician of this admission to [facility]. - Continue your current medications per discharge instructions. - Please watch for these problems: Fever, Chills, Nausea, Vomiting, Shortness of Breath, Productive Cough, Chest Pain/Discomfort, Abdominal Pain, Active Bleeding or Bloody urine/stool. Medications at Discharge Discharge Medications: Stop taking the following medications: Aspirin (Aspirin*) 325 MG TABLET ORAL DAILY Continue taking these medications: Risperidone (Risperdal) 1 MG TABLET 1 Tablet ORAL TWICE DAILY Comments: Last Taken: 08/26/17 Time: 2219PM Gabapentin (Gabapentin) 100 MG CAPSULE 1 Capsule ORAL TWICE DAILY Comments: Last Taken:08/26/17 Time: 2219PM Docusate Sodium (Docusate Sodium) 100 MG CAPSULE 100 Milligram ORAL TWICE DAILY as needed for CONSTIPATION Days = 14 Instructions: hold for loose stool / diarrhea Comments: NOT GIVEN IN HOSPITAL Fentanyl Citrate (Duragesic) 50 MCG/HOUR PATCH.TD72 50 Microgram On the skin Q72H Days = 7 Instructions: home medication increased from 25 mcg/hour to 50 mcg/hour q72 hours Comments: Last Taken:08/25/17 Time:00:17 RIGHT SHOULDER Polyethylene Glycol 3350 (Miralax) 17 GRAM/DOSE POWDER 17 Gram ORAL DAILY as needed for CONSTIPATION Days = 7 Comments: NOT GIVEN IN HOSPITAL Arginine/Glutamine/Calcium Hmb (Taurus Packet) 7 GRAM-7 GRAM-1.5 GRAM POWD.PACK 1 Packet ORAL TWICE DAILY Comments: NOT GIVEN IN HOSPITAL Mag Hydrox/Al Hydrox/Simeth (Alum-Mag Hydroxide-Simeth Liq) 200 MG-200 MG-20 MG/ 5 ML ORAL.SUSP 15 Milliliters ORAL Q6H as needed for BLOATED ABD FEELING Comments: NOT GIVEN IN HOSPTIAL Acetaminophen (Pharbetol) 325 MG TABLET 650 Milligram ORAL Q4H as needed for PAIN/TEMP 101 Comments: NOT GIVEN IN HOSPITAL Magnesium Hydroxide (Milk Of Magnesia) 400 MG/5 ML ORAL.SUSP 30 Milliliters ORAL DAILY as needed for CONSTIPATION Comments: NOT GIVEN IN HOSPITAL Bisacodyl (Bisacodyl) 10 MG SUPP.RECT 1 Suppository RECTAL DAILY as needed for CONSTIPATION Comments: NOT GIVEN IN HOSPITAL Na Jens Guevara-Chang/Evelyn Reis (Fleet Enema) 19 GRAM-7 GRAM/118 ML ENEMA 1 Enema RECTAL DAILY as needed for CONSTIPATION Comments: NOT GIVEN IN HOSPITAL Hydromorphone HCl (Dilaudid) 2 MG TABLET 1 Tablet ORAL Q4H as needed for BREAKTHROUGH MILD PAIN Comments: Last Taken:08/24/17 Time:18:13 PM Hydromorphone HCl (Dilaudid) 4 MG TABLET 1 Tablet ORAL Q4H as needed for BREAKTHROUGH SEVERE PAIN Comments: Last Taken:08/25/17 Time:6:04 PM [PRO-SOURCE] 30 Milliliters ORAL THREE TIMES DAILY Comments: NOT GIVEN IN HOSPITAL Multivitamin,Ther and Minerals (Super Theravite-M) 1 EACH TABLET 1 Tablet ORAL DAILY Comments: NOT GIVEN IN HOSPITAL Ferrous Sulfate (IRON) 325 MG (65 MG IRON) TABLET 1 Tablet ORAL DAILY Comments: Last Taken:08/26/17 Time:10:26 AM Albuterol Sulfate (Albuterol Sulfate) 2.5 MG/3 ML (0.083 %) VIAL.NEB 1 Vial Inhale Solution TWICE DAILY Comments: Last Taken: 08/19/17 Time: 3:15PM Albuterol Sulfate (Albuterol Sulfate) 2.5 MG/3 ML (0.083 %) VIAL.NEB 1 Vial Inhale Solution EVERY 4 HOURS NEEDED as needed for SOB/WHEEZE Comments: Last Taken: 08/19/17 Time: 3:15PM Guaifenesin (Adult Wal-Tussin) 100 MG/5 ML LIQUID 10 Milliliters ORAL Q4H as needed for COUGH Comments: NOT GIVEN IN HOSPITAL Tiotropium Gray (Spiriva) 18 MCG CAP.W.DEV 1 Puff Inhale through mouth DAILY Qty = 1 Instructions: . Comments: Last Taken:08/26/17 Time:10:26 AM Start taking the following new medications: Warfarin Sodium (Coumadin) 2.5 MG TABLET 2 Tablet ORAL DAILY Qty = 60 Refills = 1 Instructions: INR range should be 2-2.5 per patient's clinical conditions. 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 The patient was admitted to [facility] for back pain secondary to bone metastasis in April 2017. She was also admitted to [facility] in may 2017 for palliative therapy with optimization of pain regimen with fentanyl, Dilaudid, gabapentin. She was last admitted to [facility] in June 2017 for acute on chronic blood loss anemia, vaginal bleeding secondary to uterine cancer , hematuria, malignant ascites. Patient admitted on July 2017 for worsening shortness of breath with pleural effusion s/p thoracocentesis and lymphocytic picture. Most recently she had a right leg debridement on 07/20/2016 due to progressive worsening right DVT and was then discharged to [facility]. Of note, her Xarelto was stopped on 08/03/2017 by her vascular surgeon Dr. Ricardo. A/p- Shortness of breath secondary to bilateral PE segmental. Pulmonary informed. Patient/ refused IVC filter placement from vascular surgery. Patient on IV heparin and coumadin. Patient non cooperative iv heparin as bridging and wanted only coumadin. Patient recieved coumadin and INR 1.9 today. Rt lower extremity wound s/p recent debridement by vascular surgery- f/u vascular surgery. Routine Wound care. (refused wound consult recently) Acute on chronic anemia- cont to monitor. h/h drop. Reported blood in urine s/p 2 units of PRBC. Patient/ were discussed in great detail about palliative options which he declined. Patient/ discussed bedside about use of antiocoagulation in this scernario despite having blood loss in urine. also requested to speak to hem/oncologist outpatient which she follows Dr cyr, please refer to event note who suggested coumadin. SW and case management aware. Patient can be discharged if her h/h remains stable and INR monitoring can be done as outpatient. [facility] arranged o/p for INR monitoring. Patient is medically stable for discharge.
[2017-08-20 12:41] VITALS: BP 130/80
[2017-08-20 13:09] VITALS: BP 118/80
--- NOTE | 2017-08-20 13:11 | Event Note ---
Event Note Event Note: Patient's requested consult on anticoagulation choices from Dr. Bryan ( [phone]) from [facility]. Dr. Bryan was contacted at 1: 10PM 08/20/2017 by phone. Over the phone, Dr. Bryan was briefed regarding patient 's current hospital course, and recommended anticoagulation choices including Coumadin, Lovenox, and Pradaxa. - Coumadin, that patient would need routine INR monitoring and given patient's bleeding risk, patient's INR should be kept at 2-2.5 - Lovenox, that patient would need to be monitored on Factor Xa levels, and patient and patient's would need education upon use and compliance lovenox injection. - Pradaxa, that patient would need to be on a lower dose, and Dr. Bryan would not really recommend Pradaxa in patient's case. We would update the patient and patient's regarding above suggestions.
[2017-08-20 15:21] VITALS: BP 130/72
[2017-08-20 22:02] VITALS: BP 130/80
[2017-08-20 22:56] LABS: ABSOLUTE GRANULOCYTE CT 8.4 /CUMM (1.4-6.5); RBC DISTRIBUTION WIDTH 21.4 % (11.5-14.5)
[2017-08-20 23:01] LABS: ABSOLUTE BASOPHIL COUNT 0.1 /CUMM (0.0-0.2); ABSOLUTE EOSINOPHIL COUNT 0.2 /CUMM (0.0-0.7); ABSOLUTE LYMPH COUNT 1.2 /CUMM (1.2-3.4); ABSOLUTE MONOCYTE COUNT 0.8 /CUMM (0.10-0.60); BASOPHIL % 0.6 % (0.0-2.0); GRANULOCYTE % 78.8 % (42.2-75.2); MEAN CORPUSCULAR HGB CONC 31.1 G/DL (33.0-37.0); MEAN CORPUSCULAR VOLUME 80.3 FL (81.0-99.0); MEAN PLATELET VOLUME 7.7 FL (7.4-10.4); PLATELET COUNT 491 /CUMM (130-400); RED BLOOD CELL CT 3.56 /CUMM (4.20-5.40); WHITE BLOOD CELL COUNT 10.6 /CUMM (4.8-10.8)
[2017-08-20 23:03] LABS: HEMATOCRIT 28.6 % (37-47)
[2017-08-21 02:59] LABS: PTT 27 SEC (25-37)
[2017-08-21 05:28] VITALS: BP 130/86
--- NOTE | 2017-08-21 08:58 | PN- Housestaff ---
Lavonne Rdz 08/21/17 0852: Subjective Follow-up For: #Oxygen desaturation 2/2 Bilateral PE #Lower extremity ulcers #Stage 4 ovarian CA w/ metastases Subjective: No overnight event. Patient was on heparin drip after decision for IVC filter by Vascular Surgeon today. Kept NPO overnight. Review of Systems Constitutional: Reports: see HPI. Objective Last 24 Hrs of Vital Signs/I&O Vital Signs Date Time Temp Pulse Resp B/P B/P Pulse O2 O2 Flow FiO2 Mean Ox Delivery Rate 08/21 0528 98.6 107 22 130/86 93 Room Air 08/21 0200 92 Nasal 2.0L Cannula 08/20 2202 98.2 104 20 130/80 90 Room Air 08/20 1600 93 Nasal 2.0L Cannula 08/20 1521 98.3 106 20 130/72 91 Nasal 1.0L Cannula 08/20 1309 98.4 106 20 118/80 97 Nasal 2.0L Cannula 08/20 1241 98.4 114 20 130/80 96 Nasal 2.0L Cannula Intake & Output 08/21 1600 08/21 0800 08/21 0000 Intake Total 1344 Output Total 1100 Balance 244 Intake, IV 144 Intake, Oral 1200 Number 0 Bowel Movements Output, Urine 1100 Physical Exam General Appearance: Alert, Oriented X3, Cooperative, No Acute Distress Current Medications: Current Medications Sig/Jessika Start time Last Medication Dose Route Stop Time Status Admin Acetaminophen 650 MG Q4H PRN 08/18 2345 AC AL Albuterol Sulfate 2 PUF Q4P PRN 08/19 1515 AC INH Apixaban 10 MG BID 08/20 1000 CAN PO 08/27 0000 Aspirin 325 MG DAILY 08/19 1000 AC 08/19 PO 1020 Bisacodyl 10 MG DAILY PRN 08/18 2345 AC AL Docusate Sodium 100 MG BID PRN 08/18 2345 AC PO Enoxaparin Sodium 100 MG BID 08/19 1129 DC 08/19 SC 2157 Fentanyl Citrate 50 MCG Q72H 08/19 0130 AC 08/19 TOP 1029 Ferrous Sulfate 325 MG DAILY 08/19 1000 AC 08/20 PO 0910 Gabapentin 100 MG BID 08/19 1000 AC 08/20 PO 2215 Heparin Sodium 25,000 UNIT Q24H 08/20 1745 AC 08/20 (Porcine) IV 1847 Sodium Chloride 500 ML Heparin Sodium/ 25,000 UNIT .STK-MED ONE 08/20 1757 DC Dextrose IV 08/20 1758 Hydromorphone HCl 2 MG Q4H PRN 08/18 2345 AC 08/21 PO 0043 Hydromorphone HCl 4 MG Q4 PRN 08/18 2345 AC 08/20 PO 1027 Morphine Sulfate 4 MG Q3 PRN 08/19 2212 AC 08/21 IV 0803 Polyethylene Glycol 17 GM DAILY PRN 08/18 2345 AC PO Risperidone 1 MG BID 08/19 1000 AC 08/20 PO 2215 Tiotropium [place] 1 PUF DAILY 08/19 1000 AC 08/20 INH 0910 Last 24 Hrs of Lab/Lucius Results Last 24 Hrs of Labs/Mics: Laboratory Tests 08/21/17 0747: Sodium Pending, Potassium Pending, Chloride Pending, Carbon Dioxide Pending, Anion Gap Pending, BUN Pending, Creatinine Pending, BUN/Creatinine Ratio Pending , PT Pending, INR Pending, CBC w Diff Pending, WBC Pending, RBC Pending, Hgb Pending, Hct Pending, MCV Pending, MCH Pending, MCHC Pending, RDW Pending, Plt Count Pending, MPV Pending 08/21/17 0150: APTT 27 08/20/17 2200: CBC w Diff NO MAN DIFF REQ, RBC 3.56 L, MCV 80.3 L, MCH 25.0 L, MCHC 31.1 L, RDW 21.4 H, MPV 7.7, Gran % 78.8 H, Lymphocytes % 11.5 L, Monocytes % 7.1, Eosinophils % 2.0, Basophils % 0.6, Absolute Granulocytes 8.4 H, Absolute Lymphocytes 1.2, Absolute Monocytes 0.8 H, Absolute Eosinophils 0.2, Absolute Basophils 0.1 Assessment/Plan Assessment: Ms. 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 Patient presented with chief complaint of shortness of breath and desat to 85% on room air during paracentesis, 2 L of fluid were removed. Vital signs on admission temperature 97.9, pulse 98, blood pressure 127/60, saturating 95% on room air Labs per HPI on this admission Flu rapid test negative Chest x-ray on admission IMPRESSION: Low lung volumes with linear left midlung atelectasis, similar to previous. Central vascular prominence without overt edema. COMPARISON: 08/14/2017 Problem list #Oxygen desaturation 2/2 Bilateral PE #Lower extremity ulcers #Stage 4 ovarian CA w/ metastases Plan -CTA risk/benefit had been discussed again this morning with the at bedside, however he requested more time to think about the CTA. CTA 08/19: IMPRESSION: 1. Segmental pulmonary emboli in the right lung. 2. Selected segmental embolus left lung. Main, left, and right pulmonary arteries are normal. 3. Large right pleural effusion increasing in volume. 4. Metastatic lymphadenopathy in the mediastinum, hilar regions, and right axilla. 5. Carcinomatosis with large volume ascites and omental infiltration. - Patient was now on heparin drip pending IVC filter placement today after discussion with Vascular surgeon on 08/20. -Continue oxygen supplementation, however patient was only using the nasal cannula per her need. -Obtain sputum culture and blood culture, recent cultures blood, respiratory and urine from previous admission are negative -Patient had one dressing change w/ recommendations from previous admission 08/20 morning by nursing staff. -Continue monitor CBC for anemia microcytic mostly acute blood loss anemia -Guaiac stool -Continue home medication DVT prophylaxis Heparin Drip Code full NPO overnight for IVC filter placement Problem List: 1. Pulmonary embolism 2. 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 The patient was admitted to [facility] for back pain secondary to bone metastasis in April 2017. She was also admitted to [facility] in may 2017 for palliative therapy with optimization of pain regimen with fentanyl, Dilaudid, gabapentin. She was last admitted to [facility] in June 2017 for acute on chronic blood loss anemia, vaginal bleeding secondary to uterine cancer , hematuria, malignant ascites. Patient admitted on July 2017 for worsening shortness of breath with pleural effusion s/p thoracocentesis and lymphocytic picture. Most recently she had a right leg debridement on 07/20/2016 due to progressive worsening right DVT and was then discharged to [facility]. Of note, her Xarelto was stopped on 08/03/2017 by her vascular surgeon Dr. Ricardo. A/p- Shortness of breath secondary to bilateral PE segmental. Pulmonary informed. Plan is IVC filter placement from vascular surgery. IV heparin for now. Rt lower extremity wound s/p recent debridement by vascular surgery- f/u vascular surgery. Routine Wound care. (refused wound consult recently) acute on chronic anemia- cont to monitor. h/h drop> 1 unit. Reports blood in urine. Transfuse 1 unit of prbc. Patient/ were discussed in great detail about palliative options which he declined. was offered to get second or third opinion as outpatient. Patient/ discussed bedside about use of antiocoagulation in this scernario despite having blood loss in urine. also requested to speak to hem/oncologist outpatient which she follows Dr cyr, please refer to event note. time spent >45 min, patient and counselling.
[2017-08-21 09:25] LABS: ABSOLUTE BASOPHIL COUNT 0 /CUMM (0.0-0.2); ABSOLUTE EOSINOPHIL COUNT 0.3 /CUMM (0.0-0.7); ABSOLUTE GRANULOCYTE CT 6.7 /CUMM (1.4-6.5); ABSOLUTE LYMPH COUNT 1.1 /CUMM (1.2-3.4); ABSOLUTE MONOCYTE COUNT 0.8 /CUMM (0.10-0.60); BASOPHIL % 0.2 % (0.0-2.0); EOSINOPHIL % 3.2 % (0-5); GRANULOCYTE % 74.6 % (42.2-75.2); HEMATOCRIT 24.5 % (37-47); MEAN CORPUSCULAR HGB 25.2 PG (27.0-31.0); MEAN CORPUSCULAR HGB CONC 31.5 G/DL (33.0-37.0); MEAN CORPUSCULAR VOLUME 80.2 FL (81.0-99.0); MEAN PLATELET VOLUME 7.6 FL (7.4-10.4); PLATELET COUNT 468 /CUMM (130-400); RBC DISTRIBUTION WIDTH 21.6 % (11.5-14.5); RED BLOOD CELL CT 3.05 /CUMM (4.20-5.40); WHITE BLOOD CELL COUNT 8.9 /CUMM (4.8-10.8)
[2017-08-21 14:05] LABS: PTT 64 SEC (25-37)
[2017-08-21 16:00] VITALS: BP 130/84
--- NOTE | 2017-08-21 16:38 | PN- Vascular Surgery ---
Surgical Brief Attending Note Brief Attending Note: Pt seen and examined. She is well known to us from prior consultations re: lower extremity lymphedema and wounds. Now, while off of anticoagulation, she has developed a PE. She received lovenox per the house staff, and had signifcant hematuria with drop in hgb. I was consulted for placement of IVC filter. I discussed at length with the patient and her the placement of IVC filter (with which I agree). The patient is refusing placement of filter at this time, and is tolerating IV heparin. Given her unwillingness to have filter placed, I would recommend anti- coagulation with transfusion as needed. Please discuss with her oncologist re: which anticoagulant. She had previously tolerated xarelto, but her was suggesting LMWH. Either is acceptable from my standpoint. Will sign off, please call with questions.
[2017-08-21 21:45] VITALS: BP 128/80
[2017-08-22 02:22] LABS: PTT 42 SEC (25-37)
[2017-08-22 07:09] VITALS: BP 132/76
[2017-08-22 08:22] LABS: ABSOLUTE BASOPHIL COUNT 0.1 /CUMM (0.0-0.2); ABSOLUTE EOSINOPHIL COUNT 0.3 /CUMM (0.0-0.7); ABSOLUTE GRANULOCYTE CT 7.1 /CUMM (1.4-6.5); ABSOLUTE LYMPH COUNT 1.2 /CUMM (1.2-3.4); ABSOLUTE MONOCYTE COUNT 0.7 /CUMM (0.10-0.60); BASOPHIL % 0.7 % (0.0-2.0); EOSINOPHIL % 3.2 % (0-5); GRANULOCYTE % 75.8 % (42.2-75.2); HEMATOCRIT 26.2 % (37-47); MEAN CORPUSCULAR HGB 24.6 PG (27.0-31.0); MEAN CORPUSCULAR HGB CONC 30.5 G/DL (33.0-37.0); MEAN CORPUSCULAR VOLUME 80.6 FL (81.0-99.0); MEAN PLATELET VOLUME 7.5 FL (7.4-10.4); PLATELET COUNT 489 /CUMM (130-400); RBC DISTRIBUTION WIDTH 21.8 % (11.5-14.5); RED BLOOD CELL CT 3.25 /CUMM (4.20-5.40); WHITE BLOOD CELL COUNT 9.4 /CUMM (4.8-10.8)
--- NOTE | 2017-08-22 09:25 | PN- Housestaff ---
See Addendum Subjective Follow-up For: acute hypoxic respiratory failure pulmonary emboli metastatic ovarian cancer lower extremity wounds Subjective: patient has no complaints today no difficulty breathing or cough no fevers or chills no complaints of abdominal pain tolerating a diet well no more reported hematuria Review of Systems Constitutional: Reports: see HPI. Objective Last 24 Hrs of Vital Signs/I&O Vital Signs Date Time Temp Pulse Resp B/P B/P Pulse O2 O2 Flow FiO2 Mean Ox Delivery Rate 08/22 708 97.6 100 20 132/76 98 08/22 0000 94 Nasal 3.0L Cannula 08/21 2145 99.2 106 20 128/80 97 Nasal 3.0L Cannula 08/21 1600 98.6 100 22 130/84 93 Nasal 2.0L Cannula 08/21 1599 93 Nasal 2.0L Cannula Intake & Output 08/22 1600 08/22 0800 08/22 0000 Intake Total 884.4 Output Total Balance 884.4 Intake, IV 284.4 Intake, Oral 600 Number 1 Bowel Movements Patient 115.666 kg Weight Physical Exam General Appearance: Alert, Oriented X3, Cooperative, No Acute Distress, on supplemental oxygen Cardiovascular: Regular Rate, Normal S1, Normal S2, No Murmurs Lungs: Clear to Auscultation Extremities: bilateral 2+ lower extremity pitting edema with wounds bilaterally Current Medications: Current Medications Sig/Jessika Start time Last Medication Dose Route Stop Time Status Admin Acetaminophen 650 MG Q4H PRN 08/18 2345 AC MN Albuterol Sulfate 2 PUF Q4P PRN 08/19 1515 AC INH Aspirin 325 MG DAILY 08/19 1000 AC 08/22 PO 0926 Bisacodyl 10 MG DAILY PRN 08/18 2345 AC MN Docusate Sodium 100 MG BID PRN 08/18 2345 AC PO Fentanyl Citrate 100 MCG .STK-MED ONE 08/21 1557 DC IM 08/21 1558 Fentanyl Citrate 50 MCG Q72H 08/19 0130 AC 08/22 TOP 0127 Ferrous Sulfate 325 MG DAILY 08/19 1000 AC 08/22 PO 09 Gabapentin 100 MG BID 08/19 1000 AC 08/22 PO 0926 Heparin Sodium 8,675 UNIT ONCE ONE 08/22 0415 DC 08/22 (Porcine) IV 08/22 0416 0400 Heparin Sodium 10,000 UNIT .STK-MED ONE 08/22 0408 DC (Porcine) IV 08/22 0409 Heparin Sodium 25,000 UNIT Q24H 08/20 1745 AC 08/22 (Porcine) IV 0557 Sodium Chloride 500 ML Hydromorphone HCl 2 MG Q4H PRN 08/18 2345 AC 08/21 PO 0043 Hydromorphone HCl 4 MG Q4 PRN 08/18 2345 AC 08/21 PO 0935 Ketamine HCl 50 MG .STK-MED ONE 08/21 1605 DC IM 08/21 1606 Midazolam HCl 2 MG .STK-MED ONE 08/21 1557 DC IM 08/21 1558 Morphine Sulfate 4 MG Q3 PRN 08/19 2212 AC 08/22 IV 0922 Polyethylene Glycol 17 GM DAILY PRN 08/18 2345 AC PO Risperidone 1 MG BID 08/19 1000 AC 08/22 PO 0926 Tiotropium [place] 1 PUF DAILY 08/19 1000 AC 08/21 INH 0932 Warfarin Sodium 5 MG COUMADIN 1700 ONE 08/22 1700 AC PO 08/22 1701 Last 24 Hrs of Lab/Lucius Results Last 24 Hrs of Labs/Mics: Laboratory Tests 08/22/17 1041: APTT 85 H 08/22/17 0638: Anion Gap 7, Estimated GFR > 60, BUN/Creatinine Ratio 20.0, CBC w Diff NO MAN DIFF REQ, RBC 3.25 L, MCV 80.6 L, MCH 24.6 L, MCHC 30.5 L, RDW 21.8 H, MPV 7.5, Gran % 75.8 H, Lymphocytes % 12.5 L, Monocytes % 7.8, Eosinophils % 3.2, Basophils % 0.7, Absolute Granulocytes 7.1 H, Absolute Lymphocytes 1.2, Absolute Monocytes 0.7 H, Absolute Eosinophils 0.3, Absolute Basophils 0.1 08/22/17 0150: APTT 42 H Assessment/Plan Assessment: 51-year-old female with PMH of hypertension, chronic venous insufficiency, chronic lymphedema, metastatic stage IV ovarian cancer, vaginal bleeding not on chemotherapy or radiotherapy, DVT, chronic constipation, neuropathy, COPD on nocturnal oxygen, nephrolithiasis, ESWL status post stent placement in 2016, recently discharged 08/15/2017 after was treated for SOB due to bilateral pleural effusion s/p thoracentesis on 08/10/17 400cc and patient was tapered off oxygen prior discharge with repeated CXR negative for recurrent plueral effusion. Patient presented with dyspnea and hypoxia and underwent paracentesis -2L. CTA 08/19: IMPRESSION: 1. Segmental pulmonary emboli in the right lung. 2. Selected segmental embolus left lung. Main, left, and right pulmonary arteries are normal. 3. Large right pleural effusion increasing in volume. 4. Metastatic lymphadenopathy in the mediastinum, hilar regions, and right axilla. 5. Carcinomatosis with large volume ascites and omental infiltration. Acute hypoxemic respiratory failure: multifactorial, large pleural effusion and bilateral pulmonary emboli -Continue oxygen supplementation -Cultures and influenza negative -Continue to treat pulmonary emboli with anticoagulation Pulmonary emboli: Continue IV heparin gtt, titrate to goal PTT Refused IVC filter placement yesterday Starting coumadin today 5mg, goal INR 2-2.5 Bridge with heparin gtt Anticipated difficulty with lovenox as an alternative Anemia: acute blood loss on heparin gtt for PE, unclear vaginal bleed contaminating urine vs pure hematuria s/p 1 units pRBC transfusion 08/20/16 Continue monitor CBC for anemia Continue heparin bridge to coumadin, monitor for bleeding Will discontinue full dose aspirin in addition to heparin/coumadin, if primary team wants can resume at 81mg Metastatic ovarian cancer: Continue analgesia with fentanyl patch and morphine prn Lower extremity wounds/edema: Wound consultation placed with Dr. Maya torres soaked with saline, santyl to wound covered with abd, kerlx, and jt Regular diet DVT ppx-heparin gtt Full code Problem List: 1. Anemia 2. Metastatic neoplastic disease 3. Ovarian cancer 4. Leg edema 5. Pulmonary embolism 6. Hypoxia Pain Ratin Pain Location: abdomen Pain Goal: Pain 4 or less Pain Plan: prn Tomorrow's Labs & Rationales: cbc, pt/inr
[2017-08-22 12:11] LABS: PTT 85 SEC (25-37)
[2017-08-22 14:12] VITALS: BP 116/70
[2017-08-22 21:50] VITALS: BP 122/82
[2017-08-22 23:29] LABS: PTT 51 SEC (25-37)
[2017-08-23 07:17] VITALS: BP 148/90
[2017-08-23 08:02] LABS: ABSOLUTE BASOPHIL COUNT 0.1 /CUMM (0.0-0.2); ABSOLUTE EOSINOPHIL COUNT 0.3 /CUMM (0.0-0.7); ABSOLUTE GRANULOCYTE CT 6.1 /CUMM (1.4-6.5); ABSOLUTE LYMPH COUNT 1.4 /CUMM (1.2-3.4); ABSOLUTE MONOCYTE COUNT 0.7 /CUMM (0.10-0.60); BASOPHIL % 0.6 % (0.0-2.0); EOSINOPHIL % 3.4 % (0-5); GRANULOCYTE % 72.1 % (42.2-75.2); HEMATOCRIT 27.4 % (37-47); MEAN CORPUSCULAR VOLUME 80.7 FL (81.0-99.0); MEAN PLATELET VOLUME 7.6 FL (7.4-10.4); PLATELET COUNT 542 /CUMM (130-400); RBC DISTRIBUTION WIDTH 21.3 % (11.5-14.5); WHITE BLOOD CELL COUNT 8.5 /CUMM (4.8-10.8)
[2017-08-23 08:07] VITALS: BP 140/88
[2017-08-23 08:17] LABS: PT 13.7 SEC (9.4-12.5); PTT 65 SEC (25-37)
--- NOTE | 2017-08-23 08:46 | PN- Housestaff ---
Michelle LIM,Isabel 08/23/17 0846: Subjective Follow-up For: Shortness of breath, lower extremity ulcer, microcytic anemia Complaints: no complaints Subjective: Patient was seen and examined at bedside. No complaints. No overnight events. She denies chest pain, difficulty breathing, and chest pressure, palpitation, pain in her legs. Review of Systems Constitutional: Reports: no symptoms. Cardiovascular: Reports: no symptoms. Respiratory: Reports: no symptoms. Gastrointestinal: Reports: no symptoms. Genitourinary: Reports: no symptoms. Musculoskeletal: Reports: no symptoms. Objective Last 24 Hrs of Vital Signs/I&O Vital Signs Date Time Temp Pulse Resp B/P B/P Pulse O2 O2 Flow FiO2 Mean Ox Delivery Rate 08/23 08 90 20 140/88 98 Nasal 3.0L Cannula 08/23 08 98 Nasal 3.0L Cannula 08/23 0717 98.2 105 18 148/90 98 08/23 0000 Nasal 3.0L Cannula 08/22 2314 99 Nasal Cannula 08/22 2150 98.2 95 19 122/82 99 Room Air 08/22 1600 Nasal 3.0L Cannula 08/22 1412 98.1 94 18 116/70 100 Intake & Output 08/23 1600 08/23 0800 08/23 0000 Intake Total 420 1111.5 Output Total 320 500 Balance 100 611.5 Intake, IV 320 311.5 Intake, Oral 100 800 Output, Urine 320 500 Physical Exam General Appearance: Alert, Oriented X3, Cooperative, No Acute Distress Skin: No Rashes HEENT: PERRLA Neck: Supple, No JVD Cardiovascular: Normal S1, Normal S2, No Murmurs Lungs: Normal Air Movement Abdomen: Soft, No Tenderness, No Hepatospenomegaly Extremities: bilateral lower extremity pedal edema with ulcers. Current Medications: Current Medications Sig/Jessika Start time Last Medication Dose Route Stop Time Status Admin Acetaminophen 650 MG Q4H PRN 08/[address] Albuterol Sulfate 2 PUF Q4P PRN 08/19 1515 AC INH Bisacodyl 10 MG DAILY PRN 08/[address] Collagenase 1 [place] DAILY 08/24 1000 AC 08/23 TOP 1037 Docusate Sodium 100 MG BID PRN 08/18 2345 AC PO Fentanyl Citrate 50 MCG Q72H 08/19 0130 AC 08/22 TOP 0127 Ferrous Sulfate 325 MG DAILY 08/19 1000 AC 08/23 PO 0950 Gabapentin 100 MG BID 08/19 1000 AC 08/22 PO 2042 Heparin Sodium 4,600 UNIT ONCE ONE 08/23 0015 DC 08/23 (Porcine) IV 08/23 15 0007 Heparin Sodium 5,000 UNIT .STK-MED ONE 08/23 0006 DC (Porcine) IV 08/23 0007 Heparin Sodium 25,000 UNIT Q24H 08/20 1745 AC 08/23 (Porcine) IV 0618 Sodium Chloride 500 ML Hydromorphone HCl 2 MG Q4H PRN 08/18 2345 AC 08/21 PO 0043 Hydromorphone HCl 4 MG Q4 PRN 08/18 2345 AC 08/22 PO 2046 Morphine Sulfate 4 MG Q3 PRN 08/19 2212 AC 08/23 IV 1229 Polyethylene Glycol 17 GM DAILY PRN 08/18 2345 AC PO Risperidone 1 MG BID 08/19 1000 AC 08/23 PO 0956 Tiotropium [place] 1 PUF DAILY 08/19 1000 AC 08/21 INH 0932 Warfarin Sodium 7.5 MG COUMADIN 1700 ONE 08/23 1700 AC PO 08/23 1701 Warfarin Sodium 5 MG COUMADIN 1700 ONE 08/22 1700 DC 08/22 PO 08/22 1701 1703 Last 24 Hrs of Lab/Lucius Results Last 24 Hrs of Labs/Mics: Laboratory Tests 08/23/17 0655: APTT Cancelled 08/23/17 0655: PT 13.7 H, INR 1.31 H, APTT 65 H, CBC w Diff NO MAN DIFF REQ, RBC 3.40 L, MCV 80.7 L, MCH 25.0 L, MCHC 31.0 L, RDW 21.3 H, MPV 7.6, Gran % 72.1, Lymphocytes % 16.2 L, Monocytes % 7.7, Eosinophils % 3.4, Basophils % 0.6, Absolute Granulocytes 6.1, Absolute Lymphocytes 1.4, Absolute Monocytes 0.7 H, Absolute Eosinophils 0.3, Absolute Basophils 0.1 08/22/17 2300: APTT 51 H Assessment/Plan Assessment: 51-year-old female with PMH of hypertension, chronic venous insufficiency, chronic lymphedema, metastatic stage IV ovarian cancer, vaginal bleeding not on chemotherapy or radiotherapy, DVT, chronic constipation, neuropathy, COPD on nocturnal oxygen, nephrolithiasis, ESWL status post stent placement in 2017, recently discharged 08/15/2017 after was treated for SOB due to bilateral pleural effusion s/p thoracentesis on 08/10/17 400cc and patient was tapered off oxygen prior discharge with repeated CXR negative for recurrent plueral effusion. Patient presented with dyspnea and hypoxia and underwent paracentesis -2L. CTA 08/19: IMPRESSION: 1. Segmental pulmonary emboli in the right lung. 2. Selected segmental embolus left lung. Main, left, and right pulmonary arteries are normal. 3. Large right pleural effusion increasing in volume. 4. Metastatic lymphadenopathy in the mediastinum, hilar regions, and right axilla. 5. Carcinomatosis with large volume ascites and omental infiltration. Acute hypoxemic respiratory failure: multifactorial, large pleural effusion and bilateral pulmonary emboli -Continue oxygen supplementation -Cultures and influenza negative -Continue IV heparin and Coumadin. We will dose Coumadin today at 7.5 mg. We will monitor hemoglobin. We will check INR in the morning. Pulmonary emboli: Continue IV heparin gtt, titrate to goal PTT Refused IVC filter placement yesterday Starting coumadin today 5mg, goal INR 2-2.5 Bridge with heparin gtt Anticipated difficulty with lovenox as an alternative Anemia: acute blood loss on heparin gtt for PE, unclear vaginal bleed contaminating urine vs pure hematuria s/p 1 units pRBC transfusion 08/20/16 Continue monitor CBC for anemia. Hemoglobin 8.5/27.4. Continue heparin bridge to coumadin, monitor for bleeding Will discontinue full dose aspirin in addition to heparin/coumadin, if primary team wants can resume at 81mg Metastatic ovarian cancer: Continue analgesia with fentanyl patch and morphine prn Lower extremity wounds/edema: Wound consultation placed with Dr. Maya torres soaked with saline, santyl to wound covered with abd, kerlx, and jt Regular diet DVT ppx-heparin gtt Full code Problem List: 1. Pulmonary embolism Pain Ratin Pain Location: none Pain Goal: Remain pain free Pain Plan: tylenol Tomorrow's Labs & Rationales: cbc,bep Tato LIM,Nicole 08/23/17 1415: Attending Review Statement Attending Statement Attending MD Statement: examined this patient, discuss w/resident/PA/OR NURSE MANAGER, agreed w/resident/PA/OR NURSE MANAGER, reviewed EMR data (avail), discussed with nursing, reviewed images, amended to note Attending Assessment/Plan: Patient seen and examined, did complain of slight shortness of breath. Patient did walk with nursing. H&H remained stable. Vital signs are stable and patient requires 3 L of oxygen. on exam; She continues to have distended abdomen as well as bilateral lower extremity edema with wounds. Laboratory Tests 08/23 08/23 08/22 0655 0655 2300 Coagulation PT (9.4 - 12.5 SEC) 13.7 H INR (0.90 - 1.19) 1.31 H APTT (25 - 37 SEC) Cancelled 65 H 51 H Hematology CBC w Diff NO MAN DIFF REQ WBC (4.8 - 10.8 /CUMM) 8.5 RBC (4.20 - 5.40 /CUMM) 3.40 L Hgb (12.0 - 16.0 G/DL) 8.5 L Hct (37 - 47 %) 27.4 L MCV (81.0 - 99.0 FL) 80.7 L MCH (27.0 - 31.0 PG) 25.0 L MCHC (33.0 - 37.0 G/DL) 31.0 L RDW (11.5 - 14.5 %) 21.3 H Plt Count (130 - 400 /CUMM) 542 H MPV (7.4 - 10.4 FL) 7.6 Gran % (42.2 - 75.2 %) 72.1 Lymphocytes % (20.5 - 51.1 %) 16.2 L Monocytes % (1.7 - 9.3 %) 7.7 Eosinophils % (0 - 5 %) 3.4 Basophils % (0.0 - 2.0 %) 0.6 Absolute Granulocytes (1.4 - 6.5 /CUMM) 6.1 Absolute Lymphocytes (1.2 - 3.4 /CUMM) 1.4 Absolute Monocytes (0.10 - 0.60 /CUMM) 0.7 H Absolute Eosinophils (0.0 - 0.7 /CUMM) 0.3 Absolute Basophils (0.0 - 0.2 /CUMM) 0.1 A/P; 51-F with a PMH of ongoing vaginal bleeding/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 Patient bled on Lovenox. Currently on IV heparin and Coumadin. H&H stable. INR subtherapeutic. Continue the rest of the medications. Coumadin will be dosed at 7.5 mg today. Please check INR in the morning. Monitor H&H.
[2017-08-23 13:41] VITALS: BP 142/88
[2017-08-23 21:40] LABS: PTT 107 SEC (25-37)
[2017-08-23 21:45] VITALS: BP 134/88
[2017-08-24 07:05] VITALS: BP 138/82
[2017-08-24 07:36] LABS: PTT 34 SEC (25-37)
[2017-08-24 08:01] LABS: ABSOLUTE BASOPHIL COUNT 0.1 /CUMM (0.0-0.2); ABSOLUTE EOSINOPHIL COUNT 0.2 /CUMM (0.0-0.7); ABSOLUTE GRANULOCYTE CT 5.8 /CUMM (1.4-6.5); ABSOLUTE LYMPH COUNT 0.9 /CUMM (1.2-3.4); ABSOLUTE MONOCYTE COUNT 0.5 /CUMM (0.10-0.60); BASOPHIL % 0.7 % (0.0-2.0); EOSINOPHIL % 3.2 % (0-5); MEAN CORPUSCULAR HGB CONC 31.1 G/DL (33.0-37.0); MEAN CORPUSCULAR VOLUME 80.2 FL (81.0-99.0); MEAN PLATELET VOLUME 7.5 FL (7.4-10.4); PLATELET COUNT 512 /CUMM (130-400); RBC DISTRIBUTION WIDTH 21.4 % (11.5-14.5); RED BLOOD CELL CT 2.95 /CUMM (4.20-5.40); WHITE BLOOD CELL COUNT 7.5 /CUMM (4.8-10.8)
[2017-08-24 08:26] LABS: PT 14.4 SEC (9.4-12.5)
[2017-08-24 08:27] LABS: HEMATOCRIT 23.7 % (37-47)
--- NOTE | 2017-08-24 08:29 | PN- Housestaff ---
KendellLavonne 08/24/17 0829: Subjective Follow-up For: acute hypoxic respiratory failure pulmonary emboli metastatic ovarian cancer lower extremity wounds Subjective: No overnight event. Patient received Warfarin 7.5mg yesterday. Review of Systems Constitutional: Reports: see HPI. Objective Last 24 Hrs of Vital Signs/I&O Vital Signs Date Time Temp Pulse Resp B/P B/P Pulse O2 O2 Flow FiO2 Mean Ox Delivery Rate 08/24 07 98.0 92 20 138/82 98 08/24 0000 Nasal 3.0L Cannula 08/23 2145 98.1 94 20 134/88 99 Nasal 3.0L Cannula 08/23 1600 Nasal 3.0L Cannula 08/23 1341 97.9 94 22 142/88 98 Nasal 3.0L Cannula Intake & Output 08/24 1600 08/24 0800 08/24 0000 Intake Total 318.4 Output Total 320 800 Balance -1.6 -800 Intake, IV 318.4 Output, Urine 320 800 Physical Exam General Appearance: Alert, Oriented X3, Cooperative, No Acute Distress Abdomen: distended Extremities: BL chronic edematous Current Medications: Current Medications Sig/Jessika Start time Last Medication Dose Route Stop Time Status Admin Acetaminophen 650 MG Q4H PRN 08/18 2345 AC NM Albuterol Sulfate 2 PUF Q4P PRN 08/19 1515 AC INH Bisacodyl 10 MG DAILY PRN 08/18 2345 AC NM Collagenase 1 RENETTA DAILY 08/24 1000 AC 08/23 TOP 1037 Docusate Sodium 100 MG BID PRN 08/18 2345 AC PO Fentanyl Citrate 50 MCG Q72H 08/19 0130 AC 08/22 TOP 0127 Ferrous Sulfate 325 MG DAILY 08/19 1000 AC 08/23 PO 0950 Gabapentin 100 MG BID 08/19 1000 AC 08/23 PO 2145 Heparin Sodium 8,700 UNIT ONCE ONE 08/24 0830 DC 08/24 (Porcine) IV 08/24 0831 0836 Heparin Sodium 25,000 UNIT Q24H 08/20 1745 AC 08/23 (Porcine) IV 2324 Sodium Chloride 500 ML Hydromorphone HCl 2 MG Q4H PRN 08/18 2345 AC 08/21 PO 0043 Hydromorphone HCl 4 MG Q4 PRN 08/18 2345 AC 08/23 PO 2145 Morphine Sulfate 4 MG Q3 PRN 08/19 2212 AC 08/24 IV 0831 Polyethylene Glycol 17 GM DAILY PRN 08/18 2345 AC PO Risperidone 1 MG BID 08/19 1000 AC 08/23 PO 2145 Tiotropium [place] 1 PUF DAILY 08/19 1000 AC 08/21 INH 0932 Warfarin Sodium 7.5 MG COUMADIN 1700 ONE 08/23 1700 DC 08/23 PO 08/23 1701 1721 Last 24 Hrs of Lab/Lucius Results Last 24 Hrs of Labs/Mics: Laboratory Tests 08/24/17621: PT 14.4 H, INR 1.38 H 08/24/17621: Anion Gap 7, Estimated GFR > 60, BUN/Creatinine Ratio 15.0, APTT 34, CBC w Diff NO MAN DIFF REQ, RBC 2.95 L, MCV 80.2 L, MCH 25.0 L, MCHC 31.1 L, RDW 21.4 H, MPV 7.5, Gran % 77.0 H, Lymphocytes % 11.9 L, Monocytes % 7.2, Eosinophils % 3.2, Basophils % 0.7, Absolute Granulocytes 5.8, Absolute Lymphocytes 0.9 L, Absolute Monocytes 0.5, Absolute Eosinophils 0.2, Absolute Basophils 0.1 08/23/17 1845: APTT 107 *H Assessment/Plan Assessment: 51-year-old female with PMH of hypertension, chronic venous insufficiency, chronic lymphedema, metastatic stage IV ovarian cancer, vaginal bleeding not on chemotherapy or radiotherapy, DVT, chronic constipation, neuropathy, COPD on nocturnal oxygen, nephrolithiasis, ESWL status post stent placement in 2016, recently discharged 08/15/2017 after was treated for SOB due to bilateral pleural effusion s/p thoracentesis on 08/10/17 400cc and patient was tapered off oxygen prior discharge with repeated CXR negative for recurrent plueral effusion. Patient presented with dyspnea and hypoxia and underwent paracentesis -2L. CTA 08/19: IMPRESSION: 1. Segmental pulmonary emboli in the right lung. 2. Selected segmental embolus left lung. Main, left, and right pulmonary arteries are normal. 3. Large right pleural effusion increasing in volume. 4. Metastatic lymphadenopathy in the mediastinum, hilar regions, and right axilla. 5. Carcinomatosis with large volume ascites and omental infiltration. Acute hypoxemic respiratory failure: multifactorial, large pleural effusion and bilateral pulmonary emboli -Continue oxygen supplementation -Cultures and influenza negative -Continue IV heparin and Coumadin. Will continue dosing warfarin as below. Pulmonary emboli: Continue IV heparin gtt, titrate to goal PTT Refused IVC filter placement 08/21 Starting coumadin 5mg 08/22 -> 7.5mg 08/23, goal INR 2-2.5, INR 1.38 on latest lab. Bridge with heparin gtt Anticipated difficulty with lovenox as an alternative Anemia: acute blood loss on heparin gtt for PE, unclear vaginal bleed contaminating urine vs pure hematuria s/p 1 units pRBC transfusion 08/20/16 Continue monitor CBC for anemia. - Hemoglobin 7.4/23.7 on latest lab. Pending 1U PRBC transfusion today. Continue heparin bridge to coumadin, monitor for bleeding Will discontinue full dose aspirin in addition to heparin/coumadin, if primary team wants can resume at 81mg Metastatic ovarian cancer: Continue analgesia with fentanyl patch and morphine prn Lower extremity wounds/edema: Wound consultation placed with Dr. Trejo Hydrovera blue soaked with saline, santyl to wound covered with abd, kerlx, and jt Regular diet DVT ppx-heparin gtt Full code Problem List: 1. Pulmonary embolism 2. Leg edema 3. Anemia 4. 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 The patient was admitted to [facility] for back pain secondary to bone metastasis in April 2017. She was also admitted to [place] in may 2017 for palliative therapy with optimization of pain regimen with fentanyl, Dilaudid, gabapentin. She was last admitted to [facility] in June 2017 for acute on chronic blood loss anemia, vaginal bleeding secondary to uterine cancer , hematuria, malignant ascites. Patient admitted on July 2017 for worsening shortness of breath with pleural effusion s/p thoracocentesis and lymphocytic picture. Most recently she had a right leg debridement on 07/20/2016 due to progressive worsening right DVT and was then discharged to [facility]. Of note, her Xarelto was stopped on 08/03/2017 by her vascular surgeon Dr. Ricardo. A/p- Shortness of breath secondary to bilateral PE segmental. Pulmonary informed. Patient/ refused IVC filter placement from vascular surgery. Patient on IV heparin and coumadin. Rt lower extremity wound s/p recent debridement by vascular surgery- f/u vascular surgery. Routine Wound care. (refused wound consult recently) acute on chronic anemia- cont to monitor. h/h drop. Reports blood in urine. Transfuse 1 unit of prbc today Patient/ were discussed in great detail about palliative options which he declined. was offered to get second or third opinion as outpatient. Patient/ discussed bedside about use of antiocoagulation in this scernario despite having blood loss in urine. also requested to speak to hem/oncologist outpatient which she follows Dr cyr, please refer to event note. SW and case management aware. Patient can be discharged if her h/h remains stable and INR monitoring can be done as outpatient.
[2017-08-24 14:47] VITALS: BP 130/80
[2017-08-24 16:30] VITALS: BP 120/80
[2017-08-24 17:30] VITALS: BP 125/74
[2017-08-24 17:36] LABS: PTT 76 SEC (25-37)
[2017-08-24 23:00] VITALS: BP 124/72
[2017-08-25 01:18] LABS: ABSOLUTE BASOPHIL COUNT 0.1 /CUMM (0.0-0.2); ABSOLUTE EOSINOPHIL COUNT 0.2 /CUMM (0.0-0.7); ABSOLUTE GRANULOCYTE CT 6.8 /CUMM (1.4-6.5); ABSOLUTE LYMPH COUNT 0.9 /CUMM (1.2-3.4); ABSOLUTE MONOCYTE COUNT 0.6 /CUMM (0.10-0.60); BASOPHIL % 0.6 % (0.0-2.0); EOSINOPHIL % 1.9 % (0-5); HEMATOCRIT 26.2 % (37-47); MEAN CORPUSCULAR HGB CONC 31.9 G/DL (33.0-37.0); MEAN CORPUSCULAR VOLUME 78.7 FL (81.0-99.0); MEAN PLATELET VOLUME 7.1 FL (7.4-10.4); PLATELET COUNT 495 /CUMM (130-400); RED BLOOD CELL CT 3.34 /CUMM (4.20-5.40); WHITE BLOOD CELL COUNT 8.6 /CUMM (4.8-10.8)
--- NOTE | 2017-08-25 02:15 | Event Note ---
Event Note Event Note: S: Nurse called me that patient removed her IV heparin because she thinks it's hurting "her kidneys" B: Bilateral PE and bilateral DVT, patient refusing IVC filter. She is on IV heparin with bridge to by mouth warfarin, INR still subtherapeutic. A: Patient is complaining from pain in the right upper quadrant, thinks that heparin IV bag is contaminated with poison or acoustic material and someone is trying to hurt her, is agreeing on this. R: Discussed with patient and her in depth and length the importance of continuing IV heparin, and that she is at risk of lung collapse and heart attack from embolism. Assuring her that nobody touched the IV heparin bag and it comes premixed to the hospital pharmacy. CBC and BMP was ordered stat to evaluate hemoglobin after transfusion of one PRBC and evaluate kidney function. Results came back HG improved to 8.6 and kidney function remained normal. Went back to discuss the results and assured them that we can manage the abdominal pain and give them an option that may be pain because of ascities expansion as patient received blood transfusion on top on the IV heparin infusion and I can give a small dose of Lasix and see if that can help her pain however they insisted that the IV heparin bag was contaminated and somebody is trying to hurt her, nurse was at bedside, patient decided to try another bag however after a few minutes of infusion she continued to have the same delusion and IV heparin was discontinued. Attending was informed. Nursing prison guard supervisor was informed.
--- NOTE | 2017-08-25 07:30 | PN- Housestaff ---
See Addendum Subjective Follow-up For: pulmonary emboli metastatic ovarian cancer lower extremity wounds/Hx of LE DVT Subjective: Per nursing staff, patient's heparin drip was stopped due to patient's complaint of kidney pain despite no acute findings on lab/pphysical exam (please refer to event note). Review of Systems Constitutional: Reports: see HPI. Objective Last 24 Hrs of Vital Signs/I&O Vital Signs Date Time Temp Pulse Resp B/P B/P Pulse O2 O2 Flow FiO2 Mean Ox Delivery Rate 08/24 2300 98.3 103 16 124/72 100 Nasal 3.0L Cannula 08/24 1730 98.2 96 18 125/74 95 Nasal 3.0L Cannula 08/24 1630 98.2 97 18 120/80 100 Nasal 3.0L Cannula 08/24 1600 96 Nasal 3.0L Cannula 08/24 1447 98.2 95 20 130/80 99 Nasal 3.0L Cannula 08/24 0800 98 Nasal 3.0L Cannula Intake & Output 08/25 0800 08/25 0000 08/24 1600 Intake Total 1182 823 Output Total 200 Balance 1182 623 Intake, IV 582 343 Intake, Oral 600 480 Number 1 Bowel Movements Output, Urine 200 Physical Exam General Appearance: Alert, Oriented X3 Current Medications: Current Medications Sig/Jessika Start time Last Medication Dose Route Stop Time Status Admin Acetaminophen 650 MG Q4H PRN 08/18 2345 AC IL Albuterol Sulfate 2 PUF Q4P PRN 08/19 1515 AC INH Bisacodyl 10 MG DAILY PRN 08/18 2345 AC IL Collagenase 1 RENETTA DAILY 08/24 1000 AC 08/24 TOP 1007 Docusate Sodium 100 MG BID PRN 08/18 2345 AC PO Fentanyl Citrate 50 MCG Q72H 08/19 0130 AC 08/25 TOP 0017 Ferrous Sulfate 325 MG DAILY 08/19 1000 AC 08/24 PO 1003 Gabapentin 100 MG BID 08/19 1000 AC 08/24 PO 2122 Heparin Sodium 8,700 UNIT ONCE ONE 08/24 0830 DC 08/24 (Porcine) IV 08/24 0831 0836 Heparin Sodium 10,000 UNIT .STK-MED ONE 08/24 0814 DC (Porcine) IV 08/24 0815 Heparin Sodium 25,000 UNIT Q24H 08/20 1745 AC 08/25 (Porcine) IV 0255 Sodium Chloride 500 ML Hydromorphone HCl 0.6 MG ONCE ONE 08/24 1999 DC 08/24 IV 08/24 Hydromorphone HCl 2 MG Q4H PRN 08/18 2345 AC 08/24 PO 1813 Hydromorphone HCl 4 MG Q4 PRN 08/18 2345 AC 08/25 PO 0405 Morphine Sulfate 4 MG Q3 PRN 08/19 2212 AC 08/25 IV 0705 Polyethylene Glycol 17 GM DAILY PRN 08/18 2345 AC PO Risperidone 1 MG BID 08/19 1000 AC 08/24 PO 2122 Tiotropium [place] 1 PUF DAILY 08/19 1000 AC 08/24 INH 1002 Warfarin Sodium 7.5 MG COUMADIN 1700 ONE 08/24 1700 DC 08/24 PO 08/24 1701 1710 Last 24 Hrs of Lab/Lucius Results Last 24 Hrs of Labs/Mics: Laboratory Tests 08/25/17 0430: APTT Cancelled 08/25/17 0100: Anion Gap 7, Estimated GFR > 60, BUN/Creatinine Ratio 20.0, CBC w Diff NO MAN DIFF REQ, RBC 3.34 L, MCV 78.7 L, MCH 25.0 L, MCHC 31.9 L, RDW 20.0 H, MPV 7.1 L, Gran % 79.0 H, Lymphocytes % 11.0 L, Monocytes % 7.5, Eosinophils % 1.9, Basophils % 0.6, Absolute Granulocytes 6.8 H, Absolute Lymphocytes 0.9 L, Absolute Monocytes 0.6, Absolute Eosinophils 0.2, Absolute Basophils 0.1 08/24/17 1631: APTT 76 H Assessment/Plan Assessment: 51-year-old female with PMH of hypertension, chronic venous insufficiency, chronic lymphedema, metastatic stage IV ovarian cancer, vaginal bleeding not on chemotherapy or radiotherapy, DVT, chronic constipation, neuropathy, COPD on nocturnal oxygen, nephrolithiasis, ESWL status post stent placement in 2017, recently discharged 08/15/2017 after was treated for SOB due to bilateral pleural effusion s/p thoracentesis on 08/10/17 400cc and patient was tapered off oxygen prior discharge with repeated CXR negative for recurrent plueral effusion. Patient presented with dyspnea and hypoxia and underwent paracentesis -2L. CTA 08/19: IMPRESSION: 1. Segmental pulmonary emboli in the right lung. 2. Selected segmental embolus left lung. Main, left, and right pulmonary arteries are normal. 3. Large right pleural effusion increasing in volume. 4. Metastatic lymphadenopathy in the mediastinum, hilar regions, and right axilla. 5. Carcinomatosis with large volume ascites and omental infiltration. Acute hypoxemic respiratory failure: multifactorial, large pleural effusion and bilateral pulmonary emboli -Continue oxygen supplementation -Cultures and influenza negative -Continue IV heparin and Coumadin. Will continue dosing warfarin as below. Pulmonary emboli: Continue IV heparin gtt, titrate to goal PTT. However, as patient refusal, the heparin drip was stopped on 08/24 night. Refused IVC filter placement 08/21 Starting coumadin 5mg 08/22 -> 7.5mg 08/23, goal INR 2-2.5, INR 1.45 on latest lab. Anticipated difficulty with lovenox as an alternative Anemia: acute blood loss on heparin gtt for PE, unclear vaginal bleed contaminating urine vs pure hematuria s/p 1 units pRBC transfusion 08/24/16 s/p 1 units pRBC transfusion 08/20/16 Continue monitor CBC for anemia. - Hemoglobin 8.7/26.8 on latest lab. Discontinued full dose aspirin in addition to heparin/coumadin, if primary team wants can resume at 81mg Metastatic ovarian cancer: Continue analgesia with fentanyl patch and morphine prn Lower extremity wounds/edema: Hydrovera blue soaked with saline, santyl to wound covered with abd, kerlx, and jt Regular diet DVT ppx-heparin gtt Full code Problem List: 1. Pulmonary embolism 2. Leg edema 3. Anemia 4. Ovarian cancer Pain Ratin Pain Location: NA Pain Goal: Remain pain free Pain Plan: see AP Tomorrow's Labs & Rationales: NA
[2017-08-25 07:35] VITALS: BP 122/70
[2017-08-25 08:25] LABS: ABSOLUTE BASOPHIL COUNT 0 /CUMM (0.0-0.2); ABSOLUTE EOSINOPHIL COUNT 0.2 /CUMM (0.0-0.7); ABSOLUTE GRANULOCYTE CT 6.4 /CUMM (1.4-6.5); ABSOLUTE LYMPH COUNT 0.9 /CUMM (1.2-3.4); ABSOLUTE MONOCYTE COUNT 0.7 /CUMM (0.10-0.60); BASOPHIL % 0.4 % (0.0-2.0); EOSINOPHIL % 2.3 % (0-5); GRANULOCYTE % 77.7 % (42.2-75.2); HEMATOCRIT 26.8 % (37-47); MEAN CORPUSCULAR HGB 25.6 PG (27.0-31.0); MEAN CORPUSCULAR HGB CONC 32.3 G/DL (33.0-37.0); MEAN CORPUSCULAR VOLUME 79.4 FL (81.0-99.0); MEAN PLATELET VOLUME 7.1 FL (7.4-10.4); PLATELET COUNT 512 /CUMM (130-400); RBC DISTRIBUTION WIDTH 20.6 % (11.5-14.5); RED BLOOD CELL CT 3.38 /CUMM (4.20-5.40); WHITE BLOOD CELL COUNT 8.2 /CUMM (4.8-10.8)
[2017-08-25 08:29] LABS: PT 15.2 SEC (9.4-12.5)
[2017-08-25 13:28] VITALS: BP 118/84
[2017-08-25 22:00] VITALS: BP 122/86
[2017-08-26 06:19] VITALS: BP 124/78
--- NOTE | 2017-08-26 07:28 | PN- Housestaff ---
KendellLavonne 08/26/1727: Subjective Follow-up For: pulmonary emboli metastatic ovarian cancer lower extremity wounds/Hx of LE DVT Subjective: No overnight event. Review of Systems Constitutional: Reports: see HPI. Objective Last 24 Hrs of Vital Signs/I&O Vital Signs Date Time Temp Pulse Resp B/P B/P Pulse O2 O2 Flow FiO2 Mean Ox Delivery Rate 08/26 0619 98.3 92 20 124/78 97 Room Air 08/26 0000 96 Nasal 2.5L Cannula 08/25 2200 98.0 104 20 122/86 98 Room Air 08/25 1600 Nasal 2.5L Cannula 08/25 1328 98.0 106 20 118/84 96 Nasal 2.0L Cannula Intake & Output 08/26 1600 08/26 0800 08/26 0000 Intake Total 240 240 Output Total Balance 240 240 Intake, Oral 240 240 Physical Exam General Appearance: Alert, Oriented X3 Current Medications: Current Medications Sig/Jessika Start time Last Medication Dose Route Stop Time Status Admin Acetaminophen 650 MG Q4H PRN 08/18 2345 AC NM Albuterol Sulfate 2 PUF Q4P PRN 08/19 1515 AC INH Bisacodyl 10 MG DAILY PRN 08/18 2345 AC NM Collagenase 1 RENETTA DAILY 08/24 1000 AC 08/25 TOP 0951 Docusate Sodium 100 MG BID PRN 08/18 2345 AC PO Fentanyl Citrate 50 MCG Q72H / 0130 AC 08/25 TOP 0017 Ferrous Sulfate 325 MG DAILY / 1000 AC 08/25 PO 0951 Gabapentin 100 MG BID / 1000 AC 08/25 PO 2113 Heparin Sodium 25,000 UNIT Q24H 08/20 1745 AC 08/25 (Porcine) IV 0255 Sodium Chloride 500 ML Hydromorphone HCl 2 MG Q4H PRN / 2345 AC 08/24 PO 1813 Hydromorphone HCl 4 MG Q4 PRN 08/18 2345 AC 08/25 PO 1734 Morphine Sulfate 4 MG Q3 PRN 08/19 2212 AC 08/26 IV 0740 Polyethylene Glycol 17 GM DAILY PRN / 2345 AC PO Risperidone 1 MG BID / 1000 AC 08/25 PO 2113 Tiotropium [place] 1 PUF DAILY / 1000 AC 08/25 INH 0951 Warfarin Sodium 7.5 MG COUMADIN 1700 08/25 1700 DC 08/25 PO 08/25 3189 1730 Last 24 Hrs of Lab/Lucius Results Last 24 Hrs of Labs/Mics: Laboratory Tests 08/26/17 0700: Anion Gap 5, Estimated GFR > 60, BUN/Creatinine Ratio 18.0, PT 20.1 H, INR 1.93 H, CBC w Diff NO MAN DIFF REQ, RBC 3.25 L, MCV 79.7 L, MCH 24.9 L, MCHC 31.2 L, RDW 20.7 H, MPV 6.8 L, Gran % 78.5 H, Lymphocytes % 9.2 L, Monocytes % 8.9, Eosinophils % 3.0, Basophils % 0.4, Absolute Granulocytes 6.2, Absolute Lymphocytes 0.7 L, Absolute Monocytes 0.7 H, Absolute Eosinophils 0.2, Absolute Basophils 0 Assessment/Plan Assessment: 51-year-old female with PMH of hypertension, chronic venous insufficiency, chronic lymphedema, metastatic stage IV ovarian cancer, vaginal bleeding not on chemotherapy or radiotherapy, DVT, chronic constipation, neuropathy, COPD on nocturnal oxygen, nephrolithiasis, ESWL status post stent placement in 2016, recently discharged 08/15/2017 after was treated for SOB due to bilateral pleural effusion s/p thoracentesis on 08/10/17 400cc and patient was tapered off oxygen prior discharge with repeated CXR negative for recurrent plueral effusion. Patient presented with dyspnea and hypoxia and underwent paracentesis -2L. CTA 08/19: IMPRESSION: 1. Segmental pulmonary emboli in the right lung. 2. Selected segmental embolus left lung. Main, left, and right pulmonary arteries are normal. 3. Large right pleural effusion increasing in volume. 4. Metastatic lymphadenopathy in the mediastinum, hilar regions, and right axilla. 5. Carcinomatosis with large volume ascites and omental infiltration. Acute hypoxemic respiratory failure: multifactorial, large pleural effusion and bilateral pulmonary emboli -Continue oxygen supplementation -Cultures and influenza negative -Continue IV heparin and Coumadin. Will continue dosing warfarin as below. -Patient's O2 sat was reassessed on 08/26, >90% while lying still, however would desat to 86% while asleep, and also desat to <88% if ambulating to commode. Patient would be qualified for Home oxygen. Pulmonary emboli: Continue IV heparin gtt, titrate to goal PTT. However, as patient refusal, the heparin drip was stopped on 08/24 night. Refused IVC filter placement 08/21 Starting coumadin 5mg 08/22 -> 7.5mg 08/23 -> 7.5mg 08/24, goal INR 2-2.5, INR 1.93 on latest lab. Anticipated difficulty with lovenox Inj as an alternative. Anemia: acute blood loss on heparin gtt for PE, unclear vaginal bleed contaminating urine vs pure hematuria s/p 1 units pRBC transfusion 08/24/16 s/p 1 units pRBC transfusion 08/20/16 Continue monitor CBC for anemia. - Hemoglobin 8.1/25.9 on latest lab. Discontinued full dose aspirin in addition to heparin/coumadin, if primary team wants can resume at 81mg Metastatic ovarian cancer: Continue analgesia with fentanyl patch and morphine prn Lower extremity wounds/edema: Hydrovera blue soaked with saline, santyl to wound covered with abd, kerlx, and jt Regular diet DVT ppx-heparin gtt Full code Problem List: 1. Pulmonary embolism 2. 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 The patient was admitted to [facility] for back pain secondary to bone metastasis in April 2017. She was also admitted to [facility] in may 2017 for palliative therapy with optimization of pain regimen with fentanyl, Dilaudid, gabapentin. She was last admitted to [facility] in June 2017 for acute on chronic blood loss anemia, vaginal bleeding secondary to uterine cancer , hematuria, malignant ascites. Patient admitted on July 2017 for worsening shortness of breath with pleural effusion s/p thoracocentesis and lymphocytic picture. Most recently she had a right leg debridement on 07/20/2016 due to progressive worsening right DVT and was then discharged to [facility]. Of note, her Xarelto was stopped on 08/03/2017 by her vascular surgeon Dr. Ricardo. A/p- Shortness of breath secondary to bilateral PE segmental. Pulmonary informed. Patient/ refused IVC filter placement from vascular surgery. Patient on IV heparin and coumadin. Patient non cooperative iv heparin as bridging and wanted only coumadin. Patient recieved coumadin and INR 1.9 today. Rt lower extremity wound s/p recent debridement by vascular surgery- f/u vascular surgery. Routine Wound care. (refused wound consult recently) Acute on chronic anemia- cont to monitor. h/h drop. Reported blood in urine s/p 2 units of PRBC. Patient/ were discussed in great detail about palliative options which he declined. Patient/ discussed bedside about use of antiocoagulation in this scernario despite having blood loss in urine. also requested to speak to hem/oncologist outpatient which she follows Dr cyr, please refer to event note who suggested coumadin. SW and case management aware. Patient can be discharged if her h/h remains stable and INR monitoring can be done as outpatient. VNS arranged o/p for INR monitoring. Patient is medically stable for discharge.
[2017-08-26 08:11] LABS: ABSOLUTE BASOPHIL COUNT 0 /CUMM (0.0-0.2); ABSOLUTE EOSINOPHIL COUNT 0.2 /CUMM (0.0-0.7); ABSOLUTE GRANULOCYTE CT 6.2 /CUMM (1.4-6.5); ABSOLUTE LYMPH COUNT 0.7 /CUMM (1.2-3.4); ABSOLUTE MONOCYTE COUNT 0.7 /CUMM (0.10-0.60); BASOPHIL % 0.4 % (0.0-2.0); GRANULOCYTE % 78.5 % (42.2-75.2); HEMATOCRIT 25.9 % (37-47); MEAN CORPUSCULAR HGB 24.9 PG (27.0-31.0); MEAN CORPUSCULAR HGB CONC 31.2 G/DL (33.0-37.0); MEAN CORPUSCULAR VOLUME 79.7 FL (81.0-99.0); MEAN PLATELET VOLUME 6.8 FL (7.4-10.4); PLATELET COUNT 481 /CUMM (130-400); RBC DISTRIBUTION WIDTH 20.7 % (11.5-14.5); RED BLOOD CELL CT 3.25 /CUMM (4.20-5.40); WHITE BLOOD CELL COUNT 7.9 /CUMM (4.8-10.8)
[2017-08-26 08:19] LABS: PT 20.1 SEC (9.4-12.5)
[2017-08-26] MEDS ORDERED: COUMADIN2.5 M1 PO ×2 (09:28→14:19)
[2017-08-26 13:53] VITALS: BP 140/90
[2017-08-26] MEDS ORDERED: PYRIDIUM100 M1 PO (16:25)
[2017-08-26 22:00] VITALS: BP 150/86
[2017-08-27 06:44] VITALS: BP 146/93
--- NOTE | 2017-08-27 07:21 | PN- Housestaff ---
Assessment/Plan Assessment: 51-year-old female with PMH of hypertension, chronic venous insufficiency, chronic lymphedema, metastatic stage IV ovarian cancer, vaginal bleeding not on chemotherapy or radiotherapy, DVT, chronic constipation, neuropathy, COPD on nocturnal oxygen, nephrolithiasis, ESWL status post stent placement in 2017, recently discharged 08/15/2017 after was treated for SOB due to bilateral pleural effusion s/p thoracentesis on 08/10/17 400cc and patient was tapered off oxygen prior discharge with repeated CXR negative for recurrent plueral effusion. Patient presented with dyspnea and hypoxia and underwent paracentesis -2L. CTA 08/19: IMPRESSION: 1. Segmental pulmonary emboli in the right lung. 2. Selected segmental embolus left lung. Main, left, and right pulmonary arteries are normal. 3. Large right pleural effusion increasing in volume. 4. Metastatic lymphadenopathy in the mediastinum, hilar regions, and right axilla. 5. Carcinomatosis with large volume ascites and omental infiltration. Acute hypoxemic respiratory failure: multifactorial, large pleural effusion and bilateral pulmonary emboli -Continue oxygen supplementation -Cultures and influenza negative -Continue IV heparin and Coumadin. Will continue dosing warfarin as below. -Patient's O2 sat was reassessed on 08/26, >90% while lying still, however would desat to 86% while asleep, and also desat to <88% if ambulating to commode. Patient would be qualified for Home oxygen. Pulmonary emboli: Continue IV heparin gtt, titrate to goal PTT. However, as patient refusal, the heparin drip was stopped on 08/24 night. Refused IVC filter placement 08/21 Starting coumadin 5mg 08/22 -> 7.5mg 08/23 -> 7.5mg 08/24, goal INR 2-2.5, INR 1.93 on latest lab. Anticipated difficulty with lovenox Inj as an alternative. Anemia: acute blood loss on heparin gtt for PE, unclear vaginal bleed contaminating urine vs pure hematuria s/p 1 units pRBC transfusion 08/24/16 s/p 1 units pRBC transfusion 08/20/16 Continue monitor CBC for anemia. - Hemoglobin 8.1/25.9 on latest lab. Discontinued full dose aspirin in addition to heparin/coumadin, if primary team wants can resume at 81mg Metastatic ovarian cancer: Continue analgesia with fentanyl patch and morphine prn Lower extremity wounds/edema: Hydrovera blue soaked with saline, santyl to wound covered with abd, kerlx, and jt Regular diet DVT ppx-heparin gtt Full code
--- NOTE | 2017-08-27 08:15 | Event Note ---
Event Note Event Note: Patient and her requested Dilaudid 2 mg PO PRN for pain medication in her discharge recomendation to be substituted to 4 mg of oral morphine. Equivalent dose whereas is 8 mg of morphine. Patient and her well aware of the fact. However, after speaking with attending Dr Nunes, we informed the patient that the patient will be discharged with Dilaudid and she would have to follow up with her PCP/specialists regarding further need of morphine instead of dilaudid. Patient and her explained about it and they agreed to the plan. Andrea Wilson MD PGY2 Resident
[2017-08-27] MEDS ORDERED: DILAUDID2 M1 PO (08:30)
== END 2017-08-27 09:34 | disposition home health service (06) | DRG 175 ==
LOC: ERH 14:44 → ERHI 17:51 → 2NB 17:51 → ENRESERV 19:32 → ENTRNSPT 21:07 → EDTRNSPT 21:12 → EDTRNSPTSTS 21:12 → 2NB 21:22 → CMPTRNSPT 21:38 → 2NB 08-19 15:01 → ENPENDDIS 08-26 14:23 → EDPENDDISTM 08-27 08:38 → EDPENDDISDT 08-27 08:38 → ENTRNSPT 08-27 08:50 → EDTRNSPT 08-27 09:01 → EDTRNSPTSTS 08-27 09:01 → CMPTRNSPT 08-27 09:25 → 2NB 08-27 09:34
PROVIDERS: Emergency Medicine; Internal Medicine; Student in an Organized Health Care Education/Training Program
PROC: 0W9G3ZZ Drainage of Peritoneal Cavity, Percutaneous Approach (ICD-10-PCS; principal; 2017-08-18)
DX: I26.99 Other pulmonary embolism without acute cor pulmonale (principal); J96.01 Acute respiratory failure with hypoxia; C77.3 Secondary and unspecified malignant neoplasm of axilla and upper limb lymph nodes; C78.1 Secondary malignant neoplasm of mediastinum; R18.8 Other ascites; J90 Pleural effusion, not elsewhere classified; C78.6 Secondary malignant neoplasm of retroperitoneum and peritoneum; C79.51 Secondary malignant neoplasm of bone; C79.60 Secondary malignant neoplasm of unspecified ovary; I83.209 Varicose veins of unspecified lower extremity with both ulcer of unspecified site and inflammation; D62 Acute posthemorrhagic anemia; C56.9 Malignant neoplasm of unspecified ovary; C79.82 Secondary malignant neoplasm of genital organs; G62.9 Polyneuropathy, unspecified; I10 Essential (primary) hypertension; I89.0 Lymphedema, not elsewhere classified; K59.09 Other constipation; J44.9 Chronic obstructive pulmonary disease, unspecified
CPT/HCPCS: 2NBP; 36415; 36592; 71045; 82436; 86920; 87040; 87070; 87804; 87804-59; 93005; 93010; 96374; J1644; J1650; J1940; J3490; P9016; Q9965

== ENCOUNTER 2017-10-05 13:05 | Inpatient (IN) | payer OTHER ==
[~2017-10-05] VITALS: Ht 154.9 cm; Wt 105.3 kg
[~2017-10-05 13:05] MED LIST changes: +COUMADIN2.5 M1 PO; +ELIQUIS5 M2 PO; +PYRIDIUM100 M1 PO
--- NOTE | 2017-10-05 13:15 | ED DYSPNEA/ASTHMA COMPLAINT ---
History of Present Illness General Chief Complaint: Dyspnea (COPD, CHF, Other) Stated Complaint: SENT BY IR, DIFF BREATHING,PALE 80% AT [employer] Allergies Coded Allergies: cefuroxime (From CEFTIN) (Intermediate, "LOST IT" 02/12/16) Reconcile Medications Acetaminophen (Pharbetol) 325 MG TABLET 650 MG PO Q4H PRN PAIN/TEMP 101 ( Reported) Albuterol Sulfate 2.5 MG/3 ML (0.083 %) VIAL.NEB 1 Vial INH/SHIRLEY BID RESP. ( Reported) Albuterol Sulfate 2.5 MG/3 ML (0.083 %) VIAL.NEB 1 Vial INH/SHIRLEY Q4P PRN SOB/ WHEEZE (Reported) Arginine/Glutamine/Calcium Hmb (Taurus Packet) 7 GRAM-7 GRAM-1.5 GRAM POWD.PACK 1 PAC PO BID UNKNOWN (Reported) Bisacodyl 10 MG SUPP.RECT 1 SUP RC DAILY PRN CONSTIPATION (Reported) Docusate Sodium 100 MG CAPSULE 100 MG PO BID PRN CONSTIPATION hold for loose stool / diarrhea Fentanyl Citrate (Duragesic) 50 MCG/HOUR PATCH.TD72 50 MCG TOP Q72H pain control home medication increased from 25 mcg/hour to 50 mcg/hour q72 hours Ferrous Sulfate (IRON) 325 MG (65 MG IRON) TABLET 1 TAB PO DAILY SUPPLEMENT ( Reported) Gabapentin 100 MG CAPSULE 1 CAP PO BID NEUROPATHY (Reported) Guaifenesin (Adult Wal-Tussin) 100 MG/5 ML LIQUID 10 ML PO Q4H PRN COUGH ( Reported) Hydromorphone HCl (Dilaudid) 2 MG TABLET 1 TAB PO Q4H PRN BREAKTHROUGH MILD PAIN (Reported) Hydromorphone HCl (Dilaudid) 4 MG TABLET 1 TAB PO Q4H PRN BREAKTHROUGH SEVERE PAIN (Reported) Mag Hydrox/Al Hydrox/Simeth (Alum-Mag Hydroxide-Simeth Liq) 200 MG-200 MG-20 MG/ 5 ML ORAL.SUSP 15 ML PO Q6H PRN BLOATED ABD FEELING (Reported) Magnesium Hydroxide (Milk Of Magnesia) 400 MG/5 ML ORAL.SUSP 30 ML PO DAILY PRN CONSTIPATION (Reported) Multivitamin,Ther and Minerals (Super Theravite-M) 1 EACH TABLET 1 TAB PO DAILY SUPPLEMENT (Reported) Na Phos,M-B/Na Phos,Di-Ba (Fleet Enema) 19 GRAM-7 GRAM/118 ML ENEMA 1 E RC DAILY PRN CONSTIPATION (Reported) Phenazopyridine HCl (Pyridium) 100 MG TABLET 1 TAB PO TID PRN Kidney pain Polyethylene Glycol 3350 (Miralax) 17 GRAM/DOSE POWDER 17 GM PO DAILY PRN CONSTIPATION [PRO-SOURCE] 30 ML PO TID NUTRITIONAL SUPPLEMENT (Reported) Risperidone (Risperdal) 1 MG TABLET 1 TAB PO BID MENTAL HEALTH (Reported) Tiotropium [place] (Spiriva) 18 MCG CAP.W.DEV 1 PUF INH DAILY SOB . Warfarin Sodium (Coumadin) 2.5 MG TABLET 2 TAB PO DAILY PE anticoagulation INR range should be 2-2.5 per patient's clinical conditions. Triage Note: BROUGHT TO ED VIA WHEELCHAIR FORM INVASIVE IMAGING, PT WAS SCHEDULED FOR PARACENTHESIS, BECAME VERY SOB, COLOR PALE, LIPS CYANTIC ON ARRIVAL, 02 SATS WERE 8#%, NOW 94% AT 4L,NASAL CANNULA. 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 History of MRSA: No History of VRE: No History of CDIFF: No Tetanus Vaccine: Surgical History Surgical History: cholecystectomy, s/p left 5th MT resection 01/2014 CYST REMOVAL OFF NOSE laparotomy Psychosocial History Who do you live with Spouse Services at Home None What is your primary language Indian (Dejan Huston) Progress Plan of Care: Orders Procedure Date/time Status XRY-PORTABLE CHEST XRAY 10/05 1320 Active TROPONIN LEVEL 10/05 1320 Active COMPREHENSIVE METABOLIC PANEL 10/05 1320 Active CBC WITHOUT DIFFERENTIAL 10/05 1320 Active B-TYPE NATRIURETIC PEP (BNP) 10/05 1320 Active Current Medications Sig/Jessika Start time Last Medication Dose Stop Time Status Admin Albuterol Sulfate 3 ML ONCE ONE 10/05 1330 AC (Proventil) 10/05 1331 Furosemide 60 MG ONCE ONE 10/05 1330 AC (Lasix) 10/05 1331 Ipratropium [place] 2.5 ML ONCE ONE 10/05 1330 AC (Atrovent) 10/05 133 (Dejan Cameron) Departure Departure Condition: Stable Referrals: Vicente Boyd APRN (PCP/Family) Departure Forms: Customer Survey General Discharge Information (Dejan Huston)
--- NOTE | 2017-10-05 13:34 | ED DYSPNEA/ASTHMA COMPLAINT ---
History of Present Illness General Chief Complaint: Dyspnea (COPD, CHF, Other) Stated Complaint: SENT BY IR, DIFF BREATHING,PALE 80% AT [employer] Source: patient, family, old records Exam Limitations: no limitations Allergies Coded Allergies: cefuroxime (From CEFTIN) (Intermediate, "LOST IT" 02/12/16) Reconcile Medications Fentanyl Citrate (Duragesic) 50 MCG/HOUR PATCH.TD72 50 MCG TOP Q72H pain control home medication increased from 25 mcg/hour to 50 mcg/hour q72 hours Gabapentin 100 MG CAPSULE 1 CAP PO BID NEUROPATHY (Reported) Hydromorphone HCl (Dilaudid) 4 MG TABLET 1 TAB PO Q4H PRN BREAKTHROUGH SEVERE PAIN (Reported) Morphine Sulfate (Morphine Sulfate Elixir 10mg/5ml) 10 MG/5 ML SOLUTION 5 ML PO Q4 HRS NEEDED PRN PAIN (Reported) Risperidone (Risperdal) 1 MG TABLET 1 TAB PO BID MENTAL HEALTH (Reported) Warfarin Sodium (Coumadin) 2.5 MG TABLET 1 TAB PO SuWeSa BLOOD THINNER ( Reported) Warfarin Sodium (Coumadin) 5 MG TABLET 1 TAB PO MoTuThFr BLOOD THINNER ( Reported) Triage Note: BROUGHT TO ED VIA WHEELCHAIR FORM INVASIVE IMAGING, PT WAS SCHEDULED FOR PARACENTHESIS, BECAME VERY SOB, COLOR PALE, LIPS CYANTIC ON ARRIVAL, 02 SATS WERE 8#%, NOW 94% AT 4L,NASAL CANNULA. Triage Nurses Notes Reviewed? yes Onset: Abrupt Duration: day(s): (2), constant Timing: recent history Severity: moderate Activities at Onset: none Associated Symptoms: denies HPI: 51-year-old female with PMH of hypertension, chronic venous insufficiency, chronic lymphedema, metastatic stage IV ovarian cancer, vaginal bleeding not on chemotherapy or radiotherapy, DVT/PE on coumadin,neuropathy, COPD on nocturnal oxygen, nephrolithiasis presents from the IR suite. Patient was scheduled over [place] patient paracentesis performed today when she appeared cyanotic short of breath and appeared pale. Her oxygen saturation was noted to be 80% on room air she is placed on 4 L and has increased to 94%. There's been no cough fever chills no chest pain. (Clover DEMPSEY,Dejan) Vital Signs & Intake/Output Vital Signs & Intake/Output Vital Signs Date Time Temp Pulse Resp B/P B/P Pulse O2 O2 Flow FiO2 Mean Ox Delivery Rate 10/05 1559 116 16 124/86 97 Room Air 10/05 1352 95 Nasal 4.0L Cannula 10/05 1327 94 Nasal 4.0L Cannula 10/05 1320 97.3 10/05 1314 123 38 120/85 94 Nasal Cannula (Bonita LIM,Patrick Mccray) Past History Travel History Traveled to [place] past 21 day No Medical History Any Pertinent Medical History? 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 No (Dejan Cameron) Review of Systems Review of Systems Constitutional: Reports: no symptoms, see HPI. Comments Review of systems: See HPI, All other systems negative. Constitutional, no chills no fever, HEENT: no sore throat no congestion Cardiovascular: No chest pain Skin: no rashes, no change in skin Respiratory: SEE HPI GI: No nausea no vomiting, : No dysuria Muscle skeletal: No joint pain, no back pain Neurologic: , no headache Heme/endocrine: No bruising Immunology: No lymphadenopathy (Dejan Cameron) Physical Exam Physical Exam General Appearance: cachetic Respiratory: decreased breath sounds Comments: HEENT: Normal EENT exam; PERRL, EOMI, HEAD is atraumatic. moist mucous membranes. Neck: Supple, normal range of motion Back: Full range of motion Cardiovascular: Regular rate and rhythms no murmu Respiratory: Mild to moderate respiratory distress. Patient speaking in full complete sentences. Diminished breath sounds no wheezing or rhonchi Abdomen: Soft, nontender nondistended, no appreciable organomegaly. Normal bowel sounds. No rebound/guarding, significant ascites. Extremity: Bilateral 4+ pitting lower extremity edema, full range of motion of extremities, Neuro: Alert oriented x3, motor sensory normal. There were no obvious focal neurologic abnormalities. Skin: No appreciable rash on exposed skin, skin is warm and dry. Psych: Mood and affect is normal, memory and judgment is normal. Core Measures ACS in differential dx? Yes CVA/TIA Diagnosis No Sepsis Present: Yes Sepsis Focused Exam Completed? Yes (Dejan Cameron) ED Sepsis Exam Date of Focused Sepsis Exam: 10/05/17 Time of Focused Sepsis Exam: 1526 Sepsis Cardiac Exam: Tachycardia Sepsis Resp Exam: Rales Sepsis Cap Refill Exam: <2 Sec Sepsis Peripheral Pulse Exam: Normal Sepsis Peripheral Pulse Location: Radial Sepsis Skin Color Exam: Normal for Ethnicity Skin Temp/Moisture Exam: Warm/Dry (Dejan Cmaeron) Progress Differential Diagnosis: AMI, bronchitis, CHF, COPD, pulmonary embolism, pneumonia, pneumothorax, unstable angina, ascites, malignancy Diagnostic Imaging: Viewed by Me: Radiology Read. Discussed w/RAD: Radiology Read. Radiology Impression: PATIENT: BELEN BURNHAM PRESENT AGE: 62 PATIENT ACCOUNT NO: [id number] : [birth year] LOCATION: [facility] ORDERING PHYSICIAN: Dejan DEMPSEY SERVICE DATE: 10/05/17-1302 EXAM TYPE: RAD - XRY- RIBS UNILATERAL-RIGHT EXAMINATION: XR RIBS, RIGHT CLINICAL INFORMATION: Fall in tub. Pain. Assess for rib fracture. COMPARISON: None. TECHNIQUE: Frontal view of the chest and 3 views of the right ribs were obtained. FINDINGS: No displaced rib fracture demonstrated. The lungs are well expanded with minimal left basilar subsegmental atelectasis. No evidence of pneumothorax or hemothorax. No mediastinal widening. Surgical clips over the left mediastinum demonstrated. Surgical tacks over the right abdomen. IMPRESSION: No discrete/displaced rib fracture demonstrated. DICTATED BY: João Gomez MD DATE/TIME DICTATED:1405 SENIOR BUSINESS ANALYST:ESAU DATE/TIME TRANSCRIBED:10/05/171405 CONFIDENTIAL, DO NOT COPY WITHOUT APPROPRIATE AUTHORIZATION. <Electronically signed in Other Vendor System> SIGNED BY: João Gomez MD 10/05/17 1418 Initial ED EKG: normal axis, nonspecific ST T wave chg, STACH AT 100 Prior EKG: unchanged Rhythm Strip: sinus tachycardia (Dejan Cameron) Plan of Care: Orders Procedure Date/time Status Regular Diet 10/06 B Active CBC WITHOUT DIFFERENTIAL 10/06 0600 Active BASIC ELECTROLYTES PLUS BUN&CR 10/06 0600 Active Nothing by Mouth 10/05 D Complete TRC EVALUATION (GEN) 10/05 1628 Active Pathway - chart 10/05 1628 Active House Staff 10/05 1628 Active LACTIC ACID 10/05 1626 Complete TRC EVALUATION (GEN) 10/05 1547 Active INCENTIVE SPIROMETRY TRX (GEN) 10/05 1547 Active Misc Message 10/05 1535 Active ED Holding Orders 10/05 1535 Active Admit to inpatient 10/05 1535 Active Vital Signs 10/05 1535 Active Code Status 10/05 1535 Active Patient Data 10/05 1534 Active Intake & Output 10/05 1351 Active BLOOD CULTURE 10/05 1326 Active PROTHROMBIN TIME 10/05 1326 Complete LACTIC ACID 10/05 1326 Active EKG 10/05 1325 Active TROPONIN LEVEL 10/05 1320 Complete COMPREHENSIVE METABOLIC PANEL 10/05 1320 Complete CBC WITHOUT DIFFERENTIAL 10/05 1320 Complete B-TYPE NATRIURETIC PEP (BNP) 10/05 1320 Complete VTE Mechanical Prophylaxis 10/05 UNK Active Current Medications Sig/Jessika Start time Last Medication Dose Stop Time Status Admin Azithromycin 500 MG Q24H 10/06 1000 AC (Zithromax) Sodium Chloride 250 ML (Normal Saline 0.9%) Ceftriaxone Sodium 1,000 MG DAILY 10/06 1000 AC (Rocephin) Acetaminophen 650 MG Q6P PRN 10/05 1630 AC (Tylenol) Laboratory Tests 10/05/17 1432: Lactic Acid 2.6 H 10/05/17 1432: Anion Gap 10, Estimated GFR > 60, BUN/Creatinine Ratio 26.3 H, Glucose 166 H, Calcium 7.6 L, Total Bilirubin 0.7, AST 20, ALT 18, Alkaline Phosphatase 151 H , Troponin I 0.02, Mio-Q-Xpihlrfvnyn Pept 715 H, Total Protein 5.8 L, Albumin 2.3 L, Globulin 3.5, Albumin/Globulin Ratio 0.7 L 10/05/17 1344: PT 19.5 H, INR 1.78 H, CBC w Diff MAN DIFF ORDERED, RBC 4.16 L, MCV 77.6 L, MCH 23.5 L, MCHC 30.3 L, RDW 22.0 H, MPV 6.8 L, Gran % 92.2 H, Lymphocytes % 4.3 L, Monocytes % 3.1, Eosinophils % 0.2, Basophils % 0.2, Absolute Granulocytes 18.3 H, Segmented Neutrophils 92 H, Band Neutrophils 2, Absolute Lymphocytes 0.8 L, Lymphocytes 3 L, Monocytes 3, Absolute Monocytes 0.6, Absolute Eosinophils 0, Absolute Basophils 0, Platelet Estimate INCREASED, Hypochromic-Microcytic 1+, Poikilocytosis FEW Microbiology 10/05 1405 BLOOD: Blood Culture - RECD 10/05 1344 BLOOD: Blood Culture - RECD initial tem 97.3. pt is refusing dr bonita collado at bedside, labs xray ordered. lasix 60mg iv ordered IV fluids being held secondary to patient's significant ascites/ peripheral edema and complicated medical history patient will require fluid restriction also given her hyponatremia Patient's is also refusing the Lasix I discussed with him advised DuoNeb and Lasix which he is again is refusing. I discussed with him his 's x-ray findings lab resultsAnd need for admission case discussed with Dr. Mesa agrees with plan. Case discussed with Dr. Donald will admit (Dejan Cameron) (Bonita LIM,Patrick Mccray) Departure Departure Time of Disposition: 1512 Disposition: STILL A PATIENT Condition: Stable Clinical Impression Primary Impression: Pneumonia Secondary Impressions: Hyponatremia, Lactic acidosis, Pleural effusion, Sepsis Referrals: Vicente Boyd APRN (PCP/Family) Departure Forms: Customer Survey General Discharge Information Admission Note Spoke With: Camron Donald MD Documentation of Exam: Documentation of any treatments & extenuating circumstances including Concerns Regarding Discharge (functional status, medication knowledge or non-compliance, living conditions, etc.) that warrant an admission rather than observation: IV antibiotics, trend labs diuresis IR consult home consult premature discharge medically harmful (Dejan Cameron) PA/PROFESSOR OF MATHEMATICS Co-Sign Statement Statement: ED Attending supervision documentation- [X] I saw and evaluated the patient. I have also reviewed all the pertinent lab results and diagnostic results. I agree with the findings and the plan of care as documented in the PA's/PROFESSOR OF MATHEMATICS's documentation. Patient presents for evaluation of worsening shortness of breath and a history of ovarian cancer with ascites. She tried to have a paracentesis performed to relieve her dyspnea but was felt to be too unstable by interventional radiology for the procedure. Physical examination reveals a tired and slightly dyspneic-appearing woman with a large abdominal girth and dullness to percussion along the flanks consistent with ascites. [] I have reviewed the ED Record and agree with the PA's/PROFESSOR OF MATHEMATICS's documentation. [] Additions or exceptions (if any) to the PAs/PROFESSOR OF MATHEMATICS's note and plan are summarized below: [] (Bonita LIM,Patrick Mccray) Critical Care Note Critical Care Note Critical Care Time: non-applicable (Clover DEMPSEY,Dejan)
[2017-10-05 13:53] LABS: ABSOLUTE BASOPHIL COUNT 0 /CUMM (0.0-0.2); ABSOLUTE EOSINOPHIL COUNT 0 /CUMM (0.0-0.7); ABSOLUTE GRANULOCYTE CT 18.3 /CUMM (1.4-6.5); ABSOLUTE LYMPH COUNT 0.8 /CUMM (1.2-3.4); ABSOLUTE MONOCYTE COUNT 0.6 /CUMM (0.10-0.60); BASOPHIL % 0.2 % (0.0-2.0); EOSINOPHIL % 0.2 % (0-5); GRANULOCYTE % 92.2 % (42.2-75.2); HEMATOCRIT 32.2 % (37-47); MEAN CORPUSCULAR HGB 23.5 PG (27.0-31.0); MEAN CORPUSCULAR HGB CONC 30.3 G/DL (33.0-37.0); MEAN CORPUSCULAR VOLUME 77.6 FL (81.0-99.0); MEAN PLATELET VOLUME 6.8 FL (7.4-10.4); PLATELET COUNT 533 /CUMM (130-400); RED BLOOD CELL CT 4.16 /CUMM (4.20-5.40); WHITE BLOOD CELL COUNT 19.9 /CUMM (4.8-10.8)
[2017-10-05 14:00] LABS: PT 19.5 SEC (9.4-12.5)
[2017-10-05] MEDS ORDERED: COUMADIN2.5 M1 PO (14:43)
[2017-10-05] MEDS ORDERED: COUMADIN5 M2 PO (14:44)
[2017-10-05] MEDS ORDERED: MORPHINE S10 MG/5 M2 PO (14:45)
--- NOTE | 2017-10-05 14:50 | RADIOLOGY REPORT ---
EXAMINATION: XR PORTABLE CHEST CLINICAL INFORMATION: Hypoxia COMPARISON: 08/19/[address] scan, 08/18/2017 chest x-ray TECHNIQUE: Portable AP view of the chest was obtained. FINDINGS: Hypoventilatory exam. Stable cardiomediastinal silhouette. A right-sided PICC line is in place with tip projecting on the caval atrial junction. Moderate left-sided pleural effusion. There are elongated left-sided pulmonary opacities, most likely represent atelectasis. No pneumothorax. IMPRESSION: Moderate left-sided pleural effusion and left lung pulmonary opacity, most likely atelectasis.
--- NOTE | 2017-10-05 15:36 | History & Physical ---
Italo Walker MD 10/05/17 1535: General Information and HPI MD Statement: I have seen and personally examined MATIAS FRASER and documented this H&P. The patient is a 51 year old F who presented with a patient stated chief complaint of [respiratory distress, hypoxia]. Source of Information: family, old records Exam Limitations: language barrier History of Present Illness: Patient is a 51-year-old female with an extensive past medical history significant for HTN, chronic venous insufficiency, lymphedema, metastatic stage IV ovarian cancer, not on chemotherapy or radiation therapy, DVT and PE on Coumadin, neuropathy, COPD, nephrolithiasis who presented to the [facility] for elective palliative paracentesis was noted to be pale and in respiratory distress on presentation. She was hypoxic to 80% when measured and she was sent to the ED. Patient does not speak Hungarian well on her machine the history was obtained by her and old medical records. Per the patient's she had been complaining of a burning sensation in her abdomen and in her throat for the past several days and requesting lots of water. Patient has also been incontinent of urine since her last admission in August however she has not urinated much over the past 24 hours. Review of systems is difficult secondary to language barrier. Allergies/Medications Allergies: Coded Allergies: cefuroxime (From CEFTIN) (Intermediate, "LOST IT" 02/12/16) Home Med list Fentanyl Citrate (Duragesic) 50 MCG/HOUR PATCH.TD72 50 MCG TOP Q72H pain control home medication increased from 25 mcg/hour to 50 mcg/hour q72 hours Gabapentin 100 MG CAPSULE 1 CAP PO BID NEUROPATHY (Reported) Hydromorphone HCl (Dilaudid) 4 MG TABLET 1 TAB PO Q4H PRN BREAKTHROUGH SEVERE PAIN (Reported) Morphine Sulfate (Morphine Sulfate Elixir 10mg/5ml) 10 MG/5 ML SOLUTION 5 ML PO Q4 HRS NEEDED PRN PAIN (Reported) Risperidone (Risperdal) 1 MG TABLET 1 TAB PO BID MENTAL HEALTH (Reported) Warfarin Sodium (Coumadin) 2.5 MG TABLET 1 TAB PO SuWeSa BLOOD THINNER ( Reported) Warfarin Sodium (Coumadin) 5 MG TABLET 1 TAB PO MoTuThFr BLOOD THINNER ( Reported) Past History Travel History Traveled to [place] past 21 day No Medical History Neurological: NONE EENT: NONE Cardiovascular: chronic venous insuff, hypertension Respiratory: pulmonary embolism, X 2 Gastrointestinal: NONE Hepatic: NONE Renal: NONE Musculoskeletal: NONE Psychiatric: psychosis NOS Endocrine: diabetes Blood Disorders: NONE Cancer(s): ovarian cancer (Stage 4), METASTATIC CANCER LAB SUPPORT TECHNICIAN/Reproductive: NONE History of MRSA: No History of VRE: No History of CDIFF: No Tetanus Vaccine: Surgical History Surgical History: cholecystectomy, s/p left 5th MT resection 01/2014 CYST REMOVAL OFF NOSE laparotomy Past Family/Social History Psychosocial History Where do you live? Home Who Do You Live With? spouse Services at Home: None Primary Language: Liberian ETOH Use: denies use Functional Ability ADLs Independent: dressing, eating, toileting, bathing. Ambulation: independent IADLs Independent: shopping, housework, finances, food prep, telephone, transportation , medication admin. Review of Systems Review of Systems Constitutional: Reports: see HPI. Exam & Diagnostic Data Last 24 Hrs of Vital Signs/I&O Vital Signs Date Time Temp Pulse Resp B/P B/P Pulse O2 O2 Flow FiO2 Mean Ox Delivery Rate 10/05 2035 Nasal 4.0L Cannula 10/05 1819 97.7 119 20 106/80 96 Nasal 4.0L Cannula 10/05 1755 Nasal 4.0L Cannula 10/05 1559 96.9 116 16 124/86 97 Nasal 4.0L Cannula 10/05 1352 95 Nasal 4.0L Cannula 10/05 1327 94 Nasal 4.0L Cannula 10/05 1320 97.3 10/05 1314 123 38 120/85 94 Nasal Cannula Intake & Output 10/05 1600 10/05 0800 10/05 0000 Intake Total 30 Output Total Balance 30 Intake, IV 30 Patient 255 lb Weight Weight Reported by Patient Measurement Method Physical Exam General Appearance Cooperative, Mild Distress, respiratory distress Skin Temp/Moisture Exam: Cool/Diaphoretic Sepsis Skin Exam (color): Pale HEENT Atraumatic Cardiovascular Regular Rate, Normal S1, Normal S2 Lungs prolonged expiratory phase, deep labored breathing Abdomen Normal Bowel Sounds, firm, distended Neurological Normal Tone, Sensation Intact Extremities 2-3+ pitting edema of the LEs bilaterally, multiple wounds on the distal LEs bilaterally currently dressed with kerlex Body Front and Back (Adult) 1) wounds 2) wounds Last 24 Hrs of Labs/Lucius: Laboratory Tests 10/05/170: Lactic Acid Pending 10/05/17 1432: Lactic Acid 2.6 H 10/05/17 1432: Anion Gap 10, Estimated GFR > 60, BUN/Creatinine Ratio 26.3 H, Glucose 166 H, Calcium 7.6 L, Total Bilirubin 0.7, AST 20, ALT 18, Alkaline Phosphatase 151 H , Troponin I 0.02, Cxv-D-Jnpnhfiqupd Pept 715 H, Total Protein 5.8 L, Albumin 2.3 L, Globulin 3.5, Albumin/Globulin Ratio 0.7 L 10/05/17 1344: PT 19.5 H, INR 1.78 H, CBC w Diff MAN DIFF ORDERED, RBC 4.16 L, MCV 77.6 L, MCH 23.5 L, MCHC 30.3 L, RDW 22.0 H, MPV 6.8 L, Gran % 92.2 H, Lymphocytes % 4.3 L, Monocytes % 3.1, Eosinophils % 0.2, Basophils % 0.2, Absolute Granulocytes 18.3 H, Segmented Neutrophils 92 H, Band Neutrophils 2, Absolute Lymphocytes 0.8 L, Lymphocytes 3 L, Monocytes 3, Absolute Monocytes 0.6, Absolute Eosinophils 0, Absolute Basophils 0, Platelet Estimate INCREASED, Hypochromic-Microcytic 1+, Poikilocytosis FEW Microbiology 10/05 1405 BLOOD: Blood Culture - RECD 10/05 1344 BLOOD: Blood Culture - RECD Diagnostic Data EKG Results sinus tachy, HR 110, QTc 455 CXR Results FINDINGS: Hypoventilatory exam. Stable cardiomediastinal silhouette. A right-sided PICC line is in place with tip projecting on the caval atrial junction. Moderate left-sided pleural effusion. There are elongated left-sided pulmonary opacities, most likely represent atelectasis. No pneumothorax. IMPRESSION: Moderate left-sided pleural effusion and left lung pulmonary opacity, most likely atelectasis. Assessment/Plan Assessment: Patient is a 51-year-old female with an extensive past medical history significant for HTN, chronic venous insufficiency, lymphedema, metastatic stage IV ovarian cancer, not on chemotherapy or radiation therapy, DVT and PE on Coumadin, neuropathy, COPD, nephrolithiasis who presented to the [facility] for elective palliative paracentesis was noted to be pale and in respiratory distress on presentation. She was found to be hypoxic with pulse ox of 80% on RA. She is in mild respiratory distress complaining of burning sensation of the abdomen and throat. She has chronic wounds on her distal lower extremities. Labs are significant for hyponatremia, leukocytosis, subtherapeutic INR, microcytic anemia, elevated lactic Problem list #Acute hypoxic respiratory failure #Leukocytosis; patient is afebrile and normotensive #Hyponatremia #Subtherapeutic INR #Microcytic anemia #Chronic medical problems Plan -Admit to general medicine -Wound care consult -IR consult in a.m. for diagnostic and therapeutic paracentesis to rule out SBP -Contact patient's oncologist in a.m. -Continued goals of care discussion with patient and patient's -Monitor INR and dose Coumadin accordingly -Patient received ceftriaxone and azithromycin in the ED, will hold further antibiotics pending further workup -TRC/nebs, supplemental O2 as needed -Follow-up blood cultures -Follow-up urine lytes -Trend sodium with BEP -trend lactic acid Diet: Nothing by mouth midnight for possible paracentesis DVT prophylaxis: Coumadin, ALPS CODE STATUS: Full code As Ranked By This Provider Problem List: 1. Sepsis 2. Lactic acidosis 3. Leukocytosis, unspecified 4. Hyponatremia 5. Subtherapeutic anticoagulation Core Measures/Misc (03/29) Acute Coronary Syndrome ACS Diagnosis: No Congestive Heart Failure Congestive Heart Failure Diagnosis No Cerebrovascular Accident CVA/TIA Diagnosis: No VTE (View Protocol) VTE Risk Factors Cancer/chemo/othr therapy No Mechanical VTE Prophylaxis d/t N/A MechProphylax Ordered No VTE Pharm Prophylaxis d/t NA PharmProphylax ordered Sepsis (View protocol) Sepsis Present: No Dakota LIM,Elena 10/05/17 1539: Exam & Diagnostic Data Last 24 Hrs of Vital Signs/I&O Vital Signs Date Time Temp Pulse Resp B/P B/P Pulse O2 O2 Flow FiO2 Mean Ox Delivery Rate 10/05 2034 Nasal 4.0L Cannula 10/05 1819 97.7 119 20 106/80 96 Nasal 4.0L Cannula 10/05 1755 Nasal 4.0L Cannula 10/05 1559 96.9 116 16 124/86 97 Nasal 4.0L Cannula 10/05 1352 95 Nasal 4.0L Cannula 10/05 1327 94 Nasal 4.0L Cannula 10/05 1320 97.3 10/05 1314 123 38 120/85 94 Nasal Cannula Intake & Output 10/05 1600 10/05 0800 10/05 0000 Intake Total 30 Output Total Balance 30 Intake, IV 30 Patient 255 lb Weight Weight Reported by Patient Measurement Method Resident Review Statement Resident Statement: examined this patient, discussed with undergraduate intern, agreed with undergraduate intern Other Findings: 51-year-old female with PMH of hypertension, chronic venous insufficiency, chronic lymphedema, metastatic stage IV ovarian cancer, vaginal bleeding not on chemotherapy or radiotherapy, DVT/PE on coumadin,neuropathy, COPD on nocturnal oxygen, nephrolithiasis presentsn with worsening SOB and oxygen desaturation. Patient has been getting weekly palliative therapeutic paracentesis for the past 3 weeks. Problem List 1. Left Pleural Effusion 2. Hyponatremia 3. Leukocytosis rule out SBP 4. Subtherapeutic INR 5. Bilateral LE lymphedema with chronic wounds Plan Admit to Check Urine lytes/Osmolality She received one dose of IV antibiotics (ceftriaxone and azithro) today IR evaluation in a.m. for possible diagnostic and therapeutic paracentesis Watch off antibiotics for now Oncologist consult in a.m. TRC nebs Incentive spirometry Wound care consult in am Oxygen via nasal cannula as needed Dose Coumadin 5 mg today [ insists patient has to take her Coumadin today at 8 PM on the dot]; will recheck INR in a.m. Consider goals of care discussions Follow attending recommendations Camron Donald MD 10/05/17 9411: Attending MD Review Statement Attending Statement Attending MD Statement: examined this patient, discuss w/resident/PA/SMALL MACHINE BINDERY OPERATOR, agreed w/resident/PA/SMALL MACHINE BINDERY OPERATOR, discussed with family, reviewed EMR data (avail), discussed with nursing, reviewed images, amended to note Attending Assessment/Plan: The patient is a 51 yo female with h/o HTN, chronic LE lymphedema, stage IV ovarian ca (s/o XRT and prior chemo), h/o DVT and PE (on coumadin), COPD, neuropathy, and nephrolithiasis who presented in the [place] ED with c/o dyspnea and hypoxia (80%) after presenting in IR for planned therapeutic paracentesis. The patient had had last paracentesis 09/28 in IR and 3 liters were removed. Fluid has reaccumulated. Her has noted some respiratory distress and noted that she c/o a burning sensation in her abdomen. He has been followed by oncology at [facility] in [place] and states he is looking for another oncologist who will treat her with chemotherapy. Her LE edema has been stable as per , however ascites has increased. Physical Exam: VS: T 97.7, P 123-119, R 38-20, BP 120/84, PO 94-97% 4L HEENT: eyes- PERRLA, EOMI marilyn- moist mucosa Neck: no JVD Chest: diminished BS at bases, clear Cor: tachy, reg, nl S1, S2 Abd: BS quiet, + tense ascites w/o significant tenderness Ext: 2-3+ edema bilat Neuro: non-focal exam Labs/Tests- as above Impression/Plan: #Acute Hypoxic Respiratory Failure- most likely secondary to atelectasis/ decreased mobility of diaphragm due to ascites. No cough or symptoms of pneumonia. Has pleural effusion as well. Plan: Will support with nasal oxygen and follow pulse ox> Will perform paracentesis and thoracentesis. #Stage IV Ovarian Cancer- patient requiring frequent paracentesis for malignant ascites. Does not appear to be candidate for further chemotherapy. states had appointment with Radiation Oncology for tomorrow (Dr. Mcclure). Her primary oncologist is in [facility] in [place] (Dr. Lee). Plan: Will need to contact Dr. Lee and obtain guidance in therapy. Also input from Radiation Oncology (Dr. Mcclure). If patient is not really candidate for further treatment need to have realistic goals of care discussion. stated he wishes her to have further aggressive treatment. #H/O DVT/PE- patient states that paracentesis has been done with INR > 3. Wishes coumadin to be given this evening (5 mg). Plan: Will give coumadin as per request- follow-up INR in morning. #Leukocytosis/Possible Sepsis- no obvious source of infection. No fever. No significant abdominal tenderness, however patient has had multiple paracentesis and need to exclude peritonitis. The patient did receive Ceftriaxone and Zithromax in ED for possible pneumonia (however no infiltrate). Plan: Will do diagnostic and therapeutic paracentesis in morning in IR. As above , the patient's insisted on giving Coumadin. Follow-up WBC and lactate level as per protocol. Rangel culture. #COPD- some atelectasis. Plan: Agree with [facility] nebs and incentive spirometry. #Hyponatremia- noted Na 125. Patient was recently given Lasix. Was 135 last admission. states she has been drinking a lot of water. Plan: Hold Lasix and follow-up Na in morning. Check urine lytes/osms.
[2017-10-05 18:19] VITALS: BP 106/80
[2017-10-05 22:50] VITALS: BP 114/80
--- NOTE | 2017-10-05 23:24 | Admission Certification ---
Admission Certification Certification Statement - As attending physician, I certify that at the time of - admission, based on clinical presentation, severity of - symptoms, need for further diagnostic testing and - therapeutic interventions, and risk of adverse outcomes - without in-hospital treatment, in my clinical assessment, - this patient requires an acute hospital stay for a minimum - of two nights or longer. I have also considered psychsocial - factors such as support system, advanced age, financial - issues, cognitive issues, and failed out-patient treatments, - past re-admission history, safety of patient, and lack of - compliance as applicable. Specific rationale supporting this admission is: Patient presents with acute hypoxic respiratory failure probably secondary to severe malignant ascites. Needs therapeutic and diagnostic paracentesis. Also with leukocytosis and possible peritonitis/infection. Received IV antibiotics in ED. Consult with Oncology and Radiation Oncology.
--- NOTE | 2017-10-06 03:07 | Event Note ---
Event Note Event Note: I was paged that patient's doesn't want to continue normal saline and also he doesn't want to keep the patient nothing by mouth. I discussed this with my resident and went to see the patient. I spoke to the patient and her about the condition. Also I explained to him why we are keeping the patient nothing by mouth. Patient told me that he did some research about patient's condition and he doesn't want to keep the patient nothing by mouth because it's causing her pain due to empty stomach. Also I told me that due to patient's a regular diet she's not making protein and that's causing her ascites. also wants to give patient morphine 6 mg every 3 hourly.
[2017-10-06 07:00] VITALS: BP 104/68
--- NOTE | 2017-10-06 07:04 | PN- Housestaff ---
Benjamin LIM,Mine 10/06/17 0704: Subjective Follow-up For: Acute hypoxic respiratory failure Stage IV ovarian cancer Subjective: Patient seen and examined. Complaining of 10 out of 10 pain. at the bedside. They wish aggressive management and aggressive pain control. Patient stated all her stomach and throat are burning. Review of Systems Constitutional: Reports: see HPI. Objective Last 24 Hrs of Vital Signs/I&O Vital Signs Date Time Temp Pulse Resp B/P B/P Pulse O2 O2 Flow FiO2 Mean Ox Delivery Rate 10/06 0700 97.5 117 24 104/68 96 Nasal 4.0L Cannula 10/06 0000 Nasal 4.0L Cannula 10/05 2250 97.8 116 24 114/80 94 Nasal 4.0L Cannula 10/05 2035 Nasal 4.0L Cannula 10/05 1819 97.7 119 20 106/80 96 Nasal 4.0L Cannula 10/05 1755 Nasal 4.0L Cannula 10/05 1559 96.9 116 16 124/86 97 Nasal 4.0L Cannula Intake & Output 10/06 1600 10/06 0800 10/06 0000 Intake Total 425 250 Output Total 75 Balance 425 175 Intake, IV 225 150 Intake, Oral 200 100 Output, Urine 75 Patient 236 lb 250 lb Weight Weight Reported by Patient Measurement Method Physical Exam General Appearance: Moderate Distress Skin: No Rashes HEENT: Atraumatic Cardiovascular: Normal S1, Normal S2 Lungs: dercreased lung sounds Abdomen: distended Neurological: Normal Speech Extremities: 3+ b/l lower extremity edema Current Medications: Current Medications Sig/Jessika Start time Last Medication Dose Route Stop Time Status Admin Acetaminophen 650 MG Q6P PRN 10/05 1630 AC 10/06 PO 0934 Al Hydroxide/Mg 30 ML .STK-MED ONE 10/06 0216 DC Hydroxide PO 10/06 0217 Al Hydroxide/Mg 30 ML Q4-6 PRN PRN 10/05 2100 AC 10/06 Hydroxide PO 0218 Azithromycin 500 MG Q24H 10/06 1000 CAN Sodium Chloride 250 ML IV Azithromycin 500 MG ONCE ONE 10/05 1500 DC 10/05 Dextrose/Water 250 ML IV 10/05 1559 1524 Ceftriaxone Sodium 1,000 MG DAILY 10/06 1000 CAN IV Ceftriaxone Sodium 0 .STK-MED ONE 10/05 1518 DC .ROUTE Ceftriaxone Sodium 1,000 MG ONCE ONE 10/05 1500 DC 10/05 IV 10/05 1501 1524 Fentanyl Citrate 50 MCG Q72H 10/06 0900 AC 10/06 TOP 0938 Gabapentin 100 MG BID 10/05 2200 AC 10/06 PO 0924 Guaifenesin 10 ML Q6P PRN 10/06 0600 AC 10/06 PO 0617 Hydromorphone HCl 4 MG Q3P PRN 10/06 1115 AC PO Hydromorphone HCl 4 MG Q4P PRN 10/06 0900 DC 10/06 PO 0924 Influenza Virus 0.5 ML ONCE ONE 10/05 1900 DC Vaccine IM 10/05 1901 Morphine Sulfate 4 MG ONCE ONE 10/06 1415 UNVr IV 10/06 1416 Morphine Sulfate 10 MG Q4P PRN 10/06 1115 AC 10/06 PO 1147 Morphine Sulfate 4 MG ONCE ONE 10/06 0315 DC 10/06 IV 10/06 0316 0331 Morphine Sulfate 2 MG Q6P PRN 10/05 2245 AC 10/06 IV 0553 Morphine Sulfate 10 MG Q4 HRS NEEDED PRN 10/05 2100 DC 10/05 PO 2235 Morphine Sulfate 2 MG ONCE ONE 10/05 1445 DC 10/05 IV 10/05 1446 1435 Morphine Sulfate 0 .STK-MED ONE 10/05 1426 DC .ROUTE Omeprazole 40 MG DAILY AC 10/06 0700 AC 10/06 PO 0550 Pantoprazole Sodium 40 MG ONCE ONE 10/06 0400 DC 10/06 IV 10/06 0401 0406 Risperidone 1 MG BID 10/05 2200 AC 10/06 PO 0923 Sodium Chloride 1,000 ML .Q10H 10/06 0315 AC IV 10/06 2314 Sodium Chloride 1,000 ML Q13H 10/05 2100 DC 10/05 IV 10/06 0659 2226 Warfarin Sodium 5 MG COUMADIN 1700 ONE 10/05 1700 DC 10/05 PO 10/05 1701 2223 Last 24 Hrs of Lab/Lucius Results Last 24 Hrs of Labs/Mics: Laboratory Tests 10/06/17 1042: Lactic Acid 1.7 10/06/17 0754: Anion Gap 14, Estimated GFR > 60, BUN/Creatinine Ratio 35.7 H, Total Protein 5.8 L, Albumin 2.3 L, PT 21.4 H, INR 1.95 H, CBC w Diff NO MAN DIFF REQ, RBC 3.74 L, MCV 77.3 L, MCH 24.1 L, MCHC 31.1 L, RDW 21.4 H, MPV 6.6 L, Gran % 88.7 H, Lymphocytes % 4.7 L, Monocytes % 6.3, Eosinophils % 0.2, Basophils % 0.1, Absolute Granulocytes 17.5 H, Absolute Lymphocytes 0.9 L, Absolute Monocytes 1.2 H, Absolute Eosinophils 0, Absolute Basophils 0 10/05/17 2345: Lactic Acid 2.5 H 10/05/17 2040: Lactic Acid 2.3 H 10/05/17 1432: Lactic Acid 2.6 H 10/05/17 1432: Anion Gap 10, Estimated GFR > 60, BUN/Creatinine Ratio 26.3 H, Glucose 166 H, Calcium 7.6 L, Total Bilirubin 0.7, AST 20, ALT 18, Alkaline Phosphatase 151 H , Troponin I 0.02, Xud-V-Yglzvvkjctr Pept 715 H, Total Protein 5.8 L, Albumin 2.3 L, Globulin 3.5, Albumin/Globulin Ratio 0.7 L Microbiology 10/06 0943 BODY FLUID: Body Fluid Culture - COLB 10/06 0943 BODY FLUID: Gram Stain - COLB 10/06 0857 BODY FLUID: Body Fluid Culture - COLB 10/06 0857 BODY FLUID: Gram Stain - COLB Assessment/Plan Assessment: Patient is a 51-year-old female with an extensive past medical history significant for HTN, chronic venous insufficiency, lymphedema, metastatic stage IV ovarian cancer, not on chemotherapy or radiation therapy, DVT and PE on Coumadin, neuropathy, COPD, nephrolithiasis who presented to the [facility] for elective palliative paracentesis was noted to be pale and in respiratory distress on presentation. She was found to be hypoxic with pulse ox of 80% on RA. She was in mild respiratory distress complaining of burning sensation of the abdomen and throat. She has chronic wounds on her distal lower extremities. Labs were significant for hyponatremia, leukocytosis, subtherapeutic INR, microcytic anemia, elevated lactic She is being evaluated and treated for following conditions Acute Hypoxic Respiratory Failure- most likely secondary to atelectasis/ decreased mobility of diaphragm due to ascites. No cough or symptoms of pneumonia. -nasal oxygen and follow pulse ox> -paracentesis and thoracocentesis planned for today #Stage IV Ovarian Cancer- patient requiring frequent paracentesis for malignant ascites. Does not appear to be candidate for further chemotherapy. states had appointment with Radiation Oncology for tomorrow (Dr. Mcclure). Her primary oncologist is in [facility] in [place] (Dr. Lee). -Goals of care discussion adamant about aggressive maangement. -Adeqaute pain management #H/O DVT/PE- patient states that paracentesis has been done with INR > 3 -Patient was seen on Coumadin 5 mg yesterday evening as per patient's request -INR today 1.95 #Leukocytosis/Possible Sepsis- no obvious source of infection. No fever. No significant abdominal tenderness, however patient has had multiple paracentesis and need to exclude peritonitis. The patient did receive Ceftriaxone and Zithromax in ED for possible pneumonia (however no infiltrate). -Diagnostic and therapeutic paracentesis and thoracocentesis with IR. -Cultures no growth so far -Monitor off antibiotics #COPD- some atelectasis. -TRC nebs and incentive spirometry. #Hyponatremia- noted Na 125. Patient was recently given Lasix. Was 135 last admission. states she has been drinking a lot of water. -Hold Lasix -F/U BEP -urine lytes/osms #Wound consult placed with Dr. finley Diet: Nothing by mouth midnight for possible paracentesis DVT prophylaxis: Coumadin, ALPS CODE STATUS: Full code Problem List: 1. 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 site Pain Ratin Pain Location: diffuse Pain Goal: Remain pain free Pain Plan: prn Tomorrow's Labs & Rationales: cbc bep Arelis Benavidez MD 10/06/17 1123: Attending MD Review Statement Attending Statement Attending MD Statement: examined this patient, discuss w/resident/PA/ELECTRONIC DIE MAKER, agreed w/resident/PA/ELECTRONIC DIE MAKER, reviewed EMR data (avail) Attending Assessment/Plan: 51F PMH HTN, chronic LE lymphedema, stage IV ovarian ca (s/o XRT and prior chemo ), h/o DVT and PE (on coumadin), COPD, neuropathy, and nephrolithiasis admitted overnight after becoming hypoxic just prior to therapeutic paracentesis, found to have moderate left sided pleural effusion with atelectasis, no evidence of infection, with uncontrolled pain. Plan - continue on general medicine - Restart home pain meds - Thoracentesis and paracentesis today - Gentle IV hydration - Discharge tomorrow morning with outpatient oncology follow up if saturation improves
[2017-10-06 08:39] LABS: PT 21.4 SEC (9.4-12.5)
[2017-10-06 08:40] LABS: ABSOLUTE BASOPHIL COUNT 0 /CUMM (0.0-0.2); ABSOLUTE EOSINOPHIL COUNT 0 /CUMM (0.0-0.7); ABSOLUTE GRANULOCYTE CT 17.5 /CUMM (1.4-6.5); ABSOLUTE LYMPH COUNT 0.9 /CUMM (1.2-3.4); ABSOLUTE MONOCYTE COUNT 1.2 /CUMM (0.10-0.60); BASOPHIL % 0.1 % (0.0-2.0); EOSINOPHIL % 0.2 % (0-5); HEMATOCRIT 28.9 % (37-47); MEAN CORPUSCULAR HGB 24.1 PG (27.0-31.0); MEAN CORPUSCULAR HGB CONC 31.1 G/DL (33.0-37.0); MEAN CORPUSCULAR VOLUME 77.3 FL (81.0-99.0); MEAN PLATELET VOLUME 6.6 FL (7.4-10.4); RBC DISTRIBUTION WIDTH 21.4 % (11.5-14.5); RED BLOOD CELL CT 3.74 /CUMM (4.20-5.40); WHITE BLOOD CELL COUNT 19.8 /CUMM (4.8-10.8)
[2017-10-06 10:35] LABS: GRANULOCYTE % 88.7 % (42.2-75.2); PLATELET COUNT 392 /CUMM (130-400)
[2017-10-06 14:31] VITALS: BP 108/64
[2017-10-06 17:20] VITALS: BP 102/60
--- NOTE | 2017-10-06 17:29 | ULTRASOUND REPORT ---
CLINICAL HISTORY: This patient is a 51 year old Female with recurrent ascites, who is referred to Interventional Radiology for ultrasound-guided paracentesis. The patient also has a moderate left-sided pleural effusion and thoracentesis was also requested. However, when the patient presented for her procedure, she refused to proceed with the thoracentesis. PROCEDURE: Ultrasound-guided paracentesis. PHYSICIANS: Dr. Lino Carter (attending). MEDICATIONS: 10 mL of 1% lidocaine SQ. COMPLICATIONS: None ESTIMATED BLOOD LOSS: <5 mL SPECIMENS: None IMPLANT: None. SITE MARKING: As part of the preprocedure verification policy, a site marking procedure was initiated. Due to the nature the procedure, the insertion site could not be predetermined thus invoking the policy of exemption to site laterality and marking. Insertion site marking was performed in the procedure room in conjunction with imaging confirmation. PROCEDURE NOTE: Informed consent was obtained from the patient's prior to the procedure. During this process, the procedure and potential alternatives were explained along with the intended outcome and benefits. The risks of the procedure, including the possibility of an unsuccessful procedure, as well as the risk of not doing the procedure, were discussed. The patient's was given the opportunity to ask questions regarding the procedure and appeared competent to make decisions. A signed consent form documenting this discussion was placed in the medical record. A time-out procedure was performed. Appropriate preprocedure medical history and imaging studies were reviewed. The patient was brought to the ultrasound room and placed in the supine position. A time-out procedure was performed. Ultrasound images of the abdomen were obtained to localize a moderate collection of ascites in the right upper quadrant. Small amount of significantly complex multiseptated fluid was seen in the right lower quadrant and left lower quadrant. Carcinomatosis was noted in the abdomen. Images were permanently saved to the record. An area of the right upper quadrant was prepped and draped in the standard sterile fashion. All elements of maximal sterile barrier technique followed including use of cap, mask, sterile gown, sterile gloves, a sterile full body drape and hand hygiene. Also followed skin preparation with 2% chlorhexidine for cutaneous antisepsis, and sterile ultrasound preparation with sterile gel and probe cover when applicable. 10 mL of 1% lidocaine was used to obtain local anesthesia of the skin and deeper tissues. A standard small-bore needle was introduced to sample fluid and demonstrated a safe access route. There was no evidence of traversing adjacent organs or vascular structures. A 6-Fr [id number] closed needle/catheter system was utilized for access. 2760 mL of cloudy brown fluid was aspirated before drainage ceased. The catheter was removed and sterile dressing applied. The patient tolerated the procedure well without evidence of complications. FINDINGS: Moderate simple abdominal ascites in the right upper quadrant. Small amount of significantly complex multiseptated fluid in the right and left lower quadrants. IMPRESSION: Successful ultrasound-guided therapeutic and diagnostic paracentesis. PLAN: The patient was stable after the procedure. The patient will be transferred to her medical room.
[2017-10-06 22:54] VITALS: BP 110/60
[2017-10-07 06:46] VITALS: BP 102/62
--- NOTE | 2017-10-07 07:21 | PN- Housestaff ---
Benjamin LIM,Mine 10/07/17 0720: Subjective Follow-up For: Stage IV ovarian cancer Malignant ascites Subjective: Seen and examined patient is complaining of 9 out of 10 pain burning sensation in the stomach and throat at bedside unrealistic goals of care prognosis remains guarded. Review of Systems Constitutional: Reports: see HPI. Objective Last 24 Hrs of Vital Signs/I&O Vital Signs Date Time Temp Pulse Resp B/P B/P Pulse O2 O2 Flow FiO2 Mean Ox Delivery Rate 10/07 1428 97.9 116 20 118/82 96 10/07 1239 97.9 112 28 108/70 97 Nasal 4.0L Cannula 10/07 0800 Nasal 4.0L Cannula 10/07 0646 98.0 116 20 102/62 97 10/07 0000 Nasal 4.0L Cannula 10/06 2254 96.5 118 21 110/60 97 Nasal Cannula 10/06 1810 123 10/06 1720 96 Nasal 4.0L Cannula 10/06 1720 121 20 102/60 96 Nasal Cannula Intake & Output 10/07 1600 10/07 0800 10/07 0000 Intake Total 300 480 980 Output Total Balance 300 480 980 Intake, IV 500 Intake, Oral 300 480 480 Patient 232 lb Weight Physical Exam General Appearance: Alert, Oriented X3, Cooperative Cardiovascular: Normal S1, Normal S2, No Murmurs Lungs: Clear to Auscultation Abdomen: distended Neurological: Normal Speech Current Medications: Current Medications Sig/Jessika Start time Last Medication Dose Route Stop Time Status Admin Acetaminophen 650 MG Q6P PRN 10/05 1630 AC 10/06 PO 0934 Al Hydroxide/Mg 30 ML Q4-6 PRN PRN 10/05 2100 10/06 Hydroxide PO 0218 Fentanyl Citrate 50 MCG Q72H 10/06 0900 10/06 TOP 0938 Gabapentin 100 MG BID 10/05 2200 AC 10/07 PO 1151 Guaifenesin 10 ML Q6P PRN 10/06 0600 AC 10/06 PO 0617 Hydromorphone HCl 4 MG Q3P PRN 10/06 1115 AC 10/07 PO 1151 Morphine Sulfate 10 MG Q4P PRN 10/06 1115 AC 10/06 PO 1147 Morphine Sulfate 2 MG Q6P PRN 10/05 2245 AC 10/07 IV 0549 Omeprazole 40 MG DAILY AC 10/06 0700 AC 10/07 PO 0550 Risperidone 1 MG BID 10/05 2200 AC 10/07 PO 1151 Sodium Chloride 1,000 ML .Q10H 10/06 0315 DC 10/06 IV 10/06 2314 1752 Warfarin Sodium 5 MG ONCE ONE 10/07 1115 DC 10/07 PO 10/07 1116 1151 Last 24 Hrs of Lab/Lucius Results Last 24 Hrs of Labs/Mics: Laboratory Tests 10/07/17 0600: PT Cancelled, INR Cancelled 10/06/17 1627: Fluid WBC 853 H, Fld Total RBCs Counted 22465 H 10/06/17 162: Lymphocytes 15, % Normal PMNs 31, Misc Hematology Test 54, Fluid Total Protein 4.1, Fluid Albumin 1.6 Microbiology 10/06 1626 BODY FLUID: Body Fluid Culture - RES 10/06 1626 BODY FLUID: Gram Stain - RES Assessment/Plan Assessment: Patient is a 51-year-old female with an extensive past medical history significant for HTN, chronic venous insufficiency, lymphedema, metastatic stage IV ovarian cancer, not on chemotherapy or radiation therapy, DVT and PE on Coumadin, neuropathy, COPD, nephrolithiasis who presented to the for elective palliative paracentesis was noted to be pale and in respiratory distress on presentation. She was found to be hypoxic with pulse ox of 80% on RA. She was in mild respiratory distress complaining of burning sensation of the abdomen and throat. She has chronic wounds on her distal lower extremities. Labs were significant for hyponatremia, leukocytosis, subtherapeutic INR, microcytic anemia, elevated lactic She is being evaluated and treated for following conditions Acute Hypoxic Respiratory Failure- most likely secondary to atelectasis/ decreased mobility of diaphragm due to ascites. No cough or symptoms of pneumonia. -nasal oxygen and follow pulse ox> -Patient underwent paracentesis and there was 2.7 L of fluid that was removed. SBP was negative saag <1.1 #Stage IV Ovarian Cancer- patient requiring frequent paracentesis for malignant ascites. Does not appear to be candidate for further chemotherapy. states had appointment with Radiation Oncology for tomorrow (Dr. Mcclure). Her primary oncologist is in [facility] in [place] (Dr. Lee). -Goals of care discussion adamant about aggressive maangement. -Adeqaute pain management #H/O DVT/PE -Coumadin dose at 5 mg today -Continue to monitor her INR and dose accordingly #Leukocytosis/Possible Sepsis- no obvious source of infection. No fever. No significant abdominal tenderness, however patient has had multiple paracentesis and need to exclude peritonitis. The patient did receive Ceftriaxone and Zithromax in ED for possible pneumonia (however no infiltrate). -He underwent paracentesis yesterday and diffuse thoracocentesis. SBP ruled out -Cultures no growth so far -Monitor off antibiotics #COPD- some atelectasis. -TRC nebs and incentive spirometry. #Hyponatremia- noted Na 125. Patient was recently given Lasix. Was 135 last admission. states she has been drinking a lot of water. -Hold Lasix -F/U BEP #Wound consult placed with Dr. finley Diet: Nothing by mouth midnight for possible paracentesis DVT prophylaxis: Coumadin, ALPS CODE STATUS: Full code Problem List: 1. Ovarian cancer Pain Ratin Pain Location: DIFFUSE Pain Goal: Pain 4 or less Pain Plan: PRN Tomorrow's Labs & Rationales: CBC BEP INR Arelis Benavidez MD 10/07/17 1046: Attending MD Review Statement Attending Statement Attending MD Statement: examined this patient, discuss w/resident/PA/ROVING MARKER, agreed w/resident/PA/ROVING MARKER, reviewed EMR data (avail) Attending Assessment/Plan: 51F PMH HTN, chronic LE lymphedema, stage IV ovarian ca (s/o XRT and prior chemo ), h/o DVT and PE (on coumadin), COPD, neuropathy, and nephrolithiasis admitted overnight after becoming hypoxic just prior to therapeutic paracentesis, found to have moderate left sided pleural effusion with atelectasis, no evidence of infection, with uncontrolled pain. Underwent paracentesis on 10/06. Refused thoracentesis. Pain controlled. Plan - Will discharge home. Family will care for patient with home nurses. STR refused. - Restart home pain meds - Outpatient radiation oncology follow up
[2017-10-07] MEDS ORDERED: OMEPRAZOLE20 M2 PO (08:27)
[2017-10-07] MEDS ORDERED: MAG-AL PLUS SUS30 ML PO (08:27)
--- NOTE | 2017-10-07 08:29 | Patient Discharge Instructions ---
Discharge Instructions General Discharge Information You were seen/treated for: Ovarian cancer Paracentesis Watch for these problems: fever, shortnesss of breath Special Instructions: please follow up with PCP within 1 week of d/c please follow up with cancer doctor within 1 week of d/c Diet Additional DIET Information: tolerated Activity Activity Self Limited: Yes Acute Coronary Syndrome Inclusion Criteria At DC or during hospital stay patient has or had the following: ACS DIAGNOSIS No Discharge Core Measures Meds if any: Prescribed or Continued at Discharge Meds if any: NOT Prescribed or Continued at Discharge Congestive Heart Failure Inclusion Criteria At DC or during hospital stay patient has or had the following: CHF DIAGNOSIS No Discharge Core Measures Meds if any: Prescribed or Continued at Discharge Meds if any: NOT Prescribed or Continued at Discharge Cerebrovascular accident Inclusion Criteria At DC or during hospital stay patient has or had the following: CVA/TIA Diagnosis No Discharge Core Measures Meds if any: Prescribed or Continued at Discharge Meds if any: NOT Prescribed or Continued at Discharge Venous thromboembolism Inclusion Criteria VTE Diagnosis No VTE Type NONE VTE Confirmed by (Test) NONE Discharge Core Measures - Per Current guidelines, there needs to be overlap - treatment for the first 5 days of Warfarin therapy. - If discharged on Warfarin prior to 5 days of - overlap therapy, the patient will need to be - assessed for post discharge needs including - *Post discharge parental anticoagulation - *Warfarin and/or parental anticoagulation education - *Follow up date to check INR post discharge At least 5 days overlap therapy as Inpatient No Meds if any: Prescribed or Continued at Discharge Note: Overlap Therapy is Warfarin and Anticoagulant Meds if any: NOT Prescribed or Continued at Discharge
--- NOTE | 2017-10-07 10:14 | Cons- Vascular Surgery ---
General Information and HPI Consulting Request Date of Consult: 10/07/17 Requested By: Arelis Benavidez MD Reason for Consult: Right leg wound and left foot wound Source of Information: patient, family, old records Exam Limitations: poor historian History of Present Illness: This is a 51-year-old woman with stage IV ovarian cancer note to Dr. Cruz's and my service. She has venous insufficiency and recently over the past year had developed a right pretibial wound. This became necrotic and required operative debridement and wound VAC. Recently this has been making improvements. She also has a history of lower extremity DVT and pulmonary embolus and is on anticoagulation. She is now admitted to the medical service with some shortness of breath and issues related to her ovarian cancer such as ascites. She also has a stable left foot wound which is covered with a nonadherent dressing. We are call for wound evaluation. Allergies/Medications Allergies: Coded Allergies: cefuroxime (From CEFTIN) (Intermediate, "LOST IT" 02/12/16) Home Med List: Fentanyl Citrate (Duragesic) 50 MCG/HOUR PATCH.TD72 50 MCG TOP Q72H pain control home medication increased from 25 mcg/hour to 50 mcg/hour q72 hours Gabapentin 100 MG CAPSULE 1 CAP PO BID NEUROPATHY (Reported) Hydromorphone HCl (Dilaudid) 4 MG TABLET 1 TAB PO Q4H PRN BREAKTHROUGH SEVERE PAIN (Reported) Mag Hydrox/Al Hydrox/Simeth (Mag-Al Plus Suspension) 200 MG-200 MG-20 MG/5 ML ORAL.SUSP 30 ML PO Q4-6 PRN PRN ABDOMINAL PAIN Morphine Sulfate (Morphine Sulfate Elixir 10mg/5ml) 10 MG/5 ML SOLUTION 5 ML PO Q4 HRS NEEDED PRN PAIN (Reported) Omeprazole 20 MG CAPSULE.DR 2 CAP PO DAILY AC GERD Risperidone (Risperdal) 1 MG TABLET 1 TAB PO BID MENTAL HEALTH (Reported) Warfarin Sodium (Coumadin) 2.5 MG TABLET 1 TAB PO SuWeSa BLOOD THINNER ( Reported) Warfarin Sodium (Coumadin) 5 MG TABLET 1 TAB PO MoTuThFr BLOOD THINNER ( Reported) Past History Medical History Blood Transfusion Hx: Yes Neurological: NONE EENT: NONE Cardiovascular: chronic venous insuff, hypertension Respiratory: pulmonary embolism, X 2 Gastrointestinal: NONE Hepatic: NONE Renal: NONE Musculoskeletal: NONE Psychiatric: psychosis NOS Endocrine: diabetes Blood Disorders: NONE Cancer(s): ovarian cancer (Stage 4), 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 Home Who Do You Live With? spouse Services at Home: None Primary Language: Syrian Smoking Status: Former Smoker ETOH Use: denies use Functional Ability ADLs Independent: dressing, eating, toileting, bathing. Ambulation: independent IADLs Independent: shopping, housework, finances, food prep, telephone, transportation , medication admin. Employment History Retired? unknown Review of Systems Review of Systems: Patient denies significant lower extremity complaints. Does have some mild shortness of breath. Exam & Diagnostic Data Vital Signs and I&O Vital Signs Date Time Temp Pulse Resp B/P B/P Pulse O2 O2 Flow FiO2 Mean Ox Delivery Rate 10/07 0646 98.0 116 20 102/62 97 10/07 0000 Nasal 4.0L Cannula 10/06 2254 96.5 118 21 110/60 97 Nasal Cannula 10/06 1810 123 10/06 1720 96 Nasal 4.0L Cannula 10/06 1720 121 20 102/60 96 Nasal Cannula 10/06 1431 97.7 115 22 108/64 96 Room Air Intake & Output 10/07 1600 10/07 0800 10/07 0000 10/06 1600 10/06 0800 10/06 0000 Intake Total 480 980 425 250 Output Total 75 Balance 480 980 425 175 Intake, IV 500 225 150 Intake, Oral 480 480 200 100 Output, Urine 75 Patient 232 lb 236 lb 250 lb Weight Weight Reported by Patient Measurement Method Physical Exam: Bilateral lower extremities are well-perfused, both lower legs are warm. There is a right pretibial ulceration which has granulation tissue and is healing well. The left foot wound demonstrates adequate granulation tissue and is covered now with a nonhealing type dressing. There is no evidence of chronic or acute ischemia. Physical Exam General Appearance: well developed/nourished, no apparent distress, alert, awake Extremities: pedal edema, swelling, tenderness Assessment/Plan Assessment/Plan 51-year-old female with mild venous insufficiency and multiple medical problems including ascites related to progressive ovarian cancer 1.) Recommend consider/continue anticoagulation/DVT prophy. when stable due to history of pulmonary embolus and is likely hypercoag. from CA. 2.) Wounds are stable and improving would recommend continued wound care with Hydrofera Blue and gauze wrap to right leg, may place a Mepilex or large Band- Aid on the left foot wound 3.) Continue care as per primary medical team 4.) May follow up with wound center as an outpatient Consult Acknowledgment - Thank you for your consult request.
--- NOTE | 2017-10-07 10:16 | Discharge Summary ---
Visit Information Visit Dates Admission Date: 10/05/17 Discharge Date: 10/08/17 Hospital Course Course Attending Physician: Arelis Benavidez MD Primary Care Physician: Vicente Boyd APRN [facility] Course: Patient is a 51-year-old female with an extensive past medical history significant for HTN, chronic venous insufficiency, lymphedema, metastatic stage IV ovarian cancer, not on chemotherapy or radiation therapy, DVT and PE on Coumadin, neuropathy, COPD, nephrolithiasis who [facility] for elective palliative paracentesis was noted to be pale and in respiratory distress on presentation. She was hypoxic to 80% on RA when measured and she was sent to the ED. She was in mild respiratory distress complaining of burning sensation of the abdomen and throat. She has chronic wounds on her distal lower extremities. Her labs on admission were significant for hyponatremia, leukocytosis, subtherapeutic INR, microcytic anemia, elevated lactic. CXR positive for moderate left-sided pleural effusion She was treated evaluated for acute hypoxic respiratory failure most likely secondary to atelectasis/decreased mobility of diaphragm due to malignant ascites resulting from stage IV ovarian cancer. There was no cough/symptoms of pneumonia present. Patient underwent diagnostic and therapeutic paracentesis on 10/06 drainage of about 3 L of fluid. SAAG was more than 1.1 most likely secondary to malignancy, absolute neutrophil count was 13 so SBP was also ruled out. She was offered a diagnostic/therapeutic thoracocentesis for moderate left- sided pleural effusion which she refused. Patient had persistent leukocytosis however she did not have any obvious source of infection and remained afebrile during her stay, hence was monitored off antibiotics. Pain control was an issue, and she was intially managed with IV morphine 2 mg Q6 , PO morphine 10mg Q4 and PO Dilaudid 4 mg Q4. In addition fentanyl patch and Neurontin (home medications) were continued. Later she was transitioned to 4 mg IV morphine Q4 PRN Patient had history of DVT/PE her Coumadin is dosed based on her INR. She did not recieve Coumadin on the day of paracentesis with her INR being 1.95 (very close to therapeutic). She received 5 mg of Coumadin on 10/07. She had supratherapeutic INR of 4.19, repeat 4.5 on 10/08. Patient's husnand believed that she was not being properly anticoagulated, despite explaining multiple times that her Coumadin is being dosed as per INR. He carried warfarin tabs in his pocket, it is very likely that he might have given it to her because the rise of INR from 1.7 to 1.98 to 4.19 despite not receiving warfarin from us one day; doesnot add up. Patient was also evaluated by for chronic bilateral lower extremity , who suggested to continue wound care with Hydrofera Blue and gauze wrap to right leg, Mepilex or large Band-Aid on the left foot wound, along with follow-up as an outpatient at wound center. Patient had been doing her dressings daily himself She was evaluated by PT and short-term rehabilitation was recommended which he declined Patient's was directing her care. It often appeared like we were treating patient's wishes rather than her. Patient's [place] language was [place] and her Tanzanian was not very good. Every time patient was evaluated she was in distress, agony and pain, always requesting morphine. Multiple meetings were held to explain the nature of patient's disease and final outcome. Of note he had mentioned that he was extremely unhappy with her oncologist for not pursuing any active chemotherapy/radiotherapy. She had stage IV ovarian cancer and her prognosis was extremely guarded and we believe the goals of care were unrealistic at that point. On 10/08 Dr. Donovan, Dr. Benavidez, case management had a long family meeting with pt and her , it was agreed in unison to proceed with palliative management and they decided to go to [facility] for hospice care. After discussion with on the phone around 3:00 PM we changed code status to HOSPICE, later to Comfort care after discussion with nursing supervisior as we were not doing hospice for her and they had opted for out-patient hospice care at [facility]. Interm we continued palliative care, keeping the patient as comfortable as possible and morphine as per patient's request. Patient passed on 10/08 around 9:30 PM. She became unresponsive after having copius amount of vomiting. She was evaluated by the night resident an product management internship, on their arrival HR, respiratory rate and blood pressure were undetectable. Pupils were fixed and dilated,there was no corneal reflex noted, heart sounds and breath sounds were absent, there was no air movement apparent with no chest excursions. was pronounced at 9:33 PM and patient's was informed over the phone. Allergies: Coded Allergies: cefuroxime (From CEFTIN) (Intermediate, "LOST IT" 02/12/16) Disposition Summary Disposition Principal Diagnosis: Malignant ascites Additional Diagnosis: Stage IV ovarian cancer Discharge Disposition: Discharge Instructions General Discharge Information Code Status: Comfort Care Only Patient's Diet: As tolerated Patient's Activity: n/a Follow-Up Instructions/Appts: n/a Medications at Discharge Discharge Medications: Continue taking these medications: Risperidone (Risperdal) 1 MG TABLET 1 Tablet ORAL TWICE DAILY Comments: Last Taken: 08/26/17 Time: 2219PM Gabapentin (Gabapentin) 100 MG CAPSULE 1 Capsule ORAL TWICE DAILY Comments: Last Taken:08/26/17 Time: 2219PM Fentanyl Citrate (Duragesic) 50 MCG/HOUR PATCH.TD72 50 Microgram On the skin Q72H Days = 7 Instructions: home medication increased from 25 mcg/hour to 50 mcg/hour q72 hours Comments: Last Taken:08/25/17 Time:00:17 RIGHT SHOULDER Hydromorphone HCl (Dilaudid) 4 MG TABLET 1 Tablet ORAL Q4H as needed for BREAKTHROUGH SEVERE PAIN Comments: Last Taken:08/25/17 Time:6:04 PM Warfarin Sodium (Coumadin) 2.5 MG TABLET 1 Tablet ORAL SuWeSa Warfarin Sodium (Coumadin) 5 MG TABLET 1 Tablet ORAL MoTuThFr Morphine Sulfate (Morphine Sulfate Elixir 10mg/5ml) 10 MG/5 ML SOLUTION 5 Milliliters ORAL EVERY 4 HOURS NEEDED as needed for PAIN Qty = 100 Start taking the following new medications: Mag Hydrox/Al Hydrox/Simeth (Mag-Al Plus Suspension) 200 MG-200 MG-20 MG/5 ML ORAL.SUSP 30 Milliliters ORAL EVERY 4-6 HOURS NEEDED as needed for ABDOMINAL PAIN Qty = 1 No Refills Omeprazole (Omeprazole) 20 MG CAPSULE.DR 2 Capsule ORAL DAILY BEFORE BREAKFAST Qty = 30 No Refills Copies To: Ren LMI,Gay Landeros; Vicente Boyd APRN
[2017-10-07 12:39] VITALS: BP 108/70
[2017-10-07 14:28] VITALS: BP 118/82
[2017-10-07 22:49] VITALS: BP 114/80
[2017-10-08 06:20] VITALS: BP 92/60
--- NOTE | 2017-10-08 07:36 | PN- Housestaff ---
See Addendum Subjective Follow-up For: Stage IV ovarian cancer Malignant ascites Subjective: Patient seen and examined. Continues to complain of 10 out of 10 pain and requesting morphine patient's at bedside. Yesterday he wanted her to be tested for H. pylori as cause of her stomach burning sensation. Patient and her were explained that it is unlikely. It was clearly explained that it is in best interest of patient to be discharged from the hospital because there is no active management going on and she is at risk of hospital-acquired infections. However they do not want to be discharged because they believe that she requires IV morphine for her pain control and oral morphine is contributing to irritation of stomach lining. 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 At present patient's remains unreceptive and wishes to pursue aggressive management. Of note he mentioned that he is unhappy with her oncologist for not pursuing any active chemotherapy/radiotherapy. Patient has stage IV ovarian cancer her prognosis remains guarded, I believe goals of care are unrealistic at this point. Of note the patient and her have refused thoracocentesis because last time it was done and caused patient too much pain last time, she has also been evaluated by PT and recommendations for short-term rehabilitation have been made however has been refused. Review of Systems Constitutional: Reports: see HPI. Objective Last 24 Hrs of Vital Signs/I&O Vital Signs Date Time Temp Pulse Resp B/P B/P Pulse O2 O2 Flow FiO2 Mean Ox Delivery Rate 10/08 0620 97.9 103 22 92/60 95 Nasal Cannula 10/07 2249 98.0 116 24 114/80 96 Nasal 4.0L Cannula 10/07 1600 Nasal 4.0L Cannula 10/07 1428 97.9 116 20 118/82 96 10/07 1239 97.9 112 28 108/70 97 Nasal 4.0L Cannula Intake & Output 10/08 1600 10/08 0800 10/08 0000 Intake Total 200 400 Output Total Balance 200 400 Intake, IV 0 Intake, Oral 200 400 Number 0 Bowel Movements Patient 231 lb Weight Weight Bed scale Measurement Method Physical Exam General Appearance: Alert, Oriented X3, Moderate Distress Skin: pale HEENT: Atraumatic Lungs: Clear to Auscultation, decreased breath sounds on bases Abdomen: distened Neurological: Normal Speech Assessment/Plan Assessment: Patient is a 51-year-old female with an extensive past medical history significant for HTN, chronic venous insufficiency, lymphedema, metastatic stage IV ovarian cancer, not on chemotherapy or radiation therapy, DVT and PE on Coumadin, neuropathy, COPD, nephrolithiasis who presented to the [facility] for elective palliative paracentesis was noted to be pale and in respiratory distress on presentation. She was hypoxic to 80% on RA when measured and she was sent to the ED. She was in mild respiratory distress complaining of burning sensation of the abdomen and throat. She has chronic wounds on her distal lower extremities. Her labs on admission were significant for hyponatremia, leukocytosis, subtherapeutic INR, microcytic anemia, elevated lactic. CXR positive for moderate left-sided pleural effusion -She is being treated and evaluated for acute hypoxic respiratory failure most likely secondary to atelectasis/decreased mobility of diaphragm due to malignant ascites resulting from stage IV ovarian cancer. There was no cough/symptoms of pneumonia present. Patient underwent diagnostic and therapeutic paracentesis on 10/06 drainage of about 3 L of fluid. SAAG was more than 1.1 most likely secondary to malignancy, absolute neutrophil count was 13 so SBP was also ruled out. She was offered a diagnostic/therapeutic thoracocentesis for moderate left -sided pleural effusion which she refused. Patient has persistent leukocytosis however she does not have any obvious source of infection and remains afebrile, hence is being monitored off antibiotics. -Pain control is an issue, and she is managed with IV morphine 2 mg Q6, PO morphine 10mg Q4 and PO Dilaudid 4 mg Q4. In addition fentanyl patch and Neurontin (home medications) are continued. -Patient has history of DVT/PE her Coumadin is dosed based on her INR. She did not recieve Coumadin on the day of paracentesis with her INR being 1.95 (very close to therapeutic). She received 5 mg of Coumadin yesterday. Today patient had supratherapeutic INR of 4.19, we are going to repeat the value and hold off Coumadin dosing today. -She has hyponatremia most recent value of 126 which will require further monitoring -Patient has also been evaluated by for chronic bilateral lower extremity, who suggested to continue wound care with Hydrofera Blue and gauze wrap to right leg, Mepilex or large Band-Aid on the left foot wound, along with follow-up as an outpatient at wound center Patient remains full code during her stay and wants all aggreasive may use to be done. She has stage IV ovarian cancer her prognosis remains guarded. Multiple meetings were held with regarding goals of care discussion but he was not receptive to any change in management. We have gotten in touch with Dr. Mcclure radiation oncologist office to make arrangements for an appointment, the office will get in touch with the for consideration of palliative radiation. Today we have another meeting planned to discuss further goals of care -The patient has been evaluated by PT and recommendation for STIR have been made. But has refused. Diet as tolerated/DVT prophylaxis with Coumadin and we will hold in setting of supratherapeutic INR/full code Problem List: 1. Ovarian cancer Pain Ratin Pain Location: diffuse Pain Goal: Remain pain free Pain Plan: prn Tomorrow's Labs & Rationales: inr
[2017-10-08 08:34] LABS: PT 45.5 SEC (9.4-12.5)
[2017-10-08 08:46] LABS: ABSOLUTE BASOPHIL COUNT 0 /CUMM (0.0-0.2); ABSOLUTE EOSINOPHIL COUNT 0 /CUMM (0.0-0.7); ABSOLUTE GRANULOCYTE CT 12.5 /CUMM (1.4-6.5); ABSOLUTE LYMPH COUNT 0.7 /CUMM (1.2-3.4); ABSOLUTE MONOCYTE COUNT 1.1 /CUMM (0.10-0.60); BASOPHIL % 0.1 % (0.0-2.0); EOSINOPHIL % 0.3 % (0-5); HEMATOCRIT 28.8 % (37-47); MEAN CORPUSCULAR HGB 23.7 PG (27.0-31.0); MEAN CORPUSCULAR HGB CONC 30.8 G/DL (33.0-37.0); MEAN CORPUSCULAR VOLUME 76.9 FL (81.0-99.0); MEAN PLATELET VOLUME 6.5 FL (7.4-10.4); PLATELET COUNT 421 /CUMM (130-400); RBC DISTRIBUTION WIDTH 21.5 % (11.5-14.5); RED BLOOD CELL CT 3.75 /CUMM (4.20-5.40); WHITE BLOOD CELL COUNT 14.3 /CUMM (4.8-10.8)
[2017-10-08 10:05] LABS: GRANULOCYTE % 87.3 % (42.2-75.2)
[2017-10-08 12:08] LABS: PT 50.6 SEC (9.4-12.5)
[2017-10-08 14:20] VITALS: BP 108/88
--- NOTE | 2017-10-08 15:22 | Event Note ---
Event Note Event Note: Dr. Donovan, Dr. Benavidez, case management had a long family meeting with pt and her , it was agreed in unison to proceed with palliative management, they have decided to go to [facility] for hospice care After discussion with on the phone around 3:00 PM we are changing code status to HOSPICE, pt will be transfered to [facility] tomorrow. Paper work ready Resident and attending informed Update Pt will be at comfort care status while in hospital after discussion with nursing supervisior, as we are not doing hospice care for her, will recieve hospice at [facility] meanwhile we will keep the pt comfortable. No blood draws. Morphine as needed as pr pt's request
--- NOTE | 2017-10-08 21:39 | Event Note ---
Event Note Event Note: S: RR was called around 9:25pm. Dr. Walker and I attended the rapid response. Per nursing staff as patient was being transferred on a bedpan she began to have copius amount of vomiting and became unresponsive. B: 51-year-old female with an extensive past medical history significant for HTN , chronic venous insufficiency, lymphedema, metastatic stage IV ovarian cancer, not on chemotherapy or radiation therapy, DVT and PE on Coumadin, neuropathy, COPD, nephrolithiasis current admission for elective palliative paracentesis. Earlier today there was a family meeting and patient's CODE STATUS was changed to comfort measures from full code with plans to be discharged to hospice at [facility] tomorrow. A/R: Vitals: HR, respiratory rate and blood pressure undetectable. On examination of the patient pupils were fixed and dilated, no corneal reflex noted, absent heart sounds and breath sounds for 1 minute minute no air movement apparent with no chest excursions. was pronounced at 9:[address] Walker called and informed patient's . 10 pm. When he arrrived to the hospital he was visibly upset and wanted to resuscitate the patient and was unable to accept her passing. Explained that the patient had passed and there was no further medical measures to be offered at this time. Offered computer support specialist support and also explained the option of autopsy to him. Book Canvasser Dr. Denton was aware of the above events.
== END 2017-10-08 21:33 | disposition expired | DRG 189 ==
LOC: ERH 13:05 → 2NA 15:35 → ERHI 15:35 → ENRESERV 16:24 → ENTRNSPT 17:19 → EDTRNSPT 17:41 → EDTRNSPTSTS 17:41 → 2NA 17:49 → CMPTRNSPT 18:04 → 2NA 10-06 12:16
PROVIDERS: Internal Medicine; Physician Assistant Medical; Student in an Organized Health Care Education/Training Program
DX: J96.21 Acute and chronic respiratory failure with hypoxia (principal); I26.99 Other pulmonary embolism without acute cor pulmonale; R18.0 Malignant ascites; C56.1 Malignant neoplasm of right ovary; C79.62 Secondary malignant neoplasm of left ovary; J90 Pleural effusion, not elsewhere classified; E87.2 Acidosis; E11.21 Type 2 diabetes mellitus with diabetic nephropathy; D72.829 Elevated white blood cell count, unspecified; I82.509 Chronic embolism and thrombosis of unspecified deep veins of unspecified lower extremity; E87.1 Hypo-osmolality and hyponatremia; Z66 Do not resuscitate; I10 Essential (primary) hypertension; I87.2 Venous insufficiency (chronic) (peripheral); I89.0 Lymphedema, not elsewhere classified; Z79.01 Long term (current) use of anticoagulants; Z88.1 Allergy status to other antibiotic agents; Z79.891 Long term (current) use of opiate analgesic; Z89.432 Acquired absence of left foot; R79.89 Other specified abnormal findings of blood chemistry; D50.9 Iron deficiency anemia, unspecified; J44.9 Chronic obstructive pulmonary disease, unspecified
CPT/HCPCS: 2NAP; 2NASP; 84133; 84300; 87075; 36415; 36592; 71045; 82436; 82570; 87040; 93005; 93010; 94799; 96374; 96375; 96376; J0456; J0696; J1940; J7040; J7060; Q2036